=== PATIENT | male | born 1940 | race Caucasian/White ===

== ENCOUNTER 2023-09-04 14:58 | Outpatient (CLI) | payer MEDICARE, SELFPAY ==
[2023-09-04 15:01] VITALS: BMI 25.0
--- NOTE | 2023-09-04 15:05 | PC.NURSE ---
1505-collected labs via venipuncture stick in left ac with butterfly needle;pt d/c home
[2023-09-04 15:15] LABS: Basophils % 0.6 % (0.1-2.0); Eosinophils # 0.3 K/mm3 (0.0-0.4); Eosinophils % 4.8 % (0.1-12.0); Hematocrit 37.4 % (42.0-52.0); Hemoglobin 12.1 g/dL (14.1-18.0); Lymphocytes # 0.8 K/mm3 (0.7-4.5); Lymphocytes % 11.6 % (10-50); Mean Corpuscular HGB Conc 32.5 g/dL (31.8-35.4); Mean Corpuscular Hemoglobin 30.9 pg (27.0-31.2); Mean Corpuscular Volume 95.1 fl (80-94); Mean Platelet Volume 8.5 fl (7.4-10.4); Monocytes # 0.3 K/mm3 (0.1-1.0); Monocytes % 4.5 % (1.7-9.3); Neutrophils # 5.1 K/mm3 (1.8-7.8); Neutrophils % 78.6 % (37.0-80.0); Platelet Count 161 K/mm3 (142-424); Red Blood Count 3.93 M/mm3 (4.60-6.20); Red Cell Distribution Width 15.2 % (11.5-17.5); White Blood Count 6.5 K/mm3 (4.8-10.8)
[2023-09-04 15:20] LABS: Chloride 103 mmol/L (98-107); Potassium 3.9 mmoL/L (3.5-5.1); Sodium 135 mmol/L (136-145)
[2023-09-04 15:23] LABS: Alanine Aminotransferase 36 U/L (12-78); Albumin Level 3.4 g/dl (3.5-5.0); Albumin/Globulin Ratio 1.5 (1.1-1.8); Alkaline Phosphatase 43 U/L (38-126); Anion Gap 5.9 mEq/L (5-15); Aspartate Amino Transferase 35 U/L (17-59); Bilirubin,Total 0.4 mg/dl (0.2-1.3); Blood Urea Nitrogen 26 mg/dl (9-20); Carbon Dioxide 30 mmol/L (22.0-30.0); Creatinine Clearance Estimated 67 mL/min (50-200); Estimated Glomerular Filt Rate 107 ml/min (>60); GFR (African American) 130 ML/MIN (>60); Globulin 2.3 g/dL (1.3-3.2); Total Protein,Serum 5.7 g/dl (6.3-8.2)
[2023-09-04 15:24] LABS: Glucose 87 mg/dl (74-100)
== END 2023-09-04 15:10 | disposition home or self-care (01) ==
LOC: INF 15:01
PROVIDERS: PCP Family Medicine; Visit Provider Internal Medicine Medical Oncology
DX: C67.9 Malignant neoplasm of bladder, unspecified (principal)
CPT/HCPCS: 36415; 80053; 85025

== ENCOUNTER 2023-09-19 10:43 | Outpatient (CLI) | payer MEDICARE, SELFPAY ==
--- NOTE | 2023-09-19 10:53 | CT_ITS ---
FINAL REPORT TECHNIQUE: Axial CT images were performed from the lung apices through the upper abdomen. Coronal and sagittal reformats were submitted. This study was performed with techniques to keep radiation doses as low as reasonably achievable (ALARA). Individualized dose reduction techniques using automated exposure control or adjustment of mA and/or kV according to the patient's size were employed. CLINICAL HISTORY: BLADDER CANCER MAR 2023 COMPARISON: None FINDINGS: Severe coronary artery calcifications are identified. Cardiomegaly is present. There are several thyroid nodules identified, nonspecific. Mild scarring is present. There is no axillary adenopathy. There is no hilar or mediastinal mass or adenopathy. There is no pericardial or pleural effusion. Limited images of the upper abdomen are unremarkable. No suspicious infiltrate or nodule is identified on lung window images. There is a severe T12 compression fracture as well as a moderate T2 compression fracture of uncertain chronicity. There is also a chronic fracture of the manubrium of the sternum. IMPRESSION: Severe coronary artery calcifications and cardiomegaly are present. Several thyroid nodules are present, nonspecific, would consider dedicated thyroid ultrasound for further evaluation as indicated. Severe T12 and moderate T2 compression fractures as well as a chronic manubrial fracture. Reviewed, Interpreted and Dictated by Eliel Reddy III, MD Transcribed by Katelyn Stephens Authenticated and [facility]
--- NOTE | 2023-09-19 10:53 | CT_ITS ---
FINAL REPORT CLINICAL HISTORY: BLADDER CANCER MAR 2023 COMPARISON: None FINDINGS: Axial CT images of the abdomen and pelvis were obtained without intravenous contrast. Coronal and sagittal reformatted images were also obtained.This study was performed with techniques to keep radiation doses as low as reasonably achievable (ALARA). Individualized dose reduction techniques using automated exposure control or adjustment of mA and/or kV according to the patient's size were employed. Abdomen: There is no evidence of renal stone or hydronephrosis. There are several low-attenuation hepatic masses present, measuring up to 2.3 mm in size, nonspecific but favor hepatic cysts. The gallbladder has been surgically resected. The spleen and pancreas have an unremarkable, unenhanced appearance. No mass or adenopathy is seen. No inflammatory process is identified. 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 There is a low-attenuation left adrenal nodule, favor adenoma. Pelvis: Images of the pelvis reveal no evidence of ureteral dilation or ureteral stone.No mass or abnormal fluid collection is identified. There is diffuse bladder wall thickening, nonspecific. A small left inguinal hernia containing fat is present as well. IMPRESSION: Diffuse bladder wall thickening, nonspecific. Several low-attenuation hepatic masses, nonspecific but favor cysts. Diffuse vascular calcifications with chronic focus of dissection in the abdominal aorta. Low-attenuation adrenal nodule, favor adenoma. Reviewed, Interpreted and Dictated by Eliel Reddy III, MD Transcribed by Katelyn Stephens Authenticated and [facility]
== END 2023-09-19 23:59 | disposition home or self-care (01) ==
LOC: RAD 10:45
PROVIDERS: PCP Family Medicine; Visit Provider Internal Medicine Medical Oncology
DX: C67.9 Malignant neoplasm of bladder, unspecified (principal); Z12.89 Encounter for screening for malignant neoplasm of other sites
CPT/HCPCS: 71250; 74176

== ENCOUNTER 2023-10-07 21:14 | Inpatient (IN) | payer MEDICARE, SELFPAY ==
--- NOTE | 2023-10-07 21:21 | PC.NURSE ---
pt arrived to floor via EMS stretcher @21:19
--- NOTE | 2023-10-07 22:15 | EXP.HP ---
History of Present Illness *Admission Date: 10/07/23 *Reason for visit:: dyspnea, leg swelling *History of present illness: Mr. Mckeon is an 82-year-old gentleman with history of COPD, A-fib, bladder cancer, remote history of smoking. Presented to outside hospital due to weakness and fall at home. States that he has had some increased swelling in his legs over the past 1 to 2 months. Has been having some increased dyspnea with exertion. Follows with cardiology in [place], initially was on Eliquis for A-fib which was discontinued due to blood in his stool and he was transition to 81 mg aspirin. Over the past 2 days he has been more weak and short of breath, fell at home because of his arthritis today and his was unable to get him off the floor. EMS came and helped him up and took him to the ER for evaluation. At [facility] he was found to have significant lower extremity edema. Mild elevation of his troponins and concern for volume overload on chest imaging. Kidney function and electrolytes normal. Reported labs include the following: White cell count of 6.6, hemoglobin 12, platelets 104. Kidney function with BUN 29 creatinine 0.9. Initial high-sensitivity troponin of 105, second of 215, third of 335. Chest x-ray was negative for focal consolidation but had pulmonary vascular congestion. Remote history of heart cath 8 to 10 years ago with no intervention at that time. Given his weakness, edema, and elevated troponin, concern for NSTEMI. [facility] salted for transfer and cardiology evaluation. On arrival, patient stable on room air. Able to lay flat in bed. Denies any chest pain. Shortness of breath at baseline for his COPD. No oxygen requirement. History of bladder cancer over the past few years. Recently transitioned care to Dr. Mcelroy and oncology at [facility]. See his note from 09/04/2023 with complete history of bladder cancer, resection, radiation and chemo. Patient appears to be without significant bladder lesions at this time and is not undergoing any further treatment. Just in surveillance at this time. Initially had hematuria with his bladder cancer but has not had hematuria since treatment. Patient received 40 mg IV Lasix at [facility]. EKG obtained on arrival showing atrial fibrillation, rate controlled. Noted to have mild elevation in troponin and BNP greater than thousand. [facility] Disclaimer: The information contained in this section may have been updated after the patient was seen, as this information can be updated by other users. Medical History RLS (restless legs syndrome) Allergies High blood pressure Asthma Bladder cancer COPD (chronic obstructive pulmonary disease) Afib Surgical History History of transurethral resection of bladder tumor (TURBT) History of cystoscopy History of cholecystectomy Family History Father Heart attack Social History Smoking Status: Former smoker how long ago did patient quit smoking: pt states, years ago quit status: quit date established second hand exposure: No alcohol intake: current alcohol intake frequency: 0-2 drinks per day substance use type: denies use current occupational status: retired Travel in the last 8 weeks: None adopted: No caregiver/support person: No foster care: No Review of Systems Review of Systems Review of systems (narrative): 14 point review of systems performed, pertinent positives and negatives as per HPI Meds Home Medications and Allergies Home Medications Medication Instructions Recorded Confirmed Type cholecalciferol (vitamin D3) 25 25 mcg PO DAILY 09/04/23 10/07/23 History mcg (1,000 unit) capsule fluticasone fur. 200 mcg-umeclid 1 inh inhalation DAILY 09/04/23 10/07/23 History 62.5 mcg-vilant 25 mcg inhalat.powder (Trelegy Ellipta) glucosamine-chondroitin 1,500 mg 30 ml PO DAILY 09/04/23 10/07/23 History -1,200 mg/30 mL oral liquid metoprolol succinate 25 mg 25 mg PO DAILY 09/04/23 10/07/23 History tablet,extended release 24 hr montelukast 10 mg tablet 10 mg PO DAILY 09/04/23 10/07/23 History (Singulair) recpfcuszxvu-arnvxuey-sndewq tablet 1 tab PO DAILY 09/04/23 10/07/23 History tamsulosin 0.4 mg capsule 0.4 mg PO DAILY 09/04/23 10/07/23 History aspirin 81 mg chewable tablet 81 mg PO DAILY 10/07/23 10/07/23 History pramipexole 1.5 mg tablet,extended 1.5 mg PO DAILY 10/07/23 10/07/23 History release 24 hr New Prescriptions to Start Prescriptions: Allergies Allergy/AdvReac Type Severity Reaction Status Date / Time prochlorperazine AdvReac Verified 10/07/23 22:47 [From Compazine] Exam Constitutional Constitutional: no acute distress, average body habitus and chronically ill appearing *Routine HEENT Exam Head: Present normocephalic Eye: Present EOMI and PERRL ENT: Present mucous membranes moist *Routine Neck Exam Neck: Present supple; Absent lymphadenopathy *Routine Respiratory Exam Respiratory: Present crackles (In bases) and normal respiratory effort; Absent rhonchi or wheezes *Routine Cardiovascular Exam Cardiovascular: Present irregularly irregular *Routine Abdominal Exam Abdominal: Present soft and normoactive bowel sounds; Absent tenderness *Routine Rectal Exam Rectal:: deferred *Routine Genitalia Exam Genitalia:: deferred *Routine Extremities Exam Extremities: Present edema (3+ edema to his thighs); Absent cyanosis or clubbing *Routine Skin Exam Skin: Present intact and warm; Absent rash *Routine Neurological Exam Neurological: Present alert, oriented X3, CN II-XII intact and moving all extremities; Absent altered mental status Assessment and Plan *Assessment and plan (1) CHF exacerbation: Status: Acute Qualifiers: Heart failure type: unspecified Qualified Code(s): I50.9 - Heart failure, unspecified Category: Medical Code(s): I50.9 - Heart failure, unspecified (2) NSTEMI (non-ST elevated myocardial infarction): Status: Acute Category: Medical Code(s): I21.4 - Non-ST elevation (NSTEMI) myocardial infarction (3) COPD (chronic obstructive pulmonary disease): Status: Chronic Qualifiers: COPD type: unspecified COPD Qualified Code(s): J44.9 - Chronic obstructive pulmonary disease, unspecified Category: Medical Code(s): J44.9 - Chronic obstructive pulmonary disease, unspecified (4) Afib: Status: Acute Qualifiers: Atrial fibrillation type: paroxysmal Qualified Code(s): I48.0 - Paroxysmal atrial fibrillation Category: Medical Code(s): I48.91 - Unspecified atrial fibrillation (5) Bladder cancer: Status: Chronic Qualifiers: Bladder location: unspecified site Qualified Code(s): C67.9 - Malignant neoplasm of bladder, unspecified Category: Medical Code(s): C67.9 - Malignant neoplasm of bladder, unspecified Plan 82-year-old male with history of A-fib, bladder cancer, COPD, pancytopenia who follows with oncology at [facility]. Presented to outside hospital because of weakness and leg swelling. Concern for NSTEMI and CHF exacerbation. Discussed case with ER physician at [facility], request transfer to higher level of care for cardiology consult. Medicine agreed to admit for further management. Received 1 dose of diuretic prior to transfer. Will resume patient's aspirin, initiate Plavix. Caution with anticoagulation and antiplatelet therapy in the setting of recent GI blood loss and history of hematuria with his bladder cancer. Cardiology consult placed. Will evaluate patient in the morning. Monitor on telemetry overnight. Problems addressed as follows: CHF exacerbation, undetermined NSTEMI CAD - Reviewed CAT scan from earlier this month showing coronary calcifications -Echocardiogram pending -Repeat troponin in the morning. Initial troponin 0.4. Patient chest pain-free. -EKG obtained showing A-fib, no ST changes or overt ischemic changes -Initiate Plavix 75 mg daily. -Continue metoprolol 25 mg daily -Consider ACEi/ARB/ARNI pending echo findings COPD: Stable on room air at this time. Goal sats greater 90%. Continue Trelegy 200 inhaler. No wheeze on exam. Will consider DuoNebs if develops respiratory symptoms -Continue Singulair 10 mg daily History of bladder cancer: Follows with Dr. Mcelroy at [facility]. No active treatment at this time, undergoing surveillance. -Imaging shows bladder wall thickening but no lesions in bladder. -Continue tamsulosin 0.4 mg daily Full code Cardiac diet, n.p.o. at midnight Aspirin and Plavix as above, holding anticoagulation in the setting of reported GI blood loss while on Eliquis. PPI
[2023-10-07 23:03] LABS: NT Pro Brain Natriuretic Pep. 1310 pg/mL (0-450)
[2023-10-07 23:09] LABS: Troponin I 0.47 ng/ml (0.00-0.034)
--- NOTE | 2023-10-07 23:43 | ECG_ITS ---
APPROVED REPORT Exam: Resting ECG HR:79 bpm ECG Measurements Heart Rate 79 AXES QRSd 122 QRS -66 QT 407 T 38 QTc 441 Conclusion ATRIAL FIBRILLATION WITH ABERRANT CONDUCTION OR VENTRICULAR PREMATURE COMPLEXES RIGHT BUNDLE BRANCH BLOCK [120+ ms QRS DURATION, UPRIGHT V1, 40+ ms S IN I/aVL/V4/V5/V6] LEFT ANTERIOR FASCICULAR BLOCK [QRS AXIS <= -45, QR IN I, RS IN II] ABNORMAL ECG UNCONFIRMED REPORT Electronically signed by : YESI HERNANDEZ, 10/08/2023 02:52:19
[2023-10-08] VITALS (9 sets, daily range): BP systolic 102–153; BP diastolic 48–93; PULSE 40–96; RESP 16–18; TEMP 36.5–37.2; O2SAT 93–97; BMI 26.0
--- NOTE | 2023-10-08 05:40 | PC.NURSE ---
pt admitted for chf ex, voiding well, trop 0.47, dr andrews made aware. pt has also had pauses noted on ekg with hr dipping into the 30's. provider made aware, no new orders received. pt asymptomatic. pt npo after mn, awaiting cards consult in am
[2023-10-08 06:33] LABS: Basophils # 0.1 K/mm3 (0-0.2); Basophils % 0.8 % (0.1-2.0); Eosinophils # 0.3 K/mm3 (0.0-0.4); Eosinophils % 4.2 % (0.1-12.0); Hematocrit 41.1 % (42.0-52.0); Hemoglobin 13.7 g/dL (14.1-18.0); Lymphocytes # 0.9 K/mm3 (0.7-4.5); Lymphocytes % 13.7 % (10-50); Mean Corpuscular HGB Conc 33.4 g/dL (31.8-35.4); Mean Corpuscular Hemoglobin 31.3 pg (27.0-31.2); Mean Corpuscular Volume 93.7 fl (80-94); Mean Platelet Volume 8.5 fl (7.4-10.4); Monocytes # 0.5 K/mm3 (0.1-1.0); Monocytes % 6.8 % (1.7-9.3); Neutrophils % 74.5 % (37.0-80.0); Platelet Count 122 K/mm3 (142-424); Red Blood Count 4.39 M/mm3 (4.60-6.20); Red Cell Distribution Width 15.7 % (11.5-17.5); White Blood Count 6.7 K/mm3 (4.8-10.8)
[2023-10-08 06:38] LABS: Alanine Aminotransferase 27 U/L (12-78); Albumin Level 3.6 g/dl (3.5-5.0); Albumin/Globulin Ratio 1.6 (1.1-1.8); Alkaline Phosphatase 39 U/L (38-126); Anion Gap 7.2 mEq/L (5-15); Aspartate Amino Transferase 40 U/L (17-59); Bilirubin,Total 0.5 mg/dl (0.2-1.3); Blood Urea Nitrogen 21 mg/dl (9-20); Calcium 8.9 mg/dl (8.4-10.2); Carbon Dioxide 32 mmol/L (22.0-30.0); Chloride 101 mmol/L (98-107); Creatinine Clearance Estimated 65 mL/min (50-200); Estimated Glomerular Filt Rate 128 ml/min (>60); GFR (African American) 155 ML/MIN (>60); Globulin 2.3 g/dL (1.3-3.2); Glucose 102 mg/dl (74-100); Magnesium 1.5 mg/dl (1.6-2.3); Potassium 3.2 mmoL/L (3.5-5.1); Sodium 137 mmol/L (136-145); Total Protein,Serum 5.9 g/dl (6.3-8.2)
[2023-10-08 06:57] LABS: Cholesterol 187 mg/dl (140-200); Triglycerides 53 mg/dl (30-150); VLDL Cholesterol 11 mg/dL (0-40)
[2023-10-08 07:08] LABS: Direct LDL Cholesterol 82.02 mg/dL (100-129)
[2023-10-08 07:13] LABS: Troponin I 0.42 ng/ml (0.00-0.034)
[2023-10-08] MEDS: FLUTICASONE/UMECLIDIN/VILANTER 200/62.5/25MCG INHALER 1 PUFF IH (08:19)
[2023-10-08] MEDS: BUMETANIDE 1MG/4ML VIAL 1 MG IV (08:38)
[2023-10-08] MEDS: MAGNESIUM SULFATE IN WATER 2 GM/50 ML PIGGYBACK IV (08:38)
[2023-10-08] MEDS: ASPIRIN 81MG CHEWABLE TABLET 81 MG PO (08:38)
[2023-10-08] MEDS: CLOPIDOGREL 75MG TAB 75 MG PO (08:38)
[2023-10-08] MEDS: METOPROLOL SUCCINATE XL 25MG TABLET 25 MG PO (08:38)
[2023-10-08 08:39] LABS: HDL Cholesterol 100 mg/dl (40-60)
[2023-10-08 08:40] LABS: Chol/HDL Ratio 1.9 (1-3.5)
--- NOTE | 2023-10-08 11:57 | CT_ITS ---
FINAL REPORT TECHNIQUE: The patient was injected with IV contrast. Axial images were obtained through the chest in a PE protocol. 3-D reconstruction images were also performed. Individualized dose reduction techniques using automated exposure control or adjustment of the MA and/or KV according to patient's size were employed. CLINICAL HISTORY: aaa disection COMPARISON: CT of the chest 09/19/2023 FINDINGS: Mediastinal vasculature is adequately opacified. No pulmonary artery filling defects are identified to suggest PE. There is no aortic dissection. There is no axillary adenopathy. There is no hilar or mediastinal adenopathy. The heart size is normal. Dense coronary artery calcifications are once again noted. Scar versus atelectasis is present in the lung bases. There is no pericardial or pleural effusion. Limited images of the upper abdomen are remarkable for a low-attenuation focus in the left lobe of the liver measuring 2.5 cm in diameter, unchanged since the prior exam of September 18, likely a hepatic cyst.. No suspicious infiltrate or nodule is identified. IMPRESSION: No pulmonary embolus or dissection. Reviewed, Interpreted and Dictated by Jareth Gallo MD Transcribed by Katelyn Stephens Authenticated and [facility]
[2023-10-08] MEDS: IOPAMIDOL-370 (76%);100ML BOTTLE 100 ML IV (12:26)
[2023-10-08] MEDS: 0.9 % SODIUM CHLORIDE 50 ML VIAL IV (12:26)
--- NOTE | 2023-10-08 14:35 | EXP.CARD.CON ---
History of Present Illness History of Present Illness Consult date: 10/08/23 Requesting physician: Nahid Jones Chief complaint: Weakness History of present illness: Mr. Mckeon is an 82-year-old white gentleman who presented to the emergency department with complaints of shortness of breath and lower extremity edema. He has a past medical history of COPD, A-fib, bladder cancer in remission. The patient states that he had sudden onset of weakness yesterday. He reports that he has had issues with balance since he started his treatment for bladder cancer in 2021. He states since that time he has had to use a walker but yesterday he was so weak that he was unable to ambulate. He had to lower himself to the ground and his had to call EMS to help get him up. He states that he then tried to go sit in his chair but was unable to move again and had to call EMS the second time. He decided to come to the emergency department due to his significant weakness. His reports that he has had lower extremity edema for approximately a year. She states that he was given Lasix overnight and his edema has improved significantly. He does report also having shortness of breath with exertion. This has been going on for the last several weeks as well. He states that this is not constant but occurs intermittently. He denies any chest pain or pressure. He denies any fever, chills, nausea, vomiting, diarrhea, PND or orthopnea. [facility] Disclaimer: The information contained in this section may have been updated after the patient was seen, as this information can be updated by other users. Medical History (Updated 10/08/23 @ 14:52 by Kathie David APRN) (HFpEF) heart failure with preserved ejection fraction Aortic dissection, abdominal Multifocal atrial tachycardia Hyperlipidemia Coronary artery calcification Atypical angina RLS (restless legs syndrome) Allergies High blood pressure Asthma Bladder cancer COPD (chronic obstructive pulmonary disease) Afib Surgical History History of transurethral resection of bladder tumor (TURBT) History of cystoscopy History of cholecystectomy Family History Father Heart attack Social History Smoking Status: Former smoker how long ago did patient quit smoking: pt states, years ago quit status: quit date established second hand exposure: No alcohol intake: current alcohol intake frequency: 0-2 drinks per day substance use type: denies use current occupational status: retired Travel in the last 8 weeks: None adopted: No caregiver/support person: No foster care: No Review of Systems Review of Systems Review of systems:: pertinent systems reviewed and negative unless documented below Constitutional Constitutional: Reports system reviewed and no additional complaints, except as documented, Reports lethargy and Reports weakness Eyes Eyes: Reports system reviewed and no additional complaints, except as documented ENT Ears, Nose, Mouth, and Throat: Reports system reviewed and no additional complaints, except as documented *Cardiovascular Cardiovascular: Reports system reviewed and no additional complaints, except as documented, Denies chest pain, Reports dyspnea on exertion, Reports leg edema and Reports pedal edema *Respiratory Respiratory: Reports system reviewed and no additional complaints, except as documented and Reports dyspnea on exertion *Gastrointestinal Gastrointestinal: Reports system reviewed and no additional complaints, except as documented *Genitourinary Genitourinary: Reports system reviewed and no additional complaints, except as documented *Musculoskeletal Musculoskeletal: Reports system reviewed and no additional complaints, except as documented Integumentary/Breasts Skin/Breast: Reports system reviewed and no additional complaints, except as documented *Neurologic Neurologic: Reports system reviewed and no additional complaints, except as documented and Reports weakness Psychiatric Psychiatric: Reports system reviewed and no additional complaints, except as documented Endocrine Endocrine: Reports system reviewed and no additional complaints, except as documented Hematologic/Lymphatic Hematologic/Lymphatic: Reports system reviewed and no additional complaints, except as documented Allergic/Immunologic Allergic/Immunologic: Reports system reviewed and no additional complaints, except as documented Exam Data for Last 24 hours Vital signs and Labs for Last 24 Hours: Temp Pulse Resp BP Pulse Ox O2 Del Method 97.9 F 96 H 16 148/66 H 93 L Room Air 10/08/23 12:00 10/08/23 12:00 10/08/23 12:00 10/08/23 12:00 10/08/23 12:00 10/08/23 12:45 Laboratory Results - last 24 hr 10/07/23 22:18: Troponin I 0.47 H, NT-Pro-B Natriuret Pep 1310 H 10/08/23 05:30: WBC 6.7, RBC 4.39 L, Hgb 13.7 L, Hct 41.1 L, MCV 93.7, MCH 31.3 H, MCHC 33.4, RDW 15.7, Plt Count 122 L, MPV 8.5, Neut % (Auto) 74.5, Lymph % (Auto) 13.7, Dundy % (Auto) 6.8, Eos % (Auto) 4.2, Baso % (Auto) 0.8, Neut # (Auto) 5.0, Lymph # (Auto) 0.9, Dundy # (Auto) 0.5, Eos # (Auto) 0.3, Baso # (Auto) 0.1, Sodium 137, Potassium 3.2 L, Chloride 101, Carbon Dioxide 32 H, Anion Gap 7.2, BUN 21 H, Creatinine 0.60 L, Estimated Creat Clear 65, Estimated GFR 128, Est GFR ( Amer) 155, Glucose 102 H, Calcium 8.9, Magnesium 1.5 L, Total Bilirubin 0.5, AST 40, ALT 27, Alkaline Phosphatase 39, Troponin I 0.42 H, Total Protein 5.9 L, Albumin 3.6, Globulin 2.3, Albumin/Globulin Ratio 1.6, Triglycerides 53, Cholesterol 187, LDL Cholesterol Direct 82.02 L, VLDL Cholesterol 11, HDL Cholesterol 100 H, Cholesterol/HDL Ratio 1.9 I & O for Last 24 hours: Intake & Output 10/05/23 10/06/23 10/07/23 10/08/23 23:59 23:59 23:59 23:59 Output Total 700 / 700 2150 / 2150 Balance -700 / -700 -2150 / -2150 Weight 185 lb 8 oz Narrative: EKG appears to be multifocal atrial tachycardia. Constitutional Constitutional: no acute distress and average body habitus *Routine HEENT Exam Head: Present normocephalic and atraumatic ENT: Present mucous membranes moist *Routine Neck Exam Neck: Present supple, full ROM and normal carotid upstroke; Absent JVD, carotid bruit or lymphadenopathy *Routine Respiratory Exam Respiratory: Present CTA bilaterally, normal respiratory effort, able to speak in complete sentences and symmetric chest movement *Routine Cardiovascular Exam Cardiovascular: Present RRR, Normal S1 and Normal S2; Absent murmur or gallop *Routine Abdominal Exam Abdominal: Present soft and normoactive bowel sounds; Absent tenderness, distended or organomegaly *Routine Extremities Exam Extremities: Present edema (1-2+ bilateral lower extremity edema), full ROM, pulses intact and normal capillary refill; Absent cyanosis or clubbing *Routine Skin Exam Skin: Present intact and warm; Absent erythema *Routine Neurological Exam Neurological: Present alert, oriented X3 and CN II-XII intact; Absent sensory deficit or motor deficit Routine Psychiatric Exam Psychiatric: Present normal affect Meds Home Medications and Allergies Home Medications Medication Instructions Recorded Confirmed Type cholecalciferol (vitamin D3) 25 25 mcg PO DAILY 09/04/23 10/07/23 History mcg (1,000 unit) capsule fluticasone fur. 200 mcg-umeclid 1 inh inhalation DAILY 09/04/23 10/07/23 History 62.5 mcg-vilant 25 mcg inhalat.powder (Trelegy Ellipta) glucosamine-chondroitin 1,500 mg 30 ml PO DAILY 09/04/23 10/07/23 History -1,200 mg/30 mL oral liquid metoprolol succinate 25 mg 25 mg PO DAILY 09/04/23 10/07/23 History tablet,extended release 24 hr montelukast 10 mg tablet 10 mg PO HS 09/04/23 10/08/23 History (Singulair) waupdlmwfxpe-gjhkefes-isbich tablet 1 tab PO DAILY 09/04/23 10/07/23 History tamsulosin 0.4 mg capsule 0.4 mg PO HS 09/04/23 10/08/23 History aspirin 81 mg chewable tablet 81 mg PO DAILY 10/07/23 10/07/23 History pramipexole 1.5 mg tablet,extended 1.5 mg PO DAILY Restless Leg(S) 10/07/23 10/08/23 History release 24 hr furosemide 20 mg tablet 20 mg PO DAILY 10/08/23 10/08/23 History New Prescriptions to Start Prescriptions: Allergies Allergy/AdvReac Type Severity Reaction Status Date / Time prochlorperazine AdvReac Verified 10/07/23 22:47 [From Compazine] Assessment and Plan *Assessment and plan (1) NSTEMI (non-ST elevated myocardial infarction): Status: Acute Category: Medical Code(s): I21.4 - Non-ST elevation (NSTEMI) myocardial infarction (2) Atypical angina: Status: Acute Category: Medical Code(s): I20.89 - Other forms of angina pectoris (3) Coronary artery calcification: Status: Acute Category: Medical Code(s): I25.10 - Atherosclerotic heart disease of [place] coronary artery without angina pectoris; I25.84 - Coronary atherosclerosis due to calcified coronary lesion (4) Afib: Status: Acute Qualifiers: Atrial fibrillation type: paroxysmal Qualified Code(s): I48.0 - Paroxysmal atrial fibrillation Category: Medical Code(s): I48.91 - Unspecified atrial fibrillation (5) COPD (chronic obstructive pulmonary disease): Status: Chronic Qualifiers: COPD type: unspecified COPD Qualified Code(s): J44.9 - Chronic obstructive pulmonary disease, unspecified Category: Medical Code(s): J44.9 - Chronic obstructive pulmonary disease, unspecified (6) Bladder cancer: Status: Chronic Qualifiers: Bladder location: unspecified site Qualified Code(s): C67.9 - Malignant neoplasm of bladder, unspecified Category: Medical Code(s): C67.9 - Malignant neoplasm of bladder, unspecified (7) High blood pressure: Status: Acute Qualifiers: Hypertension type: primary hypertension Qualified Code(s): I10 - Essential (primary) hypertension Category: Medical Code(s): I10 - Essential (primary) hypertension (8) Hyperlipidemia: Status: Acute Qualifiers: Hyperlipidemia type: mixed hyperlipidemia Qualified Code(s): E78.2 - Mixed hyperlipidemia Category: Medical Code(s): E78.5 - Hyperlipidemia, unspecified (9) Multifocal atrial tachycardia: Status: Acute Category: Medical Code(s): I47.19 - Other supraventricular tachycardia (10) Aortic dissection, abdominal: Status: Acute Category: Medical Code(s): I71.02 - Dissection of abdominal aorta (11) (HFpEF) heart failure with preserved ejection fraction: Status: Acute Qualifiers: Heart failure chronicity: acute Qualified Code(s): I50.31 - Acute diastolic (congestive) heart failure Category: Medical Code(s): I50.30 - Unspecified diastolic (congestive) heart failure Plan Plan: 1. The patient was admitted to the hospital from [facility] due to an elevated high-sensitivity troponin. Here the patient's troponin also elevated at 0.47 and 0.42 consistent with a non-STEMI. The patient had a previous CT chest which showed severe coronary calcification. The patient will need to undergo a left cardiac catheterization to evaluate his coronary arteries due to his atypical angina and non-STEMI. 2. The patient has been educated the risk and benefits of proceeding with left cardiac catheterization. The patient verbalized understanding and is agreeable in proceeding with the procedures. 3. However, prior to proceeding with the left cardiac catheterization we will do a CTA of the chest. CT of his abdomen showed vascular calcifications with chronic dissection of the abdominal aorta and his echocardiogram showed a dilated aortic root. We do want to be sure that his thoracic aorta is not dissected as well before proceeding with left heart cath and having to give the patient blood thinners. 4. His left heart cath will likely have to be postponed until tomorrow since we are proceeding with the CTA of the chest today. 5. The patient will be n.p.o. after midnight for left cardiac catheterization tomorrow. 6. His blood pressure is acceptable. Continue metoprolol. 7. His LDL goal is less than 55. Will get a lipid panel in the morning. Will start him on Lipitor 40 mg p.o. nightly for his coronary artery calcifications and non-STEMI. 8. Continue Plavix and aspirin. 9. Echocardiogram shows a normal ejection fraction with mild MR, mild to moderate AI and dilated aortic root. 10. Continue with IV diuretics for his HFpEF. 11. Consider starting Jardiance once he is euvolemic for HFpEF. 12. The patient does have what appears to be multifocal atrial tachycardia. He has been started on metoprolol. 13. Further recommendations were made pending the patient's response to treatment and the results of his left cardiac catheterization tomorrow. Thank you for the opportunity to participate in the care of this patient. All recommendations and orders are per Dr. King.
[2023-10-08] MEDS: PRAMIPEXOLE 1MG TAB 1.5 MG PO ×2 (14:52→21:10)
--- OUTSIDE RECORDS SUMMARY | 2023-10-08 15:21 | XMS_ITS ---
Author Name Unknown Address [address] [address] Phone Organization [facility] Address [address] [address] Phone Care Team Providers Care Cushion Assembler Name Role Phone HOLDEN JORGE MD Unavailable [phone] Eliel Campos MD Unavailable [phone] Problems Includes: Active, inactive, and resolved Problems All Visits Onset Date Resolved Date Provider Condition S tatus Joint Pain in the Right Knee 08/22/2023 Eliel Campos MD Active Last Documented On 4 10:46AM ; [facility] Joint Pain in Both Knees 09/28/2022 Eliel shah MD Inactive Last Documented On 4 11:03AM ; [facility] Joint Pain, Localized in the Hip 01/12/2014 Jennifer Campos MD Inactive Last Documented On 4 11:03AM ; [facility] Plan of Treatment Future Appointments Date Time Location Provi daniella INJECTION 11/07/2023 1:00PM [facility] Eliel Campos MD Last Documented On 4 12:00PM ; [facility] Instructions to patient Lose weight Last Documented On 4 10:47AM ; [facility] Lose weight Last Documented On 4 10:48AM ; [facility] Lose weight Last Documented On 3 9:53AM ; [facility] Lose weight Last Documented On 3 12:47PM ; [facility] Lose weight Last Documented On 3 12:57PM ; [facility] Lose weight Last Documented On 3 9:44AM ; [facility] Assessments Includes: Assessments for all patient encounters Findings Encounter Date Overweight Follow Up with Eliel Campos MD 10/03/2023 Last Documented On 4 12:57PM ; [facility] Overweight Follow Up with Eliel Campos MD 08/22/2023 Last Documented On 4 11:07AM ; [facility] Overweight [place] Injection with Eliel Campos MD 03/07/2023 Last Documented On 3 10:10AM ; [facility] Overweight Follow Up with Eliel Campos MD 02/28/2023 Last Documented On 3 2:01PM ; [facility] Overweight Follow Up with Eliel Campos MD 12/27/2022 Last Documented On 3 1:43PM ; [facility] Overweight Physician Specified with John Mccullough MD 12/26/2022 Last Documented On 3 1:22PM ; [facility] Instructions Includes: Instructions for all patient encounters Instructions to patient Lose weight Last Documented On 4 10:47AM ; [facility] Lose weight Last Documented On 4 10:48AM ; [facility] Lose weight Last Documented On 3 9:53AM ; [facility] Lose weight Last Documented On 3 12:47PM ; [facility] Lose weight Last Documented On 3 12:57PM ; [facility] Lose weight Last Documented On 3 9:44AM ; [facility] Medical Equipment - Implanted Devices Includes: Current and historical Devices No Medical Equipment Recorded Medications Includes: Current and historical Medications Current Medications (continue as prescribed) Trelegy Ellipta 200-62.5-25 MCG/ACT Inhalation Aerosol Powder Breath Activated 07/23/2023 Provider: Diagnosis: Last Documented On 4 10:47AM By Aixa Raya ; [facility] Metoprolol Succinate ER 25 M G Oral Tablet Extended Release 24 Hour 06/05/2023 Provider: HOLDEN MENON MD Diagnosis: Last Documented On 4 10:47AM By Aixagenesis Montoya ; [facility] Eliquis 2.5 MG Oral Tablet 05/31/2023 Provider: Moreno JORGE MD Diagnosis: Last Documented On 4 10:47AM By Aixagenesis Montoya ; [facility] Montelukast Sodium 10 MG Oral Tablet 05/31/2023 Prov ider: HOLDEN JORGE MD Diagnosis: Last Documented On 4 10:47AM By Aixa Raya ; [facility] Tamsulosin HCl 0.4 MG Oral Capsule 05/31/2023 Provid er: HOLDEN JORGE MD Diagnosis: Last Documented On 4 10:47AM By Aixa Raya ; [facility] Past Medications on file Amoxicillin-Pot Clavulanate 875-125 MG Oral Tablet 08/06/2023 - 08/22/2023 Provider: Diagnosis: Last Documented On 4 10:47AM By Aixa Raya ; [facility] Sodium Fluoride 5000 Sensitive 1.1-5% Dental Gel 05/14/2023 - 08/22/2023 Provider: Diagnosis: Last Documented On 4 10:47AM By Aixagenesis Raya ; [facility] Naproxen 500 MG Oral Tablet 09/28/2022 - 01/26/2023 Pr ovider: Eliel Campos MD Diagnosis: Take one tab PO BID PRN Last Documented On 3 9:37AM By Taylor Sultana ; [facility] Metoprolol Succinate ER 25 M G Oral Tablet Extended Release 24 Hour 09/22/2022 - 08/22/2023 Provider: HOLDEN Pineda MD Diagnosis: Last Documented On 4 10:47AM By Aixa Raya ; [facility] Albuterol Sulfate HFA 108 (9 0 Base) MCG/ACT Inhalation Aerosol Solution 09/08/2022 - 08/22/2023 Provider: HOLDEN Pineda MD Diagnosis: Last Documented On 4 10:47AM By Aixa Raya ; [facility] methylPREDNISolone 4 MG Oral Tablet Therapy Pack 09/07/2022 - 08/22/2023 Provider: HOLDEN Pnieda MD Diagnosis: Last Documented On 4 10:47AM By Aixa Raya ; [facility] Trelegy Ellipta 200-62.5-25 MCG/ACT Inhalation Aerosol Powder Breath Activated 09/06/2022 - 08/22/2023 Provider: Diagnosis: Last Documented On 4 10:47AM By Aixa Raya ; [facility] Tamsulosin HCl 0.4 MG Oral Capsule 08/28/2022 - 08/22/2023 Provider: HOLDEN Pineda MD Diagnosis: Last Documented On 4 10:47AM By Aixa Raya ; [facility] Montelukast Sodium 10 MG Ora l Tablet 08/28/2022 - 08/22/2023 Provider: HOLDEN Pineda MD Diagnosis: Last Documented On 4 10:47AM By Aixa Raya ; [facility] Eliquis 2.5 MG Oral Tablet 08/19/2022 - 08/22/2023 Pro vider: MILLICENT DOWNIGN MD Diagnosis: Last Documented On 4 10:47AM By Aixa Raya ; [facility] Prevacid 15 MG OR CPDR 01/12/2014 - 09/28/2022 Provide r: Diagnosis: Last Documented On 3 9:07AM By Favio Sin ; [facility] Glucosamine 1500 MG OR TABS 01/12/2014 - 3 Provider: Diagnosis: Last Documented On 3 9:06AM By Favio Sin ; [facility] Mucinex D 60-600 MG OR TB12 01/12/2014 - 09/28/2022 Pr ovider: Diagnosis: Last Documented On 3 9:07AM By Favio Sin ; [facility] Claritin 10 MG OR TABS 01/12/2014 - 09/28/2022 Provide r: Diagnosis: Last Documented On 3 9:06AM By Favio Sin ; [facility] Aspirin 81 MG OR TABS 01/12/2014 - 09/28/2022 Provider : Diagnosis: Last Documented On 3 9:06AM By Favio Sin ; [facility] Vitamin D 1000 UNIT OR CAPS 01/12/2014 - 09/28/2022 Pr ovider: Diagnosis: Last Documented On 3 9:07AM By Favio Sin ; [facility] Simvastatin 40 MG OR TABS 01/12/2014 - 09/28/2022 Prov ider: Diagnosis: Last Documented On 3 9:07AM By Favio Sin ; [facility] Multivitamins OR CAPS 01/12/2014 - 09/28/2022 Provider : Diagnosis: Last Documented On 3 9:07AM By Favio Sin ; [facility] Triamterene-HCTZ 37.5-25 MG OR CAPS 01/12/2014 - 09/28 Provider: Diagnosis: Last Documented On 3 9:07AM By Favio Sin ; [facility] Metoprolol Tartrate 25 MG OR TABS 01/12/2014 - 023 Provider: Diagnosis: Last Documented On 3 9:06AM By Favio Sin ; [facility] Medications Administered Includes: Administered Medications in patient's chart No Administered Medications Recorded Vital Signs Includes: Vital Signs from 10/07/2022 through 10/08/2023 Vital Name 12/27/2022 01:05P 12/26/2022 09: 49A Height (in) 69 69 Weight (lb) 185 185 Body Mass Index 27.3 27.3 Body Surface Area 2 2 Note: bb Last Documented: On 12/27/2022 1:05PM ; [facility] On 12/26/2022 9:50AM ; [facility] Results Includes: Results from 10/07/2022 through 10/08/2023 No Results Recorded For Specified Dates History of Present Illness History of Present Illness not supported for this document type No History of Present Illness Recorded Social History Description Last Updated Tobacco non-user 09/28/2022 Last Documented On 3 12:42PM ; [facility] No caffeine use 09/28/2022 Last Documented On 3 12:42PM ; [facility] No recent change in diet 09/28/2022 Last Documented On 3 12:42PM ; [facility] Not a current smoker. 09/28/2022 Last Documented On 3 12:42PM ; [facility] Not exercising regularly 09/28/2022 Last Documented On 3 12:42PM ; [facility] Not using alcohol 09/28/2022 Last Documented On 3 12:42PM ; [facility] Not using drugs 09/28/2022 Last Documented On 3 12:42PM ; [facility] No tobacco use 01/12/2014 Last Documented On 4 10:09AM ; [facility] Smoking status : Never smoker 01/12/2014 Last Documented On 4 10:09AM ; [facility], [facility] Procedures and Surgical History Includes: Procedures from 10/07/2022 through 10/08/2023 Procedures Code Diagnosis Performing Provider Service Location Service Date X-RAY EXAM OF KNEE 3 VIEWS (RIGHT) 11296 Bilateral primary osteoarthritis of knee Eliel Campos MD [facility] 10/03/2023 Last Documented On 4 12:59PM ; [facility], [facility] Inj, Methylprednisolone acetate, 1 mg J1010 Bilateral primary osteoarthritis of knee Eliel Campos MD [facility] 08/22/2023 Last Documented On 4 12:25PM ; [facility], [facility] DRAIN/INJECT, JOINT/BURSA (RIGHT) 86370 Bilateral primary osteoarthritis of knee Eliel Felipeuse [facility] 08/22/2023 Last Documented On 4 12:25PM ; [facility], [facility] Monovisc (RIGHT) J7327 Bilateral primary osteoarthritis of knee Eliel Campos MD [facility] 03/07/2023 Last Documented On 3 1:43PM ; [facility] DRAIN/INJECT, JOINT/BURSA (RIGHT) 24326 Bilateral primary osteoarthritis of knee Eliel Campos MD [facility] 03/07/2023 Last Documented On 3 1:43PM ; [facility] Depomedrol 80 mg [id number] Unilateral prim shun osteoarthritis, right knee Eliel Campos MD [facility] 12/27/2022 Last Documented On 3 6:59PM ; [facility] DRAIN/INJECT, JOINT/BURSA (RIGHT) Unilateral primary osteoarthritis, right knee Eliel Campos MD [facility] 12/27/2022 Last Documented On 3 6:59PM ; [facility] X-RAY EXAM OF FINGER(S) 2-3 VIEWS (RIGHT) [id number] Unil primary osteoarth of first carpometacarp joint, r hand John Mccullough MD [facility] 12/26/2022 Last Documented On 3 3:03PM ; [facility] Medical History Includes: Medical History in patient's chart No Medical History Recorded Family History Includes: Family History in patient's chart Description Last Updated Family history of heart disease 12/28/19 23 Last Documented On 3 1:43PM ; [facility] Stroke / Seizures 12/27/2022 Last Documented On 3 1:43PM ; [facility] Maternal grandfather's history of Stroke / Seizures 12/27/2022 Last Documented On 3 1:43PM ; [facility] Maternal history of Stroke / Seizures Last Documented On 3 1:43PM ; [facility] Paternal history of family history of he art disease 12/27/2022 Last Documented On 3 1:43PM ; [facility] No significant family history 12/26/2022 Last Documented On 3 1:22PM ; [facility] Review of Systems Review of Systems not supported for this document type No Review of Systems Recorded Mental Status Description No anxiety Functional Status No Functional Status Recorded Physical Exam Physical Exam not supported for this document type No Physical Exam Recorded Allergies Includes: Active, inactive, and resolved Allergies No Known Allergies Encounters Includes: Encounters from 10/07/2022 through 10/08/2023 Encounter Provider Location Date Check-In Time Check-Out Time Diagnosis Follow Up Eliel Campos MD [facility] 10/03/19 24 10:43AM 11:57AM Overweight Follow Up Eliel Campos MD [facility] 08/22/19 24 10:43AM 11:23AM Overweight [place] Injection Eliel Campos MD [facility] 03/07/20 9:48AM 10:12AM Overweight Follow Up Eliel Campos MD [facility] 02/29/20 12:36PM 1:23PM Overweight Follow Up Eliel Campos MD [facility] 12/28/19 12:48PM 1:40PM Overweight Physician Specified John Mccullough MD [facility] 12/27/19 9:40AM 11:12AM Overweight Insurance Includes: Active Insurance Policies Plan Name Member ID Group # Subscriber Relationship Effect sofia Dates 1 - Medicare Part B [facility] [id number] Wolf Mckeon Self 05/13/2022 - Unknown 2 - [facility] [employer] [id number] Wolf Mckeon Self 11/11/2003 - Unknown Clinical Notes Includes: Signed Clinical Notes starting from 04/26/2022 * Progress note Date Encounter Last Documented by 10/03/2023 Follow Up Last documented on 10/03/2023; 12:57 PM, Eliel Campos MD; [facility] Active Problems & Conditions - Joint Pain in the Right Knee Chief Complaint The Chief Complaint is: Right knee pain. Referred Here Referred by. History of Present Illness Wolf Mckeon is an 82 year old male. - Symptoms aleve makes the pain better, steps makes the pain worse. - Allergy list reviewed - Problem list reviewed - Medication list reviewed - Previous history of chronic pain - Gradual onset - Pain is constant (100% of the time) grinding and popping - Patient pain level from 1-10: 1 - Yes, previous treatment. - History of Injections Medications used for this condition: Current Medication - Eliquis 2.5 MG Oral Tablet 90 days, 0 refills - Metoprolol Succinate ER 25 MG Oral Tablet Extended Release 24 Hour 90 days, 0 refills - Montelukast Sodium 10 MG Oral Tablet 90 days, 0 refills - Tamsulosin HCl 0.4 MG Oral Capsule 90 days, 0 refills - Trelegy Ellipta 200-62.5-25 MCG/ACT Inhalation Aerosol Powder Breath Activated 90 days, 0 refills Social History Not a current smoker. Current diet: No recent change in diet. Caffeine use: No caffeine use. Tobacco use: No tobacco use. Tobacco non-user. Smoking status: Never smoker. Alcohol: Not using alcohol. Drug Use: Not using drugs. Habits: Not exercising regularly. Allergies - No Known Allergies Family History Heart disease No significant family history Stroke / Seizures Paternal: Heart disease Maternal: Stroke / Seizures Maternal grandfather's: Stroke / Seizures Review Of Systems Systemic: Not feeling tired, no recent weight loss, and no recent weight gain. Head: No headache and no sinus pain. Eyes: No vision problems. Cataracts and Glasses/Contacts. No Glaucoma. Otolaryngeal: Hearing loss. No tinnitus. Cardiovascular: No chest pain or discomfort, no palpitations, no Hypertension, and no High Cholesterol. Pulmonary: Daytime asthma symptoms. No chronic cough. Wheezing. Gastrointestinal: No heartburn and no abdominal pain. No Indigestion, no Peptic Ulcer, no GI Stomach Bleed, no Ulcers, and no Acid Reflux. Endocrine: No hot flashes, no muscle weakness, no Diabetes, no Hypothyroid, and no Hyperthyroid. Hematologic: No easy bleeding. A tendency for easy bruising. No Anemia. Musculoskeletal: Arthritis. No lower back pain. No soft tissue swelling and no localized joint pain. Neurological: No dizziness, no convulsions, and no numbness. Psychological: No anxiety, no emotional lability, no depression, and no insomnia. Not crying for no reason. Skin: No dry skin. No Ulcers, no Scars, and no rash. Allergic and Immunologic: No complaint of seasonal allergic reaction. Previous Tests Imaging: Intravascular Ultrasound (Coronary Vessel/Graft): An X-ray was performed. Counseling/Education - Lose weight Assessment - Overweight Plan Fall Risk Assessment: This patient has been identified as a fall risk. Balance/gait along with postural blood pressure, vision and home fall hazards have been assessed. Medications have been reviewed, and recommendations made with regard to contributing factors for future falls. Plan of care: Consideration of vitamin D supplementation along with balance and strength training with consideration for formal physical therapy has been discussed with the patient. Notes This dictation was done with voice recognition software and may contain errors and omissions. 82-year-old male seen for bilateral knee pain Patient has a history of bilateral knee pain for several years duration. His right worse hurts worse than his left. He has significant swelling is in his entire right lower extremity. He wears a sleeve on the right and uses Voltaren gel And takes Tylenol arthritis twice daily which seems to help ease his symptoms slightly. Patient received a Depo 80 depo injection on 08/22/2023 which provided a couple weeks of relief. He also received Monovisc right knee injection in February which provided moderate improvement. His right knee pain has returned. Patient's pain is worse with weightbearing and activity, including walking and stairs and improves slightly with rest. Swelling is worse at the end of the day. Physical examination of bilateral lower extremities shows bilateral diffuse dependent edema in both legs, right worse than left. There are small blisters on the right clement but no obvious concern for infection today.. He has crepitus on range of motion of both knees. Range of motion is 5-1 20 bilaterally and extension strength is 5 out of 5 bilaterally. No gross malalignment or instabilities of the knees are noted. Effusion is noted about the right knee. X-rays on 09/07/2022 at outside facility show severe medial compartment arthritis of both knees, left greater than right with patellofemoral involvement right greater than left and mild lateral involvement bilaterally. Assessment/plan: Bilateral knee severe DJD, chronic, exacerbated/worsening- physical exam findings and radiographic findings were discussed with the patient along with treatment options and patient will continue Voltaren gel. Recommendation was made today for vascular workup of his diffuse right lower extremity swelling Practice Management Use of tobacco assessment performed and patient screened for future fall risk documentation of any fall with injury in past year Review of medications documented. Care Team - HOLDEN JORGE MD - Cash Application Clerk * Progress note Date Encounter Last Documented by 08/22/2023 Follow Up Last documented on 08/22/2023; 11:07 AM, Eliel Campos MD; [facility] Active Problems & Conditions - Joint Pain in the Right Knee Chief Complaint The Chief Complaint is: Right knee pain. Referred Here Referred by. History of Present Illness Wolf Mckeon is an 82 year old male. - Symptoms aleve makes the pain better, steps makes the pain worse. - Allergy list reviewed - Problem list reviewed - Medication list reviewed - Previous history of chronic pain - Gradual onset - Pain is constant (100% of the time) grinding and popping - Patient pain level from 1-10: 1 - Yes, previous treatment. - History of Injections Medications used for this condition: Current Medication - Eliquis 2.5 MG Oral Tablet 90 days, 0 refills - Metoprolol Succinate ER 25 MG Oral Tablet Extended Release 24 Hour 90 days, 0 refills - Montelukast Sodium 10 MG Oral Tablet 90 days, 0 refills - Tamsulosin HCl 0.4 MG Oral Capsule 90 days, 0 refills - Trelegy Ellipta 200-62.5-25 MCG/ACT Inhalation Aerosol Powder Breath Activated 90 days, 0 refills Social History Not a current smoker. Current diet: No recent change in diet. Caffeine use: No caffeine use. Tobacco use: No tobacco use. Tobacco non-user. Smoking status: Never smoker. Alcohol: Not using alcohol. Drug Use: Not using drugs. Habits: Not exercising regularly. Allergies - No Known Allergies Family History Heart disease No significant family history Stroke / Seizures Paternal: Heart disease Maternal: Stroke / Seizures Maternal grandfather's: Stroke / Seizures Review Of Systems Systemic: Not feeling tired, no recent weight loss, and no recent weight gain. Head: No headache and no sinus pain. Eyes: No vision problems. Cataracts and Glasses/Contacts. No Glaucoma. Otolaryngeal: Hearing loss. No tinnitus. Cardiovascular: No chest pain or discomfort, no palpitations, no Hypertension, and no High Cholesterol. Pulmonary: Daytime asthma symptoms. No chronic cough. Wheezing. Gastrointestinal: No heartburn and no abdominal pain. No Indigestion, no Acid Reflux, no Peptic Ulcer, no GI Stomach Bleed, and no Ulcers. Endocrine: No hot flashes, no muscle weakness, no Diabetes, no Hypothyroid, and no Hyperthyroid. Hematologic: No easy bleeding. A tendency for easy bruising. No Anemia. Musculoskeletal: Arthritis. No lower back pain. No soft tissue swelling and no localized joint pain. Neurological: No dizziness, no convulsions, and no numbness. Psychological: No anxiety, no emotional lability, no depression, and no insomnia. Not crying for no reason. Skin: No dry skin. No Ulcers, no Scars, and no rash. Allergic and Immunologic: No complaint of seasonal allergic reaction. Reviewed on 08-22-2023 Previous Tests Imaging: X-Ray: An X-ray was performed. Counseling/Education - Lose weight Assessment - Overweight Plan Fall Risk Assessment: This patient has been identified as a fall risk. Balance/gait along with postural blood pressure, vision and home fall hazards have been assessed. Medications have been reviewed, and recommendations made with regard to contributing factors for future falls. Plan of care: Consideration of vitamin D supplementation along with balance and strength training with consideration for formal physical therapy has been discussed with the patient. Notes This dictation was done with voice recognition software and may contain errors and omissions. 82-year-old male seen for bilateral knee pain Patient has a history of bilateral knee pain for several years duration. His right worse hurts worse than his left. He wears a sleeve on the right and uses Voltaren gel And takes Tylenol arthritis twice daily which seems to help ease his symptoms slightly. Patient received a Depo 80 depo injection on 12/27 which provided a few weeks of relief. He also received Monovisc right knee injection in February which provided moderate improvement. His right knee pain has since returned. Patient's pain is worse with weightbearing and activity Including walking and stairs and improves slightly with rest. Physical examination of bilateral lower extremities shows bilateral diffuse dependent edema in both legs, right worse than left. There are small blisters on the right clement but no obvious concern for infection today.. He has crepitus on range of motion of both knees. Range of motion is 5-1 20 bilaterally and extension strength is 5 out of 5 bilaterally. No gross malalignment or instabilities of the knees are noted. Small effusion is noted about the right knee X-rays on 09/07/2022 at outside facility show severe medial compartment arthritis of both knees with patellofemoral involvement right greater than left and mild lateral involvement bilaterally. Assessment/plan: Bilateral knee severe DJD, chronic, exacerbated/worsening- physical exam findings and radiographic findings were discussed with the patient along with treatment options and patient would like right knee Depo 80 injection today Procedure: Right knee Depo 80 The risks of the procedure (pain, infection, swelling, chondral damage, elevated blood glucose, steroid reaction) were explained and verbally knowledge by the patient. Verbal consent and injection site confirmation was obtained. The bony landmarks of the knee were palpated and the central point of the anterolteral soft space was marked with the cap of the needle. The knee was prepped with alcohol and ethyl chloride spray was used as topical anesthesic at the site of injection. the needle was gently introduced toward the intercondylar notch. Upon entering into the synovial cavity, the contents of the syringe (80 mg of Depo-Medrol and 3 cc of 0.5% lidocaine) were injected. The needle was carefully withdrawn and a Band-Aid was applied. The patient tolerated the procedure well Practice Management Use of tobacco assessment performed and patient screened for future fall risk documentation of any fall with injury in past year Review of medications documented. Care Team - HOLDEN JORGE MD - Cash Application Clerk * Progress note Date Encounter Last Documented by 03/07/2023 [place] Injection Last documented on 03/07/2023; 10:10 AM, Eliel Campos MD; [facility], [facility] Active Problems & Conditions - Joint Pain in Both Knees - Joint Pain, Localized in the Hip Chief Complaint The Chief Complaint is: Jose knee pain. Referred Here Referred by. History of Present Illness Wolf Mckeon is an 82 year old male. - Symptoms aleve makes the pain better, steps makes the pain worse. - Allergy list reviewed - Problem list reviewed - Medication list reviewed - Previous history of chronic pain - Gradual onset - Pain is constant (100% of the time) grinding and popping - Patient pain level from 1-10: 1 - Yes, previous treatment. - History of Injections Medications used for this condition: Current Medication - Albuterol Sulfate HFA 108 (90 Base) MCG/ACT Inhalation Aerosol Solution 50 days, 0 refills - Eliquis 2.5 MG Oral Tablet 30 days, 0 refills - methylPREDNISolone 4 MG Oral Tablet Therapy Pack 6 days, 0 refills - Metoprolol Succinate ER 25 MG Oral Tablet Extended Release 24 Hour 90 days, 0 refills - Montelukast Sodium 10 MG Oral Tablet 90 days, 0 refills - Tamsulosin HCl 0.4 MG Oral Capsule 90 days, 0 refills - Trelegy Ellipta 200-62.5-25 MCG/ACT Inhalation Aerosol Powder Breath Activated 90 days, 0 refills Social History Not a current smoker. Current diet: No recent change in diet. Caffeine use: No caffeine use. Tobacco use: No tobacco use. Tobacco non-user. Smoking status: Never smoker. Alcohol: Not using alcohol. Drug Use: Not using drugs. Habits: Not exercising regularly. Allergies - No Known Allergies Family History Heart disease No significant family history Stroke / Seizures Paternal: Heart disease Maternal: Stroke / Seizures Maternal grandfather's: Stroke / Seizures Review Of Systems Systemic: Not feeling tired, no recent weight loss, and no recent weight gain. Head: No headache and no sinus pain. Eyes: No vision problems. Cataracts and Glasses/Contacts. No Glaucoma. Otolaryngeal: Hearing loss. No tinnitus. Cardiovascular: No chest pain or discomfort, no palpitations, no Hypertension, and no High Cholesterol. Pulmonary: Daytime asthma symptoms. No chronic cough. Wheezing. Gastrointestinal: No heartburn and no abdominal pain. No Indigestion, no Acid Reflux, no Peptic Ulcer, no GI Stomach Bleed, and no Ulcers. Endocrine: No hot flashes, no muscle weakness, no Diabetes, no Hypothyroid, and no Hyperthyroid. Hematologic: No easy bleeding. A tendency for easy bruising. No Anemia. Musculoskeletal: Arthritis. No lower back pain. No soft tissue swelling and no localized joint pain. Neurological: No dizziness, no convulsions, and no numbness. Psychological: No anxiety, no emotional lability, no depression, and no insomnia. Not crying for no reason. Skin: No dry skin. No Ulcers, no Scars, and no rash. Allergic and Immunologic: No complaint of seasonal allergic reaction. Reviewed on 03-07-2023 Previous Tests Imaging: X-Ray: An X-ray was performed. Counseling/Education - Lose weight Assessment - Overweight Plan Fall Risk Assessment: This patient has been identified as a fall risk. Balance/gait along with postural blood pressure, vision and home fall hazards have been assessed. Medications have been reviewed, and recommendations made with regard to contributing factors for future falls. Plan of care: Consideration of vitamin D supplementation along with balance and strength training with consideration for formal physical therapy has been discussed with the patient. User Defined 1 Right knee Monovisc injection today: The risks, benefits and alternatives of intra-articular viscosupplementation were discussed with the patient. Risks include but are not limited to infection, bleeding, pain, swelling, chondral damage, allergic reaction. Patient understands that responses can vary and multiple procedures may be necessary. The patient was identified and timeout confirmed the correct site for the procedure. The patient was positioned appropriately. The bony landmarks of the anterolateral knee were palpated and the soft spot in the middle of the triangle between the lateral femoral condyle, the edge of the patellar tendon, and the proximal lateral tibia was marked with the cap of the needle. The overlying skin was prepped with alcohol and ethyl chloride was then applied for topical anesthesia. One vial of hyaluronic acid supplementation was injected intrarticularly into the knee joint. The patient tolerated the procedure well without complications. Band-Aid was placed at the site of injection. Notes This dictation was done with voice recognition software and may contain errors and omissions. Practice Management Use of tobacco assessment performed and patient screened for future fall risk documentation of any fall with injury in past year Review of medications documented. Care Team - HOLDEN JORGE MD - Cash Application Clerk * Progress note Date Encounter Last Documented by 02/28/2023 Follow Up Last documented on 02/28/2023; 2:01 PM, Eliel Campos MD; [facility] Active Problems & Conditions - Joint Pain in Both Knees - Joint Pain, Localized in the Hip Chief Complaint The Chief Complaint is: Jose knee pain. Referred Here Referred by. History of Present Illness Wolf Mckeon is an 82 year old male. - Symptoms aleve makes the pain better, steps makes the pain worse. - Allergy list reviewed - Problem list reviewed - Medication list reviewed - Previous history of chronic pain - Gradual onset - Pain is constant (100% of the time) grinding and popping - Patient pain level from 1-10: 1 - Yes, previous treatment. - History of Injections Medications used for this condition: Current Medication - Albuterol Sulfate HFA 108 (90 Base) MCG/ACT Inhalation Aerosol Solution 50 days, 0 refills - Eliquis 2.5 MG Oral Tablet 30 days, 0 refills - methylPREDNISolone 4 MG Oral Tablet Therapy Pack 6 days, 0 refills - Metoprolol Succinate ER 25 MG Oral Tablet Extended Release 24 Hour 90 days, 0 refills - Montelukast Sodium 10 MG Oral Tablet 90 days, 0 refills - Tamsulosin HCl 0.4 MG Oral Capsule 90 days, 0 refills - Trelegy Ellipta 200-62.5-25 MCG/ACT Inhalation Aerosol Powder Breath Activated 90 days, 0 refills Social History Not a current smoker. Current diet: No recent change in diet. Caffeine use: No caffeine use. Tobacco use: No tobacco use. Tobacco non-user. Smoking status: Never smoker. Alcohol: Not using alcohol. Drug Use: Not using drugs. Habits: Not exercising regularly. Allergies - No Known Allergies Family History Heart disease No significant family history Stroke / Seizures Paternal: Heart disease Maternal: Stroke / Seizures Maternal grandfather's: Stroke / Seizures Review Of Systems Systemic: Not feeling tired, no recent weight loss, and no recent weight gain. Head: No headache and no sinus pain. Eyes: No vision problems. Cataracts and Glasses/Contacts. No Glaucoma. Otolaryngeal: Hearing loss. No tinnitus. Cardiovascular: No chest pain or discomfort, no palpitations, no Hypertension, and no High Cholesterol. Pulmonary: Daytime asthma symptoms. No chronic cough. Wheezing. Gastrointestinal: No heartburn and no abdominal pain. No Indigestion, no Acid Reflux, no Peptic Ulcer, no GI Stomach Bleed, and no Ulcers. Endocrine: No hot flashes, no muscle weakness, no Diabetes, no Hypothyroid, and no Hyperthyroid. Hematologic: No easy bleeding. A tendency for easy bruising. No Anemia. Musculoskeletal: Arthritis. No lower back pain. No soft tissue swelling and no localized joint pain. Neurological: No dizziness, no convulsions, and no numbness. Psychological: No anxiety, no emotional lability, no depression, and no insomnia. Not crying for no reason. Skin: No dry skin. No Ulcers, no Scars, and no rash. Allergic and Immunologic: No complaint of seasonal allergic reaction. Reviewed on 02-28-2023 Previous Tests Imaging: X-Ray: An X-ray was performed. Counseling/Education - Lose weight Assessment - Overweight Plan Fall Risk Assessment: This patient has been identified as a fall risk. Balance/gait along with postural blood pressure, vision and home fall hazards have been assessed. Medications have been reviewed, and recommendations made with regard to contributing factors for future falls. Plan of care: Consideration of vitamin D supplementation along with balance and strength training with consideration for formal physical therapy has been discussed with the patient. Notes This dictation was done with voice recognition software and may contain errors and omissions. 81-year-old male seen for bilateral knee pain Patient has a history of bilateral knee pain for several years duration. His right worse hurts worse than his left. He wears a sleeve on the right and uses Voltaren gel And takes Tylenol arthritis twice daily which seems to help ease his symptoms slightly. Patient received a Depo 40 injection on September 28 which provided approximately 5 weeks of relief and then received another 80 depo injection on 12/27. this second injection only provided a few weeks of relief. His right knee pain has returned. Patient's pain is worse with weightbearing and activity Including walking and stairs and improves slightly with rest. Physical examination of bilateral lower extremities shows no skin lesions or abrasions. He has crepitus on range of motion of both knees. Range of motion is 5-1 20 bilaterally and extension strength is 5 out of 5 bilaterally. No gross malalignment or instabilities of the knees are noted. Small effusion is noted about the right knee X-rays previously taken show severe medial compartment arthritis of both knees with patellofemoral involvement right greater than left and mild lateral involvement bilaterally. Assessment/plan: Bilateral knee severe DJD, chronic, exacerbated/worsening-right knee gel injection order/approval Practice Management Use of tobacco assessment performed and patient screened for future fall risk documentation of any fall with injury in past year Review of medications documented. Care Team - HOLDEN JORGE MD - Cash Application Clerk * Progress note Date Encounter Last Documented by 12/27/2022 Follow Up Last documented on 12/27/2022; 1:43 PM, Eliel Campos MD; [facility] Active Problems & Conditions - Joint Pain in Both Knees - Joint Pain, Localized in the Hip Chief Complaint The Chief Complaint is: Right thumb pain. Referred Here Referred by. History of Present Illness Wolf Mckeon is an 82 year old male. - Symptoms aleve makes the pain better, steps makes the pain worse. - Allergy list reviewed - Problem list reviewed - Medication list reviewed - Previous history of chronic pain - Gradual onset - Pain is constant (100% of the time) grinding and popping - Patient pain level from 1-10: 1 - Yes, previous treatment. - History of Injections Medications used for this condition: Current Medication - Albuterol Sulfate HFA 108 (90 Base) MCG/ACT Inhalation Aerosol Solution Aerosol, solution 50 days, 0 refills - Eliquis 2.5 MG Oral Tablet 30 days, 0 refills - methylPREDNISolone 4 MG Oral Tablet Therapy Pack 6 days, 0 refills - Metoprolol Succinate ER 25 MG Oral Tablet Extended Release 24 Hour Tablet, extended-release 24 hour 90 days, 0 refills - Montelukast Sodium 10 MG Oral Tablet 90 days, 0 refills - Naproxen 500 MG Oral Tablet Take one tab PO BID PRN, 30 days, 3 refills - Tamsulosin HCl 0.4 MG Oral Capsule Capsule, conventional 90 days, 0 refills - Trelegy Ellipta 200-62.5-25 MCG/ACT Inhalation Aerosol Powder Breath Activated 90 days, 0 refills Social History Not a current smoker. Current diet: No recent change in diet. Caffeine use: No caffeine use. Tobacco use: No tobacco use. Tobacco non-user. Smoking status: Never smoker. Alcohol: Not using alcohol. Drug Use: Not using drugs. Habits: Not exercising regularly. Allergies - No Known Allergies Family History Heart disease Stroke / Seizures Paternal: Heart disease Maternal: Stroke / Seizures Maternal grandfather's: Stroke / Seizures Review Of Systems Systemic: Not feeling tired, no recent weight loss, and no recent weight gain. Head: No headache and no sinus pain. Eyes: No vision problems. Cataracts and Glasses/Contacts. No Glaucoma. Otolaryngeal: Hearing loss. No tinnitus. Cardiovascular: No chest pain or discomfort, no palpitations, no Hypertension, and no High Cholesterol. Pulmonary: Daytime asthma symptoms. No chronic cough. Wheezing. Gastrointestinal: No heartburn and no abdominal pain. No Indigestion, no Acid Reflux, no Peptic Ulcer, no GI Stomach Bleed, and no Ulcers. Endocrine: No hot flashes, no muscle weakness, no Diabetes, no Hypothyroid, and no Hyperthyroid. Hematologic: No easy bleeding. A tendency for easy bruising. No Anemia. Musculoskeletal: Arthritis. No lower back pain. No soft tissue swelling and no localized joint pain. Neurological: No dizziness, no convulsions, and no numbness. Psychological: No anxiety, no emotional lability, no depression, and no insomnia. Not crying for no reason. Skin: No dry skin. No Ulcers, no Scars, and no rash. Allergic and Immunologic: No complaint of seasonal allergic reaction. Reviewed on 12-27-2022 Physical Findings - Vitals taken 12/27/2022 01:05 pm Height 69 in Weight 185 lbs Body Mass Index 27.3 kg/m2 Body Surface Area 2 m2 Previous Tests Imaging: X-Ray: An X-ray was performed. Counseling/Education - Lose weight Assessment - Overweight Plan Fall Risk Assessment: This patient has been identified as a fall risk. Balance/gait along with postural blood pressure, vision and home fall hazards have been assessed. Medications have been reviewed, and recommendations made with regard to contributing factors for future falls. Plan of care: Consideration of vitamin D supplementation along with balance and strength training with consideration for formal physical therapy has been discussed with the patient. Notes This dictation was done with voice recognition software and may contain errors and omissions. Fall Risk Assessment: This patient has been identified as a fall risk. Balance/gait along with postural blood pressure, vision and home fall hazards have been assessed. Medications have been reviewed, and recommendations made with regard to contributing factors for future falls. Plan of care: Consideration of vitamin D supplementation along with balance and strength training with consideration for formal physical therapy has been discussed with the patient. 81-year-old male seen for bilateral knee pain Patient has a history of bilateral knee pain for several years duration. His right worse hurts worse than his left. He wears a sleeve on the right and uses Voltaren gel which seems to help ease his symptoms slightly. Patient received a Depo 40 injection at his last visit in September which provided approximately 5 weeks of relief and his pain has since returned and is nearing the pain level prior to his injection. Patient complains of right-sided leg and ankle swelling but this is related to radiation treatments he had several years ago. Patient also takes Aleve [id number] which does provide some improvement. Patient's pain is worse with weightbearing and activity and improves slightly with rest. Physical examination of bilateral lower extremities shows no skin lesions or abrasions. He has crepitus on range of motion of both knees. Range of motion is 5-1 20 bilaterally and extension strength is 5 out of 5 bilaterally. No gross malalignment or instabilities of the knees are noted. X-rays previously taken are directly reviewed and show severe medial compartment arthritis of both knees with patellofemoral involvement right greater than left and mild lateral involvement bilaterally. Assessment/plan: Bilateral knee severe DJD, chronic, exacerbated/worsening-right knee 80 injection Procedure: Right knee 80 injection the risks of the procedure (pain, infection, swelling, chondral damage, elevated blood glucose, steroid reaction) were explained and verbally knowledge by the patient. Verbal consent and injection site confirmation was obtained. The bony landmarks of the knee were palpated and the central point of the anterolteral soft space was marked with the cap of the needle. The knee was prepped with alcohol and ethyl chloride spray was used as topical anesthesic at the site of injection. the needle was gently introduced toward the intercondylar notch. Upon entering into the synovial cavity, the contents of the syringe (80 mg of Depo-Medrol and 3 cc of 0.5% lidocaine) were injected. The needle was carefully withdrawn and a Band-Aid was applied. The patient tolerated the procedure well Practice Management Use of tobacco assessment performed and patient screened for future fall risk documentation of any fall with injury in past year Review of medications documented. Care Team - HOLDEN JORGE MD - Cash Application Clerk * Progress note Date Encounter Last Documented by 12/26/2022 Physician Specified Last documen ruben on 01/14/2023; 1:22 PM, John Mccullough MD; [facility], [facility] Active Problems & Conditions - Joint Pain in Both Knees - Joint Pain, Localized in the Hip Chief Complaint The Chief Complaint is: Right thumb pain. Referred Here Referred by. History of Present Illness Wolf Mckeon is an 82 year old male. - Allergy list reviewed - Problem list reviewed - Medication list reviewed - Previous history of new onset pain Injury is not work related or an automotive accident - Patient pain level from 1-10: 3 - No previous treatment. 82-year-old male with complaints of right basilar thumb pain. Current Medication - Albuterol Sulfate HFA 108 (90 Base) MCG/ACT Inhalation Aerosol Solution 50 days, 0 refills - Eliquis 2.5 MG Oral Tablet 30 days, 0 refills - methylPREDNISolone 4 MG Oral Tablet Therapy Pack 6 days, 0 refills - Metoprolol Succinate ER 25 MG Oral Tablet Extended Release 24 Hour 90 days, 0 refills - Montelukast Sodium 10 MG Oral Tablet 90 days, 0 refills - Naproxen 500 MG Oral Tablet Take one tab PO BID PRN, 30 days, 3 refills - Tamsulosin HCl 0.4 MG Oral Capsule 90 days, 0 refills - Trelegy Ellipta 200-62.5-25 MCG/ACT Inhalation Aerosol Powder Breath Activated 90 days, 0 refills Social History Not a current smoker. Current diet: No recent change in diet. Caffeine use: No caffeine use. Tobacco use: No tobacco use. Tobacco non-user. Smoking status: Never smoker. Alcohol: Not using alcohol. Drug Use: Not using drugs. Habits: Not exercising regularly. Allergies - No Known Allergies Family History No significant family history Review Of Systems Systemic: Not feeling tired, no recent weight loss, and no recent weight gain. Head: No headache and no sinus pain. Eyes: No vision problems, no Cataracts, no Glasses/Contacts, and no Glaucoma. Otolaryngeal: No hearing loss and no tinnitus. Cardiovascular: No chest pain or discomfort, no palpitations, no Hypertension, and no High Cholesterol. Pulmonary: No daytime asthma symptoms and no chronic cough. No wheezing. Gastrointestinal: No heartburn and no abdominal pain. No Indigestion, no Acid Reflux, no Peptic Ulcer, no GI Stomach Bleed, and no Ulcers. Endocrine: No hot flashes, no muscle weakness, no Diabetes, no Hypothyroid, and no Hyperthyroid. Hematologic: No easy bleeding, no tendency for easy bruising, and no Anemia. Musculoskeletal: No Arthritis and no lower back pain. No soft tissue swelling and no localized joint pain. Neurological: No dizziness, no convulsions, and no numbness. Psychological: No anxiety, no emotional lability, no depression, and no insomnia. Not crying for no reason. Skin: No dry skin. No Ulcers, no Scars, and no rash. Allergic and Immunologic: No complaint of seasonal allergic reaction. Reviewed on 12-26-2022 Physical Findings - Vitals taken 12/26/2022 09:49 am bb Height 69 in Weight 185 lbs Body Mass Index 27.3 kg/m2 Body Surface Area 2 m2 PHYSICAL EXAM: CONSTITUTIONAL: Well developed, well groomed, well nourished patient in no acute distress who appears stated age, height and weight. PSYCHIATRIC: The patient is alert and oriented to person, place, date and situation. Mood and affect are normal for current situation. NEUROLOGICAL: Sensation normal bilateral upper and lower extremities. LYMPHATIC: No pitting edema noted in the lower extremities. SKIN: No lesions noted on upper or lower extremities. Skin is dry, warm and with normal turgor. VASCULAR: No swelling in upper or lower extremities other than described below in extremity exam. Pulses normal in both upper (radial) extremities. GAIT AND STATION: Normal gait without assistive devices. Station normal. Right WRIST/HAND: Able to make a full composite fist Able to fully flex and extend all fingers Hand is warm and well perfused Sensation intact to light touch distally in all nerve distributions CMC is tender to palpation. CMC grind is positive. Tests Three-view x-rays of the patient's hand demonstrate severe CMC arthrosis with CMC subluxation Assessment - Overweight Previous Tests Imaging: X-Ray: An X-ray was performed. Counseling/Education - Lose weight Plan Fall Risk Assessment: This patient has been identified as a fall risk. Balance/gait along with postural blood pressure, vision and home fall hazards have been assessed. Medications have been reviewed, and recommendations made with regard to contributing factors for future falls. Plan of care: Consideration of vitamin D supplementation along with balance and strength training with consideration for formal physical therapy has been discussed with the patient. I long talk with the patient about the nature of his thumb complaints. 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 The patient has some discomfort associated with this. I talked about operative versus nonoperative management to include bracing, activity modification, injections and surgery. The patient elected to continue to observe his thumb. I explained that he can follow-up on an as-needed basis. Notes This dictation was done with voice recognition software and may contain errors and omissions. Practice Management Use of tobacco assessment performed and patient screened for future fall risk documentation of any fall with injury in past year Review of medications documented. Care Team - HOLDEN JORGE MD - Cash Application Clerk
--- OUTSIDE RECORDS SUMMARY | 2023-10-08 15:21 | XMS_ITS | Clinical Summary ---
Author Name Unknown Address [address] [place] [address] Phone Organization [facility] Address [address] [place] [address] Phone Care Team Providers Care Taper Printed Circuit Layout Name Role Phone HOLDEN JORGE MD Unavailable [phone] Eliel Campos MD Unavailable [phone] Reason for Visit and Chief Complaint The Chief Complaint is: right knee pain Problems Includes: Problems addressed during this encounter and other active Problems All Visits Onset Date Resolved Date Provider Condition S tatus Joint Pain in the Right Knee 08/22/2023 Eliel Campos MD Active Last Documented On 4 10:46AM ; [facility], [facility] Plan of Treatment Fall Risk Assessment: This patient has been [...] therapy has been discussed with the patient. - Last Documented On 10/03/2023 12:57PM ; [facility], [facility] Future Appointments Date Time Location Provi daniella INJECTION 11/07[facility]2023 1:[facility]PM [facility] [place] Eliel Campos MD Last Documented On 12:00PM ; [facility] Instructions to patient Lose weight Last Documented On 4 10:47AM ; [facility] Assessments Includes: Assessments from this encounter Findings - Overweight - Last Documented On 10/03/2023 12:57PM ; [facility] Instructions Includes: Instructions from this encounter Instructions to patient Lose weight Last Documented On 4 10:47AM ; [facility] Medical Equipment - Implanted Devices Includes: Current Devices No Medical Equipment Recorded Medications Includes: Medications discussed during this encounter and other current Medications Current Medications (continue as prescribed) Jaslemary Ellipta 200-62.5-25 MCG/ACT Inhalation Aerosol Powder Breath Activated 07/23/2023 Provider: Diagnosis: Last Documented On 4 10:47AM By Aixa Raya ; [facility] Metoprolol Succinate ER 25 M G Oral Tablet Extended Release 24 Hour 06/05/2023 Provider: HOLDEN MENON MD Diagnosis: Last Documented On 4 10:47AM By Aixa Montoya ; [facility] Eliquis 2.5 MG Oral Tablet 05/31/2023 Provider: Moreno JORGE MD Diagnosis: Last Documented On 4 10:47AM By Aixa Ryaa ; [facility] Montelukast Sodium 10 MG Oral Tablet 05/31/2023 Prov ider: HOLDEN JORGE MD Diagnosis: Last Documented On 4 10:47AM By Aixagenesis Raya ; [facility] Tamsulosin HCl 0.4 MG Oral Capsule 05/31/2023 Provid er: HOLDEN JORGE MD Diagnosis: Last Documented On 4 10:47AM By Aixagenesis Raya ; [facility] Past Medications on file Naproxen 500 MG Oral Tablet 09/28/2022 - 01/26/2023 Pr ovider: Eliel Campos MD Diagnosis: Take one tab PO BID PRN Last Documented On 3 9:37AM By Taylor Sultana ; [facility] Medications Administered Includes: Administered Medications from this encounter No Administered Medications Recorded Results Includes: Results discussed during this encounter No Results Recorded For Specified Dates History of Present Illness Includes: History of Present Illness from this encounter FEMI Mckeon is an 82 year old male. [...] of Injections Medications used for this condition: Social History Description Last Updated Tobacco non-user 09/28/2022 Last Documented On 4 10:47AM ; [facility] No caffeine use 09/28/2022 Last Documented On 4 10:47AM ; [facility] No recent change in diet 09/28/2022 Last Documented On 4 10:47AM ; [facility] Not a current smoker. 09/28/2022 Last Documented On 4 10:47AM ; [facility] Not exercising regularly 09/28/2022 Last Documented On 4 10:47AM ; [facility] Not using alcohol 09/28/2022 Last Documented On 4 10:47AM ; [facility] Not using drugs 09/28/2022 Last Documented On 4 10:47AM ; [facility] No tobacco use 01/12/2014 Last Documented On 4 10:47AM ; [facility] Smoking status : Never smoker 01/12/2014 Last Documented On 4 10:47AM ; [facility] Procedures and Surgical History Includes: Procedures from this encounter Procedures Code Diagnosis Performing Provider Service Location Service Date X-RAY EXAM OF KNEE 3 VIEWS (RIGHT) 36753 Bilateral primary osteoarthritis of knee Eliel Campos MD [facility] 10/03/2023 Last Documented On 4 12:59PM ; [facility] use of tobacco assessment performed 1000F Last Documented On 4 10:47AM ; [facility] patient screened for future fall risk: documentation of any fall with injury in past year 1100F Last Documented On 4 10:47AM ; [facility] review of medications documented 1160F Last Documented On 4 10:47AM ; [facility] an X-ray was performed [id number] Last Documented On 4 10:47AM ; [facility] Medical History Includes: Medical History addressed during this encounter No Medical History Recorded Family History Includes: Family History addressed during this encounter Description Last Updated Family history of heart disease 12/28/19 Last Documented On 4 10:47AM ; [facility] Stroke / Seizures 12/27/2022 Last Documented On 4 10:47AM ; [facility] Maternal grandfather's history of Stroke / Seizures 12/27/2022 Last Documented On 4 10:47AM ; [facility] Maternal history of Stroke / Seizures Last Documented On 4 10:47AM ; [facility] Paternal history of family history of he art disease 12/27/2022 Last Documented On 4 10:47AM ; [facility] No significant family history 12/26/2022 Last Documented On 4 10:47AM ; [facility] Review of Systems Includes: Review of Systems from this encounter Systemic: Not feeling tired, no recent weight [...] Immunologic: No complaint of seasonal allergic reaction. Mental Status Includes: Mental Status from this encounter Description No anxiety Functional Status Includes: Functional Status from this encounter No Functional Status Recorded Physical Exam Includes: Physical Exam from this encounter No Physical Exam Recorded Allergies Includes: Active Allergies No Known Allergies Encounters Encounter Provider Location Date Check-In Time Check-Out Time Diagnosis Follow Up Eliel Campos MD [facility] 4 10:43AM 11:57AM Overweight Insurance Includes: Active Insurance Policies Plan Name Member ID Group # Subscriber Relationship Effect sofia Dates 1 - Medicare Part B [facility] [id number] Wolf Mckeon Self 05/13/2022 - Unknown 2 - [facility] [employer] [id number] Wolf Mckeon Self 11/11/2003 - Unknown Clinical Notes Includes: Clinical Notes from this encounter * Progress note Date Encounter Last Documented by 10/03/2023 Follow Up Last documented on 10/03/2023; 12:57 PM, Eliel Campos MD; [facility], [facility] Active Problems & Conditions - Joint Pain [...] Care Team - HOLDEN JORGE MD - Candy Feeder
--- OUTSIDE RECORDS SUMMARY | 2023-10-08 15:21 | XMS_ITS ---
Care Plan - [facility], [facility] Created on: October 08, 2023 Wolf Mckeon : 1940 Sex: Male Author Name Unknown Address [address] [place] [address] [place] [address] Phone Organization [facility] Address [address] [place] [address] [place] [address] Phone Care Team Providers Care Complaint Adjuster Name Role Phone ANIA SALDANA, HOLDEN Stroud Unavailable [phone] Beth SALDANA, Eliel Unavailable [phone]
--- OUTSIDE RECORDS SUMMARY | 2023-10-08 15:22 | XMS_ITS | Clinical Summary ---
Author Name Unknown Address [address] [place] [address] Phone Organization [facility] Address [address] [place] [address] Phone Care Team Providers Care Enamel Buffer Name Role Phone HOLDEN JORGE MD Unavailable [phone] Eliel Campos MD Unavailable [phone] Reason for Visit and Chief Complaint The Chief Complaint is: walter knee pain Problems Includes: Problems addressed during this encounter and other active Problems All Visits Onset Date Resolved Date Provider Condition S tatus Joint Pain in the Right Knee 08/22/2023 Eliel Campos MD Active Last Documented On 4 10:46AM ; [facility] Plan of Treatment Fall Risk Assessment: This [...] with the patient. - Last Documented On 02/28/2023 2:01PM ; [facility] Future Appointments Date Time Location Provi daniella INJECTION 11/07[facility]2023 1:00PM [facility] [place] Eliel Campos MD Last Documented On 4 12:00PM ; [facility] Instructions to patient Lose weight Last Documented On 3 12:47PM ; [facility] Assessments Includes: Assessments from this encounter Findings - Overweight - Last Documented On 02/28/2023 2:01PM ; [facility] Instructions Includes: Instructions from this encounter Instructions to patient Lose weight Last Documented On 3 12:47PM ; [facility] Medical Equipment - Implanted Devices Includes: Current Devices No Medical Equipment Recorded Medications Includes: Medications discussed during this encounter and other current Medications Current Medications (continue as prescribed) Gerry Ellipta 200-62.5-25 MCG/ACT Inhalation Aerosol Powder Breath Activated 07/23/2023 Provider: Diagnosis: Last Documented On 4 10:47AM By Aixa Raya ; [facility] Metoprolol Succinate ER 25 M G Oral Tablet Extended Release 24 Hour 06/05/2023 Provider: HOLDEN MENON MD Diagnosis: Last Documented On 4 10:47AM By Aixa Montoya ; [facility] Eliquis 2.5 MG Oral Tablet 05/31/2023 Provider: Moreno JORGE MD Diagnosis: Last Documented On 4 10:47AM By Aixa Raya ; [facility] Montelukast Sodium 10 MG Oral Tablet 05/31/2023 Prov ider: HOLDEN JORGE MD Diagnosis: Last Documented On 4 10:47AM By Aixa Raya ; [facility] Tamsulosin HCl 0.4 MG Oral Capsule 05/31/2023 Provid er: HOLDEN JORGE MD Diagnosis: Last Documented On 4 10:47AM By Aixa Raya ; [facility] Past Medications on file Naproxen 500 MG Oral Tablet 09/28/2022 - 01/26/2023 Pr ovider: Eliel Campos MD Diagnosis: Take one tab PO BID PRN Last Documented On 3 9:37AM By Taylor Sultana ; [facility] Medications Administered Includes: Administered Medications from this [...] Tobacco non-user 09/28/2022 Last Documented On 3 12:47PM ; [facility] No caffeine use 09/28/2022 Last Documented On 3 12:47PM ; [facility] No recent change in diet 09/28/2022 Last Documented On 3 12:47PM ; [facility] Not a current smoker. 09/28/2022 Last Documented On 3 12:47PM ; [facility] Not exercising regularly 09/28/2022 Last Documented On 3 12:47PM ; [facility] Not using alcohol 09/28/2022 Last Documented On 3 12:47PM ; [facility] Not using drugs 09/28/2022 Last Documented On 3 12:47PM ; [facility] No tobacco use 01/12/2014 Last Documented On 3 12:47PM ; [facility] Smoking status : Never smoker 01/12/2014 Last Documented On 3 12:47PM ; [facility] Procedures and Surgical History Includes: Procedures from this encounter Procedures Code Diagnosis Performing Provider Service L ocation Service Date use of tobacco assessment performed 1000F Last Documented On 3 12:47PM ; [facility] patient screened for future fall risk: documentation of any fall with injury in past year 1100F Last Documented On 3 12:47PM ; [facility] review of medications documented 1160F Last Documented On 3 12:47PM ; [facility] an X-ray was performed [id number] Last Documented On 3 12:47PM ; [facility] Medical History Includes: Medical History addressed during this encounter No Medical History Recorded Family History Includes: Family History addressed during this encounter Description Last Updated Family history of heart disease 12/28/19 Last Documented On 3 12:47PM ; [facility] Stroke / Seizures 12/27/2022 Last Documented On 3 12:47PM ; [facility] Maternal grandfather's history of Stroke / Seizures 12/27/2022 Last Documented On 3 12:47PM ; [facility] Maternal history of Stroke / Seizures Last Documented On 3 12:47PM ; [facility] Paternal history of family history of he art disease 12/27/2022 Last Documented On 3 12:47PM ; [facility] No significant family history 12/26/2022 Last Documented On 3 12:47PM ; [facility] Review of Systems Includes: Review of Systems [...] of seasonal allergic reaction. Reviewed on 02-28-2023 Mental Status Includes: Mental Status from this encounter Description No anxiety Functional Status Includes: Functional Status from this encounter No Functional Status Recorded Physical Exam Includes: Physical Exam from this encounter No Physical Exam Recorded Allergies Includes: Active Allergies No Known Allergies Encounters Encounter Provider Location Date Check-In Time Check-Out Time Diagnosis Follow Up Eliel Campos MD [facility] 3 12:36PM 1:23PM Overweight Insurance Includes: Active Insurance Policies Plan Name Member ID Group # Subscriber Relationship Effect sofia Dates 1 - Medicare Part B [facility] [id number] Wolf Mckeon Self 05/13/2022 - Unknown 2 - [facility] [employer] [id number] Wolf Mckeon Self 11/11/2003 - Unknown Clinical Notes Includes: Clinical Notes from this encounter * Progress note Date Encounter Last Documented by 02/28/2023 Follow Up Last documented on 02/28/2023; 2:01 PM, Eliel Campos MD; [facility] Active Problems & Conditions - Joint Pain in Both Knees - Joint Pain, Localized in the Hip Chief Complaint The Chief Complaint is: Walter knee pain. Referred Here Referred by. History [...] Care Team - HOLDEN JORGE MD - Audiovisual Aids Technician
--- OUTSIDE RECORDS SUMMARY | 2023-10-08 15:22 | XMS_ITS | Clinical Summary ---
Author Name Unknown Address [address] [place] [address] Phone Organization [facility] Address [address] [place] [address] Phone Care Team Providers Care Telemetry Monitor Name Role Phone HOLDEN JORGE MD Unavailable [phone] Eliel Campos MD Unavailable [phone] Reason for Visit and Chief Complaint The Chief Complaint is: walter knee pain Problems Includes: Problems addressed during this encounter and other active Problems All Visits Onset Date Resolved Date Provider Condition S tatus Joint Pain in the Right Knee 08/22/2023 Eliel Campos MD Active Last Documented On 4 10:46AM ; [facility] Plan of Treatment Fall Risk Assessment: [...] therapy has been discussed with the patient. Right knee Monovisc injection today: The risks, [...] was placed at the site of injection. - Last Documented On 03/07/2023 10:10AM ; [facility], [facility] Future Appointments Date Time Location Provi daniella INJECTION 11/07/2023 1:00PM [facility] JOEL Campos MD Last Documented On 4 12:00PM ; [facility], [facility] Instructions to patient Lose weight Last Documented On 3 9:53AM ; [facility] Assessments Includes: Assessments from this encounter Findings - Overweight - Last Documented On 03/07/2023 10:10AM ; [facility] Instructions Includes: Instructions from this encounter Instructions to patient Lose weight Last Documented On 3 9:53AM ; [facility] Medical Equipment - Implanted Devices Includes: Current Devices No Medical Equipment Recorded Medications Includes: Medications discussed during this encounter and other current Medications Current Medications (continue as prescribed) Trelegy Ellipta 200-62.5-25 MCG/ACT Inhalation Aerosol Powder Breath Activated 07/23/2023 Provider: Diagnosis: Last Documented On 4 10:47AM By Aixa Prescott [facility] Metoprolol Succinate ER 25 M G Oral Tablet Extended Release 24 Hour 06/05/2023 Provider: HOLDEN MENON MD Diagnosis: Last Documented On 4 10:47AM By Aixa Prescott [facility] Eliquis 2.5 MG Oral Tablet 05/31/2023 Provider: Moreno JORGE MD Diagnosis: Last Documented On 4 10:47AM By Aixa Prescott [facility] Montelukast Sodium 10 MG Oral Tablet 05/31/2023 Prov ider: HOLDEN JORGE MD Diagnosis: Last Documented On 4 10:47AM By Aixa Prescott [facility] Tamsulosin HCl 0.4 MG Oral Capsule 05/31/2023 Provid er: HOLDEN JORGE MD Diagnosis: Last Documented On 4 10:47AM By Aixa Raya ; [facility] Past Medications on file Naproxen 500 MG Oral Tablet 09/28/2022 - 01/26/2023 Pr ovider: Eliel Campos MD Diagnosis: Take one tab PO BID PRN Last Documented On 3 9:37AM By Taylor Sultana ; [facility] Medications Administered Includes: Administered Medications from this encounter No Administered Medications Recorded Results Includes: Results discussed during this encounter No Results Recorded For Specified Dates History of Present Illness Includes: History of Present Illness from this encounter HPI Wolf Mckeon is an 82 year old [...] Tobacco non-user 09/28/2022 Last Documented On 3 9:53AM ; [facility] No caffeine use 09/28/2022 Last Documented On 3 9:53AM ; [facility] No recent change in diet 09/28/2022 Last Documented On 3 9:53AM ; [facility] Not a current smoker. 09/28/2022 Last Documented On 3 9:53AM ; [facility] Not exercising regularly 09/28/2022 Last Documented On 3 9:53AM ; [facility] Not using alcohol 09/28/2022 Last Documented On 3 9:53AM ; [facility] Not using drugs 09/28/2022 Last Documented On 3 9:53AM ; [facility] No tobacco use 01/12/2014 Last Documented On 3 9:53AM ; [facility] Smoking status : Never smoker 01/12/2014 Last Documented On 3 9:53AM ; [facility] Procedures and Surgical History Includes: Procedures from this encounter Procedures Code Diagnosis Performing Provider Service Location Service Date DRAIN/INJECT, JOINT/BURSA (RIGHT) Bilateral primary osteoarthritis of knee Eliel Campos MD [facility] 03/07/2023 Last Documented On 3 1:43PM ; [facility] Monovisc (RIGHT) [id number] Bilateral primary osteoarthritis of knee Eliel Campos MD [facility] 03/07/2023 Last Documented On 3 1:43PM ; [facility] use of tobacco assessment performed 1000F Last Documented On 3 9:53AM ; [facility] patient screened for future fall risk: documentation of any fall with injury in past year 1100F Last Documented On 3 9:53AM ; [facility] review of medications documented 1160F Last Documented On 3 9:53AM ; [facility] an X-ray was performed [id number] Last Documented On 3 9:53AM ; [facility] Medical History Includes: Medical History addressed during this encounter No Medical History Recorded Family History Includes: Family History addressed during this encounter Description Last Updated Family history of heart disease 12/28/19 Last Documented On 3 9:53AM ; [facility] Stroke / Seizures 12/27/2022 Last Documented On 3 9:53AM ; [facility] Maternal grandfather's history of Stroke / Seizures 12/27/2022 Last Documented On 3 9:53AM ; [facility] Maternal history of Stroke / Seizures Last Documented On 3 9:53AM ; [facility] Paternal history of family history of he art disease 12/27/2022 Last Documented On 3 9:53AM ; [facility] No significant family history 12/26/2022 Last Documented On 3 9:53AM ; [facility] Review of Systems Includes: Review of Systems [...] of seasonal allergic reaction. Reviewed on 03-07-2023 Mental Status Includes: Mental Status from this encounter Description No anxiety Functional Status Includes: Functional Status from this encounter No Functional Status Recorded Physical Exam Includes: Physical Exam from this encounter No Physical Exam Recorded Allergies Includes: Active Allergies No Known Allergies Encounters Encounter Provider Location Date Check-In Time Check-Out Time Diagnosis [place] [facility] 9:48AM 10:12AM Overweight Insurance Includes: Active Insurance Policies Plan Name Member ID Group # Subscriber Relationship Effect sofia Dates 1 - Medicare Part B [facility] [id number] Wolf Mckeon Self 05/13/2022 - Unknown 2 - [facility] [employer] [id number] Wolf Mckeon Self 11/11/2003 - Unknown Clinical Notes Includes: Clinical Notes from this encounter * Progress note Date Encounter Last Documented by 03/07/2023 [place] Injection Last documented on 03/07/2023; 10:10 AM, Eliel Campos MD; [facility] Active Problems & Conditions - Joint [...] Care Team - HOLDEN JORGE MD - Cutting And Printing Machine Operator
--- OUTSIDE RECORDS SUMMARY | 2023-10-08 15:22 | XMS_ITS | Clinical Summary ---
Author Name Unknown Address [address] [place] [address] Phone Organization [facility] Address [address] [place] [address] Phone Care Team Providers Care Glove Finisher Name Role Phone HOLDEN JORGE MD Unavailable [phone] Eliel Campos MD Unavailable [phone] Reason for Visit and Chief Complaint The Chief Complaint is: Right thumb pain Problems Includes: Problems addressed during this encounter and other active Problems All Visits Onset Date Resolved Date Provider Condition S tatus Joint Pain in the Right Knee 08/22/2023 Eliel Campos MD Active Last Documented On 4 10:46AM ; [facility] Plan of Treatment Fall Risk Assessment: This [...] with the patient. - Last Documented On 12/27/2022 1:43PM ; [facility] Future Appointments Date Time Location Provi daniella INJECTION 11/07/2023 1:00PM [facility] Eliel Campos MD Last Documented On 4 12:00PM ; [facility] Instructions to patient Lose weight Last Documented On 3 12:57PM ; [facility] Assessments Includes: Assessments from this encounter Findings - Overweight - Last Documented On 12/27/2022 1:43PM ; [facility] Instructions Includes: Instructions from this encounter Instructions to patient Lose weight Last Documented On 3 12:57PM ; [facility] Medical Equipment - Implanted Devices Includes: Current Devices No Medical Equipment Recorded Medications Includes: Medications discussed during this encounter and other current Medications Current Medications (continue as prescribed) Jaslemary Ellipta 200-62.5-25 MCG/ACT Inhalation Aerosol Powder Breath Activated 07/23/2023 Provider: Diagnosis: Last Documented On 4 10:47AM By Aixa Raya ; [facility] Metoprolol Succinate ER 25 M G Oral Tablet Extended Release 24 Hour 06/05/2023 Provider: HOLDEN MENON MD Diagnosis: Last Documented On 4 10:47AM By Aixa Raya ; [facility] Eliquis 2.5 MG Oral Tablet 05/31/2023 Provider: Moreno JORGE MD Diagnosis: Last Documented On 4 10:47AM By Aixa Raya ; [facility] Montelukast Sodium 10 MG Oral Tablet 05/31/2023 Prov ider: HOLDEN JORGE MD Diagnosis: Last Documented On 4 10:47AM By Aixa Raya ; [facility] Tamsulosin HCl 0.4 MG Oral Capsule 05/31/2023 Provid er: HOLDEN JORGE MD Diagnosis: Last Documented On 4 10:47AM By Aixa Prescott [facility] Past Medications on file Naproxen 500 MG Oral Tablet 09/28/2022 - 01/26/2023 Pr ovider: Eliel Campos MD Diagnosis: Take one tab PO BID PRN Last Documented On 3 9:37AM By Taylor Sultana ; [facility] Medications Administered Includes: Administered Medications from this encounter No Administered Medications Recorded Vital Signs Includes: Vital Signs from this encounter Vital Name 12/27/2022 01:05P Height (in) 69 Weight (lb) 185 Body Mass Index 27.3 Body Surface Area 2 Last Documented: On 12/27/2022 1:05PM ; [facility] Results Includes: Results discussed during this encounter [...] Tobacco non-user 09/28/2022 Last Documented On 3 12:57PM ; [facility] No caffeine use 09/28/2022 Last Documented On 3 12:57PM ; [facility] No recent change in diet 09/28/2022 Last Documented On 3 12:57PM ; [facility] Not a current smoker. 09/28/2022 Last Documented On 3 12:57PM ; [facility] Not exercising regularly 09/28/2022 Last Documented On 3 12:57PM ; [facility] Not using alcohol 09/28/2022 Last Documented On 3 12:57PM ; [facility] Not using drugs 09/28/2022 Last Documented On 3 12:57PM ; [facility] No tobacco use 01/12/2014 Last Documented On 3 12:57PM ; [facility] Smoking status : Never smoker 01/12/2014 Last Documented On 3 12:57PM ; [facility] Procedures and Surgical History Includes: Procedures from this encounter Procedures Code Diagnosis Performing Provider Service Location Service Date DRAIN/INJECT, JOINT/BURSA (RIGHT) Unilateral primary osteoarthritis, right knee Eliel Campos MD [facility] 12/27/2022 Last Documented On 3 6:59PM ; [facility] Depomedrol 80 mg J1040 Unilateral prim shun osteoarthritis, right knee Eliel Campos MD [facility] 12/27/2022 Last Documented On 3 6:59PM ; [facility] use of tobacco assessment performed 1000F Last Documented On 3 12:57PM ; [facility] patient screened for future fall risk: documentation of any fall with injury in past year 1100F Last Documented On 3 12:57PM ; [facility] review of medications documented 1160F Last Documented On 3 12:57PM ; [facility] an X-ray was performed [id number] Last Documented On 3 12:57PM ; [facility] Medical History Includes: Medical History addressed during this encounter No Medical History Recorded Family History Includes: Family History addressed during this encounter Description Last Updated Family history of heart disease 12/28/19 Last Documented On 3 1:43PM ; [facility] Stroke / Seizures 12/27/2022 Last Documented On 3 1:43PM ; [facility] Maternal grandfather's history of Stroke / Seizures 12/27/2022 Last Documented On 3 1:43PM ; [facility] Maternal history of Stroke / Seizures Last Documented On 3 1:43PM ; [facility] Paternal history of family history of he art disease 12/27/2022 Last Documented On 3 1:43PM ; [facility] Review of Systems Includes: Review of [...] of seasonal allergic reaction. Reviewed on 12-27-2022 Mental Status Includes: Mental Status from this encounter Description No anxiety Functional Status Includes: Functional Status from this encounter No Functional Status Recorded Physical Exam Includes: Physical Exam from this encounter Allergies Includes: Active Allergies No Known Allergies Encounters Encounter Provider Location Date Check-In Time Check-Out Time Diagnosis Follow Up Eliel Campos MD [facility] 3 12:48PM 1:40PM Overweight Insurance Includes: Active Insurance Policies Plan Name Member ID Group # Subscriber Relationship Effect sofia Dates 1 - Medicare Part B [facility] [id number] Wolf Mckeon Self 05/13/2022 - Unknown 2 - [facility] [employer] [id number] Wolf Mckeon Self 11/11/2003 - Unknown Clinical Notes Includes: Clinical Notes from this encounter * Progress note Date Encounter Last Documented by 12/27/2022 Follow Up Last documented on 12/27/2022; 1:43 PM, Eliel Campos MD; [facility] Active Problems & Conditions - [...] several years ago. Patient also takes Aleve [id number] which does provide some improvement. Patient's pain [...] Care Team - HOLDEN JORGE MD - Hydraulic Plumber Helper
--- OUTSIDE RECORDS SUMMARY | 2023-10-08 15:22 | XMS_ITS | Clinical Summary ---
Author Name Unknown Address [address] [place] [address] [place] [address] Phone Organization [facility] Address [address] [place] [address] Phone Care Team Providers Care University President Name Role Phone HOLDEN JORGE MD Unavailable [phone] Eliel Campos MD Unavailable [phone] Reason for Visit and Chief Complaint The Chief Complaint is: right knee pain Problems Includes: Problems addressed during this encounter and other active Problems Current Visit Onset Date Resolved Date Provider Conditio n Status Joint Pain in the Right Knee 08/22/2023 Eliel Campos MD Active Last Documented On 4 10:46AM ; [facility] Past Visits Onset Date Resolved Date Provider Condition Status Joint Pain in Both Knees 09/28/2022 Eliel shah MD Inactive Last Documented On 4 11:03AM ; [facility] Joint Pain, Localized in the Hip 01/12/2014 Jennifer Campos MD Inactive Last Documented On 4 11:03AM ; [facility] Plan of Treatment Fall Risk [...] with the patient. - Last Documented On 08/22/2023 11:07AM ; [facility] Future Appointments Date Time Location Provi daniella INJECTION 11/07/2023 1:00PM [facility] JOEL Campos MD Last Documented On 4 12:00PM ; [facility] Instructions to patient Lose weight Last Documented On 4 10:48AM ; [facility] Assessments Includes: Assessments from this encounter Findings - Overweight - Last Documented On 08/22/2023 11:07AM ; [facility] Instructions Includes: Instructions from this encounter Instructions to patient Lose weight Last Documented On 4 10:48AM ; [facility] Medical Equipment - Implanted Devices Includes: Current Devices No Medical Equipment Recorded Medications Includes: Medications discussed during this encounter and other current Medications Discontinued / Stopped on this date on 08/06/2023 Amoxicillin-Pot Clavulanate 875-125 MG Oral Tablet Provider: Diagnosis: Last Documented On 4 10:47AM By Aixa Raya ; [facility] Sodium Fluoride 5000 Sensitive 1.1-5% Dental Gel Provider: Diagnosis: Last Documented On 4 10:47AM By Aixa Raya ; [facility] Metoprolol Succinate ER 25 M G Oral Tablet Extended Release 24 Hour Provider: HOLDEN MENON MD Diagnosis: Last Documented On 4 10:47AM By Aixa Raya ; [facility] Albuterol Sulfate HFA 108 (9 0 Base) MCG/ACT Inhalation Aerosol Solution Provider: HOLDEN MILAN MD Diagnosis: Last Documented On 4 10:47AM By Aixa Prescott [facility] methylPREDNISolone 4 MG Oral Tablet Therapy Pack Provider: HOLDEN JORGE MD Diagnosis: Last Documented On 4 10:47AM By Aixa Raya ; [facility] Trelegy Ellipta 200-62.5-25 MCG/ACT Inhalation Aerosol Powder Breath Activated Provider: Diagnosis: Last Documented On 4 10:47AM By Aixa Raya ; [facility] Tamsulosin HCl 0.4 MG Oral Capsule Provid er: HOLDEN JORGE MD Diagnosis: Last Documented On 4 10:47AM By Aixa Raya ; [facility] Montelukast Sodium 10 MG Oral Tablet Prov ider: HOLDEN JORGE MD Diagnosis: Last Documented On 4 10:47AM By Aixa Raya ; [facility] Eliquis 2.5 MG Oral Tablet Provider: Marii DOWNING MD Diagnosis: Last Documented On 4 10:47AM By Aixa Raya ; [facility] Current Medications (continue as prescribed) Trelegy Ellipta 200-62.5-25 MCG/ACT Inhalation Aerosol Powder Breath Activated 07/23/2023 Provider: Diagnosis: Last Documented On 4 10:47AM By Aixa Raya ; [facility] Metoprolol Succinate ER 25 M G Oral Tablet Extended Release 24 Hour 06/05/2023 Provider: HOLDEN MENON MD Diagnosis: Last Documented On 4 10:47AM By Aixa Raya ; [facility] Eliquis 2.5 MG Oral Tablet 05/31/2023 Provider: Moreno JORGE MD Diagnosis: Last Documented On 4 10:47AM By Aixa Raya ; [facility] Montelukast Sodium 10 MG Oral Tablet 05/31/2023 Prov ider: HOLDEN JORGE MD Diagnosis: Last Documented On 4 10:47AM By Aixa Raya ; [facility] Tamsulosin HCl 0.4 MG Oral Capsule 05/31/2023 Provid er: HOLDEN JORGE MD Diagnosis: Last Documented On 4 10:47AM By Aixa Raya ; [facility] Past Medications on file Naproxen 500 MG Oral Tablet 09/28/2022 - 01/26/2023 Pr ovider: Eliel Campos MD Diagnosis: Take one tab PO BID PRN Last Documented On 3 9:37AM By Taylor Sultana ; [facility] Medications Administered Includes: Administered Medications from [...] 09/28/2022 Last Documented On 4 10:47AM ; [facility] No caffeine use 09/28/2022 Last Documented On 4 10:47AM ; [facility] No recent change in diet 09/28/2022 Last Documented On 4 10:47AM ; [facility] Not a current smoker. 09/28/2022 Last Documented On 4 10:47AM ; [facility] Not exercising regularly 09/28/2022 Last Documented On 4 10:47AM ; [facility] Not using alcohol 09/28/2022 Last Documented On 4 10:47AM ; [facility] Not using drugs 09/28/2022 Last Documented On 4 10:47AM ; [facility] No tobacco use 01/12/2014 Last Documented On 4 10:47AM ; [facility] Smoking status : Never smoker 01/12/2014 Last Documented On 4 10:47AM ; [facility] Procedures and Surgical History Includes: Procedures from this encounter Procedures Code Diagnosis Performing Provider Service Location Service Date DRAIN/INJECT, JOINT/BURSA (RIGHT) Bilateral primary osteoarthritis of knee Eliel Campos MD [facility] 08/22/2023 Last Documented On 4 12:25PM ; [facility] Inj, Methylprednisolone acetate, 1 mg J1010 Bilateral primary osteoarthritis of knee Eliel Campos MD [facility] 08/22/2023 Last Documented On 4 12:25PM ; [facility] use of tobacco assessment performed 1000F Last Documented On 4 10:48AM ; [facility] patient screened for future fall risk: documentation of any fall with injury in past year 1100F Last Documented On 4 10:48AM ; [facility] review of medications documented 1160F Last Documented On 4 10:48AM ; [facility] an X-ray was performed [id number] Last Documented On 4 10:48AM ; [facility] Medical History Includes: Medical History addressed during this encounter No Medical History Recorded Family History Includes: Family History addressed during this encounter Description Last Updated Family history of heart disease 12/28/19 23 Last Documented On 4 10:47AM ; [facility] Stroke / Seizures 12/27/2022 Last Documented On 4 10:47AM ; [facility] Maternal grandfather's history of Stroke / Seizures 12/27/2022 Last Documented On 4 10:47AM ; [facility] Maternal history of Stroke / Seizures Last Documented On 4 10:47AM ; [facility] Paternal history of family history of he art disease 12/27/2022 Last Documented On 4 10:47AM ; [facility] No significant family history 12/26/2022 Last Documented On 4 10:47AM ; [facility] Review of Systems Includes: Review [...] of seasonal allergic reaction. Reviewed on 08-22-2023 Mental Status Includes: Mental Status from this encounter Description No anxiety Functional Status Includes: Functional Status from this encounter No Functional Status Recorded Physical Exam Includes: Physical Exam from this encounter No Physical Exam Recorded Allergies Includes: Active Allergies No Known Allergies Encounters Encounter Provider Location Date Check-In Time Check-Out Time Diagnosis Follow Up Eliel Campos MD [facility] 4 10:43AM 11:23AM Overweight Insurance Includes: Active Insurance Policies Plan Name Member ID Group # Subscriber Relationship Effect sofia Dates 1 - Medicare Part B [facility] [id number] Wolf Mckeon Self 05/13/2022 - Unknown 2 - [facility] [employer] [id number] Wolf Mckeon Self 11/11/2003 - Unknown Clinical Notes Includes: Clinical Notes from this encounter * Progress note Date Encounter Last Documented by 08/22/2023 Follow Up Last documented on 08/22/2023; 11:07 AM, [facility] Active Problems & Conditions - Joint Pain [...] Care Team - HOLDEN JORGE MD - Fur Tinter
--- NOTE | 2023-10-08 16:16 | P.PN_ITS ---
Subjective *Date: 10/08/23 *Time: 16:16 Interval history: patient is seen at bedside, he denied CP, SOB at rest, he denied any acute events at night Exam Data for Last 24 hours Vital signs and Labs for Last 24 Hours: Temp Pulse Resp BP Pulse Ox O2 Del Method 98.1 F 73 16 148/73 H 96 Room Air 10/08/23 15:48 10/08/23 15:48 10/08/23 15:48 10/08/23 15:48 10/08/23 15:48 10/08/23 15:48 Laboratory Results - last 24 hr 10/07/23 22:18: Troponin I 0.47 H, NT-Pro-B Natriuret Pep 1310 H 10/08/23 05:30: WBC 6.7, RBC 4.39 L, Hgb 13.7 L, Hct 41.1 L, MCV 93.7, MCH 31.3 H, MCHC 33.4, RDW 15.7, Plt Count 122 L, MPV 8.5, Neut % (Auto) 74.5, Lymph % (Auto) 13.7, Hudspeth % (Auto) 6.8, Eos % (Auto) 4.2, Baso % (Auto) 0.8, Neut # (Auto) 5.0, Lymph # (Auto) 0.9, Hudspeth # (Auto) 0.5, Eos # (Auto) 0.3, Baso # (Auto) 0.1, Sodium 137, Potassium 3.2 L, Chloride 101, Carbon Dioxide 32 H, Anion Gap 7.2, BUN 21 H, Creatinine 0.60 L, Estimated Creat Clear 65, Estimated GFR 128, Est GFR ( Amer) 155, Glucose 102 H, Calcium 8.9, Magnesium 1.5 L , Total Bilirubin 0.5, AST 40, ALT 27, Alkaline Phosphatase 39, Troponin I 0.42 H, Total Protein 5.9 L, Albumin 3.6, Globulin 2.3, Albumin/Globulin Ratio 1.6, Triglycerides 53, Cholesterol 187, LDL Cholesterol Direct 82.02 L, VLDL Cholesterol 11, HDL Cholesterol 100 H, Cholesterol/HDL Ratio 1.9 I & O for Last 24 hours: Intake & Output 10/05/23 10/06/23 10/07/23 10/08/23 23:59 23:59 23:59 23:59 Output Total 700 / 700 2150 / 2150 Balance -700 / -700 -2150 / -2150 Weight 84.141 kg Constitutional Constitutional: no acute distress *Routine HEENT Exam Head: Present normocephalic Eye: Present EOMI and PERRL ENT: Present mucous membranes moist *Routine Neck Exam Neck: Present supple; Absent lymphadenopathy *Routine Respiratory Exam Respiratory: Present CTA bilaterally *Routine Cardiovascular Exam Cardiovascular: Present RRR *Routine Abdominal Exam Abdominal: Present soft and normoactive bowel sounds; Absent tenderness *Routine Extremities Exam Extremities: Absent cyanosis, clubbing or edema *Routine Skin Exam Skin: Present warm; Absent rash *Routine Neurological Exam Neurological: Present alert and oriented X3 Assessment and Plan *Assessment and plan (1) CHF exacerbation: Status: Acute Qualifiers: Heart failure type: unspecified Qualified Code(s): I50.9 - Heart failure, unspecified Category: Medical Code(s): I50.9 - Heart failure, unspecified (2) NSTEMI (non-ST elevated myocardial infarction): Status: Acute Category: Medical Code(s): I21.4 - Non-ST elevation (NSTEMI) myocardial infarction (3) COPD (chronic obstructive pulmonary disease): Status: Chronic Qualifiers: COPD type: unspecified COPD Qualified Code(s): J44.9 - Chronic obstructive pulmonary disease, unspecified Category: Medical Code(s): J44.9 - Chronic obstructive pulmonary disease, unspecified (4) Afib: Status: Acute Qualifiers: Atrial fibrillation type: paroxysmal Qualified Code(s): I48.0 - Paroxysmal atrial fibrillation Category: Medical Code(s): I48.91 - Unspecified atrial fibrillation (5) Bladder cancer: Status: Chronic Qualifiers: Bladder location: unspecified site Qualified Code(s): C67.9 - Malignant neoplasm of bladder, unspecified Category: Medical Code(s): C67.9 - Malignant neoplasm of bladder, unspecified Plan 82-year-old male with history of A-fib, bladder cancer, COPD, pancytopenia who follows with oncology at [facility]. Presented to outside hospital because of weakness and leg swelling. Concern for NSTEMI and CHF exacerbation. Discussed case with ER physician at [facility], request transfer to higher level of care for cardiology consult. Medicine agreed to admit for further management. Received 1 dose of diuretic prior to transfer. Will resume patient's aspirin, initiate Plavix. Caution with anticoagulation and antiplatelet therapy in the setting of recent GI blood loss and history of hematuria with his bladder cancer. Cardiology consult placed. W ill evaluate patient in the morning. Monitor on telemetry overnight. Problems addressed as follows: CHF exacerbation, undetermined NSTEMI CAD - Reviewed CAT scan from earlier this month showing coronary calcifications -Echocardiogram pending -Repeat troponin in the morning. Initial troponin 0.4. Patient chest pain- free. -EKG obtained showing A-fib, no ST changes or overt ischemic changes -Initiate Plavix 75 mg daily. -Continue metoprolol 25 mg daily -Consider ACEi/ARB/ARNI pending echo findings COPD: Stable on room air at this time. Goal sats greater 90%. Continue Trelegy 200 inhaler. No wheeze on exam. Will consider DuoNebs if develops respiratory symptoms -Continue Singulair 10 mg daily History of bladder cancer: Follows with Dr. Mcelroy at [facility]. No active treatment at this time, undergoing surveillance. -Imaging shows bladder wall thickening but no lesions in bladder. -Continue tamsulosin 0.4 mg daily Full code Aspirin and Plavix as above, holding anticoagulation in the setting of reported GI blood loss while on Eliquis. PPI plan is to continue IV diuresis per cardiology, DC 1-2 days
--- NOTE | 2023-10-08 18:26 | PC.NURSE ---
Patient alert and oriented x4 this shift. Tolerating room air well. Purewick in place with adequate urine output. x2 assist to wheelchair today for scan. Has otherwise remained in bed throughout shift. No complaints of chest pain or shortness of breath through shift. Call light within reach.
[2023-10-08] MEDS: PAT OWN MED ***MONTELUKAST SODIUM 10MG 10 MG PO (21:10)
[2023-10-08] MEDS: PANTOPRAZOLE 40MG VIAL 40 MG IV (21:13)
[2023-10-08] MEDS: PAT OWN MED ***TAMSULOSIN 0.4MG 0.400000000000000022 MG PO (21:13)
--- NOTE | 2023-10-08 21:21 | CA_ITS ---
APPROVED REPORT EXAM: Comprehensive 2D, Doppler, and color-flow Echocardiogram Extraction Supervisor: Patria Carpenter CRT Ht: 5 ft 10 in Wt: 185lbs BSA: 2.02 BP: 110/70 mmHg Indications: COPD, Peripheral Edema, Hypertension/HDD, Bladder CA, HX chemo/radiation, NSTEMI HR drops into 30's with pauses 2D Dimensions LA Volume 63.20 mL LA Volume Index 31.29 mL/m2 (M/F) 16-34 M-Mode Dimensions RVDd 3.46 cm (0.9-2.6) LA Diam 3.66 cm (1.9-4.0) LVDd 5.66 cm (3.5-5.7) LVDs 3.81 cm (3.5-5.7) IVSd 1.07 cm (0.6-1.1) PWd 0.66 cm (0.6-1.1) EF (Teich) 60.40% FS 32.70% EDV (Teich) 157.50 mL TAPSE 1.79 (<1.7) ESV (Teich) 62.30 mL LV Diastology E Decel Time 160 (160-240 msec) E/A Ratio 0.82 MED A' 10.60 cm/s LAT A' 9.90 cm/s Aortic Valve MAXWELL Index 0.91 cm2/m2 AoV Peak Wily. 187.0 (50-130 cm/s) AI PHT 571.00 ms AO Peak GR. 14.00 mmHg AO Mean GR. 6.80 (<5 mmHg) AO VTI 43.8 (18-25 cm) MAXWELL (VTI) 1.88 (2.5-4.5 cm2) Mitral Valve MV A Velocity 113.0 (40-130 cm/s) E/A Ratio 0.82 Pulmonary Valve PV Peak Velocity 145.0 (50-150 cm/s) Tricuspid Valve TR P. Velocity 243.00 cm/s RAP Estimate 10.00 mmHg RVSP 33.60 mmHg Left Ventricle The left ventricle is normal size. The left ventricular systolic function is normal. The left ventricular ejection fraction is within the normal range. There is increased LV wall thickness. There is mild hypokinesis of the basal septal LV wall. Transmitral Doppler flow pattern suggests impaired LV relaxation. LVEF is 55%. Right Ventricle The right ventricle is normal size. The right ventricular systolic function is normal. Atria Left atrium is mildly dilated. The right atrium size is normal. There is no Doppler evidence of interatrial shunt. Aortic Valve The aortic valve is mildly thickened. Aortic sclerosis, but no evidence of aortic stenosis. Moderate aortic regurgitation. Mitral Valve Mild mitral annular calcification. The mitral valve is mildly thickened. No evidence of mitral valve stenosis. Mild mitral regurgitation. Tricuspid Valve The tricuspid valve leaflets are thin and pliable. Trace tricuspid regurgitation. There is insufficient TR jet to estimate RVSP. Pulmonic Valve The pulmonary valve is normal in structure. Mild pulmonic regurgitation. Great Vessels The aortic root is mildly dilated, measuring 4.6 cm in diameter. No evidence of aortic dissection flap visualized in the aortic root. The ascending aorta is mildly dilated measuring 3.9 cm in diameter. IVC is normal in size and collapses >50% with inspiration. Pericardium There is no pericardial effusion. Other Information Study Quality: Fair Conclusion Normal biventricular systolic function. Mild hypokinesis of the septal LV wall. Moderate AI. Mild MR, mild PI. Mildly dilated aortic root and ascending aorta. No evidence of aortic dissection flap visualized in the aortic root. Electronically signed by : Dilcia King MD 10/08/2023 12:40:36
[2023-10-09] VITALS (22 sets, daily range): BP systolic 98–171; BP diastolic 55–93; PULSE 56–77; RESP 16–24; TEMP 36.4–36.8; O2SAT 94–100; BMI 25.3
--- NOTE | 2023-10-09 | IR_ITS ---
APPROVED REPORT Patient Location: Inpatient Workers Compensation Claims Specialist: BELLA Cornelius RT (R) PROCEDURES Selective coronary angiogram Intravascular lithotripsy to the dominant right coronary artery Drug-eluting stent deployment to the proximal mid and distal dominant right coronary artery in a contiguous manner INDICATION Acute non-ST elevation myocardial infarction, Coronary artery disease, Extensive proximal mid and distal calcification Informed consent was obtained prior to the procedure. COMPLICATIONS None Estimated Blood Loss: Less than 10 mls TECHNIQUE One percent lidocaine used to anesthetize the right anterior aspect of the wrist. The right radial artery was accessed via the Seldinger technique. A 6 Yoruba sheath was placed in the right radial artery. 2.5 mg of Verapamil, 800 mcg of nitroglycerin, 1mg Lidocaine and 5000 U Heparin were given through the arterial sheath. The papa catheter was also used to perform left heart catheterization, left ventriculogram and selective coronary angiogram. At the end of the diagnostic angiogram therapeutic heparin was administered giving a therapeutic ACT and a guide catheter was placed in the right coronary followed by Choice PT extra-support wire placed distally. The guide liner was advanced and a 3.5 x 12 mm shockwave intravascular lithotripsy balloon was deployed at 4 sandra and 60 pulsations were given throughout the proximal and mid right coronary artery. A 3.5 mm balloon was also used to predilate the calcified midportion prior to the advancement of the shockwave balloon. Following this a 3.5 x 38 mm Abdulkadir frontier stent was deployed at 14 sandra reducing the critical stenosis. An additional 3 mm x 38 mm Amite frontier stent was placed distally and deployed at 20 sandra. An additional 3.5 x 22 mm Abdulkadir frontier stent was placed between these 2 stents overlapping each stent and deployed at 20 sandra. A 2.75 x 12 mm Abdulkadir frontier stent was placed distal to the 3 mm x 38 mm distal stent yet still overlapping the stent and then deployed at 16 sandra. The balloon was brought back and deployed at 20 sandra to mesh the 2 stents. A 3.5 x 12 mm noncompliant balloon was then deployed at 24 sandra in the proximal mid and distal portion of the right coronary artery to further post dilate. An additional 3 mm x 27 mm noncompliant balloon was used to dilate the distal right coronary artery prior to the deployment of the 3 mm x 38 mm stent. At the end of procedure the apparatus was removed the sheath was removed and hemostasis was achieved using TR banding patient was transferred to the postop putting in stable condition ANGIOGRAPHIC RESULTS The left main artery Normal The left anterior descending artery Has proximal 20% stenosis mid vessel 30 to 40% calcified stenosis but is otherwise widely patent The circumflex artery Is nondominant and has mid vessel 50% stenosis with distal eccentric calcified 50 to 60% stenoses The right coronary artery Large and dominant and critically calcified in the proximal and mid segment greater than 90% with additional mid vessel calcified 80% and distal 70% stenoses The AUGUST ventriculogram reveals Not performed The left ventricular end-diastolic pressure Not measured IMPRESSION Critical disease in a massively large dominant right coronary Successful intravascular lithotripsy of the proximal and mid right coronary critical disease reduced to 0% with 4 contiguous drug-eluting stents Moderate disease in a widely patent LAD Moderate disease in a nondominant circumflex artery PLAN 1. Plavix 75 mg daily plus aspirin 81 mg daily 2. Avoidance of tobacco products 3. Risk factor modification 4. Cardiac rehabilitation 5. LDL less than 55 to be achieved with high intensity statin Electronically signed by : Ambrocio Treviño MD 10/09/2023 15:20:23
--- NOTE | 2023-10-09 04:25 | PC.NURSE ---
pt denies, soa, cp. pt ambulated to bathroom and brushed teeth with assist x2 of staff. pt reports he feels more strength in his legs. pt has been npo after mn for heart cath
[2023-10-09] MEDS: FLUTICASONE/UMECLIDIN/VILANTER 200/62.5/25MCG INHALER 1 PUFF IH (06:10)
[2023-10-09 06:36] LABS: Basophils # 0.1 K/mm3 (0-0.2); Basophils % 0.7 % (0.1-2.0); Eosinophils # 0.3 K/mm3 (0.0-0.4); Eosinophils % 3.8 % (0.1-12.0); Hematocrit 41.2 % (42.0-52.0); Hemoglobin 13.3 g/dL (14.1-18.0); Lymphocytes % 14.2 % (10-50); Mean Corpuscular HGB Conc 32.2 g/dL (31.8-35.4); Mean Corpuscular Hemoglobin 30.5 pg (27.0-31.2); Mean Corpuscular Volume 94.6 fl (80-94); Mean Platelet Volume 8.1 fl (7.4-10.4); Monocytes # 0.4 K/mm3 (0.1-1.0); Neutrophils # 5.4 K/mm3 (1.8-7.8); Neutrophils % 75.4 % (37.0-80.0); Platelet Count 115 K/mm3 (142-424); Red Blood Count 4.36 M/mm3 (4.60-6.20); Red Cell Distribution Width 15.8 % (11.5-17.5); White Blood Count 7.2 K/mm3 (4.8-10.8)
[2023-10-09 06:43] LABS: Alanine Aminotransferase 26 U/L (12-78); Albumin Level 3.4 g/dl (3.5-5.0); Alkaline Phosphatase 44 U/L (38-126); Anion Gap 12.1 mEq/L (5-15); Aspartate Amino Transferase 54 U/L (17-59); Bilirubin,Direct 0.1 mg/dl (0.0-0.4); Bilirubin,Indirect 0.6 mg/dL (0.0-0.9); Bilirubin,Total 0.7 mg/dl (0.2-1.3); Bilirubin,Unconjugated 0.5 mg/dL (0.0-1.1); Blood Urea Nitrogen 18 mg/dl (9-20); Calcium 8.5 mg/dl (8.4-10.2); Carbon Dioxide 25 mmol/L (22.0-30.0); Chloride 102 mmol/L (98-107); Cholesterol 158 mg/dl (140-200); Creatinine Clearance Estimated 64 mL/min (50-200); Estimated Glomerular Filt Rate 158 ml/min (>60); GFR (African American) 192 ML/MIN (>60); Glucose 91 mg/dl (74-100); HDL Cholesterol 81 mg/dl (40-60); Potassium 3.1 mmoL/L (3.5-5.1); Sodium 136 mmol/L (136-145); Total Protein,Serum 5.6 g/dl (6.3-8.2); Triglycerides 60 mg/dl (30-150); VLDL Cholesterol 12 mg/dL (0-40)
[2023-10-09 08:05] LABS: Direct LDL Cholesterol 74.97 mg/dL (100-129)
[2023-10-09] MEDS: CLOPIDOGREL 75MG TAB 75 MG PO (08:57)
[2023-10-09] MEDS: METOPROLOL SUCCINATE XL 25MG TABLET 25 MG PO (08:57)
[2023-10-09] MEDS: ASPIRIN 81MG CHEWABLE TABLET 81 MG PO (08:57)
[2023-10-09] MEDS: SPIRONOLACTONE 25MG TABLET 50 MG PO (09:49)
[2023-10-09] MEDS: POTASSIUM CHLORIDE 20MEQ TAB 40 MEQ PO (10:52)
--- NOTE | 2023-10-09 11:08 | HMH.OTEV ---
OT Inpatient Evaluation Rehab OT IP Evaluation Start: 10/09/23 10:10 Freq: ONCE Status: Active Protocol: Document 10/09/23 10:56 NONI (Rec: 10/09/23 11:04 NONI [id number]) Rehab OT IP Assessment Subjective History Mr. Mckeon is an 82-year-old gentleman with history of COPD , A-fib, bladder cancer, remote history of smoking. Presented to outside hospital due to weakness and fall at home. States that he has had some increased swelling in his legs over the past 1 to 2 months. Has been having some increased dyspnea with exertion. Follows with cardiology in [place], initially was on Eliquis for A-fib which was discontinued due to blood in his stool and he was transition to 81 mg aspirin. Over the past 2 days he has been more weak and short of breath, fell at home because of his arthritis today and his was unable to get him off the floor. EMS came and helped him up and took him to the ER for evaluation. At [facility] he was found to have significant lower extremity edema. Mild elevation of his troponins and concern for volume overload on chest imaging. Kidney function and electrolytes normal. Reported labs include the following: White cell count of 6.6, hemoglobin 12, platelets 104. Kidney function with BUN 29 creatinine 0.9. Initial high- sensitivity troponin of 105, second of 215, third of 335. Chest x-ray was negative for focal consolidation but had pulmonary vascular congestion. Remote history of heart cath 8 to 10 years ago with no intervention at that time. Given his weakness, edema, and elevated troponin, concern for NSTEMI. [facility] salted for transfer and cardiology evaluation. On arrival, patient stable on room air. Able to lay flat in bed. Denies any chest pain. Shortness of breath at baseline for his COPD. No oxygen requirement. History of bladder cancer over the past few years. Recently transitioned care to Dr. Mcelroy and oncology at [facility]. See his note from 09/04/2023 with complete history of bladder cancer, resection, radiation and chemo. Patient appears to be without significant bladder lesions at this time and is not undergoing any further treatment. Just in surveillance at this time. Initially had hematuria with his bladder cancer but has not had hematuria since treatment . Patient received 40 mg IV Lasix at [facility]. EKG obtained on arrival showing atrial fibrillation, rate controlled. Noted to have mild elevation in troponin and BNP greater than thousand. Patient lives in 1 story home with 6-8 steps to enter with railings. Independent with ADLs except for bathing. assist with bathing as needed. AE: rollator, shower chair and grab bars in restrooms. Subjective I can get up. Instructed Patient on proper hand and foot placement to complete safety awareness from bed mobility of supine to sit @ EOB requiring Min A. Patient demonstrated good dynamic sitting balance at EOB . Instructed Patient on safety awareness to complete sit-> stand transfer->fx'l mobility ~25ft within environment with usage of RW. No LOB noted. Patient completed tasks with CGA. Assisted patient back to bed from EOB->supine with CGA. Objective Patient Orientation Person,Name,Age,Birthday,Year Right Upper Extremity Gross ROM WFL Left Upper Extremity Gross ROM WFL Bed Mobility bed mobility - supine/sit Assist Level Minimal x 1 (25% assist) Transfer Training Sit/Stand/Pivot Transfer Assist Level Minimal x 1 (25% assist) Chair Transfer Ability Minimal x 1 (25% assist) Chair Transfer Technique Sit to/from Ambulatory Chair Transfer Assistive Devices Rolling Walker Rehab OT IP prob,goals,plan Problems Date of Evaluation: 10/09/23 OT IP Problems Bed Mobility,Transfers,Balance ,Self care,Safety Rehab Potential Rehab Potential Good Equipment Needs Assistive Devices Rolling / Wheeled Walker Discharge Goals Bed Mobility Ability Standby Assistance Sit to Stand Chair Transfer Ability Supervision/Stand by Chair Transfer Ability Supervision/Stand by Chair Transfer Technique Sit to/from Ambulatory Chair Transfer Assistive Devices Rolling Walker Discharge Plan OT Discharge Plan After medical conditions, Recommend patient to return home with services. Patient will continue to be seen here at [facility] for IP OT Services in order to improve independence with ADLs and fx'l mobility tasks. Eval Complexity Eval Charge Codes 96946 - Low Complexity PHYSICIAN CERTIFICATION: I certify the specified therapy services for Wolf Mckeon are required, authorized, and reviewed every 30 days.
[2023-10-09] MEDS: VERAPAMIL 2.5MG/ML 2ML VIAL 2.5 MG IV (13:03)
[2023-10-09] MEDS: HEPARIN 1,000 UNITS/500ML NS (CATH LAB) 3000 UNIT IV (13:03)
[2023-10-09] MEDS: NITROGLYCERIN 800MCG/8ML SYR (CATH LAB) 800 MCG IA (13:03)
[2023-10-09] MEDS: HEPARIN 1,000 UNITS/ML 10ML VIAL (CATH LAB) 10000 UNIT IV ×2 (13:03→13:29)
[2023-10-09] MEDS: 0.9 % SODIUM CHLORIDE 500 ML 25 ML IV (13:03)
[2023-10-09] MEDS: diphenhydrAMINE 50MG/ML VIAL 50 MG IV (13:04)
[2023-10-09] MEDS: LIDOCAINE 1% 10ML MDV 20 ML IJ (13:04)
--- NOTE | 2023-10-09 13:17 | EXP.CARD.PN ---
Subjective Subjective Date: 10/09/23 Time: 09:00 Principal diagnosis: nonstemi Interval history: This is an 82-year-old white gentleman who presented to the emergency department with complaints of weakness, shortness of breath and lower extremity edema. The patient was found to have an acute exacerbation of HFpEF and an elevated troponin consistent with a non-STEMI. He is being diuresed with IV diuretics and states that he has had significant improvement in his lower extremity edema. He states he is still having shortness of breath with exertion but this is better. He denies any chest pain or pressure. He denies any fever, chills, nausea, vomiting, diarrhea, PND orthopnea. Exam Data for Last 24 hours Vital signs and Labs for Last 24 Hours: Temp Pulse Resp BP Pulse Ox O2 Del Method 97.9 F 70 18 126/73 97 Room Air 10/09/23 11:58 10/09/23 12:00 10/09/23 11:58 10/09/23 11:58 10/09/23 11:58 10/09/23 11:58 Laboratory Results - last 24 hr 10/09/23 05:27: WBC 7.2, RBC 4.36 L, Hgb 13.3 L, Hct 41.2 L, MCV 94.6 H, MCH 30.5, MCHC 32.2, RDW 15.8, Plt Count 115 L, MPV 8.1, Neut % (Auto) 75.4, Lymph % (Auto) 14.2, [place] % (Auto) 6.0, Eos % (Auto) 3.8, Baso % (Auto) 0.7, Neut # (Auto) 5.4, Lymph # (Auto) 1.0, [place] # (Auto) 0.4, Eos # (Auto) 0.3, Baso # (Auto) 0.1, Sodium 136, Potassium 3.1 L, Chloride 102, Carbon Dioxide 25, Anion Gap 12.1, BUN 18, Creatinine 0.50 L, Estimated Creat Clear 64, Estimated GFR 158, Est GFR ( Amer) 192 D, Glucose 91, Calcium 8.5, Total Bilirubin 0.7, Direct Bilirubin 0.1, Conjugated Bilirubin 0.0, Indirect Bilirubin 0.6, Unconjugated Bilirubin 0.5, AST 54 D, ALT 26, Alkaline Phosphatase 44, Total Protein 5.6 L, Albumin 3.4 L, Triglycerides 60, Cholesterol 158, LDL Cholesterol Direct 74.97 L, VLDL Cholesterol 12, HDL Cholesterol 81 H, Cholesterol/HDL Ratio 2.0 Temp Pulse Resp BP Pulse Ox O2 Del Method 97.9 F 96 H 16 148/66 H 93 L Room Air 10/08/23 12:00 10/08/23 12:00 10/08/23 12:00 10/08/23 12:00 10/08/23 12:00 10/08/23 12:45 Laboratory Results - last 24 hr 10/07/23 22:18: Troponin I 0.47 H, NT-Pro-B Natriuret Pep 1310 H 10/08/23 05:30: WBC 6.7, RBC 4.39 L, Hgb 13.7 L, Hct 41.1 L, MCV 93.7, MCH 31.3 H, MCHC 33.4, RDW 15.7, Plt Count 122 L, MPV 8.5, Neut % (Auto) 74.5, Lymph % (Auto) 13.7, [place] % (Auto) 6.8, Eos % (Auto) 4.2, Baso % (Auto) 0.8, Neut # (Auto) 5.0, Lymph # (Auto) 0.9, [place] # (Auto) 0.5, Eos # (Auto) 0.3, Baso # (Auto) 0.1, Sodium 137, Potassium 3.2 L, Chloride 101, Carbon Dioxide 32 H, Anion Gap 7.2, BUN 21 H, Creatinine 0.60 L, Estimated Creat Clear 65, Estimated GFR 128, Est GFR ( Amer) 155, Glucose 102 H, Calcium 8.9, Magnesium 1.5 L, Total Bilirubin 0.5, AST 40, ALT 27, Alkaline Phosphatase 39, Troponin I 0.42 H, Total Protein 5.9 L, Albumin 3.6, Globulin 2.3, Albumin/Globulin Ratio 1.6, Triglycerides 53, Cholesterol 187, LDL Cholesterol Direct 82.02 L, VLDL Cholesterol 11, HDL Cholesterol 100 H, Cholesterol/HDL Ratio 1.9 I & O for Last 24 hours: Intake & Output 10/06/23 10/07/23 10/08/23 10/09/23 23:59 23:59 23:59 23:59 Intake Total 240 / 240 Output Total 700 / 700 2850 / 2850 300 / 300 Balance -700 / -700 -2610 / -2610 -300 / -300 Weight 185 lb 8 oz 181 lb 1.6 oz Intake & Output 10/05/23 10/06/23 10/07/23 10/08/23 23:59 23:59 23:59 23:59 Output Total 700 / 700 2150 / 2150 Balance -700 / -700 -2150 / -2150 Weight 185 lb 8 oz Narrative: EKG appears to be multifocal atrial tachycardia. Constitutional Constitutional: no acute distress and average body habitus *Routine HEENT Exam Head: Present normocephalic and atraumatic ENT: Present mucous membranes moist *Routine Neck Exam Neck: Present supple, full ROM and normal carotid upstroke; Absent JVD, carotid bruit or lymphadenopathy *Routine Respiratory Exam Respiratory: Present CTA bilaterally, normal respiratory effort, able to speak in complete sentences and symmetric chest movement *Routine Cardiovascular Exam Cardiovascular: Present RRR, Normal S1 and Normal S2; Absent murmur or gallop *Routine Abdominal Exam Abdominal: Present soft and normoactive bowel sounds; Absent tenderness, distended or organomegaly *Routine Extremities Exam Extremities: Present edema (1+ bilateral lower extremity edema), full ROM, pulses intact and normal capillary refill; Absent cyanosis or clubbing *Routine Skin Exam Skin: Present intact and warm; Absent erythema *Routine Neurological Exam Neurological: Present alert, oriented X3 and CN II-XII intact; Absent sensory deficit or motor deficit Routine Psychiatric Exam Psychiatric: Present normal affect Progress Note: A&P Assessment and plan (1) NSTEMI (non-ST elevated myocardial infarction): Status: Acute (2) (HFpEF) heart failure with preserved ejection fraction: Status: Acute (3) Atypical angina: Status: Acute (4) Coronary artery calcification: Status: Acute (5) COPD (chronic obstructive pulmonary disease): Status: Chronic (6) Afib: Status: Acute (7) Bladder cancer: Status: Chronic (8) Aortic dissection, abdominal: Status: Acute (9) Multifocal atrial tachycardia: Status: Acute (10) Hyperlipidemia: Status: Acute (11) High blood pressure: Status: Acute (12) Hypokalemia: Status: Acute Assessment and Plan Assessment and Plan for All Diagnoses:: Plan: 1. The patient was admitted to the hospital due to an elevated troponin consistent with a non-STEMI. The patient did have a previous CT chest which showed severe coronary artery calcifications. He is also having atypical angina. Will plan to proceed with left cardiac catheterization to evaluate for coronary artery disease due to his atypical angina and non-STEMI. 2. The patient has been educated risk and benefits of proceeding with left cardiac catheterization. The patient verbalized understanding and is agreeable in proceeding with the procedure. 3. The patient will be n.p.o. after breakfast this morning in preparation for left cardiac catheterization. 4. The patient does have a chronic abdominal aortic dissection. There was no evidence of a thoracic aneurysm or dissection. 5. His echocardiogram does show a normal ejection fraction. He did have some wall motion abnormalities noted. 6. The patient is also having acute exacerbation of HFpEF. He is being diuresed with IV Bumex. Will continue IV Bumex at this time. 7. Continue metoprolol. 8. Consider Jardiance once he is euvolemic for HFpEF. 9. The patient did have multifocal atrial tachycardia and is on metoprolol. 10. The patient is hypokalemic today. Will start spironolactone 50 mg p.o. daily to help with his potassium as well as continued diuresis. 11. His blood pressure is acceptable. 12. His LDL goal is less than 55. His LDL is 74. Will start him on Lipitor 40 mg p.o. nightly. 13. Further recommendations will be made pending the patient's response to treatment and the results of his left cardiac catheterization today. Thank you for the opportunity to help participate in the care of this patient. All recommendations and orders are per Dr. King.
[2023-10-09] MEDS: FENTANYL 100MCG/2ML VIAL 50 MCG IV (13:32)
[2023-10-09] MEDS: MIDAZOLAM HCL 1MG/1ML 5ML VIAL 1 MG IV (13:32)
--- NOTE | 2023-10-09 13:56 | HMH.PTEV ---
Physical Therapy Evaluation Rehab PT IP Evaluation Start: 10/09/23 10:10 Freq: ONCE Status: Active Protocol: Document 10/09/23 11:24 NIRAJMARLIN (Rec: 10/09/23 11:43 TATO [id number]) Subjective/History History History Mr. Mckeon is an 82-year-old gentleman with history of COPD , A-fib, bladder cancer, remote history of smoking. Presented to outside hospital due to weakness and fall at home. States that he has had some increased swelling in his legs over the past 1 to 2 months. Has been having some increased dyspnea with exertion. Follows with cardiology in [place], initially was on Eliquis for A-fib which was discontinued due to blood in his stool and he was transition to 81 mg aspirin. Over the past 2 days he has been more weak and short of breath, fell at home because of his arthritis today and his was unable to get him off the floor. EMS came and helped him up and took him to the ER for evaluation. At [facility] he was found to have significant lower extremity edema. Mild elevation of his troponins and concern for volume overload on chest imaging. Kidney function and electrolytes normal. Reported labs include the following: White cell count of 6.6, hemoglobin 12, platelets 104. Kidney function with BUN 29 creatinine 0.9. Initial high- sensitivity troponin of 105, second of 215, third of 335. Chest x-ray was negative for focal consolidation but had pulmonary vascular congestion. Remote history of heart cath 8 to 10 years ago with no intervention at that time. Given his weakness, edema, and elevated troponin, concern for NSTEMI. [facility] salted for transfer and cardiology evaluation. On arrival, patient stable on room air. Able to lay flat in bed. Denies any chest pain. Shortness of breath at baseline for his COPD. No oxygen requirement. History of bladder cancer over the past few years. Recently transitioned care to Dr. Mcelroy and oncology at [facility]. See his note from 09/04/2023 with complete history of bladder cancer, resection, radiation and chemo. Patient appears to be without significant bladder lesions at this time and is not undergoing any further treatment. Just in surveillance at this time. Initially had hematuria with his bladder cancer but has not had hematuria since treatment . Patient received 40 mg IV Lasix at [facility]. EKG obtained on arrival showing atrial fibrillation, rate controlled. Noted to have mild elevation in troponin and BNP greater than thousand. Patient lives in 1 story home with 6-8 steps to enter with railings. Independent with ADLs except for bathing. assist with bathing as needed. AD: rollator, shower chair and grab bars in restrooms. Patient to be seen for cardiac cath today. [ End ] Subjective Subjective I feel a lot better since I'm gotten some fluid off f y legs. New diagnosis of cancer in past 12 No months? Rehab PT IP Eval Objective Appearance Patient Behavior Appropriate,Cooperative Patient Orientation Person,Place,Birthday Difficulty following instructions none Speech Pattern Clear Ambulation Patient Able to Ambulate Yes Balance Ability to Arise Able, uses arms to help Sitting Balance Steady, safe Standing Balance Narrow stance w/o support Dynamic Sitting Balance Ability Good Dynamic Standing Balance Ability Good Transfers Bed Transfer Ability Contact Guard/Hand Hold Sit to Stand Bed Transfer Ability Minimal x 2 (25% assist) ROM All Extremities PT ROM Status WFL MMT LLE PT MMT WFL Rehab PT IP prob,goals,plan Problems Date of Evaluation: 10/09/23 PT IP Problems Bed Mobility,Transfers,Gait, Balance,Self care,Safety Rehab Potential Rehab Potential Good Equipment Needs Assistive Devices None / NA Plan PT Intervention Plan Bed Mobility,Transfers,Balance ,Self care,Safety,Therapeutic Exercise PT Plan Frequency Daily Duration LOS Discharge Goals Bed Transfer Ability Supervision/Stand by Sit to Stand Chair Transfer Ability Supervision/Stand by Ambulation Assistive Device Rolling Walker Ambulation Distance (feet) 50 Discharge Plan PT Discharge Plan PT suggests DC to home with home heallt for further rehab Kinjal howard medically stable PHYSICIAN CERTIFICATION: I certify the specified therapy services for Wolf Mckeon are required, authorized, and reviewed every 30 days.
[2023-10-09] MEDS: CLOPIDOGREL 300MG TABLET 600 MG PO (14:09)
[2023-10-09] MEDS: PROPOFOL 10MG/ML 20ML VIAL 400 MG IV (14:11)
--- NOTE | 2023-10-09 14:26 | SUR.PHASEII ---
Pt got a skin tear to the right elbow during the procedure. Pts elbow was wrapped with gauze.
[2023-10-09] MEDS: IOPAMIDOL-370 (76%);100ML BOTTLE 110 ML IV (14:52)
[2023-10-09 15:00] LABS: CATHL Activated Clotting Time > 400 SEC (74-125)
--- NOTE | 2023-10-09 16:20 | P.PN_ITS ---
Subjective *Date: 10/09/23 *Time: 16:20 Interval history: patient is seen at bedside, he denied CP, SOB at rest, he denied any acute events at night, he is planned to have cardiac cath today Exam Data for Last 24 hours Vital signs and Labs for Last 24 Hours: Temp Pulse Resp BP Pulse Ox O2 Del Method 97.9 F 77 18 121/63 99 Room Air 10/09/23 11:58 10/09/23 14:45 10/09/23 14:45 10/09/23 14:45 10/09/23 14:45 10/09/23 15:14 Laboratory Results - last 24 hr 10/09/23 05:27: WBC 7.2, RBC 4.36 L, Hgb 13.3 L, Hct 41.2 L, MCV 94.6 H, MCH 30.5, MCHC 32.2, RDW 15.8, Plt Count 115 L, MPV 8.1, Neut % (Auto) 75.4, Lymph % (Auto) 14.2, [place] % (Auto) 6.0, Eos % (Auto) 3.8, Baso % (Auto) 0.7, Neut # (Auto) 5.4, Lymph # (Auto) 1.0, [place] # (Auto) 0.4, Eos # (Auto) 0.3, Baso # (Auto) 0.1, Sodium 136, Potassium 3.1 L, Chloride 102, Carbon Dioxide 25, Anion Gap 12.1, BUN 18, Creatinine 0.50 L, Estimated Creat Clear 64, Estimated GFR 158, Est GFR ( Amer) 192 D, Glucose 91, Calcium 8.5, Total Bilirubin 0.7, Direct Bilirubin 0.1, Conjugated Bilirubin 0.0, Indirect Bilirubin 0.6, Unconjugated Bilirubin 0.5, AST 54 D, ALT 26, Alkaline Phosphatase 44, Total Protein 5.6 L, Albumin 3.4 L, Triglycerides 60, Cholesterol 158, LDL Cholesterol Direct 74.97 L, VLDL Cholesterol 12, HDL Cholesterol 81 H, Cholesterol/HDL Ratio 2.0 10/09/23 13:45: Activated Clotting Time > 400 H* I & O for Last 24 hours: Intake & Output 10/06/23 10/07/23 10/08/23 10/09/23 23:59 23:59 23:59 23:59 Intake Total 240 / 240 Output Total 700 / 700 2850 / 2850 300 / 300 Balance -700 / -700 -2610 / -2610 -300 / -300 Weight 84.141 kg 82.146 kg Constitutional Constitutional: no acute distress *Routine HEENT Exam Head: Present normocephalic Eye: Present EOMI and PERRL ENT: Present mucous membranes moist *Routine Neck Exam Neck: Present supple; Absent lymphadenopathy *Routine Respiratory Exam Respiratory: Present CTA bilaterally *Routine Cardiovascular Exam Cardiovascular: Present RRR *Routine Abdominal Exam Abdominal: Present soft and normoactive bowel sounds; Absent tenderness *Routine Extremities Exam Extremities: Absent cyanosis, clubbing or edema *Routine Skin Exam Skin: Present warm; Absent rash *Routine Neurological Exam Neurological: Present alert and oriented X3 Assessment and Plan *Assessment and plan (1) CHF exacerbation: Status: Acute Qualifiers: Heart failure type: unspecified Qualified Code(s): I50.9 - Heart failure, unspecified Category: Medical Code(s): I50.9 - Heart failure, unspecified (2) NSTEMI (non-ST elevated myocardial infarction): Status: Acute Category: Medical Code(s): I21.4 - Non-ST elevation (NSTEMI) myocardial infarction (3) COPD (chronic obstructive pulmonary disease): Status: Chronic Qualifiers: COPD type: unspecified COPD Qualified Code(s): J44.9 - Chronic obstructive pulmonary disease, unspecified Category: Medical Code(s): J44.9 - Chronic obstructive pulmonary disease, unspecified (4) Afib: Status: Acute Qualifiers: Atrial fibrillation type: paroxysmal Qualified Code(s): I48.0 - Paroxysmal atrial fibrillation Category: Medical Code(s): I48.91 - Unspecified atrial fibrillation (5) Bladder cancer: Status: Chronic Qualifiers: Bladder location: unspecified site Qualified Code(s): C67.9 - Malignant neoplasm of bladder, unspecified Category: Medical Code(s): C67.9 - Malignant neoplasm of bladder, unspecified Plan 82-year-old male with history of A-fib, bladder cancer, COPD, pancytopenia who follows with oncology at [facility]. Presented to outside hospital because of weakness and leg swelling. Concern for NSTEMI and CHF exacerbation. Discussed case with ER physician at [facility], request transfer to higher level of care for cardiology consult. Medicine agreed to admit for further management. Received 1 dose of diuretic prior to transfer. Will resume patient's aspirin, initiate Plavix. Caution with anticoagulation and antiplatelet therapy in the setting of recent GI blood loss and history of hematuria with his bladder cancer. Cardiology consult placed. Will evaluate patient in the morning. Monitor on telemetry overnight. Problems addressed as follows: CHF exacerbation, undetermined NSTEMI CAD - Reviewed CAT scan from earlier this month showing coronary calcifications -Echocardiogram pending -Repeat troponin in the morning. Patient chest pain-free. -EKG obtained showing A-fib, no ST changes or overt ischemic changes -Initiate Plavix 75 mg daily. -Continue metoprolol 25 mg daily -Consider ACEi/ARB/ARNI pending echo findings COPD: Stable on room air at this time. Goal sats greater 90%. Continue Trelegy 200 inhaler. No wheeze on exam. Will consider DuoNebs if develops respiratory symptoms -Continue Singulair 10 mg daily History of bladder cancer: Follows with Dr. Mcelroy at [facility]. No active treatment at this time, undergoing surveillance. -Imaging shows bladder wall thickening but no lesions in bladder. -Continue tamsulosin 0.4 mg daily Full code Aspirin and Plavix as above, holding anticoagulation in the setting of reported GI blood loss while on Eliquis. PPI plan is to continue IV diuresis per cardiology, DC 1-2 days, s/p cardiac cath today, continue IV diuresis
[2023-10-09] MEDS: BUMETANIDE 1MG/4ML VIAL 1 MG IV (16:46)
--- NOTE | 2023-10-09 18:37 | PC.WOUNDNOTE ---
SKIN TEARS PRESENT TO TOP AND BOTTOM OF RIGHT ELBOW SKIN TEARS PRESENT TO TOP OF RIGHT HAND.
--- NOTE | 2023-10-09 18:39 | PC.NURSE ---
Patient alert and oriented throughout shift. Tolerating room air well. Patient had 4 stents placed during heart cath today. When arriving back to floor patient had skin tears on his right hand and right elbow with a large amount of blood draining from right elbow. Redressed both sites with non-stick adhesive pads and kerlex. Dressings C/D/I at this time. Right radial cath site has pressure dressing in place and is C/D/I at this time. Patient has had no complaints of chest pain or shortness of breath during this shift. Patient diuresing well with adequate urine output. Patient has been up to chair for dinner with x2 assist and was still significantly weak. Call light left within reach of patient
[2023-10-09] MEDS: PANTOPRAZOLE 40MG VIAL 40 MG IV (20:41)
[2023-10-09] MEDS: ATORVASTATIN 40MG TABLET 40 MG PO (20:41)
[2023-10-09] MEDS: PAT OWN MED ***TAMSULOSIN 0.4MG 0.400000000000000022 MG PO (20:42)
[2023-10-09] MEDS: PAT OWN MED ***MONTELUKAST SODIUM 10MG 10 MG PO (20:42)
[2023-10-09] MEDS: PRAMIPEXOLE 1MG TAB 1.5 MG PO (20:45)
[2023-10-10] VITALS: PULSE 71
--- NOTE | 2023-10-10 01:27 | ECG_ITS ---
APPROVED REPORT Exam: Resting ECG HR:71 bpm ECG Measurements Heart Rate 71 AXES CA 231 P -14 QRSd 119 QRS -72 QT 443 T -48 QTc 465 Conclusion SINUS RHYTHM WITH FIRST DEGREE AV BLOCK WITH OCCASIONAL SUPRAVENTRICULAR PREMATURE COMPLEXES LEFT ANTERIOR FASCICULAR BLOCK [QRS AXIS <= -45, QR IN I, RS IN II] Anteroseptal changes are nonspecific and have seen previously UNCONFIRMED REPORT Electronically signed by : Monster Steve MD 10/12/2023 08:37:06
--- NOTE | 2023-10-10 01:28 | PC.NURSE ---
Patient's heart rate dropped down to 28, went into check on patient, he stated no chest pain or sob. sent picture of strip to jorge, stated ok, no worries. sent picture of 12 lead that was ordered by Blas as well.
[2023-10-10 03:56] VITALS: BP 151/80; PULSE 68; RESP 16; TEMP 36.6; O2SAT 98; BMI 24.7
[2023-10-10 04:00] VITALS: PULSE 71
[2023-10-10 06:12] LABS: Basophils # 0.1 K/mm3 (0-0.2); Basophils % 0.6 % (0.1-2.0); Eosinophils # 0.3 K/mm3 (0.0-0.4); Hematocrit 40.8 % (42.0-52.0); Lymphocytes # 0.8 K/mm3 (0.7-4.5); Lymphocytes % 10.6 % (10-50); Mean Corpuscular HGB Conc 31.8 g/dL (31.8-35.4); Mean Corpuscular Hemoglobin 30.1 pg (27.0-31.2); Mean Corpuscular Volume 94.7 fl (80-94); Mean Platelet Volume 8.2 fl (7.4-10.4); Monocytes # 0.6 K/mm3 (0.1-1.0); Monocytes % 7.1 % (1.7-9.3); Neutrophils % 77.7 % (37.0-80.0); Platelet Count 123 K/mm3 (142-424); Red Blood Count 4.31 M/mm3 (4.60-6.20); Red Cell Distribution Width 15.5 % (11.5-17.5); White Blood Count 7.7 K/mm3 (4.8-10.8)
[2023-10-10 06:20] LABS: Anion Gap 9.7 mEq/L (5-15); Blood Urea Nitrogen 16 mg/dl (9-20); Calcium 8.4 mg/dl (8.4-10.2); Carbon Dioxide 25 mmol/L (22.0-30.0); Chloride 103 mmol/L (98-107); Creatinine Clearance Estimated 62 mL/min (50-200); Estimated Glomerular Filt Rate 158 ml/min (>60); GFR (African American) 192 ML/MIN (>60); Glucose 99 mg/dl (74-100); Potassium 3.7 mmoL/L (3.5-5.1); Sodium 134 mmol/L (136-145)
[2023-10-10] MEDS: FLUTICASONE/UMECLIDIN/VILANTER 200/62.5/25MCG INHALER 1 PUFF IH (06:36)
[2023-10-10 07:30] VITALS: BP 90/44; PULSE 66; RESP 19; TEMP 36.5; O2SAT 96
[2023-10-10 08:00] VITALS: PULSE 60
[2023-10-10] MEDS: SPIRONOLACTONE 25MG TABLET 50 MG PO (08:09)
[2023-10-10] MEDS: CLOPIDOGREL 75MG TAB 75 MG PO (08:09)
[2023-10-10] MEDS: ASPIRIN EC 81MG TABLET 81 MG PO (08:09)
--- NOTE | 2023-10-10 08:52 | SW/DCPLANNER ---
Addendum entered by Dolores Polk RN 10/10/23 12:15: [facility] has accepted patient. Addendum entered by Deisy Singleton 10/10/23 11:29: Patient information/order has been faxed to Tatyana zuluaga/ [facility]. Original Note: I spoke w/ this patient and his regarding plans once medically stable for discharge. PT/OT evaluated patient and recommended home w/ home health services. Patient and his are agreeable to home health services and prefer to use [facility]. Patient information/order will be faxed to [facility] within [facility] at time of discharge. Discharge date is unknown at this time.
--- NOTE | 2023-10-10 09:59 | EXP.CARD.PN ---
Subjective Subjective Date: 10/10/23 Time: 09:30 Principal diagnosis: nonstemi Interval history: This is an 82-year-old white gentleman who presented to the emergency department complaints of weakness, lower extremity edema and shortness of breath. He was found to have an acute exacerbation of HFpEF and an elevated troponin consistent with a non-STEMI. The patient was diuresed with IV Bumex and had a -2 L fluid balance overnight. He states that his edema has significantly improved and he feels better than he has in the last year. He also underwent left cardiac catheterization yesterday and had critical proximal and severe mid RCA disease. He had lithotripsy and 4 stents placed to his right coronary artery. He tolerated the procedure well. This morning he denies any chest pain or pressure. He states his shortness of breath has resolved. He denies any fever, chills, nausea, vomiting, diarrhea, PND orthopnea. Of note, the patient did go into 2-1 AV block last night while he was asleep. The patient was woke up and asymptomatic during these episodes of AV block. This morning he remains asymptomatic. Exam Data for Last 24 hours Vital signs and Labs for Last 24 Hours: Temp Pulse Resp BP Pulse Ox O2 Del Method 97.7 F 66 19 90/44 L 96 Room Air 10/10/23 07:30 10/10/23 07:30 10/10/23 07:30 10/10/23 07:30 10/10/23 07:30 10/10/23 08:00 Laboratory Results - last 24 hr 10/09/23 13:45: Activated Clotting Time > 400 H* 10/10/23 05:23: WBC 7.7, RBC 4.31 L, Hgb 13.0 L, Hct 40.8 L, MCV 94.7 H, MCH 30.1, MCHC 31.8, RDW 15.5, Plt Count 123 L, MPV 8.2, Neut % (Auto) 77.7, Lymph % (Auto) 10.6, [place] % (Auto) 7.1, Eos % (Auto) 4.0, Baso % (Auto) 0.6, Neut # (Auto) 6.0, Lymph # (Auto) 0.8, [place] # (Auto) 0.6, Eos # (Auto) 0.3, Baso # (Auto) 0.1, Sodium 134 L, Potassium 3.7, Chloride 103, Carbon Dioxide 25, Anion Gap 9.7, BUN 16, Creatinine 0.50 L, Estimated Creat Clear 62, Estimated GFR 158, Est GFR ( Amer) 192, Glucose 99, Calcium 8.4 I & O for Last 24 hours: Intake & Output 10/07/23 10/08/23 10/09/23 10/10/23 23:59 23:59 23:59 23:59 Intake Total 240 / 240 360 / 410 410 / 410 Output Total 700 / 700 2850 / 2850 2650 / 2650 400 / 400 Balance -700 / -700 -2610 / -2610 -2290 / -2240 Weight 185 lb 8 oz 181 lb 1.6 oz 176 lb 9.6 oz Constitutional Constitutional: no acute distress and average body habitus *Routine HEENT Exam Head: Present normocephalic and atraumatic ENT: Present mucous membranes moist *Routine Neck Exam Neck: Present supple, full ROM and normal carotid upstroke; Absent JVD, carotid bruit or lymphadenopathy *Routine Respiratory Exam Respiratory: Present CTA bilaterally, normal respiratory effort, able to speak in complete sentences and symmetric chest movement *Routine Cardiovascular Exam Cardiovascular: Present RRR, Normal S1 and Normal S2; Absent murmur or gallop *Routine Abdominal Exam Abdominal: Present soft and normoactive bowel sounds; Absent tenderness, distended or organomegaly *Routine Extremities Exam Extremities: Present edema (Trace lower extremity edema), full ROM, pulses intact and normal capillary refill; Absent cyanosis or clubbing *Routine Skin Exam Skin: Present intact and warm; Absent erythema *Routine Neurological Exam Neurological: Present alert, oriented X3 and CN II-XII intact; Absent sensory deficit or motor deficit Routine Psychiatric Exam Psychiatric: Present normal affect Progress Note: A&P Assessment and plan (1) NSTEMI (non-ST elevated myocardial infarction): Status: Acute (2) (HFpEF) heart failure with preserved ejection fraction: Status: Acute (3) CAD in [place] artery: Status: Acute (4) AV block: Status: Acute (5) Multifocal atrial tachycardia: Status: Acute (6) COPD (chronic obstructive pulmonary disease): Status: Chronic (7) Afib: Status: Acute (8) Bladder cancer: Status: Chronic (9) Aortic dissection, abdominal: Status: Acute (10) Hyperlipidemia: Status: Acute (11) High blood pressure: Status: Acute Assessment and Plan Assessment and Plan for All Diagnoses:: Plan: 1. The patient was admitted to the hospital due to an elevated troponin consistent with a non-STEMI. The patient did have a previous CT chest which showed severe coronary artery calcifications. He is also having atypical angina. The patient underwent left cardiac catheterization yesterday and was found to have critical disease in the massively large dominant right coronary artery. He underwent successful intravascular lithotripsy of the proximal and mid right coronary artery with 4 drug-eluting stents placed. He had persistent moderate disease to the LAD and circumflex arteries which were patent. 2. He will be on Plavix and aspirin for dual antiplatelet therapy. No issues with bleeding this morning. 3. The patient was also admitted with acute HFpEF. He has been diuresed with IV Bumex. He is a -2 L fluid balance overnight. Will stop IV Bumex and start Bumex 0.5 mg p.o. daily. 4. Continue spironolactone. 5. Start Jardiance 10 mg p.o. daily for HFpEF. 6. Continue metoprolol for HFpEF and multifocal atrial tachycardia. 7. No MARILIA or ARB at this time as his blood pressure was on the lower side this morning at 90/44. Recheck of his blood pressure during my examination his blood pressure was 125/66 and stable. 8. His LDL goal is less than 55. His LDL is 74. He is on a statin. 9. The patient does have a chronic abdominal aortic dissection. There was no evidence of a thoracic aneurysm or dissection. 10. The patient had 2-1 AV block during the night. He was asymptomatic with this. He remains asymptomatic this morning. We do recommend a 30-day event monitor at discharge. 11. No further recommendations at this time from a cardiac standpoint. The patient can be discharged later today after 1 PM with the following cardiac medications: Aspirin 81 mg daily, Protonix 40 mg daily, Lipitor 40 mg nightly, Bumex 0.5 mg p.o. daily, Plavix 75 mg daily, Toprol 25 mg daily, Aldactone 50 mg daily, Jardiance 10 mg daily. 12. The patient will need to follow-up in cardiology clinic with Dr. Ha next week. Thank you for the opportunity to help participate in the care of this patient. All recommendations and orders are per Dr. King.
[2023-10-10] MEDS: EMPAGLIFLOZIN 10MG TABLET 10 MG PO (10:10)
[2023-10-10] MEDS: BUMETANIDE 1 MG TABLET 0.5 MG PO (10:10)
--- NOTE | 2023-10-10 11:06 | EXP.DC.SUM ---
General Admission date:: 10/07/23 Discharge date: 10/10/23 HPI HPI HPI: Mr. Mckeon is an 82-year-old gentleman with history of COPD, A-fib, bladder cancer, remote history of smoking. Presented to outside hospital due to weakness and fall at home. States that he has had some increased swelling in his legs over the past 1 to 2 months. Has been having some increased dyspnea with exertion. Follows with cardiology in [place], initially was on Eliquis for A-fib which was discontinued due to blood in his stool and he was transition to 81 mg aspirin. Over the past 2 days he has been more weak and short of breath, fell at home because of his arthritis today and his was unable to get him off the floor. EMS came and helped him up and took him to the ER for evaluation. At [facility] he was found to have significant lower extremity edema. Mild elevation of his troponins and concern for volume overload on chest imaging. Kidney function and electrolytes normal. Reported labs include the following: White cell count of 6.6, hemoglobin 12, platelets 104. Kidney function with BUN 29 creatinine 0.9. Initial high-sensitivity troponin of 105, second of 215, third of 335. Chest x-ray was negative for focal consolidation but had pulmonary vascular congestion. Remote history of heart cath 8 to 10 years ago with no intervention at that time. Given his weakness, edema, and elevated troponin, concern for NSTEMI. [facility] salted for transfer and cardiology evaluation. On arrival, patient stable on room air. Able to lay flat in bed. Denies any chest pain. Shortness of breath at baseline for his COPD. No oxygen requirement. History of bladder cancer over the past few years. Recently transitioned care to Dr. Mcelroy and oncology at [facility]. See his note from 09/04/2023 with complete history of bladder cancer, resection, radiation and chemo. Patient appears to be without significant bladder lesions at this time and is not undergoing any further treatment. Just in surveillance at this time. Initially had hematuria with his bladder cancer but has not had hematuria since treatment. Patient received 40 mg IV Lasix at [facility]. EKG obtained on arrival showing atrial fibrillation, rate controlled. Noted to have mild elevation in troponin and BNP greater than thousand. Hospital Course Hospital Course Hospital Course: 82-year-old male with history of A-fib, bladder cancer, COPD, pancytopenia who follows with oncology at [facility]. Presented to outside hospital because of weakness and leg swelling. Concern for NSTEMI and CHF exacerbation. Discussed case with ER physician at [facility], request transfer to higher level of care for cardiology consult. Medicine agreed to admit for further management. Received 1 dose of diuretic prior to transfer. Will resume patient's aspirin, initiate Plavix. Caution with anticoagulation and antiplatelet therapy in the setting of recent GI blood loss and history of hematuria with his bladder cancer. Cardiology consult placed. Will evaluate patient in the morning. Monitor on telemetry overnight. Problems addressed as follows: Patient was treated for CHF and also had cardiac cath by cardiology, patient did recieve 2 stents and was started on DAPT with ASA and plavix, patient was cleared for discharge per cardiology on the following meds Aspirin 81 mg daily, Protonix 40 mg daily, Lipitor 40 mg nightly, Bumex 0.5 mg p.o. daily, Plavix 75 mg daily, Toprol 25 mg daily, Aldactone 50 mg daily, Jardiance 10 mg daily. follow up with cardiology in 1 week Exam Data for Last 24 hours Vital signs and Labs for Last 24 Hours: Temp Pulse Resp BP Pulse Ox O2 Del Method 97.7 F 66 19 90/44 L 96 Room Air 10/10/23 07:30 10/10/23 07:30 10/10/23 07:30 10/10/23 07:30 10/10/23 07:30 10/10/23 09:00 Laboratory Results - last 24 hr 10/09/23 13:45: Activated Clotting Time > 400 H* 10/10/23 05:23: WBC 7.7, RBC 4.31 L, Hgb 13.0 L, Hct 40.8 L, MCV 94.7 H, MCH 30.1, MCHC 31.8, RDW 15.5, Plt Count 123 L, MPV 8.2, Neut % (Auto) 77.7, Lymph % (Auto) 10.6, Levy % (Auto) 7.1, Eos % (Auto) 4.0, Baso % (Auto) 0.6, Neut # (Auto) 6.0, Lymph # (Auto) 0.8, Levy # (Auto) 0.6, Eos # (Auto) 0.3, Baso # (Auto) 0.1, Sodium 134 L, Potassium 3.7, Chloride 103, Carbon Dioxide 25, Anion Gap 9.7, BUN 16, Creatinine 0.50 L, Estimated Creat Clear 62, Estimated GFR 158, Est GFR ( Amer) 192, Glucose 99, Calcium 8.4 I & O for Last 24 hours: Intake & Output 10/07/23 10/08/23 10/09/23 10/10/23 23:59 23:59 23:59 23:59 Intake Total 240 / 240 360 / 410 410 / 410 Output Total 700 / 700 2850 / 2850 2650 / 2650 400 / 400 Balance -700 / -700 -2610 / -2610 -2290 / -2240 Weight 84.141 kg 82.146 kg 80.104 kg Constitutional Constitutional: no acute distress *Routine HEENT Exam Head: Present normocephalic Eye: Present EOMI and PERRL ENT: Present mucous membranes moist *Routine Neck Exam Neck: Present supple; Absent lymphadenopathy *Routine Respiratory Exam Respiratory: Present CTA bilaterally *Routine Cardiovascular Exam Cardiovascular: Present RRR *Routine Abdominal Exam Abdominal: Present soft and normoactive bowel sounds; Absent tenderness *Routine Extremities Exam Extremities: Absent cyanosis, clubbing or edema *Routine Skin Exam Skin: Present warm; Absent rash *Routine Neurological Exam Neurological: Present alert and oriented X3 Results Data Completed and Pending Labs on day of discharge: Labs from last 24 hours 10/10/23 10/09/23 05:23 13:45 WBC 7.7 RBC 4.31 L Hgb 13.0 L Hct 40.8 L MCV 94.7 H MCH 30.1 MCHC 31.8 RDW 15.5 Plt Count 123 L MPV 8.2 Neut % (Auto) 77.7 Lymph % (Auto) 10.6 Levy % (Auto) 7.1 Eos % (Auto) 4.0 Baso % (Auto) 0.6 Neut # (Auto) 6.0 Lymph # (Auto) 0.8 Levy # (Auto) 0.6 Eos # (Auto) 0.3 Baso # (Auto) 0.1 Activated Clotting Time > 400 H* Sodium 134 L Potassium 3.7 Chloride 103 Carbon Dioxide 25 Anion Gap 9.7 BUN 16 Creatinine 0.50 L Estimated Creat Clear 62 Estimated GFR 158 Est GFR ( Amer) 192 Glucose 99 Calcium 8.4 DS: Diagnosis Discharge Diagnosis (1) NSTEMI (non-ST elevated myocardial infarction): Status: Acute Code(s): I21.4 - Non-ST elevation (NSTEMI) myocardial infarction (2) (HFpEF) heart failure with preserved ejection fraction: Status: Acute Code(s): I50.30 - Unspecified diastolic (congestive) heart failure Qualifiers: Heart failure chronicity: acute Qualified Code(s): I50.31 - Acute diastolic (congestive) heart failure (3) CAD in [place] artery: Status: Acute Code(s): I25.10 - Atherosclerotic heart disease of [place] coronary artery without angina pectoris (4) AV block: Status: Acute Code(s): I44.30 - Unspecified atrioventricular block (5) Multifocal atrial tachycardia: Status: Acute Code(s): I47.19 - Other supraventricular tachycardia (6) COPD (chronic obstructive pulmonary disease): Status: Chronic Code(s): J44.9 - Chronic obstructive pulmonary disease, unspecified Qualifiers: COPD type: unspecified COPD Qualified Code(s): J44.9 - Chronic obstructive pulmonary disease, unspecified (7) Afib: Status: Acute Code(s): I48.91 - Unspecified atrial fibrillation Qualifiers: Atrial fibrillation type: paroxysmal Qualified Code(s): I48.0 - Paroxysmal atrial fibrillation (8) Bladder cancer: Status: Chronic Code(s): C67.9 - Malignant neoplasm of bladder, unspecified Qualifiers: Bladder location: unspecified site Qualified Code(s): C67.9 - Malignant neoplasm of bladder, unspecified (9) Aortic dissection, abdominal: Status: Acute Code(s): I71.02 - Dissection of abdominal aorta (10) Hyperlipidemia: Status: Acute Code(s): E78.5 - Hyperlipidemia, unspecified Qualifiers: Hyperlipidemia type: mixed hyperlipidemia Qualified Code(s): E78.2 - Mixed hyperlipidemia (11) High blood pressure: Status: Acute Code(s): I10 - Essential (primary) hypertension Qualifiers: Hypertension type: primary hypertension Qualified Code(s): I10 - Essential (primary) hypertension Meds Home Medications and Allergies Home Medications Medication Instructions Recorded Confirmed Type cholecalciferol (vitamin D3) 25 25 mcg PO DAILY 09/04/23 10/07/23 History mcg (1,000 unit) capsule fluticasone fur. 200 mcg-umeclid 1 inh inhalation DAILY 09/04/23 10/07/23 History 62.5 mcg-vilant 25 mcg inhalat.powder (Trelegy Ellipta) glucosamine-chondroitin 1,500 mg 30 ml PO DAILY 09/04/23 10/07/23 History -1,200 mg/30 mL oral liquid metoprolol succinate 25 mg 25 mg PO DAILY 09/04/23 10/07/23 History tablet,extended release 24 hr montelukast 10 mg tablet 10 mg PO HS 09/04/23 10/08/23 History (Singulair) vnmwxbswmzxy-ksavjfal-jjkyrp tablet 1 tab PO DAILY 09/04/23 10/07/23 History tamsulosin 0.4 mg capsule 0.4 mg PO HS 09/04/23 10/08/23 History pramipexole 1.5 mg tablet,extended 1.5 mg PO DAILY Restless Leg(S) 10/07/23 10/08/23 History release 24 hr aspirin 81 mg tablet,delayed 81 mg PO DAILY 30 days #30 tabs 10/10/23 Rx release atorvastatin 40 mg tablet 40 mg PO HS 30 days #30 tabs 10/10/23 Rx bumetanide 1 mg tablet 0.5 mg (1/2 x 1 mg) PO DAILY 30 10/10/23 Rx days #15 tabs clopidogrel 75 mg tablet 75 mg PO DAILY 30 days #30 tabs 10/10/23 Rx empagliflozin 10 mg tablet 10 mg PO DAILY 30 days #30 tabs 10/10/23 Rx (Jardiance) pantoprazole 40 mg tablet,delayed 40 mg PO HS 30 days #30 tabs 10/10/23 Rx release spironolactone 25 mg tablet 50 mg (2 x 25 mg) PO DAILY 30 days 10/10/23 Rx #60 tabs New Prescriptions to Start Prescriptions: aspirin Robert,Nahid atorvastatin Robert,Nahid bumetanide Robert,Nahid clopidogrel Robert,Nahid empagliflozin [Jardiance] Robert,Nahid pantoprazole Robert,Nahid spironolactone Robert,Irfraina Allergies Allergy/AdvReac Type Severity Reaction Status Date / Time prochlorperazine AdvReac Verified 10/07/23 22:47 [From Compazine] Discharge Plan Disposition Patient Disposition: Home, Self-Care Condition: Good Discharge Order Discharge Orders: Discharge Order (Routine); Ordered 10/10/23 Ordered By: Nahid Jones Follow up Plan Follow up with: Ambrocio Treviño MD [Staff Physician] - 10/16/23 1:15 pm Krystle Hall [Primary Care Provider] - Enter time for follow up () Prescriptions/Medication Reconciliation: New aspirin 81 mg Tablet,Delayed Release (Dr/Ec) 81 mg PO DAILY 30 Days Qty: 30 0RF atorvastatin 40 mg Tablet 40 mg PO HS 30 Days Qty: 30 0RF clopidogrel 75 mg Tablet 75 mg PO DAILY 30 Days Qty: 30 0RF bumetanide 1 mg Tablet 0.5 mg PO DAILY 30 Days Qty: 15 0RF Jardiance 10 mg Tablet 10 mg PO DAILY 30 Days Qty: 30 0RF spironolactone 25 mg Tablet 50 mg PO DAILY 30 Days Qty: 60 0RF pantoprazole 40 mg Tablet,Delayed Release (Dr/Ec) 40 mg PO HS 30 Days Qty: 30 0RF Continued Trelegy Ellipta 200-62.5-25 mcg blister with device 1 inh inhalation DAILY metoprolol succinate 25 mg tablet extended release 24 hr 25 mg PO DAILY Patient Comments: TAKE 1 TABLET BY MOUTH ONCE DAILY tamsulosin 0.4 mg capsule 0.4 mg PO HS montelukast [Singulair] 10 mg tablet 10 mg PO HS glucosamine-chondroitin 1,500-1,200 mg/30 mL liquid 30 ml PO DAILY [id number]-psbgwp Tablet 1 tab PO DAILY cholecalciferol (vitamin D3) 25 mcg (1,000 unit) capsule 25 mcg PO DAILY pramipexole 1.5 mg Tablet Extended Release 24 Hr 1.5 mg PO DAILY Discontinued aspirin 81 mg Tablet,Chewable 81 mg PO DAILY furosemide 20 mg tablet 20 mg PO DAILY Problem Reconciliation Problems Reviewed?: Yes Patient Discharge Instructions ACTIVITY: Ambulate as tolerated DIET: continue same diet Patient Instructions: DI for Heart Failure, DI for Cardiac Catheterization, DI for Surgical Site Infection Providers Primary Care Provider: Krystle Hall Admit Provider: David Roe Attending Provider: David Roe
--- NOTE | 2023-10-10 15:18 | PC.NURSE ---
Called patient to notify home meds were left, voicemail left.
--- NOTE | 2023-10-11 11:01 | SW/DCPLANNER ---
Follow up phone call w/ this patient. Patient stated that he is doing well at home and does not currently have any needs. I did update patient that [facility] has accepted patient for services and will be contacting him soon to start. Patient did not have any further needs/questions at this time.
== END 2023-10-10 13:39 | disposition home health service (06) | DRG 323 ==
PROVIDERS: Internal Medicine; Nurse Practitioner Family; Admitting Provider Internal Medicine Adolescent Medicine; PCP Family Medicine; Visit Provider Internal Medicine Adolescent Medicine
DX: I21.4 Non-ST elevation (NSTEMI) myocardial infarction (principal); I50.33 Acute on chronic diastolic (congestive) heart failure; I71.02 Dissection of abdominal aorta; I47.19 Other supraventricular tachycardia; J44.9 Chronic obstructive pulmonary disease, unspecified; I48.0 Paroxysmal atrial fibrillation; C67.9 Malignant neoplasm of bladder, unspecified; G25.81 Restless legs syndrome; Z85.51 Personal history of malignant neoplasm of bladder; Z87.891 Personal history of nicotine dependence; I25.10 Atherosclerotic heart disease of native coronary artery without angina pectoris; E87.6 Hypokalemia; E78.2 Mixed hyperlipidemia
CPT/HCPCS: 36415; 71275; 80048; 80053; 80061; 80076; 83735; 83880; 84484; 85025; 85347; 92928; 92972; 93005; 93270; 93272; 93306; 93458; 94640; 97110; 97165; 99152; 99153; C1725; C1761; C1769; C1874; C9600; J1644; J3475; Q9967

== ENCOUNTER 2023-10-16 14:19 | Outpatient (CLI) | payer MEDICARE, SELFPAY ==
[2023-10-16 15:48] LABS: Chloride 99 mmol/L (98-107); Potassium 3.9 mmoL/L (3.5-5.1); Sodium 133 mmol/L (136-145)
[2023-10-16 15:51] LABS: Blood Urea Nitrogen 30 mg/dl (9-20); Estimated Glomerular Filt Rate 92 ml/min (>60); GFR (African American) 111 ML/MIN (>60)
[2023-10-16 15:52] LABS: Anion Gap 8.9 mEq/L (5-15); Carbon Dioxide 29 mmol/L (22.0-30.0); Glucose 93 mg/dl (74-100)
== END 2023-10-16 23:59 | disposition home or self-care (01) ==
LOC: LAB 14:21
PROVIDERS: PCP Family Medicine; Visit Provider Internal Medicine
DX: I25.10 Atherosclerotic heart disease of native coronary artery without angina pectoris (principal); I50.31 Acute diastolic (congestive) heart failure; I71.02 Dissection of abdominal aorta; I47.19 Other supraventricular tachycardia; E78.2 Mixed hyperlipidemia; I48.0 Paroxysmal atrial fibrillation; Z87.891 Personal history of nicotine dependence
CPT/HCPCS: 36415; 80048

== ENCOUNTER 2023-11-21 14:20 | Outpatient (CLI) | payer MEDICARE, SELFPAY ==
[2023-11-21 14:44] LABS: Basophils % 0.4 % (0.1-2.0); Eosinophils # 0.2 K/mm3 (0.0-0.4); Eosinophils % 2.2 % (0.1-12.0); Hematocrit 35.1 % (42.0-52.0); Hemoglobin 11.4 g/dL (14.1-18.0); Lymphocytes # 0.8 K/mm3 (0.7-4.5); Lymphocytes % 10.7 % (10-50); Mean Corpuscular HGB Conc 32.6 g/dL (31.8-35.4); Mean Corpuscular Volume 94.8 fl (80-94); Monocytes # 0.4 K/mm3 (0.1-1.0); Monocytes % 4.9 % (1.7-9.3); Neutrophils # 6.2 K/mm3 (1.8-7.8); Neutrophils % 81.9 % (37.0-80.0); Platelet Count 136 K/mm3 (142-424); Red Cell Distribution Width 15.2 % (11.5-17.5); White Blood Count 7.6 K/mm3 (4.8-10.8)
[2023-11-21 15:35] LABS: Anion Gap 7.3 mEq/L (5-15); Blood Urea Nitrogen 20 mg/dl (9-20); Calcium 9.1 mg/dl (8.4-10.2); Carbon Dioxide 30 mmol/L (22.0-30.0); Chloride 100 mmol/L (98-107); Estimated Glomerular Filt Rate 128 ml/min (>60); GFR (African American) 155 ML/MIN (>60); Glucose 102 mg/dl (74-100); Potassium 4.3 mmoL/L (3.5-5.1); Sodium 133 mmol/L (136-145)
== END 2023-11-21 23:59 | disposition home or self-care (01) ==
LOC: LAB 14:22
PROVIDERS: PCP Family Medicine; Visit Provider Internal Medicine
DX: I25.10 Atherosclerotic heart disease of native coronary artery without angina pectoris (principal); I50.31 Acute diastolic (congestive) heart failure; I71.02 Dissection of abdominal aorta; I47.19 Other supraventricular tachycardia; E78.2 Mixed hyperlipidemia; I50.9 Heart failure, unspecified; I48.0 Paroxysmal atrial fibrillation; I25.84 Coronary atherosclerosis due to calcified coronary lesion; I50.84 End stage heart failure
CPT/HCPCS: 36415; 80048; 85025

== ENCOUNTER 2023-11-28 14:18 | Outpatient (CLI) | payer MEDICARE, SELFPAY ==
--- NOTE | 2023-11-28 14:18 | CA_ITS ---
APPROVED REPORT EXAM: Comprehensive 2D, Doppler, and color-flow Echocardiogram [employer] Operator: Estrellita Vogel RT(R) Ht: 6 ft 2 in Wt: 160lbs BSA: 1.98 BP: 112/50 mmHg Indications: Tachycardia, COPD, edema, HTN, hyperlipidemia, AFIB, CAD, CHF, HFpEF, hx aortic dissection 2D Dimensions Left Atrium 4.00 cm M: 3.0 - 4.0 LVEF (Jeronimo's) 63.10 % M: 52 - 72 LVOT 2.01 cm (M/F) 1.5-2.5 LV Volume 100.90 mL M: 62 - 150 LV Volume Index 51.0 mL/m2 M: 34 - 74 LA Volume 60.10 mL LA Volume Index 30.35 mL/m2 (M/F) 16-34 EF AP4 64.60 % EF AP2 58.8 % EF BP 63.1 % GL Strain -24.2 % M-Mode Dimensions RVDd 2.57 cm (0.9-2.6) LVDd 5.14 cm (3.5-5.7) Ao Diam 3.28 cm (2.0-3.7) LVDs 3.61 cm (3.5-5.7) IVSd 1.04 cm (0.6-1.1) PWd 1.00 cm (0.6-1.1) EF (Teich) 56.50% FS 29.80% EDV (Teich) 126.10 mL ESV (Teich) 54.80 mL LV Diastology E Decel Time 197 (160-240 msec) E/A Ratio 1.2 MED E' 7.2 (>= 7 cm/sec) E'/MED E' Ratio 13.13 (<= 14) LAT E' 9.7 (>= 10 cm/sec) E/LAT E' Ratio 9.74 (<= 14) Aortic Valve LVOT Max 103.0 (70-110 cm/s) MAXWELL Index 0.90 cm2/m2 LVOT VTI 28.74 cm AoV Peak Wily. 223.0 (50-130 cm/s) AO Mean GR. 10.00 (<5 mmHg) AO VTI 51.2 (18-25 cm) MAXWELL (VTI) 1.78 (2.5-4.5 cm2) Mitral Valve MV E Max Wily. 95.0 (40-130 cm/s) MV A Velocity 77.0 (40-130 cm/s) E/A Ratio 1.22 MV Decel. Time 197 (160-240 ms) Tricuspid Valve TR P. Velocity 262.00 cm/s RAP Estimate 10.00 mmHg RVSP 37.60 mmHg Left Ventricle The left ventricle is normal size. The left ventricular systolic function is normal. The left ventricular ejection fraction is within the normal range. There is increased LV wall thickness. There is normal LV segmental wall motion. Diastolic function is indeterminate. LVEF is 55%. Right Ventricle The right ventricle is normal size. The right ventricular systolic function is normal. Atria Left atrium is mildly dilated. The right atrium size is normal. Aortic Valve The aortic valve is mildly thickened. Mild aortic stenosis. Peak velocity 2.4 m/s. Mean AV gradient 11 mmHg. Max AV gradient 20 mmHg. MAXWELL by continuity equation is 1.7 cm2. Mild aortic regurgitation. Mitral Valve The mitral valve is normal in structure. No evidence of mitral valve stenosis. Mild mitral regurgitation. Tricuspid Valve The tricuspid valve leaflets are thin and pliable. Mild tricuspid regurgitation. RVSP is 25-30 mmHg. Pulmonic Valve The pulmonary valve is normal in structure. Mild pulmonic regurgitation. Great Vessels The aortic root is mildly dilated, measuring 4.3 cm in diameter. No evidence of dissection flap in the aortic root. IVC is normal in size and collapses >50% with inspiration. Pericardium There is no pericardial effusion. Other Information Study Quality: Fair Conclusion Normal biventricular systolic function. Mild LA dilation. Mild AI, mild MR, mild TR, mild PI. Mild (peak velocity 2.4 m/s. Mean AV gradient 11 mmHg. Max AV gradient 20 mmHg. MAXWELL by continuity equation is 1.7 cm2). Aortic root is mildly dilated, measuring 4.3 cm in diameter. No evidence of dissection flap in the aortic root. Electronically signed by : Dilcia King MD 12/02/2023 00:37:21
== END 2023-11-28 23:59 | disposition home or self-care (01) ==
LOC: RT 14:18
PROVIDERS: PCP Family Medicine; Visit Provider Internal Medicine
DX: I48.0 Paroxysmal atrial fibrillation (principal); I25.10 Atherosclerotic heart disease of native coronary artery without angina pectoris; I50.33 Acute on chronic diastolic (congestive) heart failure; I71.02 Dissection of abdominal aorta; I47.19 Other supraventricular tachycardia; I45.5 Other specified heart block; Z87.891 Personal history of nicotine dependence
CPT/HCPCS: 93270; 93306

== ENCOUNTER 2024-02-10 10:15 | Emergency (ER) | payer MEDICARE, SELFPAY ==
[2024-02-10] VITALS (8 sets, daily range): BP systolic 130–158; BP diastolic 57–109; PULSE 54–72; RESP 16–18; TEMP 36.6; O2SAT 96–100; BMI 21.7
--- NOTE | 2024-02-10 10:26 | HMH.EDGENADL ---
Discharge Plan Disposition Patient Disposition: Home, Self-Care Condition: Good Prescriptions Prescriptions: New potassium chloride 10 mEq capsule, extended release 10 meq PO DAILY Qty: 14 0RF bacitracin 500 unit/gram ointment 1 applic topical DAILY Qty: 28 0RF No Action Trelegy Ellipta 200-62.5-25 mcg blister with device 1 inh inhalation DAILY tamsulosin 0.4 mg capsule 0.4 mg PO HS montelukast [Singulair] 10 mg tablet 10 mg PO HS glucosamine-chondroitin 1,500-1,200 mg/30 mL liquid 30 ml PO DAILY greoajnahyjf-lilougkh-qqdaip Tablet 1 tab PO DAILY cholecalciferol (vitamin D3) 25 mcg (1,000 unit) capsule 25 mcg PO DAILY pantoprazole 40 mg tablet,delayed release (DR/EC) 40 mg PO HS 30 Days Qty: 30 0RF aspirin 81 mg tablet,delayed release (DR/EC) 81 mg PO DAILY Qty: 90 3RF atorvastatin 40 mg tablet 40 mg PO HS Qty: 90 3RF bumetanide 1 mg tablet 0.5 mg PO DAILY Qty: 15 5RF clopidogrel 75 mg tablet 75 mg PO DAILY Qty: 90 3RF Jardiance 10 mg tablet 10 mg PO DAILY Qty: 90 3RF spironolactone 25 mg tablet 25 mg PO DAILY Qty: 90 3RF pramipexole 1.5 mg Tablet Extended Release 24 Hr 1.5 mg PO DAILY Referrals Follow up/Referrals: Krystle Hall [Primary Care Provider] - See instructions Lisa Romero DPM [Staff Physician] - 02/18/24 1:15 pm Activity Restrictions/Add. Instructions Additional Instructions/Restrictions: Keep area of skin tear clean and dry. If bleeding again, apply direct pressure for at least 15 minutes. Return if unable to stop bleeding. Begin taking daily potassium until you follow up on . Begin taking Bumex 1mg twice daily until cardiology follow up. Stop taking if feeling lightheaded or low blood pressure. Follow up with cardiology and podiatry. Please follow up with your primary care provider in 2-3 days. Please return to ED if your symptoms worsen, change in location, change in severity, new symptoms develop or if you become concerned for your health. Clinical Impressions Clinical Impression: Skin tear, Bilateral edema of lower extremity Other Amb Orders Other Ambulatory Orders: Basic Metabolic Panel (Routine) Timeframe: 2 Days Facility: [facility] - Location: Laboratory Ordered By: David Roe Instructions Patient Instructions: DI for Skin Abscess Print Language Print Language: Kyrgyz Discharge ED Provider: Milo Barreto General Adult HPI General Chief complaint: Skin/Abscess/Foreign Body Stated complaint: Skin tears in L foot and R arm Time Seen by Provider: 02/10/24 10:20 History of Present Illness HPI narrative: Patient is an 83-year-old male with history of CAD s/p PCI currently on aspirin and Plavix, hypertension, hyperlipidemia, COPD, CHF currently on Bumex. Patient resents today with concern for bleeding. He reports that he gently scratched his arm against the bedside table on his right forearm on Saturday, and has had bleeding from the site since then. They have attempted bandages, with minimal success. He has stopped taking his baby aspirin daily due to the bleeding. He denies any pain, numbness, weakness distal to that site. He is also concerned about his left lower extremity being swollen and having some scant bleeding from that site as well as redness, and warmth extending up the mid foreleg. He has been seen twice in the last week and a half both at his PCP at an outside ED for concern for cellulitis. He was initially prescribed Keflex, presented to [facility] ED over the weekend and was given 1 dose of Rocephin and switched to Augmentin. He has been taking these antibiotics with minimal relief. He reports that the redness is not getting worse, it is just not getting any better. Of note, my independent review of the chart, patient had his Bumex cut in half by his windows systems architect last month. He is due to follow-up with his windows systems architect on . Denies any fevers, chest pain, shortness of breath, numbness, weakness, tingling. Related Data Home Medications ?Medication ?Instructions ?Recorded ?Confirmed cholecalciferol (vitamin D3) 25 25 mcg PO DAILY 09/04/23 12/12/23 mcg (1,000 unit) capsule fluticasone fur. 200 mcg-umeclid 1 inh inhalation DAILY 09/04/23 12/12/23 62.5 mcg-vilant 25 mcg inhalat.powder (Trelegy Ellipta) glucosamine-chondroitin 1,500 mg 30 ml PO DAILY 09/04/23 12/12/23 -1,200 mg/30 mL oral liquid montelukast 10 mg tablet 10 mg PO HS 09/04/23 12/12/23 (Singulair) jviisodcesep-qswoqiqv-epbwwu tablet 1 tab PO DAILY 09/04/23 12/12/23 tamsulosin 0.4 mg capsule 0.4 mg PO HS 09/04/23 12/12/23 pramipexole 1.5 mg tablet,extended 1.5 mg PO DAILY Restless Leg(S) 10/07/23 12/12/23 release 24 hr Previous Rx's ?Medication ?Instructions ?Recorded pantoprazole 40 mg tablet,delayed 40 mg PO HS 30 days #30 tabs 10/16/23 release aspirin 81 mg tablet,delayed 81 mg PO DAILY #90 tabs 11/21/23 release atorvastatin 40 mg tablet 40 mg PO HS #90 tabs 11/21/23 bumetanide 1 mg tablet 0.5 mg (1/2 x 1 mg) PO DAILY #15 11/21/23 tabs clopidogrel 75 mg tablet 75 mg PO DAILY #90 tabs 11/21/23 empagliflozin 10 mg tablet 10 mg PO DAILY #90 tabs 11/21/23 (Jardiance) spironolactone 25 mg tablet 25 mg PO DAILY #90 tabs 11/21/23 bacitracin 500 unit/gram topical 1 applic topical DAILY #28 grams 02/10/24 ointment potassium chloride 10 mEq 10 meq PO DAILY #14 caps 02/10/24 capsule,extended release Allergies Allergy/AdvReac Type Severity Reaction Status Date / Time prochlorperazine AdvReac Verified 12/12/23 13:46 [From Compazine] [facility] Disclaimer: The information contained in this section may have been updated after the patient was seen, as this information can be updated by other users. Medical History Sinus pause AV block CAD in [place] artery Hypokalemia (HFpEF) heart failure with preserved ejection fraction Aortic dissection, abdominal Multifocal atrial tachycardia Hyperlipidemia Coronary artery calcification Atypical angina RLS (restless legs syndrome) Allergies High blood pressure Asthma Bladder cancer COPD (chronic obstructive pulmonary disease) Afib Surgical History History of transurethral resection of bladder tumor (TURBT) History of cystoscopy History of cholecystectomy Family History Father Heart attack Social History Smoking Status: Never smoker how long ago did patient quit smoking: pt states, years ago quit status: quit date established second hand exposure: No alcohol intake: current alcohol intake frequency: 0-2 drinks per day substance use type: denies use current occupational status: retired Travel in the last 8 weeks: None adopted: No caregiver/support person: No foster care: No ROS Obtained: Yes All systems reviewed & no additional complaints except as documented Physical Exam General General appearance: alert and in no apparent distress Head Head exam: atraumatic and normocephalic Eye Eye exam: Present PERRL and EOMI ENT ENT exam: Present normal oropharynx Neck Neck exam: Present full ROM and trachea midline Chest Chest inspection: Present symmetric chest wall rise Respiratory Respiratory exam: Present normal lung sounds bilaterally; Absent stridor Cardiovascular Cardiovascular exam: Present regular rate, normal rhythm and normal heart sounds Abdominal Exam Abdominal exam: Present soft; Absent distention or tenderness Extremities Exam Extremities exam: Present full ROM and tenderness (There is a 2 cm skin tear over the proximal dorsal forearm. There is venous oozing of blood. It is just a skin tear and there is no evidence of foreign body noted. Pressure dressing applied) Expanded Lower Extremity Exam Left: Leg image: 1. Scant bleeding from the plantar aspect near the intertriginous areas of the fourth and fifth toes. Hemostatic on my evaluation. There is some dried blood there. There is erythema extending from the dorsum of the foot up to the distal foreleg. It is warm, not indurated, blanchable there is also edema, 2+ on the left, 1+ on the right Neurological Exam Neurological exam: Present alert, oriented X3 and CN II-XII intact; Absent motor sensory deficit Psychiatric Psychiatric exam: Present normal mood Skin Skin exam: Present warm and dry Medical Decision Making Medical Records Screening: Per USPSTF and CDC recommendations, given the prevalence of disease in our region, it is our hospital?s policy to screen for HIV and viral Hepatitis for all patients aged 18 and over and those with ongoing risk factors. Scotty Inquiry Pt receiving controlled substance: No Vital Signs: 02/10/24 10:16 02/10/24 11:00 02/10/24 11:30 Temperature 97.9 F Temperature Source Oral Pulse Rate 54 L 72 Pulse Rate [Radial] 66 Respiratory Rate 16 Blood Pressure 131/63 130/63 Blood Pressure [Right Arm] 134/57 L Blood Pressure Mean Blood Pressure Mean [Right Arm] 82 Blood Pressure Source Blood Pressure Source [Right Arm] Automatic Cuff Blood Pressure Position Blood Pressure Position [Right Arm] Sitting 02 Sat by Pulse Oximetry 96 98 99 Oxygen Delivery Method Room Air Room Air Room Air 02/10/24 12:00 02/10/24 12:30 02/10/24 13:00 Temperature Temperature Source Pulse Rate 60 70 62 Pulse Rate [Radial] Respiratory Rate Blood Pressure 140/61 154/109 H 158/70 H Blood Pressure [Right Arm] Blood Pressure Mean Blood Pressure Mean [Right Arm] Blood Pressure Source Blood Pressure Source [Right Arm] Blood Pressure Position Blood Pressure Position [Right Arm] 02 Sat by Pulse Oximetry 100 100 98 Oxygen Delivery Method Room Air Room Air Room Air 02/10/24 13:30 02/10/24 13:45 Temperature 97.9 F Temperature Source Oral Pulse Rate 72 Pulse Rate [Radial] Respiratory Rate 18 Blood Pressure 133/71 133/71 Blood Pressure [Right Arm] Blood Pressure Mean 97 Blood Pressure Mean [Right Arm] Blood Pressure Source Automatic Cuff Blood Pressure Source [Right Arm] Blood Pressure Position Sitting Blood Pressure Position [Right Arm] 02 Sat by Pulse Oximetry Oxygen Delivery Method Room Air Lab Data Lab results reviewed: Yes I reviewed the patient's lab results. Lab Results 02/10/24 10:56: WBC 6.6, RBC 3.81 L, Hgb 12.1 L, Hct 37.0 L, MCV 97.3 H, MCH 31.7 H, MCHC 32.6, RDW 16.7, Plt Count 161, MPV 6.9 L, Neut % (Auto) 77.2, Lymph % (Auto) 13.8, Grayson % (Auto) 6.4, Eos % (Auto) 1.9, Baso % (Auto) 0.6, Neut # (Auto) 5.1, Lymph # (Auto) 0.9, Grayson # (Auto) 0.4, Eos # (Auto) 0.1, Baso # (Auto) 0.0, ESR 17, Sodium 137, Potassium 3.3 L, Chloride 98, Carbon Dioxide 33 H, Anion Gap 9.3, BUN 30 H, Creatinine 0.70, Estimated Creat Clear 57, Estimated GFR 107, Est GFR ( Amer) 130, Glucose 108 H, Calcium 9.2, Total Bilirubin 0.4, AST 34, ALT 34, Alkaline Phosphatase 35 L, C-Reactive Protein 4.4 H, NT-Pro-B Natriuret Pep 233, Total Protein 5.7 L, Albumin 3.6, Globulin 2.1, Albumin/Globulin Ratio 1.7 02/10/24 10:56 02/10/24 10:56 Orders (Tests/Meds): ED MEDICATIONS Discontinued Medications Generic Name Dose Route Start Last Admin Trade Name Freq PRN Reason Stop Dose Admin Vancomycin/PEG/NADA/Lysine/Water 1.25 gm in 250 mls @ 125 mls/hr 02/10/24 10:45 02/10/24 11:07 Vancomycin 1.25gm/250ml (Peg) Premix IV 02/10/24 12:44 125 mls/hr ONCE ONE Administration Miscellaneous 1 each 02/10/24 10:45 02/10/24 11:06 Vancomycin Consult Request NOTAPPLIC 03/11/24 10:44 1 each CONSULT PHARMACY [facility] Administration Potassium Chloride 40 meq 02/10/24 13:09 02/10/24 13:30 Potassium Chloride 20meq Tab PO 02/10/24 13:10 40 meq ONCE ONE Administration ORDERS Category Date Time Status XR foot LT 2V Stat Exams 02/10/24 10:35 Completed XR forearm RT 2V Stat Exams 02/10/24 10:35 Completed BNP [NT Pro Brain Natriuretic Pep.] Stat Lab 02/10/24 10:56 Completed C-Reactive Protein Stat Lab 02/10/24 10:56 Completed Complete Blood Count Auto Diff Stat Lab 02/10/24 10:56 Completed Comprehensive Metabolic Panel Stat Lab 02/10/24 10:56 Completed Erythrocyte Sedimentation Rate Stat Lab 02/10/24 10:56 Completed Blood Culture Stat Micro 02/10/24 11:04 Received Medical Decision Narrative: In summary, this 83-year-old male presents to the emergency department today with swelling, bleeding. On initial evaluation patient is afebrile, hemodynamically stable and in no acute distress. On exam, patient has some dried blood on the left foot, no active bleeding noted. There is erythema and warmth extending up to the distal foreleg on the dorsal aspect. Not particularly painful. 2+ edema, patient reports is chronic.. Differential diagnosis includes but is not limited to cellulitis, venous stasis, bleeding disorder, foreign body, fracture, dislocation, neurovascular compromise. Based on these concerns, I ordered plain film of left foot, right forearm. CBC, CMP, ESR, CRP. Given patient had already failed to oral antibiotics outpatient, I was concerned for failure of oral antibiotics and progression of cellulitis of the left lower extremity. I reviewed prior records including discharge after high heart failure exacerbation at the beginning of October. Patient received vancomycin for treatment. Labs personally reviewed demonstrate no significant leukocytosis, no elevation in inflammatory markers significantly. No evidence of anemia. XR personally interpreted demonstrates no fracture dislocation and this is confirmed by the radiologist final read. I had an interactive discussion with hospitalist on-call who evaluated the patient for admission for IV antibiotics. After discussion with the hospitalist in the setting of negative hematologic labs and patient afebrile and otherwise well-appearing, less suspicious for cellulitis and more suspicious for venous stasis. Patient will double up Bumex dose. Instructed to take increased amount of potassium and will send home with potassium, but creatinine within normal limits. Will return for repeat BMP in 2 days. Has good follow-up with windows systems architect on . After shared decision making with hospitalist as well as patient and spouse at bedside, favored to discharge home with strict precautions.. On reassessment, after observation in the emergency department, patient has had no further bleeding through pressure dressing on the right. Family is instructed to take that down when he arrives home and if rebleeding occurs to apply direct pressure for 15 minutes. Keep covered with bacitracin keep area clean and dry. At this time it was felt that the patient was safe to be discharged home. The patient was in agreement with this plan. The patient was given strict return precautions prior to being discharged from the emergency department. Critical Care Critical Care Time Critical Care Time: No
--- NOTE | 2024-02-10 10:35 | XR_ITS ---
FINAL REPORT CLINICAL HISTORY: swelling, c/f infection COMPARISON: None FINDINGS: LEFT FOOT 2 views of the left foot were obtained. There is no acute fracture or dislocation. The joint spaces are intact. There is soft tissue edema overlying the dorsum of the foot. There is a deformity of the fifth metatarsal, which is probably related to an old healing fracture deformity. Hammertoe deformities are noted of the 2nd through 5th digits. There is no evidence of bony erosion. IMPRESSION: Soft tissue swelling over the dorsum of the foot without acute bony abnormality. Reviewed, Interpreted and Dictated by Jareth Gallo MD Transcribed by Nusrat Cristina Authenticated and [facility]
--- NOTE | 2024-02-10 10:35 | XR_ITS ---
FINAL REPORT CLINICAL HISTORY: trauma COMPARISON: None FINDINGS: RIGHT FOREARM 2 views of the right forearm were obtained. A skin dressing is noted overlying the lateral aspect of the proximal right forearm. There is no underlying fracture or foreign body. The joints are intact. There are no soft tissue abnormalities. IMPRESSION: No acute fracture or foreign body. Reviewed, Interpreted and Dictated by Jareth Gallo MD Transcribed by Nusrat Cristina Authenticated and [facility]
[2024-02-10] MEDS: VANCOMYCIN CONSULT REQUEST 1 EACH NOTAPPLIC (11:06)
[2024-02-10] MEDS: VANCOMYCIN/WATER FOR INJ (PEG) 1.25 GM/250 ML PIGGYBACK IV (11:07)
--- NOTE | 2024-02-10 11:23 | PC.NURSE ---
ATTEMPTED TO REACH DR IVORY FOR ADMISSION, WILL HAVE TO CALL BACK TO SPEAK WITH ED
[2024-02-10 11:35] LABS: Basophils % 0.6 % (0.1-2.0); Eosinophils # 0.1 K/mm3 (0.0-0.4); Eosinophils % 1.9 % (0.1-12.0); Hemoglobin 12.1 g/dL (14.1-18.0); Lymphocytes # 0.9 K/mm3 (0.7-4.5); Lymphocytes % 13.8 % (10-50); Mean Corpuscular HGB Conc 32.6 g/dL (31.8-35.4); Mean Corpuscular Hemoglobin 31.7 pg (27.0-31.2); Mean Corpuscular Volume 97.3 fl (80-94); Mean Platelet Volume 6.9 fl (7.4-10.4); Monocytes # 0.4 K/mm3 (0.1-1.0); Monocytes % 6.4 % (1.7-9.3); Neutrophils # 5.1 K/mm3 (1.8-7.8); Neutrophils % 77.2 % (37.0-80.0); Platelet Count 161 K/mm3 (142-424); Red Blood Count 3.81 M/mm3 (4.60-6.20); Red Cell Distribution Width 16.7 % (11.5-17.5); White Blood Count 6.6 K/mm3 (4.8-10.8)
--- NOTE | 2024-02-10 12:24 | PC.NURSE ---
DR JURADO AT BEDSIDE
[2024-02-10 12:25] LABS: Erythrocyte Sedimentation Rate 17 mm/hr (0-20)
--- NOTE | 2024-02-10 12:46 | EXP.MED.CON ---
History of Present Illness *Admission Date: 02/10/24 *Reason for visit:: leg swelling, redness in left leg *History of present illness: Mr. Mckeon is an 83-year-old male with significant history of CAD status PCI, hypertension, hyperlipidemia, HFpEF, COPD, history of bladder cancer. Presented to the ER with concern for bleeding. Bleeding from both his arm and his left foot. Reportedly scratched his arm against the bedside table on Saturday and has had some intermittent bleeding at that site since. Arm was bandaged. He denies any pain, numbness, weakness. Also however has had some increased swelling in his left leg and concern for cellulitis. On his third round of antibiotics in the past month and a half. Initially prescribed Keflex and is currently completing that course. No significant improvement. Left foot a little bit more swollen than right and more red. Denies any fever or chills however. No significant shortness of breath. Medicine consulted for evaluation. On assessment, has pitting edema bilaterally in his feet. Left foot not tender. Appears at baseline level of function. [facility] Disclaimer: The information contained in this section may have been updated after the patient was seen, as this information can be updated by other users. Medical History Sinus pause AV block CAD in [place] artery Hypokalemia (HFpEF) heart failure with preserved ejection fraction Aortic dissection, abdominal Multifocal atrial tachycardia Hyperlipidemia Coronary artery calcification Atypical angina RLS (restless legs syndrome) Allergies High blood pressure Asthma Bladder cancer COPD (chronic obstructive pulmonary disease) Afib Surgical History History of transurethral resection of bladder tumor (TURBT) History of cystoscopy History of cholecystectomy Family History Father Heart attack Social History Smoking Status: Never smoker how long ago did patient quit smoking: pt states, years ago quit status: quit date established second hand exposure: No alcohol intake: current alcohol intake frequency: 0-2 drinks per day substance use type: denies use current occupational status: retired Travel in the last 8 weeks: None adopted: No caregiver/support person: No foster care: No Review of Systems Review of Systems Review of systems (narrative): 14 point review of systems performed, pertinent positives and negatives as per HPI Exam Data for Last 24 hours Vital signs and Labs for Last 24 Hours: Temp Pulse Resp BP Pulse Ox O2 Del Method 97.9 F 66 16 134/57 L 96 Room Air 02/10/24 10:16 02/10/24 10:16 02/10/24 10:16 02/10/24 10:16 02/10/24 10:16 02/10/24 10:16 Laboratory Results - last 24 hr 02/10/24 10:56: WBC 6.6, RBC 3.81 L, Hgb 12.1 L, Hct 37.0 L, MCV 97.3 H, MCH 31.7 H, MCHC 32.6, RDW 16.7, Plt Count 161, MPV 6.9 L, Neut % (Auto) 77.2, Lymph % (Auto) 13.8, [place] % (Auto) 6.4, Eos % (Auto) 1.9, Baso % (Auto) 0.6, Neut # (Auto) 5.1, Lymph # (Auto) 0.9, [place] # (Auto) 0.4, Eos # (Auto) 0.1, Baso # (Auto) 0.0, ESR 17 I & O for Last 24 hours: Intake & Output 02/07/24 02/08/24 02/09/24 02/10/24 23:59 23:59 23:59 23:59 Weight 74.843 kg Constitutional Constitutional: no acute distress, average body habitus, chronically ill appearing and cooperative *Routine HEENT Exam Head: Present normocephalic Eye: Present EOMI and PERRL ENT: Present mucous membranes moist Comments: Prominent vascular ectasia on cheek *Routine Neck Exam Neck: Present supple; Absent lymphadenopathy *Routine Respiratory Exam Respiratory: Present wheezes (Faint end expiratory); Absent respiratory distress, rhonchi or crackles *Routine Cardiovascular Exam Cardiovascular: Present RRR *Routine Abdominal Exam Abdominal: Present soft and normoactive bowel sounds; Absent tenderness *Routine Rectal Exam Patient deferred: visual exam *Routine Exam Patient deferred: penile exam *Routine Extremities Exam Extremities: Present edema (3+ to knees bilaterally, left slightly worse than right); Absent cyanosis or clubbing *Routine Skin Exam Skin: Present intact, erythema (Slight erythema of left foot, warmth equal to right foot. Nontender.) and warm; Absent rash *Routine Neurological Exam Neurological: Present alert, oriented X3 and moving all extremities; Absent altered mental status Meds Home Medications and Allergies Home Medications ?Medication ?Instructions ?Recorded ?Confirmed ?Type cholecalciferol (vitamin D3) 25 25 mcg PO DAILY 09/04/23 12/12/23 History mcg (1,000 unit) capsule fluticasone fur. 200 mcg-umeclid 1 inh inhalation DAILY 09/04/23 12/12/23 History 62.5 mcg-vilant 25 mcg inhalat.powder (Trelegy Ellipta) glucosamine-chondroitin 1,500 mg 30 ml PO DAILY 09/04/23 12/12/23 History -1,200 mg/30 mL oral liquid montelukast 10 mg tablet 10 mg PO HS 09/04/23 12/12/23 History (Singulair) ppgrgmhvibsa-ympgefbw-toxmyp tablet 1 tab PO DAILY 09/04/23 12/12/23 History tamsulosin 0.4 mg capsule 0.4 mg PO HS 09/04/23 12/12/23 History pramipexole 1.5 mg tablet,extended 1.5 mg PO DAILY Restless Leg(S) 10/07/23 12/12/23 History release 24 hr pantoprazole 40 mg tablet,delayed 40 mg PO HS 30 days #30 tabs 10/16/23 12/12/23 Rx release aspirin 81 mg tablet,delayed 81 mg PO DAILY #90 tabs 11/21/23 12/12/23 Rx release atorvastatin 40 mg tablet 40 mg PO HS #90 tabs 11/21/23 12/12/23 Rx bumetanide 1 mg tablet 0.5 mg (1/2 x 1 mg) PO DAILY #15 11/21/23 12/12/23 Rx tabs clopidogrel 75 mg tablet 75 mg PO DAILY #90 tabs 11/21/23 12/12/23 Rx empagliflozin 10 mg tablet 10 mg PO DAILY #90 tabs 11/21/23 12/12/23 Rx (Jardiance) spironolactone 25 mg tablet 25 mg PO DAILY #90 tabs 11/21/23 12/12/23 Rx bacitracin 500 unit/gram topical 1 applic topical DAILY #28 grams 02/10/24 Rx ointment potassium chloride 10 mEq 10 meq PO DAILY #14 caps 02/10/24 Rx capsule,extended release New Prescriptions to Start Prescriptions: bacitracin Milo Barreto potassium chloride Milo Barreto Allergies Allergy/AdvReac Type Severity Reaction Status Date / Time prochlorperazine AdvReac Verified 12/12/23 13:46 [From Compazine] Results Labs 02/10/24 10:56 02/10/24 10:56 Labs: Abnormal lab results 02/10/24 Range/Units 10:56 RBC 3.81 L (4.60-6.20) M/mm3 Hgb 12.1 L (14.1-18.0) g/dL Hct 37.0 L (42.0-52.0) % MCV 97.3 H (80-94) fl MCH 31.7 H (27.0-31.2) pg MPV 6.9 L (7.4-10.4) fl H & H 02/10/24 Range/Units 10:56 Hgb 12.1 L (14.1-18.0) g/dL Hct 37.0 L (42.0-52.0) % All other labs normal. Assessment and Plan *Assessment and plan (1) (HFpEF) heart failure with preserved ejection fraction: Status: Acute Qualifiers: Heart failure chronicity: acute Qualified Code(s): I50.31 - Acute diastolic (congestive) heart failure Category: Medical Code(s): I50.30 - Unspecified diastolic (congestive) heart failure (2) Hyperlipidemia: Status: Acute Qualifiers: Hyperlipidemia type: mixed hyperlipidemia Qualified Code(s): E78.2 - Mixed hyperlipidemia Category: Medical Code(s): E78.5 - Hyperlipidemia, unspecified (3) COPD (chronic obstructive pulmonary disease): Status: Chronic Qualifiers: COPD type: unspecified COPD Qualified Code(s): J44.9 - Chronic obstructive pulmonary disease, unspecified Category: Medical Code(s): J44.9 - Chronic obstructive pulmonary disease, unspecified (4) Afib: Status: Acute Qualifiers: Atrial fibrillation type: paroxysmal Qualified Code(s): I48.0 - Paroxysmal atrial fibrillation Category: Medical Code(s): I48.91 - Unspecified atrial fibrillation (5) Bladder cancer: Status: Chronic Qualifiers: Bladder location: unspecified site Qualified Code(s): C67.9 - Malignant neoplasm of bladder, unspecified Category: Medical Code(s): C67.9 - Malignant neoplasm of bladder, unspecified (6) Edema: Status: Acute Category: Medical Code(s): R60.9 - Edema, unspecified (7) Bilateral edema of lower extremity: Status: Acute Category: Medical Code(s): R60.0 - Localized edema Plan Mr. Mckeon is an 83-year-old male with his of CHF, bladder cancer, RLS, high blood pressure, COPD. He presented to the ER with continued redness and swelling in his legs, left foot worse than right. On evaluation, initial concern for cellulitis. Discussed case with ER physician, request consult for possible admission. On evaluation, patient is laying comfortably supine on stretcher in ER room. On room air. Afebrile. Initial workup with labs showed normal white count At 6.6. Hemoglobin 12. No neutrophil predominance. Kidney function and electrolytes at baseline for patient with sodium 137, potassium 3.3, BUN 30, creatinine 0.7. ESR normal at 17. CRP marginally elevated at 4.4. -Initiated on Keflex by his PCP within the past week. -Findings most consistent with peripheral edema/lymphedema or volume overload from CHF. Low concern for cellulitis and worsening infection. Recommend increasing patient's Bumex 1 mg to twice daily for the next 3 days. 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 Also recommend repeat BMP on Saturday to monitor kidney function electrolytes prior to visit with cardiology. Complete antibiotics (Keflex) as previously ordered. -Patient also noted to have abrasion on the bottom of left foot with prior removal of plantar wart. Will refer to podiatry for further evaluation and management at patient request. Given his clinical stability, recommend discharge home with close outpatient follow-up and adjustment to heart failure medications. No indication for admission at this time. Discussed case with ER physician, in agreement with plan. Thank you for the opportunity to consult on this patient.
[2024-02-10 12:53] LABS: Albumin Level 3.6 g/dl (3.5-5.0); Chloride 98 mmol/L (98-107); Potassium 3.3 mmoL/L (3.5-5.1); Sodium 137 mmol/L (136-145)
[2024-02-10 12:56] LABS: Alanine Aminotransferase 34 U/L (12-78); Albumin/Globulin Ratio 1.7 (1.1-1.8); Alkaline Phosphatase 35 U/L (38-126); Anion Gap 9.3 mEq/L (5-15); Aspartate Amino Transferase 34 U/L (17-59); Bilirubin,Total 0.4 mg/dl (0.2-1.3); Blood Urea Nitrogen 30 mg/dl (9-20); Calcium 9.2 mg/dl (8.4-10.2); Carbon Dioxide 33 mmol/L (22.0-30.0); Creatinine Clearance Estimated 57 mL/min (50-200); Estimated Glomerular Filt Rate 107 ml/min (>60); GFR (African American) 130 ML/MIN (>60); Globulin 2.1 g/dL (1.3-3.2); Glucose 108 mg/dl (74-100); Total Protein,Serum 5.7 g/dl (6.3-8.2)
[2024-02-10 13:02] LABS: C-Reactive Protein 4.4 mg/L (0-4)
[2024-02-10 13:14] LABS: NT Pro Brain Natriuretic Pep. 233 pg/mL (0-450)
[2024-02-10] MEDS: POTASSIUM CHLORIDE 20MEQ TAB 40 MEQ PO (13:30)
== END 2024-02-10 13:45 | disposition home or self-care (01) ==
PROVIDERS: Internal Medicine Adolescent Medicine; Emergency Provider Emergency Medicine; PCP Family Medicine
DX: E87.6 Hypokalemia (principal); S51.801A Unspecified open wound of right forearm, initial encounter; R60.0 Localized edema; W22.8XXA Striking against or struck by other objects, initial encounter
CPT/HCPCS: 73090; 73620; 80053; 83880; 85025; 85651; 86140; 87040; 96365; 96366; 99284

== ENCOUNTER 2024-02-13 14:54 | Outpatient (CLI) | payer MEDICARE, SELFPAY ==
[2024-02-13 16:21] LABS: Free T4 (Free Thyroxine) 1.02 ng/dl (0.78-2.19)
[2024-02-13 16:34] LABS: Thyroid Stimulating Hormone 2.73 uIU/mL (0.465-4.68)
== END 2024-02-13 23:59 | disposition home or self-care (01) ==
LOC: LAB 14:56
PROVIDERS: PCP Family Medicine; Visit Provider Internal Medicine
DX: I50.30 Unspecified diastolic (congestive) heart failure (principal); I25.10 Atherosclerotic heart disease of native coronary artery without angina pectoris; I25.84 Coronary atherosclerosis due to calcified coronary lesion; E78.2 Mixed hyperlipidemia; I10 Essential (primary) hypertension
CPT/HCPCS: 36415; 84439; 84443

== ENCOUNTER 2024-03-12 14:00 | Outpatient (RCR) | payer MEDICARE, SELFPAY | END 2024-03-12 23:59 | disposition home or self-care (01) | LOC: PT 14:00 | PROVIDERS: Visit Provider Family Medicine | DX: I89.0 Lymphedema, not elsewhere classified (principal) | CPT/HCPCS: 97140; 97163; 97760 ==

== ENCOUNTER 2024-03-16 14:53 | Outpatient (CLI) | payer MEDICARE, SELFPAY ==
--- NOTE | 2024-03-16 14:57 | XR_ITS ---
PROCEDURE INFORMATION: Exam: XR Left Wrist Exam date and time: 03/16/2024 3:11 PM Age: 83 years old Clinical indication: Pain; Wrist; Left; Additional info: Left wrist edema TECHNIQUE: Imaging protocol: Radiologic exam of the left wrist. Views: 1 or 2 views. COMPARISON: No relevant prior studies available. FINDINGS: Bones/joints: Chondrocalcinosis. Advanced osteoarthritis 1st carpometacarpal articulation. Limited degenerative change elsewhere. Calcifications adjacent to proximal head 1st metacarpal may be proliferative new bone related to the degenerative change, as well as some adjacent soft tissue calcifications. Soft tissues: Small 3 mm apparent foreign body soft tissues volar aspect of the hand level of the bases of the metacarpals. IMPRESSION: 1. Advanced osteoarthritis 1st carpometacarpal articulation. Limited degenerative change elsewhere. 2. Small 3 mm apparent foreign body soft tissues volar aspect of the hand level of the bases of the metacarpals.
== END 2024-03-16 23:59 | disposition home or self-care (01) ==
LOC: RAD 14:55
PROVIDERS: PCP Family Medicine; Visit Provider Internal Medicine
DX: R60.9 Edema, unspecified (principal)
CPT/HCPCS: 73100

== ENCOUNTER 2024-09-28 12:29 | Outpatient (CLI) | payer MEDICARE, SELFPAY ==
--- NOTE | 2024-09-28 12:31 | CA_ITS ---
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: Patria Carpenter CRT Ht: 6 ft 1 in Wt: 176lbs BSA: 2.04 BP: 170/81 mmHg Indications: Aortic Valve Disease, Congestive Heart Failure, COPD, Atrial Fibrillation, Peripheral Edema, Hyperlipidemia, hx AAA dissection, CAD 2D Dimensions Left Atrium 3.87 cm M: 3.0 - 4.0 LVEF (Jeronimo's) 54.30 % M: 52 - 72 LV Volume 112.30 mL M: 62 - 150 LV Volume Index 55.0 mL/m2 M: 34 - 74 LA Volume 54.10 mL LA Volume Index 26.52 mL/m2 (M/F) 16-34 EF AP4 55.30 % EF AP2 52.4 % EF BP 54.3 % GL Strain -21.5 % M-Mode Dimensions RVDd 2.40 cm (0.9-2.6) LVDd 5.16 cm (3.5-5.7) Ao Diam 4.73 cm (2.0-3.7) LVDs 3.14 cm (3.5-5.7) IVSd 1.03 cm (0.6-1.1) PWd 0.93 cm (0.6-1.1) EF (Teich) 69.30% FS 39.10% EDV (Teich) 127.20 mL TAPSE 2.25 (<1.7) ESV (Teich) 39.10 mL LV Diastology E Decel Time 250 (160-240 msec) E/A Ratio 0.7 MED E' 5.4 (>= 7 cm/sec) MED A' 8.70 cm/s E'/MED E' Ratio 10.87 (<= 14) LAT E' 7.5 (>= 10 cm/sec) LAT A' 12.90 cm/s E/LAT E' Ratio 7.83 (<= 14) Aortic Valve LVOT Max 133.0 (70-110 cm/s) MAXWELL Index 0.63 cm2/m2 LVOT VTI 31.99 cm AoV Peak Wily. 204.0 (50-130 cm/s) AI PHT 650.00 ms AO Peak GR. 13.10 mmHg AO Mean GR. 9.20 (<5 mmHg) AO VTI 48.1 (18-25 cm) MAXWELL (VTI) 1.29 (2.5-4.5 cm2) Mitral Valve MV E Max Wily. 59.0 (40-130 cm/s) MV A Velocity 89.0 (40-130 cm/s) E/A Ratio 0.66 MV Decel. Time 250 (160-240 ms) Tricuspid Valve TR P. Velocity 222.00 cm/s RAP Estimate 10.00 mmHg RVSP 29.70 mmHg Left Ventricle The left ventricle is normal size. The left ventricular systolic function is normal. The left ventricular ejection fraction is within the normal range. There is increased overall thickness. There is normal LV segmental wall motion. Diastolic function is indeterminate. LVEF is 60%. Right Ventricle Right ventricle is mildly dilated. The right ventricular systolic function is normal. Atria Left atrium is mildly dilated. Right atrium is mildly dilated. There is no Doppler evidence of interatrial shunt. Aortic Valve Aortic valve is mildly thickened. Aortic valve appears either anatomically or functionally bicuspid. Mild aortic stenosis is present. MAXWELL by continuity equation is 1.8 cm???. Peak velocity is 2.1 m/s. Mean AV gradient is 11 mmHg. Max gradient is 18 mmHg. Mild aortic regurgitation. Mitral Valve The mitral valve is normal in structure. No evidence of mitral valve stenosis. Mild mitral regurgitation. Tricuspid Valve Tricuspid valve is grossly normal in structure and function. Mild tricuspid regurgitation. RVSP 20-25 mmHg. Pulmonic Valve The pulmonary valve is normal in structure. Great Vessels Mild dilation of the aortic root. Aortic root diameter measures 4.5 cm. No evidence of aortic dissection flap in the aortic root. The ascending aorta is mildly dilated, measuring 4.1 cm in diameter. IVC is normal in size and collapses >50% with inspiration. Pericardium There is no pericardial effusion. Other Information Study Quality: Fair Conclusion Normal biventricular systolic function. Mild RV dilation. Mild biatrial dilation. Mild (MAXWELL by continuity equation is 1.8 cm???. Peak velocity is 2.1 m/s. Mean AV gradient is 11 mmHg. Max gradient is 18 mmHg). Mild AI, mild MR, mild [place]. Dilated aortic root (4.5 cm) and ascending aorta (4.1 cm). Prior to prior study from 11/28/2023, there are no significant changes to the biventricular systolic function, severity of , or the dimensions of the aortic root/ascending aorta. Electronically signed by : Dilcia King MD 10/05/2024 00:01:29
--- OUTSIDE RECORDS SUMMARY | 2024-09-28 12:32 | XMS_ITS | Data Portability ---
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 Rodriguez continue s to have skin breakdown on the left foot. A previous culture did not grow any pathogens. Over the past 2 weeks he has gained 14 pounds. His legs are quite edematous. He is taking up to 1 mg bumex daily as well as spironolactone. We advised that he could double the bumex to a total of 2 mg daily if needed temporarily but he really needs to follow up with cardiology for this as well. The ongoing left foot blisters and ulcers are concerning. He is barefoot in a slip on type of shoe and we advised him he should at least be wearing a white sock daily. He cannot get his socks on due to the edema at present. We are concerned about an early cellulitis recurring on the foot so will refill the keflex. We ecourage him to elevate the foot throughout the day f he sits down. He is triying to walk some but has become more frail with a risk of falling so caution is advised. sarina Not available 02/05/2024 22:43:31 02/14/2024 02/14/2024 Mr. Rodriguez follows up on the cellulitis and severe swelling he experienced with the left foot. He has improved significantly and the open ulceration has closed and nearly resolved. At his last visit he had gained 14 pounds quickly and that excess weight has now normalized. A previous culture did not grow any pathogens. His legs are no longer so edematous. He was taking up to 1 mg bumex daily as well as spironolactone. We advised that he could double the bumex to a total of 2 mg daily if needed temporarily and he is now down to the 1 mg dose. He went to [facility] on 02/07 and really had no treatment but was worsening the following day with excessive bleeding of the skin tears on the arms and on the feet. He then went to [facility] where they assessed him further and but he really needs to follow up with cardiology for this as well. He has been keeping the affected foot covered with a clean white sock and we encourage him to elevate the feet throughout the day if he sits down. He is trying to walk some but has become more frail with a risk of falling so caution is advised. As far as the cellulitis it is improving significantly and he is completing the Keflex. sarina Not available 02/16/2024 22:09:31 02/20/2024 02/20/2024 Mr. Rodriguez follows up on his cellulitis that has basically resolved and also upon the blood pressure and edema and both are better. He feels better as well. He will have labs and a wellness visit next week. sarina Not available 02/20/2024 20:32:04 02/25/2024 02/25/2024 Mr Rodriguez presents for his annual wellness review. He has had an eventful past several years with the diagnosis and subsequent treatment for bladder cancer. While in [place] he was advised it was so severe that his only option was to remove the bladder. He declined and has completed treatment in [place] with radiation and chemo and is in remission. He has lost weight and strength the past 2-3 years. He is continuing to try to exercise at then physical therapy center and likes their new recumbent cycling machine that also exercises the arms. He has had a number of falls so now is using a tripod type of rolling walker. He does have a very significant peripheral neuropathy and has carried the diagnosis or restless leg syndrome for some sher. He has seen neurology for this and the consensus is that his peripheral neuropathy is multifactoral from the chemotherapy (cisplatin), age, prediabetes. Over the years we have gradually decreased his dose of generic Mirapex and we discussed the need to wean it further, especially with the history today that he has apparently been sleep walking and sleep eating per his . He only woke up last night in the bathroom when he fell backwards. They called EMS who helped him but he did not need to go to ER. He suffered skin tears especially on the left forearm. Previously we had to lower the pramipexole dose as he was dosing while driving and was more sedated all the time. His states he is now falling asleep eating and with today's information of his getting up at night without awareness, we will cut the dose in half to 0.75 mg daily. This past September he suffered a non STEMI and was managed at [facility] and required 3 stents to the RCA. He has been participating in cardiac rehab for this as well. However he has had marked fluctuations in his weight with edema and was diagnosed with CHF, but recent Echocardiogram shows normal right and left ventricle ejection fractions. He does have some valvular heart disease with mild aortic stenosis and regurgitation and mild mitral and tricuspid valve regurgitation and mild left atrial dilation. He has had some brief paroxysmal atrial fibrillation and the specialist discontinued the eliquis he was taking since 2021. He is now only on plavix. Dr. Padilla has diagnosed him with heart failure with a preserved ejection fraction. He also has mild carotid artery disease. Blood pressure is typically controlled but he has been increasing the bumex to 1 mg every other day and the blood pressure is low today despite worsening edema. He has a cardiology follow up in the near future and we have printed off his weight and BP fluctuations for him to take to distiller. We are also concerned that some of this edema is lymphedema and he would likely benefit from further evaluation for this. He does sit most of the time now and tries to elevate the legs. We also discussed with he and his that he would benefit from an electric hospital bed to assist getting in and out of bed more safely as well as adjusting the bed for his medical problems. In the meantime we have also suggested a bed safety alarm as he is apparently getting up and sleep walking. We also suggest a urinal by the bed to avoid unnecessary bathroom trips at night. Most of his falls have occurred around 3 am. Labs revealed only borderline glucose of 103 and the A1C was normal a year ago. He is mildly anemic and a few months ago we determined that his ferritin, B12 and folate levels are normal so this is most consistent with chronic disease. He has a great appetite and eats regular meals. 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 He is also being followed by pulmonology and has been diagnosed with COPD. He is compliant with the Trelegy inhaler and it seems to help for daily activities. The restless leg syndrome has been annoying but seems to be better and again we are advising that his dose be weaned down as the side effects are concerning for him. He has annual eye exams and has done well since the cataract surgery, only using reading glasses. Depression screen is negative. Fall risk is present and her remains very cautious. He is able to care for himself with regard to ADLs, but his is helping him more lately. Medications are reconciled and diagnoses reviewed. Vaccines are reviewed and updated with the newest covid booster today. He will follow up as needed and at least in six months when they return from [place]. We continue to encourage his healthy lifestyle and caution against falls. sarina Not available 02/26/2024 21:17:29 08/27/2024 08/27/2024 Mr. Rodriguez follows up on his multiple medical issues that are reviewed. He has recently returned from wintering in [place] and stayed very well there after an initial bout of pneumonia requiring hospitalization last fall. His medications seem to be keeping the edema under control and the Trelegy is helping his COPD as he does not need the rescue inhaler very often. He uses his smartwatch and phone to monitor his heart and for the majority of the time he is staying in a sinus rhythm but still has intermittent atrial fibrillation. He had a cystoscopy yesterday to follow up on the bladder cancer and had a clean scope however he has had more bleeding after the procedure than previously. He did stay on the aspirin and eliquis for the procedure so that is the likely etiology. He advises that the hematuria is clearing up today. He will see his distiller in [place] in the near future and also plans to see a new trimming caser in [place] as well. They would like to avoid going to [place] if possible. We do recommend labs as he is taking powerful diuretics. With the history of anemia he is no longer taking iron so a follow up blood count is needed also. Medications are reconciled. He is stable on the lower dose of Mirapex at night for the restless legs as the higher doses were overly sedating. We continue to encourage his regular exercise as tolerated. Overall he has improved from last year. Not available 08/28/2024 09:06:33 Plan of Treatment Reminders Order Date Submit Date Provider Last Modified By Organization Details Last Modified Time Details Appointments None recorded. Lab lipid panel, serum 2024 025 [employer] [facility], [address], [place], [address], 5 12:15:04 CMP, serum or plasma 2024 025 [employer] n[employer] [facility], [address], [place], [address], 5 12:15:04 CBC w/ auto diff 2024 025 [employer] [facility], [address], [place], [address], 5 07:58:35 BMP, serum or plasma 2023 024 [employer] [facility], [address], [place], [address], 4 10:01:28 BMP, serum or plasma 2023 024 [employer] [facility], [address], [place], [address], 4 22:54:44 Referral lymphedema consult 2023 [email or web address] n5 [facility], [address], [place], [address], 08:41:15 Procedures None recorded. Surgeries None recorded. Imaging None recorded. Medication Orders pramipexole ER 0.75 mg tablet,exte nded release 24 hr 2023 [facility] [id number], [address] [facility], [address], [address], 14:04:47 bumetanide 0.5 mg tablet [email or web address] [place] [address] Pharmacy [address], [facility] [place], [address], 4 15:32:29 cephalexin 500 mg capsule 2023 [facility], [facility] [place], [address], 4 12:05:15 Patient TargetsNo targets recorded. Patient Instructions Encounter Date Encounter Id Patient Instructions Last Modified By Organization Details Last Modified Time 02/25/2024 [id number] taking aspirin a nd other antiplatelets safely: care instructions Not available 02/26/2024 21:18:29 Reason for Referral Lymphedema Consult for Lymph edema of bilateral lower limbs Referring Physician: Krystle Hall, Family Medicine, Encounter Date: 02/25/2024 Results Created Date Observation Date Name Description Value Unit Range Abnormal Flag Note LastModifiedBy Organization Detail LastModifiedTime 01/20/20 24 01/26/2024 CULTU RE, AEROB IC AND ANAER OBIC W/GRA M STAIN culture, anaerobic bacteria w/gram stain CULTU RE, ANAER OBIC BACTE PILO W/GRA M STAIN Micro Numbe r: [id number] Test Statu s: Final Speci men Sourc e: Wound (site not speci fied) Speci men Quali ty: Adequ ate Gram Stain : No white blood cells seen Few Gram posit bony cocci Resul t: No anaer obes isola ruben. Not Available [facility] [address] [place], [address], 01/26/2024 14:46:42 01/20/20 24 01/26/2024 CULTU RE, AEROB IC AND ANAER OBIC W/GRA M STAIN culture, aerobic bacteria CULTU RE, AEROB IC BACTE PILO Micro Numbe r: [id number] Test Statu s: Final Speci men Sourc e: Foot Speci men Quali ty: Adequ ate Resul t: A mix of organ isms of quest ionab le signi fican ce was recov ered on cultu re and not furth er ident ified . (Note : Growt h did not detec t the prese nce of S.aur eus, beta- hemol ytic Strep tococ ci or P.aer ugino sa). Not Available [facility] [address] [place], [address], 01/26/2024 14:46:42 02/08/20 24 02/08/2024 CBC AUTO W DIFF WBC 8.8 10 4.5-11 .5 Not Available [facility] (Lab Registration) [address] [place], [address], 02/08/2024 22:48:33 02/08/20 24 02/08/2024 CBC AUTO W DIFF RBC 3.79 10 4.25-5 .57 low Not Available [facility] (Lab Registration) [address] [place], [address], 02/08/2024 22:48:33 02/08/20 24 02/08/2024 CBC AUTO W DIFF HGB 11.5 g/dL 13.5-1 7.2 low Not Available [facility] (Lab Registration) [address] [place], [address], 02/08/2024 22:48:33 02/08/20 24 02/08/2024 CBC AUTO W DIFF HCT 35.1 % 42.0-5 2.0 low Not Available [facility] (Lab Registration) [address] [place], [address], 02/08/2024 22:48:33 02/08/20 24 02/08/2024 CBC AUTO W DIFF MCV 92.6 fL 80-95 Not Available [facility] (Lab Registration) [address] [place], [address], 02/08/2024 22:48:33 02/08/20 24 02/08/2024 CBC AUTO W DIFF MCH 30.3 pg 27.0-3 4.0 Not Available [facility] (Lab Registration) [address] [place], [address], 02/08/2024 22:48:33 02/08/20 24 02/08/2024 CBC AUTO W DIFF MCHC 32.8 g/dL 32.0-3 6.0 Not Available [facility] (Lab Registration) [address] [place], [address], 02/08/2024 22:48:33 02/08/20 24 02/08/2024 CBC AUTO W DIFF platelet count 111 10 150-45 0 low Not Available [facility] (Lab Registration) [address] [place], [address], 02/08/2024 22:48:33 02/08/20 24 02/08/2024 CBC AUTO W DIFF RDW 16.0 % 12.3-1 5.1 high Not Available [facility] (Lab Registration) [address] [place], [address], 02/08/2024 22:48:33 02/08/20 24 02/08/2024 CBC AUTO W DIFF MPV 8.0 fL 7.4-10 .4 Not Available [facility] (Lab Registration) [address] [place], [address], 02/08/2024 22:48:33 02/08/20 24 02/08/2024 CBC AUTO W DIFF granulocyte% 76.4 % 40-75 high Not Available [facility] (Lab Registration) [address] [place], [address], 02/08/2024 22:48:33 02/08/20 24 02/08/2024 CBC AUTO W DIFF lymphocyte% 12.2 % 15-57 low Not Available [facility] (Lab Registration) [address] [place], [address], 02/08/2024 22:48:33 02/08/20 24 02/08/2024 CBC AUTO W DIFF monocyte% 9.0 % 4.0-12 .0 Not Available [facility] (Lab Registration) [address] [place], [address], 02/08/2024 22:48:33 02/08/20 24 02/08/2024 CBC AUTO W DIFF eosinophil% 1.6 % 0.0-4. 0 Not Available [facility] (Lab Registration) [address] [place], [address], 02/08/2024 22:48:33 02/08/20 24 02/08/2024 CBC AUTO W DIFF basophil% 0.5 % 0.0-1. 0 Not Available [facility] (Lab Registration) [address] [place], [address], 02/08/2024 22:48:33 02/08/20 24 02/08/2024 CBC AUTO W DIFF immature granulocytes % 0.3 % 0.0-0. 8 Not Available [facility] (Lab Registration) [address] [place], [address], 02/08/2024 22:48:33 02/08/20 24 02/08/2024 CBC AUTO W DIFF granulocyte# 6.72 10 Not Available [facility] (Lab Registration) [address] [place], [address], 02/08/2024 22:48:33 02/08/20 24 02/08/2024 CBC AUTO W DIFF lymphocyte# 1.07 10 Not Available [facility] (Lab Registration) [address] [place], [address], 02/08/2024 22:48:33 02/08/20 24 02/08/2024 CBC AUTO W DIFF monocyte# 0.79 10 Not Available [facility] (Lab Registration) [address] [place], [address], 02/08/2024 22:48:33 02/08/20 24 02/08/2024 CBC AUTO W DIFF eosinophil# 0.14 10 Not Available [facility] (Lab Registration) [address] [place], [address], 02/08/2024 22:48:33 02/08/20 24 02/08/2024 CBC AUTO W DIFF basophil# 0.04 10 Not Available [facility] (Lab Registration) [address] [place], [address], 02/08/2024 22:48:33 02/08/20 24 02/08/2024 CBC AUTO W DIFF immature granulocytes # 0.03 10 Not Available [facility] (Lab Registration) [address] [place], [address], 02/08/2024 22:48:33 02/08/20 24 02/08/2024 CBC AUTO W DIFF manual differential NO Not Available [facility] (Lab Registration) [address] [place], [address], 02/08/2024 22:48:33 02/08/20 24 02/08/2024 CBC AUTO W DIFF note Unles s other feliz noted testi ng perfo rmed at: [facility] [address] [place] [address] [phone] Jorje herbert MD CLIA: [id number] Not Available [facility] (Lab Registration) [address] [place], [address], 02/08/2024 22:48:33 02/08/20 24 02/08/2024 BASIC METAB OLIC PANEL sodium 140 mmol/ L 136-14 5 Not Available [facility] (Lab Registration) [address] [place], [address], 02/08/2024 22:54:43 02/08/20 24 02/08/2024 BASIC METAB OLIC PANEL potassium 3.7 mmol/ L 3.5-5. 1 Not Available [facility] (Lab Registration) [address] [place], [address], 02/08/2024 22:54:43 02/08/20 24 02/08/2024 BASIC METAB OLIC PANEL chloride 101 mmol/ L 98-107 Not Available [facility] (Lab Registration) [address] [place], [address], 02/08/2024 22:54:43 02/08/20 24 02/08/2024 BASIC METAB OLIC PANEL carbon dioxide 31 mmol/ L 21-32 Not Available [facility] (Lab Registration) [address] [place], [address], 02/08/2024 22:54:43 02/08/20 24 02/08/2024 BASIC METAB OLIC PANEL anion gap 8.0 Not Available [facility] (Lab Registration) [address] [place], [address], 02/08/2024 22:54:43 02/08/20 24 02/08/2024 BASIC METAB OLIC PANEL glucose 101 mg/dL 70-110 Not Available [facility] (Lab Registration) [address] [place], [address], 02/08/2024 22:54:43 02/08/20 24 02/08/2024 BASIC METAB OLIC PANEL blood urea nitrogen 31 mg/dL 7-18 high Not Available [facility] (Lab Registration) [address] [place], [address], 02/08/2024 22:54:43 02/08/20 24 02/08/2024 BASIC METAB OLIC PANEL creatinine 0.8 mg/dL 0.8-1. 3 Not Available [facility] (Lab Registration) [address], [place], [address], 02/08/2024 22:54:43 02/08/20 24 02/08/2024 BASIC METAB OLIC PANEL BUN/creatini ne ratio 38.8 ratio 9-21 high Not Available [facility] (Lab Registration) [address], [place], [address], 02/08/2024 22:54:43 02/08/20 24 02/08/2024 BASIC METAB OLIC PANEL estimated glom filtration rate 87 mL/mi n >60- GFR LIMIT ATION : The eGFR equat ion CKD-E PI 2020 is not appli cable for pedia tric patie nts or great er than 90 years of age. The follo wing condi tions may alter the GFR resul t: extre mes in body size, malnu triti on or obesi ty, skele lakesha muscl e disea se, parap legia or quadr ipleg ia, veget lizzie diet or rapid ly morris ing kiney funct ion. Not Available [facility] (Lab Registration) [address], [place], [address], 02/08/2024 22:54:43 02/08/20 24 02/08/2024 BASIC METAB OLIC PANEL calcium 9.3 mg/dL 8.5-10 .1 Not Available [facility] (Lab Registration) [address], [place], [address], 02/08/2024 22:54:43 02/08/20 24 02/08/2024 BASIC METAB OLIC PANEL note Unles s other feliz noted testi ng perfo rmed at: [facility] [address] [place] [address] [phone] Jorje herbert MD CLIA: [id number] Not Available [facility] (Lab Registration) [address], [place], [address], 02/08/2024 22:54:43 02/08/20 24 02/08/2024 PT (PROT HROMB IN TIME) W INR PT (prothrombin time) 10.9 secon ds 9.1-12 .0 Not Available [facility] (Lab Registration) [address], [place], [address], 02/08/2024 22:58:50 02/08/20 24 02/08/2024 PT (PROT HROMB IN TIME) W INR INR 1.00 0.9-1. 1 INR is inten ded to be used only for patie nts on stabl e oral anti- coagu lant thera py. *Ther apeut ic Range s 2.0 - 3.0 Usual Thera peuti c Range 2.5 - 3.5 For patie nts with a histo ry of multi ple deep vein throm bus or mecha nical heart valve s. Not Available [facility] (Lab Registration) [address], [place], [address], 02/08/2024 22:58:50 02/08/20 24 02/08/2024 PT (PROT HROMB IN TIME) W INR note Unles s other feliz noted testi ng perfo rmed at: [facility] [address] [place] [address] [phone] Jorje herbert MD CLIA: [id number] Not Available [facility] (Lab Registration) [address] [place], [address], 02/08/2024 22:58:50 02/08/20 24 02/08/2024 PTT (PART IAL THROM B TIME) PTT (partial thromb time) 24.8 secon ds 24.5-3 2.8 Not Available [facility] (Lab Registration) [address] [place], [address], 02/08/2024 22:58:51 02/08/20 24 02/08/2024 PTT (PART IAL THROM B TIME) note Jasper herbert other feliz noted testi ng perfo rmed at: [facility] [address] [place] [phone] Jorje herbert MD CLIA: [id number] Not Available [facility] (Lab Registration) [address] [place], [address], 02/08/2024 22:58:51 02/08/20 24 02/08/2024 LACTI C ACID lactic acid 0.9 mmole /L 0.4-2. 0 Not Available [facility] (Lab Registration) [address] [place], [address], 02/08/2024 23:03:58 02/08/20 24 02/08/2024 LACTI C ACID note Jasper yee feliz noted testi ng perfo rmed at: [facility] [address] [place] [address] [phone] Jorje herbert MD CLIA: [id number] Not Available [facility] (Lab Registration) [address], [place], [address], 02/08/2024 23:03:58 02/08/20 24 02/08/2024 BLOOD CULTU RE results [facility] 02-09 638 No Growt h at Day 1 LT 02-11 825 No Growt h at Day 2 LT 02-13 843 No Growt h at Day 5 Not Available [facility] (Lab Registration) [address] [place], [address], 02/14/2024 08:44:41 02/08/20 24 02/08/2024 BLOOD CULTU RE note Jasper herbert other feliz noted testi ng perfo rmed at: [facility] [address] [place] [address] [phone] Jorje herbert MD CLIA: [id number] Not Available [facility] (Lab Registration) [address] [place], [address], 02/14/2024 08:44:41 02/24/2002/25/2024 LIPID PANEL , STAND JOSHUA cholesterol, total 137 mg/dL <200 normal Not Available [facility] [address], [place], [address], 02/25/2024 10:07:27 02/24/2002/25/2024 LIPID PANEL , STAND JOSHUA HDL cholesterol 77 mg/dL > or = 40 normal Not Available [facility] [address] [facility], [place], [address], 02/25/2024 10:07:27 02/24/2002/25/2024 LIPID PANEL , STAND JOSHUA triglyceride s 47 mg/dL <150 normal Not Available [facility] [address], [place], [address], 02/25/2024 10:07:27 02/24/2002/25/2024 LIPID PANEL , STAND JOSHUA LDL-choleste rol 47 mg/dL _(thuan c) normal Refer ence range : <100 Gaurav able range <100 mg/dL for prima ry preve ntion ; <70 mg/dL for patie nts with CHD or diabe tic patie nts with > or = 2 CHD risk facto rs. LDL-C is now calcu lated using the Salud n-Hop kins calcu latmeghana n, which is a valid ated novel bree martinez acy than the Fried giovani equat ion in the estim ation of LDL-C . Salud yancey SS et al. DIANE. 2013; 310(1 9): 2061- 2068 (http ://ed ucati on.Qu estDi agnos tics. com/f aq/FA Q164) Not Available [facility] [address] [facility], [place], [address], 02/25/2024 10:07:27 02/24/20 24 02/25/2024 LIPID PANEL , STAND JOSHUA chol/HDLC ratio 1.8 (calc ) <5.0 normal Not Available [facility] [address] [facility] [place], [address], 02/25/2024 10:07:27 02/24/20 24 02/25/2024 LIPID PANEL , STAND JOSHUA non HDL cholesterol 60 mg/dL _(thuan c) <130 normal For patie nts with diabe lashell plus 1 major ASCVD risk facto r, treat ing to a non-H DL-C goal of <100 mg/dL (LDL- C of <70 mg/dL ) is consi dered a thera peuti c optio n. Not Available [employer] [facility] [address] [place], [address], 02/25/2024 10:07:27 02/24/20 24 02/25/2024 COMPR EHENS BONY METAB OLIC PANEL glucose 102 mg/dL 65-99 high Fasti ng refer ence inter billie For someo ne witho ut known diabe lashell, a gluco se value betwe en 100 and 125 mg/dL is consi stent with predi abete s and shoul d be confi rmed with a follo w-up test. Not Available [employer] [facility] [address] [facility], [place], [address], 02/25/2024 10:07:28 02/24/20 24 02/25/2024 COMPR EHENS BONY METAB OLIC PANEL urea nitrogen (BUN) 29 mg/dL 7-25 high Not Available [facility] [address] [facility], [address], 02/25/2024 10:07:28 02/24/20 24 02/25/2024 COMPR EHENS BONY METAB OLIC PANEL creatinine 0.83 mg/dL 0.70-1 .22 normal Not Available [facility] [address] [place], [address], 02/25/2024 10:07:28 02/24/2002/25/2024 COMPR EHENS BONY METAB OLIC PANEL eGFR 86 mL/mi n/1.7 3m2 > or = 60 normal Not Available [facility] [address] [place], [address], 02/25/2024 10:07:28 02/24/2002/25/2024 COMPR EHENS BONY METAB OLIC PANEL BUN/creatini ne ratio 35 (calc ) 6-22 high Not Available [facility] [address] [place], [address], 02/25/2024 10:07:28 02/24/2002/25/2024 COMPR EHENS BONY METAB OLIC PANEL sodium 139 mmol/ L 135-14 6 normal Not Available [facility] [address] [place], [address], 02/25/2024 10:07:28 02/24/2002/25/2024 COMPR EHENS BONY METAB OLIC PANEL potassium 4.1 mmol/ L 3.5-5. 3 normal Not Available [facility] [address] [place], [address], 02/25/2024 10:07:28 02/24/2002/25/2024 COMPR EHENS BONY METAB OLIC PANEL chloride 104 mmol/ L 98-110 normal Not Available [facility] [address] [place], [address], 02/25/2024 10:07:28 02/24/2002/25/2024 COMPR EHENS BONY METAB OLIC PANEL carbon dioxide 27 mmol/ L 20-32 normal Not Available [facility] [address] [place], [address], 02/25/2024 10:07:28 02/24/2002/25/2024 COMPR EHENS BONY METAB OLIC PANEL calcium 9.1 mg/dL 8.6-10 .3 normal Not Available [facility] [address] [facility] [place], [address], 02/25/2024 10:07:28 02/24/2002/25/2024 COMPR EHENS BONY METAB OLIC PANEL protein, total 5.7 g/dL 6.1-8. 1 low Not Available [facility] [address] [facility] [place], [address], 02/25/2024 10:07:28 02/24/2002/25/2024 COMPR EHENS BONY METAB OLIC PANEL albumin 3.9 g/dL 3.6-5. 1 normal Not Available [facility] [address] [place], [address], 02/25/2024 10:07:28 02/24/2002/25/2024 COMPR EHENS BONY METAB OLIC PANEL globulin 1.8 g/dL_ (calc ) 1.9-3. 7 low Not Available [facility] [address] [place], [address], 02/25/2024 10:07:28 02/24/2002/25/2024 COMPR EHENS BONY METAB OLIC PANEL albumin/glob ulin ratio 2.2 (calc ) 1.0-2. 5 normal Not Available [facility] [address] [place], [address], 02/25/2024 10:07:28 02/24/2002/25/2024 COMPR EHENS BONY METAB OLIC PANEL bilirubin, total 0.5 mg/dL 0.2-1. 2 normal Not Available [facility] [address] [place], [address], 02/25/2024 10:07:28 02/24/2002/25/2024 COMPR EHENS BONY METAB OLIC PANEL alkaline phosphatase 29 U/L 35-144 low Not Available [facility] [place] [facility] [address] [place], [address], 02/25/2024 10:07:28 02/24/2002/25/2024 COMPR EHENS BONY METAB OLIC PANEL AST 37 U/L 10-35 high Not Available [facility] [place] [facility] [address], [place], [address], 02/25/2024 10:07:28 02/24/2002/25/2024 COMPR EHENS BONY METAB OLIC PANEL ALT 44 U/L 9-46 normal Not Available [facility] [place] [facility] [address], [place], [address], 02/25/2024 10:07:28 02/24/2002/25/2024 TSH TSH 3.41 mIU/L 0.40-4 .50 normal Not Available [facility] [place] [facility] [address], [place], [address], 02/25/2024 10:07:28 02/24/2002/25/2024 CBC (INCL UDES DIFF/ PLT) white blood cell count 6.0 thous and/u L 3.8-10 .8 normal Not Available [facility] [place] [facility] [address], [place], [address], 02/25/2024 10:07:29 02/24/2002/25/2024 CBC (INCL UDES DIFF/ PLT) red blood cell count 3.75 radha on/uL 4.20-5 .80 low Not Available [facility] [place] [facility] [address], [place], [address], 02/25/2024 10:07:29 02/24/2002/25/2024 CBC (INCL UDES DIFF/ PLT) hemoglobin 11.2 g/dL 13.2-1 7.1 low Not Available [facility] [place] [facility] [address] [facility], [place], [address], 02/25/2024 10:07:29 02/24/2002/25/2024 CBC (INCL UDES DIFF/ PLT) hematocrit 35.7 % 38.5-5 0.0 low Not Available [facility] [place] [facility] [address] [facility], [place], [address], 02/25/2024 10:07:29 02/24/2002/25/2024 CBC (INCL UDES DIFF/ PLT) MCV 95.2 fL 80.0-1 00.0 normal Not Available [facility] [place] [facility] [address] [facility], [place], [address], 02/25/2024 10:07:29 02/24/2002/25/2024 CBC (INCL UDES DIFF/ PLT) MCH 29.9 pg 27.0-3 3.0 normal Not Available [facility] [place] [facility] [address] [facility], [place], [address], 02/25/2024 10:07:29 02/24/2002/25/2024 CBC (INCL UDES DIFF/ PLT) MCHC 31.4 g/dL 32.0-3 6.0 low For adult s, a sligh t decre ase in the calcu lated MCHC value (in the range of 30 to 32 g/dL) is most likel y not clini rommel signi ac t; wm er, it shoul d be inter prete d with cauti on in corre latio n with other red cell jose eters and the patie nt's clini thuan condi tion. Not Available [facility] [place] [facility] [address] [facility], [place], [address], 02/25/2024 10:07:29 02/24/2002/25/2024 CBC (INCL UDES DIFF/ PLT) RDW 15.2 % 11.0-1 5.0 high Not Available [facility] [place] [facility] [address], [place], [address], 02/25/2024 10:07:29 02/24/2002/25/2024 CBC (INCL UDES DIFF/ PLT) platelet count 103 thous and/u L 140-40 0 low Not Available [facility] [place] [facility] [address], [place], [address], 02/25/2024 10:07:29 02/24/2002/25/2024 CBC (INCL UDES DIFF/ PLT) MPV 9.3 fL 7.5-12 .5 normal Not Available [facility] [place] [facility] [address], [place], [address], 02/25/2024 10:07:29 02/24/2002/25/2024 CBC (INCL UDES DIFF/ PLT) absolute neutrophils 4512 cells /uL 1500-7 800 normal Not Available [facility] [place] [facility] [address], [place], [address], 02/25/2024 10:07:29 02/24/2002/25/2024 CBC (INCL UDES DIFF/ PLT) absolute lymphocytes 882 cells /uL 850-39 00 normal Not Available [facility] [place] [facility] [address], [place], [address], 02/25/2024 10:07:29 02/24/2002/25/2024 CBC (INCL UDES DIFF/ PLT) absolute monocytes 414 cells /uL 200-95 0 normal Not Available [facility] [place] [facility] [address], [place], [address], 02/25/2024 10:07:29 02/24/2002/25/2024 CBC (INCL UDES DIFF/ PLT) absolute eosinophils 150 cells /uL 15-500 normal Not Available [facility] [place] [facility] [address], [place], [address], 02/25/2024 10:07:29 02/24/2002/25/2024 CBC (INCL UDES DIFF/ PLT) absolute basophils 42 cells /uL 0-200 normal Not Available [facility] [place] [facility] [address], [place], [address], 02/25/2024 10:07:29 02/24/2002/25/2024 CBC (INCL UDES DIFF/ PLT) neutrophils 75.2 % normal Not Available [facility] [place] [facility] [address], [place], [address], 02/25/2024 10:07:29 02/24/2002/25/2024 CBC (INCL UDES DIFF/ PLT) lymphocytes 14.7 % normal Not Available [facility] [place] [facility] [address], [place], [address], 02/25/2024 10:07:29 02/24/2002/25/2024 CBC (INCL UDES DIFF/ PLT) monocytes 6.9 % normal Not Available [facility] [place] [facility] [address], [place], [address], 02/25/2024 10:07:29 02/24/2002/25/2024 CBC (INCL UDES DIFF/ PLT) eosinophils 2.5 % normal Not Available [facility] [place] [facility] [address], [place], [address], 02/25/2024 10:07:29 02/24/2002/25/2024 CBC (INCL UDES DIFF/ PLT) basophils 0.7 % normal Not Available [facility] [place] [facility] [address], [place], [address], 02/25/2024 10:07:29 05/01/20 25 09/11/2024 LIPID PANEL , STAND JOSHUA cholesterol, total 163 mg/dL <200 normal Not Available [facility] [place] [facility] [address] [facility], [place], [address], 09/11/2024 07:58:33 09/11/19 25 09/11/2024 LIPID PANEL , STAND JOSHUA HDL cholesterol 71 mg/dL > or = 40 normal Not Available [facility] [place] [facility] [address] [facility], [place], [address], 09/11/2024 07:58:33 09/11/1909/11/2024 LIPID PANEL , STAND JOSHUA triglyceride s 72 mg/dL <150 normal Not Available [facility] [place] [facility] [address] [facility], [place], [address], 09/11/2024 07:58:33 09/11/1909/11/2024 LIPID PANEL , STAND JOSHUA LDL-choleste rol 77 mg/dL _(thuan c) normal Refer ence range : <100 Gaurav able range <100 mg/dL for prima ry preve ntion ; <70 mg/dL for patie nts with CHD or diabe tic patie nts with > or = 2 CHD risk facto rs. LDL-C is now calcu lated using the Salud n-Hop kins calcu jackson n, which is a valid ated novel alexsandero mick scott r accur acy than the Fried giovani equat ion in the estim ation of LDL-C . Salud yancey SS et al. DIANE. 2013; 310(1 9): 2061- 2068 (http ://ed ucati on.Qu epiDi blankaIdeagens. com/f aq/FA Q164) Not Available [facility] [place] [facility] [address] [facility], [place], [address], 09/11/2024 07:58:33 09/11/1909/11/2024 LIPID PANEL , STAND JOSHUA chol/HDLC ratio 2.3 (calc ) <5.0 normal Not Available [facility] [place] [facility] [address] [place], [address], 09/11/2024 07:58:33 09/11/19 25 09/11/2024 LIPID PANEL , STAND OJSHUA non HDL cholesterol 92 mg/dL _(thuan c) <130 normal For patie nts with diabe lashell plus 1 major ASCVD risk facto r, treat ing to a non-H DL-C goal of <100 mg/dL (LDL- C of <70 mg/dL ) is consi dered a thera peuti c optio n. Not Available [facility] [place] [facility] [address] [place], [address], 09/11/2024 07:58:33 09/11/19 25 09/11/2024 COMPR EHENS BONY METAB OLIC PANEL glucose 94 mg/dL 65-99 normal Fasti ng refer ence inter billie Not Available [facility] [address] [place], [address], 09/11/2024 07:58:34 09/11/19 25 09/11/2024 COMPR EHENS BONY METAB OLIC PANEL urea nitrogen (BUN) 24 mg/dL 7-25 normal Not Available [facility] [address] [place], [address], 09/11/2024 07:58:34 09/11/19 25 09/11/2024 COMPR EHENS BONY METAB OLIC PANEL creatinine 0.76 mg/dL 0.70-1 .22 normal Not Available [facility] [place] [facility] [address] [place], [address], 09/11/2024 07:58:34 09/11/19 25 09/11/2024 COMPR EHENS BONY METAB OLIC PANEL eGFR 88 mL/mi n/1.7 3m2 > or = 60 normal Not Available [facility] [place] [facility] [address] [place], [address], 09/11/2024 07:58:34 09/11/19 25 09/11/2024 COMPR EHENS BONY METAB OLIC PANEL BUN/creatini ne ratio SEE NOTE: (calc ) 6-22 Not Repor ruben: BUN and Creat inine are withi n refer ence range . Not Available [facility] [address] [place], [address], 09/11/2024 07:58:34 09/11/19 25 09/11/2024 COMPR EHENS BONY METAB OLIC PANEL sodium 142 mmol/ L 135-14 6 normal Not Available [facility] [address] [place], [address], 09/11/2024 07:58:34 09/11/19 25 09/11/2024 COMPR EHENS BONY METAB OLIC PANEL potassium 3.6 mmol/ L 3.5-5. 3 normal Not Available [facility] [place] [facility] [address] [place], [address], 09/11/2024 07:58:34 09/11/19 25 09/11/2024 COMPR EHENS BONY METAB OLIC PANEL chloride 104 mmol/ L 98-110 normal Not Available [facility] [address] [place], [address], 09/11/2024 07:58:34 09/11/19 25 09/11/2024 COMPR EHENS BONY METAB OLIC PANEL carbon dioxide 29 mmol/ L 20-32 normal Not Available [facility] [address] [place], [address], 09/11/2024 07:58:34 09/11/19 25 09/11/2024 COMPR EHENS BONY METAB OLIC PANEL calcium 9.1 mg/dL 8.6-10 .3 normal Not Available [facility] [address] [place], [address], 09/11/2024 07:58:34 09/11/19 25 09/11/2024 COMPR EHENS BONY METAB OLIC PANEL protein, total 6.3 g/dL 6.1-8. 1 normal Not Available [facility] [address] [facility] [place], [address], 09/11/2024 07:58:34 09/11/19 25 09/11/2024 COMPR EHENS BONY METAB OLIC PANEL albumin 4.1 g/dL 3.6-5. 1 normal Not Available [facility] [address] [place], [address], 09/11/2024 07:58:34 09/11/19 25 09/11/2024 COMPR EHENS BONY METAB OLIC PANEL globulin 2.2 g/dL_ (calc ) 1.9-3. 7 normal Not Available [facility] [address] [facility] [place], [address], 09/11/2024 07:58:34 09/11/19 25 09/11/2024 COMPR EHENS BONY METAB OLIC PANEL albumin/glob ulin ratio 1.9 (calc ) 1.0-2. 5 normal Not Available [facility] [address] [place], [address], 09/11/2024 07:58:34 09/11/19 25 09/11/2024 COMPR EHENS BONY METAB OLIC PANEL bilirubin, total 0.4 mg/dL 0.2-1. 2 normal Not Available [facility] [address] [place], [address], 09/11/2024 07:58:34 09/11/19 25 09/11/2024 COMPR EHENS BONY METAB OLIC PANEL alkaline phosphatase 35 U/L 35-144 normal Not Available [facility] [facility] [address] [place], [address], 09/11/2024 07:58:34 09/11/19 25 09/11/2024 COMPR EHENS BONY METAB OLIC PANEL AST 24 U/L 10-35 normal Not Available [facility] [place] [facility] [address] [place], [address], 09/11/2024 07:58:34 09/11/19 25 09/11/2024 COMPR EHENS BONY METAB OLIC PANEL ALT 28 U/L 9-46 normal Not Available [facility] [place] [facility] [address], [place], [address], 09/11/2024 07:58:34 09/11/19 25 09/11/2024 CBC (INCL UDES DIFF/ PLT) white blood cell count 8.5 thous and/u L 3.8-10 .8 normal Not Available [facility] [place] [facility] [address], [place], [address], 09/11/2024 07:58:34 09/11/19 25 09/11/2024 CBC (INCL UDES DIFF/ PLT) red blood cell count 3.94 radha on/uL 4.20-5 .80 low Not Available [facility] [place] [facility] [address], [place], [address], 09/11/2024 07:58:34 09/11/19 25 09/11/2024 CBC (INCL UDES DIFF/ PLT) hemoglobin 12.3 g/dL 13.2-1 7.1 low Not Available [facility] [place] [facility] [address], [place], [address], 09/11/2024 07:58:34 09/11/19 25 09/11/2024 CBC (INCL UDES DIFF/ PLT) hematocrit 37.9 % 38.5-5 0.0 low Not Available [facility] [place] [facility] [address], [place], [address], 09/11/2024 07:58:34 09/11/19 25 09/11/2024 CBC (INCL UDES DIFF/ PLT) MCV 96.2 fL 80.0-1 00.0 normal Not Available [facility] [place] [facility] [address], [place], [address], 09/11/2024 07:58:34 09/11/1909/11/2024 CBC (INCL UDES DIFF/ PLT) MCH 31.2 pg 27.0-3 3.0 normal Not Available [facility] [place] [facility] [address], [place], [address], 09/11/2024 07:58:34 09/11/1909/11/2024 CBC (INCL UDES DIFF/ PLT) MCHC 32.5 g/dL 32.0-3 6.0 normal For adult s, a sligh t decre ase in the calcu lated MCHC value (in the range of 30 to 32 g/dL) is most likel y not clini rommel signi ac t; wm er, it shoul d be inter prete d with cauti on in [facility] n with other red cell jose eters and the patie nt's clini thuan condi tion. Not Available [facility] [place] [facility] [address], [place], [address], 09/11/2024 07:58:34 09/11/1909/11/2024 CBC (INCL UDES DIFF/ PLT) RDW 14.2 % 11.0-1 5.0 normal Not Available [facility] [place] [facility] [address], [place], [address], 09/11/2024 07:58:34 09/11/1909/11/2024 CBC (INCL UDES DIFF/ PLT) platelet count 133 thous and/u L 140-40 0 low Not Available [facility] [place] [facility] [address], [place], [address], 09/11/2024 07:58:34 09/11/19 25 09/11/2024 CBC (INCL UDES DIFF/ PLT) MPV 8.7 fL 7.5-12 .5 normal Not Available [facility] [place] [facility] [address] [place], [address], 09/11/2024 07:58:34 09/11/19 25 09/11/2024 CBC (INCL UDES DIFF/ PLT) absolute neutrophils 6248 cells /uL 1500-7 800 normal Not Available [facility] [place] [facility] [address] [facility], [place], [address], 09/11/2024 07:58:34 09/11/19 25 09/11/2024 CBC (INCL UDES DIFF/ PLT) absolute lymphocytes 1156 cells /uL 850-39 00 normal Not Available [facility] [place] [facility] [address] [facility], [place], [address], 09/11/2024 07:58:34 09/11/19 25 09/11/2024 CBC (INCL UDES DIFF/ PLT) absolute monocytes 570 cells /uL 200-95 0 normal Not Available [facility] [place] [facility] [address] [facility], [place], [address], 09/11/2024 07:58:34 09/11/19 25 09/11/2024 CBC (INCL UDES DIFF/ PLT) absolute eosinophils 468 cells /uL 15-500 normal Not Available [facility] [place] [facility] [address] [facility], [place], [address], 09/11/2024 07:58:34 09/11/19 25 09/11/2024 CBC (INCL UDES DIFF/ PLT) absolute basophils 60 cells /uL 0-200 normal Not Available [facility] [place] [facility] [address] [facility], [place], [address], 09/11/2024 07:58:34 09/11/19 25 09/11/2024 CBC (INCL UDES DIFF/ PLT) neutrophils 73.5 % normal Not Available [facility] [place] [facility] [address] [place], [address], 09/11/2024 07:58:34 09/11/19 25 09/11/2024 CBC (INCL UDES DIFF/ PLT) lymphocytes 13.6 % normal Not Available [facility] [place] [facility] [address] [place], [address], 09/11/2024 07:58:34 09/11/19 25 09/11/2024 CBC (INCL UDES DIFF/ PLT) monocytes 6.7 % normal Not Available [facility] [place] [facility] [address] [place], [address], 09/11/2024 07:58:34 09/11/19 25 09/11/2024 CBC (INCL UDES DIFF/ PLT) eosinophils 5.5 % normal Not Available [facility] [place] [facility] [address] [place], [address], 09/11/2024 07:58:34 09/11/19 25 09/11/2024 CBC (INCL UDES DIFF/ PLT) basophils 0.7 % normal Not Available [facility] [place] [facility] [address] [place], [address], 09/11/2024 07:58:34 02/09/20 24 02/08/2024 CT extre m [facility] [address] [place] [address] Phone: Fax: Name: PRIYA RODRIUGEZ ON Exam Date: 024 : [birth year] Age 83 years Gender : M Access ion: [id number] Physic kirstie: NWAUCH E, UGWUAL A Facili ty: [facility] Facili ty HSV: Outpat ient Exam: CT EXTREM LWR LT W FINAL REPORT TECHNI QUE: null CLINIC AL HISTOR Y: PAIN W/O TRAUMA / LEFT PLANTA R FOOT WART REMOVE D X3 MONTHS AGO STILL HASNT HEALED / THREE LEFT TOES BLEEDI NG FROM THE SWELLI NG OF LEFT FOOT X1 DAY COMPAR TL: null FINDIN GS: EXAM: CT Left Lower Extrem ity With Intrav enous Contra st, Foot COMPAR TL: No releva nt prior studie s availa ble. FINDIN GS: BONES/ JOINTS : Degene rative change s throug hout the intert arsal and tarsom etatar qing joints . Osteop enia. No acute fractu re. No disloc ation. SOFT TISSUE S: [employer] olater al focal soft tissue defect of the calcan eal region , questi on site of prior interv ention , should be correl ated clinic ally. No soft tissue gas. There is diffus e subcut aneous edema with diffus e fluid reticu lation tracki ng more along the dorsal aspect of the foot. No discre te collec tions. IMPRES SOILA: IMPRES SOILA: Diffus e cellul itis more so along the dorsum of the foot, withou t discre te absces s. Additi onal findin gs as descri bed. Bennie barton and Electr onical ly Signed by Theron Faye on 2023 12:52: 06 AMEAST KAYCEE Dictat ed By: Theron Faye Transc ribed By: Transc ribed On: 12:52 AM Electr onical ly signed by: Theron Faye Thank you for referr PRIYA Hou ON to [facility]. Legall y authen ticate d by JEROME MADERA MD 02-08 00:52: 06 CC'ed Logic: Orderi ng Provid er: SHEA TOBINWGIULIANA A CC Provid er: KELSEA Friedman Attend ing Provid er: NWAUCH E UGWUAL A Referr ing Provid er: NWAUCH E UGWUAL A Admitt ing Provid er: NWAUCH E UGWUAL A [email or web address] [facility] (Radiology) [address] , [place], [address], 02/10/2024 09:09:38 03/16/20 24 03/16/2024 XR, wrist No observ ation record ed. [email or web address] [facility] [address], [place], [address], 03/22/2024 11:14:11 Result Notes None recorded. Problems Name Problem SNOMED Code Status Onset Date Resolution Date Notes Provider Name and Address Organization Details Recorded Time Blood glucose outside reference range 806434964 Active Krystle Hall MD [address] [address], [place] - [facility] 6 16:37:18 Acute sinusitis 68135118 Active Krystle Hall MD [address] [address], [place] - [facility] 6 16:37:18 Acute bronchitis 26300365 Active Krystle Hall MD [address] [address], [place] - [facility] 6 16:37:18 Wheezing [id number] Bridgett Hall MD [address] [address], [place] - [facility] 6 16:54:16 Disorder of urinary tract 71894734 Bridgett Hall MD [address] [address], [place] - [facility] 6 16:37:18 Vitamin D deficiency 32523517 Bridgett Hall MD [address] [address], [place] - [facility] 6 16:37:18 Benign essential hypertension 0719420 Bridgett Hall MD [address] [address], [place] [facility] 6 16:37:18 Hyperlipidemia 23010550 Bridgett Hall MD [address] [address], [place] - [facility] 6 16:37:18 Disorder of prostate 60315978 Bridgett Hall MD [address] [address], [place] [facility] 6 16:37:18 Malaise and fatigue 101420021 Bridgett Hall MD [address] [address], [place] [facility] 6 16:37:18 Chest pain 54537622 Bridgett Hall MD [address] [address], [place] [facility] 6 16:37:18 Pain of hip region [id number] Bridgett Hall MD [address] [place] [address], [facility] 6 16:37:18 Chronic obstructive pulmonary disease [id number] Bridgett Hall MD [address] [place] [address], [facility] 6 16:37:18 Restless legs [id number] Bridgett Hall MD [address] [place] [address], [facility] 6 16:37:18 Hearing loss [id number] Bridgett Hall MD [address] [place] [address], [facility] 6 16:37:18 Lower respiratory tract infection [id number] Bridgett Hall MD 2016 [facility], [place], [address], [facility] 16:54:16 Problem Notes None recorded. Procedures Surgical History Date Name Laterality Status Provider Name and Address Organization Details Recorded Time 10/09/19 24 cardiac catheterization completed Krystle Hall MD [address], [address], [facility] 10/28/2023 21:02:28 08/01/19 22 cystoscopy completed Krystle Hall MD [address], [address], [facility] 08/22/2022 00:38:30 06/13/19 22 cystoscopy completed Krystle Hall MD [address], [id number] [place] [address] [facility] 08/22/2022 00:38:12 09/06/19 10 Colonoscopy completed Krystle Hall MD [address] [address], [place], [address], [facility] 01/25/2015 10:41:11 05/13/19 09 Cataract Surgery completed Krystle Hall MD [address] [address], [id number] [place] [address] [facility] 12/18/2013 09:07:20 05/13/19 00 Other completed Krystle Hall MD [address], [id number], [facility] 12/18/2013 09:16:44 Cholecystectomy completed Not Available [facility] 03/27/2011 04:58:32 Hernia Repair completed Not Available [facility] 03/27/2011 04:58:32 Cancer Surgery completed Not Available [facility] 03/27/2011 04:58:32 Appendectomy completed Not Available [facility] 03/27/2011 04:58:32 Imaging Results Imaging Date Name Status LastModified by Organiz ation Details LastModified Time 02/08/2024 CT extrem lwr lt W completed [id number] [facility] (Radiology) [address], [place], [address], 02/10/2024 09:09:38 03/16/2024 XR, wrist completed [facility] [address], JAYME Panchal, [address], 03/22/2024 11:14:11 Procedure Notes None recorded. Medical Equipment None Reported. Allergies No known drug allergies Medications Name Sig Start Date Stop Date Status Note LastModified by Organization Details LastModified Time triamt/hc tz tab 37.5-25 02/11 completed Not Available Not Available Not Available monteluka st sodium 10 mg tabs 02/11 completed Not Available Not Available Not Available amox/k clav tab 875-125 02/11 completed Not Available Not Available Not Available simvastat in 20 mg tabs 02/11 completed Not Available Not Available Not Available ropinirol e hcl 1 mg tabs 02/11 completed Not Available Not Available Not Available proair hfa 108 mcg/act aers 02/11 completed Not Available Not Available Not Available metoprolo l tartrate 25 mg tabs 02/11 completed Not Available Not Available Not Available breo ellipta inh 100-25 02/11 completed Not Available Not Available Not Available amoxicill in 500 mg capsule TAKE 1 CAPSULE BY MOUTH THREE TIMES DAILY UNTIL GONE 02/03 completed Not Available Not Available Not Available atorvasta tin 40 mg tablet TAKE 1 TABLET BY MOUTH AT BEDTIME NIGHTLY active Not Available Not Available No t Available potassium chloride ER 10 mEq capsule,e xtended release 1 po daily 03/19 completed Not Available Not Available Not Available prednison e 10 mg tablet Take 1 tablet every day by oral route for 3 days. 02/19 completed Not Available Not Available Not Available doxycycli ne hyclate 100 mg capsule TAKE 1 CAPSULE BY MOUTH TWICE DAILY WITH MEALS 08/27 completed Not Available Not Available Not Available atorvasta tin 20 mg tablet 02/19 completed Not Available Not Available Not Available ropinirol e 1 mg tablet TAKE 1 TABLET BY MOUTH 4 TIMES DAILY NEEDED 02/16 completed Not Available Not Available Not Available albuterol sulfate 2.5 mg/3 mL (0.083 %) solution for nebulizat ion USE 3ML VIA NEBULIZE R EVERY 4 HOURS NEEDED FOR WHEEZING /SHORTNE SS OF BREATH active Not Available Not Available No t Available azithromy charlene 250 mg tablet TAKE 2 TABLETS (500 MG) BY ORAL ROUTE ONCE DAILY FOR 1 DAY THEN 1 TABLET (250 MG) BY ORAL ROUTE ONCE DAILY FOR 4 DAYS 09/28 completed Not Available Not Available Not Available pravastat in 40 mg tablet Take 1 tablet every day by oral route in the evening for 30 days. active Not Available Not Available No t Available cephalexi n 250 mg capsule TAKE 1 CAPSULE BY MOUTH THREE TIMES DAILY FOR 7 DAYS 09/12 completed Not Available Not Available Not Available hydrocodo ne 5 mg-acetam inophen 325 mg tablet TAKE 1 TABLET BY MOUTH EVERY 6 HOURS NEEDED FOR PAIN 02/19 completed Not Available Not Available Not Available Claritin 10 mg tablet Take 1 tablet every day by oral route as needed. 07/21 completed Not Available Not Available Not Available ondansetr on HCl 8 mg tablet TAKE 1 TABLET BY MOUTH EVERY 8 HOURS NEEDED FOR NAUSEA 02/19 completed Not Available Not Available Not Available isosorbid e mononitra te ER 30 mg tablet,ex tended release 24 hr Take 1 tablet every day by oral route for 30 days. active Not Available Not Available No t Available Tylenol Arthritis Pain 650 mg tablet,ex tended release Take 1 tablet twice a day by oral route. active Not Available Not Available No t Available penicilli n V potassium 500 mg tablet 06/26 completed Not Available Not Available Not Available acetamino phen 300 mg-codein e 30 mg tablet 06/26 completed Not Available Not Available Not Available clopidogr el 75 mg tablet TAKE 1 TABLET BY MOUTH ONCE DAILY 08/27 completed Not Available Not Available Not Available ciproflox acin 250 mg tablet Take 1 tablet twice a day by oral route. 07/21 completed Not Available Not Available Not Available sulfameth oxazole 800 mg-trimet hoprim 160 mg tablet TAKE 1 TABLET BY MOUTH TWICE DAILY 10/23 completed Not Available Not Available Not Available aspirin 81 mg tablet,de layed release Take 1 tablet every day by oral route. 10/23 completed Not Available Not Available Not Available triamtere ne 37.5 mg-hydroc hlorothia zide 25 mg capsule 1 po daily 02/19 completed Not Available Not Available Not Available triamcino lone acetonide 0.1 % topical cream as needed 10/23 completed Not Available Not Available Not Available spironola ctone 25 mg tablet Take 1 tablet every day by oral route. active Not Available Not Available No t Available amoxicill in 500 mg tablet TAKE 1 TABLET BY MOUTH THREE TIMES DAILY UNTIL GONE 02/03 completed Not Available Not Available Not Available simvastat in 40 mg tablet TAKE ONE TABLET BY MOUTH ONCE DAILY 03/12 completed Not Available Not Available Not Available lidocaine -prilocai ne 2.5 %-2.5 % topical cream APPLY 1/2 INCH OF CREAM TOPICALL Y TO AFFECTED AREA ONCE A DAY NEEDED (30 MINUTES PRIOR TO CHEMOTHE RAPY OR PORT ACCESS AND COVER WITH ADHESIVE DRESSING ) 02/19 completed Not Available Not Available Not Available Nexium 20 mg capsule,d elayed release Take 1 capsule every other day by oral route as needed. 02/11 completed Not Available Not Available Not Available Dulcolax (bisacody l) 10 mg rectal supposito ry Insert 1 supposit ory every day by rectal route as needed for 8 days. 02/21 completed Not Available Not Available Not Available ceftriaxo ne 1 gram solution for injection Take 0.5 g by injectio n route. 02/03 completed Not Available Not Available Not Available Nitrostat 0.4 mg sublingua l tablet Place 1 tablet as needed by sublingu al route as directed . active Not Available Not Available No t Available tamsulosi n 0.4 mg capsule TAKE 1 CAPSULE BY MOUTH DAILY IN THE EVENING 08/27 completed Not Available Not Available Not Available AndroGel 1 % (50 mg/5 gram) transderm al gel packet APPLY ONE PACKAGE TO CLEAN, DRY SKIN ONCE DAILY active stop for now Not Available Not Available Not Available doxycycli ne monohydra te 100 mg capsule Take 1 capsule twice a day by oral route with meals. 02/11 completed Not Available Not Available Not Available cephalexi n 500 mg capsule TAKE 2 CAPSULES BY MOUTH EVERY 12 HOURS FOR 10 DAYS 02/19 completed Not Available Not Available Not Available pantopraz ole 40 mg tablet,de layed release Take 1 tablet every day by oral route at bedtime. 12/01 completed Not Available Not Available Not Available simvastat in 20 mg tablet TAKE 1 TABLET BY MOUTH IN THE EVENING 02/19 completed Not Available Not Available Not Available cyanocoba kannan (vit B-12) 1,000 mcg/mL injection solution Inject 1 mL by subcutan eous route. 02/21 completed Not Available Not Available Not Available ferrous sulfate 325 mg (65 mg iron) tablet Take 1 tablet every day by oral route for 90 days. 08/27 completed Not Available Not Available Not Available bumetanid e 0.5 mg tablet TAKE 1 TABLET BY MOUTH TWICE DAILY active Not Available Not Available No t Available dexametha sone 4 mg tablet TAKE 2 TABLETS (8 MG) BY MOUTH IN THE MORNING 3 DAYS STARTING THE DAY AFTER CHEMO. 02/19 completed Not Available Not Available Not Available promethaz ine 25 mg tablet 02/19 completed Not Available Not Available Not Available triamtere ne 37.5 mg-hydroc hlorothia zide 25 mg tablet Take 0.5 tablets every day by oral route as needed. 08/20 completed Not Available Not Available Not Available bumetanid e 1 mg tablet TAKE 1 TABLET BY MOUTH TWICE DAILY 08/27 completed Not Available Not Available Not Available monteluka st 10 mg tablet TAKE 1 TABLET BY MOUTH ONCE DAILY active Not Available Not Available No t Available mupirocin 2 % topical ointment APPLY A SMALL AMOUNT TO AFFECTED AREA 2-3 TIMES A DAY active Not Available Not Available No t Available furosemid e 20 mg tablet 10/23 completed Not Available Not Available Not Available gabapenti n 100 mg capsule TAKE 1 CAPSULE BY MOUTH 4 TIMES DAILY 02/16 completed Not Available Not Available Not Available metoprolo l succinate ER 25 mg tablet,ex tended release 24 hr TAKE 0.5 TABLET BY MOUTH ONCE DAILY active Not Available Not Available No t Available dexametha sone sodium phosphate 4 mg/mL injection solution Inject 1 mL by intramus cular route. 02/21 completed Not Available Not Available Not Available Cheratuss in AC 10 mg-100 mg/5 mL oral liquid TAKE 1 TEASPOON FUL EVERY 4 HOURS NEEDED FOR COUGH active Not Available Not Available No t Available levofloxa charlene 500 mg tablet 06/12 completed Not Available Not Available Not Available levofloxa charlene 750 mg tablet Take 1 tablet every day by oral route for 5 days. 12/06 completed Not Available Not Available Not Available methylpre dnisolone 4 mg tablets in a dose pack TAKE BY MOUTH DIRECTED ON INSIDE OF PACKAGE 09/28 completed Not Available Not Available Not Available Vitamin C 250 mg tablet Take 1 tablet every day by oral route for 90 days. 2023 active Not Available Not Available Not Avai lable albuterol sulfate HFA 90 mcg/actua tion aerosol inhaler USE 2 INHALATI ONS BY MOUTH EVERY 4 HOURS NEEDED active Not Available Not Available No t Available cefdinir 300 mg capsule 07/28 completed Not Available Not Available Not Available lisinopri l 2.5 mg tablet TAKE 1 TABLET BY MOUTH ONCE DAILY 12/30 completed Not Available Not Available Not Available doxycycli ne hyclate 100 mg tablet active Not Available Not Available Not Available pramipexo le 1.5 mg tablet Take 1 tablet twice a day by oral route as needed. 02/24 completed Not Available Not Available Not Available naproxen 500 mg tablet 02/21 completed Not Available Not Available Not Available spironola ctone 50 mg tablet TAKE 1 TABLET BY MOUTH ONCE DAILY 02/16 completed Not Available Not Available Not Available Microlet Lancet USE DIRECTED ONCE DAILY 08/21 completed pt stopped Not Available Not Available Not Available amoxicill in 875 mg-potass ium clavulana te 125 mg tablet TAKE 1 TABLET BY MOUTH EVERY 12 HOURS FOR 7 DAYS 08/27 completed Not Available Not Available Not Available magnesium 250 mg (as magnesium oxide) tablet Take 1 tablet every day by oral route. 10/23 completed Not Available Not Available Not Available Vitamin D3 25 mcg (1,000 unit) capsule Take 1 capsule every day by oral route. active Not Available Not Available No t Available Florastor 250 mg capsule Take 1 capsule twice a day by oral route. 03/03 completed a probioti c OTC Not Available Not Available Not Available metoprolo l tartrate 25 mg tablet 0.5 tablet po daily 03/19 completed Not Available Not Available Not Available nitrofura ntoin monohydra te/macroc rystals 100 mg capsule TAKE 1 CAPSULE BY MOUTH EVERY 12 HOURS FOR 10 DAYS 02/09 completed Not Available Not Available Not Available Adacel (Tdap Adolesn/A dult)(PF) 2Lf-(2.5- 5-3-5mcg) -5 Lf/0.5 mL IM susp 05/11 completed Not Available Not Available Not Available chlorhexi dine gluconate 0.12 % mouthwash SWISH 15 ML OF SOLUTION IN MOUTH GENTLY FOR 30 SECONDS AND SPIT OUT TWICE DAILY active Not Available Not Available No t Available Aleve 1-2 daily if needed. 02/21 completed Not Available Not Available Not Available calcium 1 bq am 1 q pm active stop for now Not Available Not Available Not Available Dulcolax (bisacody l) 1 as needed orally active Not Available Not Available No t Available Aspir-81 1 PO MWF 07/21 completed Not Available Not Available Not Available fiber 2 q am active Not Available Not Availa ble Not Available Centrum Silver 1 PO daily active Not Available Not Available No t Available Prevacid 1 PO q day 10/21 completed Not Available Not Available Not Available Metamucil active Not Available Not Yen ilable Not Available FiberCon 2 po bid active Not Available Not Av ailable Not Available Mucinex 03/12 completed Not Available Not Available Not Available sodium chloride 1,000 mg soluble tablet TAKE 1 TABLET BY MOUTH ONCE DAILY 02/19 completed Not Available Not Available Not Available sodium fluoride 1.1 %-potassi um nitrate 5 % dental paste BRUSH EACH EVENING BEFORE BEDTIME NO DRINKING OR EATING AFTERWAR D DIRECTED . 10/23 completed Not Available Not Available Not Available Symbicort 160 mcg-4.5 mcg/actua tion HFA aerosol inhaler Inhale 2 puffs twice a day by inhalati on route. 03/03 completed Not Available Not Available Not Available Symbicort 80 mcg-4.5 mcg/actua tion HFA aerosol inhaler Inhale 2 puffs twice a day by inhalati on route. 2014 active Not Available Not Available Not Avai lable Neupro 2 mg/24 hour transderm al 24 hour patch APPLY 1 PATCH TOPICALL Y ONCE DAILY 02/16 completed Not Available Not Available Not Available Vaqta (PF) 50 unit/mL intramusc ular syringe 10/22 completed Not Available Not Available Not Available Mucinex 1,200 mg tablet, extended release Take 1 tablet twice a day by oral route. 08/20 completed Not Available Not Available Not Available melatonin 5 mg tablet Take 1 tablet every day by oral route at bedtime. 02/16 completed Not Available Not Available Not Available ropinirol e ER 2 mg tablet,ex tended release 24 hr Take 2 tablets every day by oral route in the evening for 90 days. 02/16 completed Not Available Not Available Not Available pramipexo le ER 1.5 mg tablet,ex tended release 24 hr Take 1 tablet twice a day by oral route as needed. 02/24 completed Not Available Not Available Not Available pramipexo le ER 3 mg tablet,ex tended release 24 hr Take 1 tablet every day by oral route for 30 days. 02/16 completed Not Available Not Available Not Available pramipexo le ER 0.75 mg tablet,ex tended release 24 hr TAKE 0.5 TABLET ONCE A DAY BY ORAL ROUTE Q HS. active Not Available Not Available No t Available glucosami ne 500 mg-chondr oit 400 mg-vit C 16 mg-alexia brandie 3 mg capsule 1 po bid active Not Available Not Available Not Available Horizant ER 600 mg tablet,ex tended release 02/16 completed Not Available Not Available Not Available Contour Next Test Strips TEST DIRECTED ONCE DAILY 08/21 completed pt stopped Not Available Not Available Not Available Contour Next EZ Meter use as directed 08/21 completed Not Available Not Available Not Available One-A-Day Trubiotic s 1 po daily 07/21 completed Not Available Not Available Not Available Eliquis 2.5 mg tablet TAKE 1 TABLET BY MOUTH TWICE A DAY active Not Available Not Available No t Available Breo Ellipta 100 mcg-25 mcg/dose powder for inhalatio n INHALE 1 PUFF BY MOUTH ONCE DAILY FOR 30 DAYS 02/11 completed Not Available Not Available Not Available Fluzone (PF) 45 mcg (15 mcg x 3)/0.5 mL intramusc ular syringe inject 0.5 millilit er intramus cularly active Not Available Not Available No t Available Jardiance 10 mg tablet Take 1 tablet every day by oral route. 12/01 completed Not Available Not Available Not Available Breo Ellipta 200 mcg-25 mcg/dose powder for inhalatio n 1 inhale daily 07/21 completed Not Available Not Available Not Available Allergy Relief (fluticas one) 50 mcg/actua tion nasal spray,[facility] [place] 1 spray every day by intranas al route as needed. 07/21 completed Not Available Not Available Not Available Trelegy Ellipta 100 mcg-62.5 mcg-25 mcg powder for inhalatio n INHALE 1 PUFF BY MOUTH ONCE DAILY 07/21 completed Not Available Not Available Not Available Shingrix (PF) 50 mcg/0.5 mL intramusc ular suspensio n, kit 02/11 completed Not Available Not Available Not Available cannabidi ol 100 mg/mL oral solution takes a dose twice in pm 02/24 completed Not Available Not Available Not Available Voltaren Arthritis Pain 1 % topical gel APPLY 2 GRAMS TO THE AFFECTED AREA(S) BY TOPICAL ROUTE 4 TIMES PER DAY active Not Available Not Available No t Available Trelegy Ellipta 200 mcg-62.5 mcg-25 mcg powder for inhalatio n inhale 1 puff once daily active Not Available Not Available No t Available Vitals Date Recorded Body height Body mass index (BMI) Body weight Heart rate Oxygen saturation Oxygen saturation in Arterial blood by Pulse oximetry Body temperature Systolic blood pressure Diastolic blood pressure Provider Name and Address Organization Details Last Updated DateTime 4 187.96 cm 23 kg/m2 45704.8 3 g 62 /min 97 % 97 % 97.2 [degF] 129 mm[Hg] 71 mm[Hg] [facility] 4 15:54:01 Date Recorded Body height Body weight Heart rate Oxygen saturation Oxygen saturation in Arterial blood by Pulse oximetry Body temperature Systolic blood pressure Diastolic blood pressure Provider Name and Address Organization Details Last Updated DateTime 4 187.96 cm 39763.7 4 g 78 /min 96 % 96 % 97 [degF] 160 mm[Hg] 81 mm[Hg] [facility] 4 11:36:58 Date Recorded Body height Body mass index (BMI) Body weight Heart rate Oxygen saturation Oxygen saturation in Arterial blood by Pulse oximetry Body temperature Systolic blood pressure Diastolic blood pressure Provider Name and Address Organization Details Last Updated DateTime 4 187.96 cm 21.3 kg/m2 15996.3 3 g 60 /min 99 % 99 % 97 [degF] 130 mm[Hg] 87 mm[Hg] [facility] 4 11:20:07 Date Recorded Body height Body mass index (BMI) Body weight Heart rate Oxygen saturation Oxygen saturation in Arterial blood by Pulse oximetry Body temperature Systolic blood pressure Diastolic blood pressure Systolic blood pressure Diastolic blood pressure Provider Name and Address Organization Details Last Updated DateTime 4 187.96 cm 23.1 kg/m2 52652.0 3 g 64 /min 96 % 96 % 97.3 [degF] 88 mm[Hg] 63 mm[Hg] 92 mm[Hg] 65 mm[Hg] [facility] 4 13:55:24 Date Recorded Body height Body mass index (BMI) Body weight Heart rate Oxygen saturation Oxygen saturation in Arterial blood by Pulse oximetry Body temperature Systolic blood pressure Diastolic blood pressure Provider Name and Address Organization Details Last Updated DateTime 5 187.96 cm 22.3 kg/m2 61656.0 7 g 60 /min 94 % 94 % 97.6 [degF] 134 mm[Hg] 70 mm[Hg] [facility] 5 15:46:41 Social History Question Answer Notes LastModified by Organizat ion Details LastModified Time Tobacco Smoking Status Former Smoker Not Available [facility] 03/08/2020 03:11:16 Auto Related Injury? No 15 Information not available 03/27/2011 Is Blood Transfusion Acceptable In An Emergency? Yes [id number] Information not available 03/08/2020 What Is Your Level Of Caffeine Consumption? None [id number] Information not available 03/08/2020 How Much Tobacco Do You Chew? None [id number] Information not available 03/08/2020 Diabetes No 15 Information not available 03/27/2011 What Type Of Diet Are You Following? REGULAR [id number] Information not available 03/08/2020 Which Illicit Or Recreational Drugs Have You Used? None [id number] Information not available 03/08/2020 Education 2 Year College 15 Information not available 03/27/2011 What Is The Highest Grade Or Level Of School You Have Completed Or The Highest Degree You Have Received? [id number] Information not available 02/19/2022 Family History Of Heart Disease? Yes 15 Information not available 03/27/2011 Which Of Your Hands Is Dominant? Right [id number] Information not available 03/08/2020 High Blood Pressure Yes 15 Information not available 03/27/2011 High Cholesterol Yes [id number] Information not available 03/27/2011 Live Alone Or With Others? With Others 15 Information not available 03/27/2011 Marital Status Information not available 03/27/2011 What Was The Date Of Your Most Recent Tobacco Screening? 02/25/2024 Information not available 02/26/2024 How Many Children Do You Have? 1 [id number] Information not available 03/08/2020 Obese No [email or web address] [id number] Information not available 03/27/2011 What Is Your Relationship Status? Information not available 02/19/2022 Seat Belts Used Routinely Yes 15 Information not available 03/27/2011 Smoke Alarm In Home Yes Information not available 03/27/2011 Are You Passively Exposed To Smoke? No Information not available 03/27/2011 How Much Tobacco Do You Smoke? No [id number] Information not available 03/08/2020 General Stress Level Low Information not available 03/27/2011 Do You Use Sunscreen Routinely? Yes [id number] Information not available 03/08/2020 How Many Years Have You Smoked Tobacco? 20 Quit At Age 33 [id number] Information not available 03/08/2020 Sex: Male Functional Status Question Answer Note LastModified by Organizat ion Details LastModified Time What is your level of alcohol consumption? Occasional Information not available 02/26/2024 Do you or have you ever used smokeless tobacco? Never used smokeless tobacco [id number] Information not available 03/08/2020 Are you currently employed? No [id number] Information not available 03/08/2020 What is your occupation? retired [id number] Information not available 03/08/2020 Do you or have you ever used e-cigarettes or vape? Never used electronic cigarettes [id number] Information not available 03/08/2020 What is your exercise level? Moderate [id number] Information not available 03/08/2020 Mental Status None recorded. Family History Relationship Description Onset Age of this Age Resolved Age Notes LastModified by Organization Details LastModified Time Mother Cerebrovascu lar accident 75 previo usly record ed as Stroke Not available 01/25/2015 10:11:45 Father Myocardial infarction 70 previo usly record ed as Heart Attack (SD) Not available 01/25/2015 10:11:45 Medical History Condition Response Coronary Artery Disease N Gout N Blood Diseases N Kidney Stones N Hyperthyroidism N Hypothyroidism N Depression N COPD N Developmental or Behavioral Disorders N Eczema, Hives or other skin conditions N Anxiety Disorder N Muscle, Joint, or Bone Problems N Vision or Eye Problems N Arthritis N Serious Illness or Injuries N Congenital Anomalies N Cancer N Stroke N Bladder or Kidney Problems N Hospital Admission other than N High Cholesterol Y Liver Disease N Fibromyalgia N Kidney Disease N Heart Problems N Ear or Hearing Problems N ADD or ADHD N Thyroid Problems N Skin Problems N Anemia N Constipation N Diabetes N Bedwetting N Seizures/Epilepsy N Tuberculosis N Diverticulitis N Asthma N Allergies N GERD/Reflux N Heart Disease N Pulmonary Embolism N Hypertension Y Osteoporosis N Chicken Pox N Immunizations Vaccine Type Date Status Note Provider Nam e and Address Organization Details Recorded Time pneumococcal polysaccharide PPV23 7 completed Not Available [facility] 05/30/2019 02:12:07 Influenza, high-dose, trivalent, PF 7 completed Not Available [facility] 05/30/2019 02:12:13 Influenza, high-dose, trivalent, PF 8 completed Not Available [facility] 05/30/2019 02:12:13 Influenza, high-dose, trivalent, PF 9 completed Not Available [facility] 05/30/2019 02:12:11 Influenza, high-dose, quadrivalent, PF 0 completed Not Available [facility] 01/22/2020 13:43:53 Influenza, high-dose, trivalent, PF 4 completed [facility] 04/20/2014 16:54:07 Influenza, high-dose, quadrivalent, PF 1 completed Not Available [facility] 01/17/2021 16:12:48 Influenza, high-dose, quadrivalent, PF 3 completed [facility] 09/28/2022 14:34:29 Pneumococcal conjugate PCV 13 5 completed Not Available [facility] 06/13/2019 02:12:32 Influenza, high-dose, quadrivalent, PF 3 completed Not Available [facility] 01/29/2023 16:10:22 Influenza, high-dose, trivalent, PF 5 completed Not Available [facility] 06/13/2019 02:12:32 Pneumococcal conjugate PCV20, polysaccharide [id number] conjugate, adjuvant, PF 4 completed Krystle Hall MD [address] [facility], [address], [place], [address], [facility] 08/25/2023 20:52:02 Influenza, high-dose, trivalent, PF 4 completed Krystle Hall MD [address] [address], [place], [place], [address] [place] [address], [place] [facility] 02/05/2024 22:02:08 Influenza, high-dose, trivalent, PF 6 completed Not Available [facility] 06/13/2019 02:12:33 COVID-19, mRNA, LNP-S, PF, calos-sucrose, 30 mcg/0.3 mL 4 completed Krystle Hall MD [address], [address] [place] [address], [place] [facility] 02/26/2024 21:05:59 Tdap 6 completed Not Available [facility] 06/13/2019 02:12:33 Hep A, adult 9 completed Krystle Hall MD [address] [address], [place], [address] [place] [address], [facility] 11/30/2018 16:01:58 zoster recombinant 0 completed Krystle Hall MD [address] [address], [place], [address] [place] [address], [facility] 02/12/2020 10:01:47 zoster recombinant 0 completed Krystle Hall MD [address] [address], [place], [address] [place] [address], [facility] 02/12/2020 10:02:30 Tdap 1 completed Krystle Hall MD [address] [address], [place], [address] [place] [address], [place] [facility] 09/20/2020 12:21:04 COVID-19, mRNA, LNP-S, PF, 100 mcg/0.5mL dose or 50 mcg/0.25mL dose 1 completed Krystle Hall MD 2016 [facility], [place], [address], [place] [facility] 09/20/2020 12:28:45 COVID-19, mRNA, LNP-S, PF, 100 mcg/0.5mL dose or 50 mcg/0.25mL dose 1 completed [facility] 01/13/2021 09:51:03 COVID-19, mRNA, LNP-S, PF, 100 mcg/0.5mL dose or 50 mcg/0.25mL dose 1 completed [facility] 02/13/2021 15:16:19 COVID-19, mRNA, LNP-S, bivalent, PF, 50 mcg/0.5 mL or 25mcg/0.25 mL dose 3 completed Krystle Hall MD [address] [address], [place], [address], [facility] 02/21/2023 13:58:01 Respiratory syncytial virus (RSV) MAB, unspecified 3 completed Krystle Hall MD [address] [address], [place], [address] [place] [address], [place] [facility] 02/21/2023 13:58:22 Influenza, MDCK, trivalent, PF 3 completed Krystle Hall MD [address] [address], [place], [address], [place] [facility] 03/02/2013 15:45:39 zoster live 8 completed Krystle Hall MD [address] [address], [place], [address], [place] [facility] 03/02/2013 15:52:48 pneumococcal, unspecified formulation 9 completed Krystle Hall MD [address] [address], [place], [address], [facility] 03/02/2013 15:52:48 pneumococcal, unspecified formulation 3 completed Krystle Hall MD [address] [address], [place], [address], [facility] 03/02/2013 15:52:48 Influenza, split virus, trivalent, preservative 2 completed Not Available [facility] 05/30/2019 02:12:11 Past Encounters Encounter ID Performer Location Encounter Start Date Encounter Closed Date Diagnosis/Indication Diagnosis SNOMED-CT Code Diagnosis ICD10 Code Diagnosis Note [id number] David Rosales MD [facility] [address] [address] 03/02/2011 08:47:19 03/02/2011 17:17:17 [id number] David Rosales MD [facility] [address] [address] 01/17/2012 10:12:12 01/17/2012 17:48:15 [id number] Krystle Hall MD [address] [address] 01/15/2013 11:58:29 01/15/2013 14:33:17 [id number] Krystle Hall MD [address] [address] 03/02/2013 14:21:25 03/02/2013 16:18:56 Benign essential hypertension 2244234 Blood gluc ose outside reference range 777551328 Hyperlipidemia 80081215 [id number] Krystle Hall MD [address] [address] 10/13/2013 16:23:04 10/14/2013 09:15:07 Acute sinusitis 93076367 Acute bronchitis 10705425 Wheezing 89367420 [id number] Krystle Hall MD [address] [address] 7 12/18/2013 08:25:25 12/18/2013 13:23:59 Adult health examination 431655912 [id number] Krystle Hall MD [address] [address] 7 08/09/2014 14:15:54 08/18/2014 09:34:52 Wheezing 66351563 Chronic ob structive pulmonary disease 07499272 Benign ess ential hypertension 2680488 [id number] Krystle Hall MD [address] [address] 7 08/23/2014 09:13:00 08/23/2014 16:16:24 Chronic obstructive pulmonary disease 08518016 Benign ess ential hypertension 2110092 [id number] Krystle Hall MD [place] [address] 7 01/25/2015 09:19:15 01/27/2015 09:33:11 Adult health examination 594412156 [id number] Krystle Hall MD [place] [address] 7 11/28/2015 15:34:59 11/28/2015 17:09:52 Lower respiratory tract infection 09955321 J22 Wheezing 62315144 R06.2 [id number] Krystle Hall MD [place] [address] 7 03/12/2016 15:49:55 03/12/2016 17:01:29 Adult health examination 064353599 Z00.01 Essential hypertension 59521609 I10 Blood gluc ose outside reference range 929306927 R73.09 Hyperlipidemia 47407438 E78.5 Body mass index 25-29 - overweight 170391998 Z68.29 [id number] Krystle Hall MD [address] [address] 08/21/2016 11:12:29 08/21/2016 16:36:37 Intermittent palpitations 307235758 R00.2 Bradycardia 59275127 R00 .1 Essential hypertension 64665458 I10 Hyperlipidemia 72776005 E78.5 Glucose le hellen outside reference range 412001585 R73.09 [id number] Krystle Hall MD [address] [address] 09/13/2016 14:18:37 09/13/2016 16:11:37 Restless legs 13121639 G25.81 Essential hypertension 38382130 I10 [id number] Krystle Hall MD [address] [address] 10/29/2016 14:41:54 10/30/2016 11:12:49 Toenail thickened 765314506 R23.8 Bunion 976498398 M20.12 [id number] Krystle Hall MD [facility] [address] [address] 02/28/2017 15:21:18 03/01/2017 10:25:21 Adult health examination 224551212 Z00.01 Active or passive immunization 193190382 Z23 Hyperlipidemia 29200069 E78.5 Essential hypertension 46729946 I10 Blood gluc ose outside reference range 107420163 R73.09 Body mass index 25-29 - overweight 506300798 Z68.29 Gastroesop hageal reflux disease 764544499 K21.9 Restless legs 15558789 G 25.81 Bunion 109322739 M20.12 Prediabetes 370957775 R7 3.03 [id number] Krystle Hall MD [place] [address] 7 08/20/2017 10:17:34 08/22/2017 08:28:32 Chronic asthmatic bronchitis 227201378 J44.9 Chronic cough 59007372 R 05 Persistent productive cough with wheezing for 3 months with negative plain film. PAst history of smoking many years ago. [id number] Krystle Hall MD [facility] [address] [address] 03/03/2018 09:24:35 03/04/2018 08:25:16 Adult health examination 690407193 Z00.01 Osteoarthr itis of knee 194186176 M17.0 Hyperlipidemia 02358239 E78.5 Essential hypertension 23915609 I10 Blood gluc ose outside reference range 762339558 R73.09 Body mass index 25-29 - overweight 196055832 Z68.27 Gastroesop hageal reflux disease 779821894 K21.9 Restless legs 96034184 G 25.81 Bunion 876876374 M20.12 Prediabetes 924716213 R7 3.03 [id number] Krystle Hall MD [facility] [address] [place] [id number] 03/05/2019 09:17:12 03/08/2019 20:07:22 Adult health examination 072806484 Z00.01 Osteoarthr itis of knee 269769316 M17.0 left is worse but he stays active Hyperlipidemia 58196453 E78.5 Essential hypertension 16995404 I10 Blood gluc ose outside reference range 937664450 R73.09 Body mass index 25-29 - overweight 744756817 Z68.27 Gastroesop hageal reflux disease 566962932 K21.9 Restless legs 38190891 G 25.81 at next refill we can increase to tid prn Bunion 417390352 M20.12 Prediabetes 655424160 R7 3.03 Seasonal allergy 4296484 04 J30.2 Screening for malignant neoplasm of colon 677411606 Z12.11 Advance di rective discussed with patient 059860824 Z71.89 he has his daughter as POA and a living will. This was discussed at last year's wellness. [id number] Krystle Hall MD [facility] [address] [place] [id number] 03/09/2019 11:10:55 03/09/2019 12:08:05 Acute exacerbation of chronic obstructive pulmonary disease 912020136 J44.1 [id number] Krystle Hall MD [facility] [address] [place] [id number] 08/17/2019 09:56:50 08/18/2019 08:33:27 Restrictive lung disease 13275360 J98.4 Chronic as thmatic bronchitis 394104482 J44.9 Acute lowe r respiratory tract infection 670257338 J22 [id number] Krystle Hall MD [facility] [address] [place] [id number] 02/12/2020 09:01:07 02/15/2020 08:37:25 Secondary restless legs syndrome 554927061 G25.81 Adult heal th examination 495078908 Z00.01 Osteoarthr itis of knee 263695125 M17.0 left is worse but he stays active Hyperlipidemia 15985671 E78.5 Essential hypertension 63729546 I10 Blood gluc ose outside reference range 657252329 R73.09 Body mass index 25-29 - overweight 133881921 Z68.27 Gastroesop hageal reflux disease 903541607 K21.9 Restless legs 64559188 G 25.81 Bunion 243090852 M20.12 Prediabetes 201876703 R7 3.03 Seasonal allergy 4929538 04 J30.2 Advance di rective discussed with patient 244449218 Z71.89 he has his daughter as POA and a living will. This was discussed at last year's wellness. Depression screening 171 042037 Z13.31 [id number] Krystle Hall MD [facility] [address] [place] [id number] 7 09/20/2020 11:14:00 09/22/2020 09:09:04 Dog bite of lower leg 445852251 S81.851D [id number] Krystle Hall MD [facility] [address] [place] [id number] 7 01/02/2021 16:24:17 01/04/2021 19:30:04 Restless legs 56520835 G25.81 [id number] Krystle Hall MD [facility] [address] [place] [id number] 7 02/16/2021 13:24:15 02/17/2021 08:32:44 Lower urinary tract symptoms due to benign prostatic hypertrophy 2569729296 9101 N40.1 Adult heal th examination 773939539 Z00.01 Secondary restless legs syndrome 538378358 G25.81 Osteoarthr itis of knee 654274918 M17.0 left is worse but he stays active Hyperlipidemia 94116929 E78.5 Essential hypertension 30569209 I10 Blood gluc ose outside reference range 433325449 R73.09 Body mass index 25-29 - overweight 062410327 Z68.27 Gastroesop hageal reflux disease 533092252 K21.9 Restless legs 14465655 G 25.81 Bunion 134086611 M20.12 Prediabetes 267886709 R7 3.03 Seasonal allergy 1607924 04 J30.2 Advance di rective discussed with patient 751992345 Z71.89 he has his daughter as POA and a living will. This was discussed at last year's wellness. Depression screening 171 207125 Z13.31 [id number] Krystle Hall MD [facility] [address] [address] 02/27/2021 10:57:33 02/28/2021 08:01:35 Blood in urine 02734013 R31.9 Lower urin shun tract symptoms due to benign prostatic hypertrophy 7745243626 9101 N40.1 [id number] Krystle Hall MD [facility] [place] [address] 07/21/2021 15:48:36 07/23/2021 18:54:08 Essential hypertension 89006749 I10 Edema of l ower extremity 646451871 R60.0 Fatigue 51186875 R53.83 [id number] Krystle Hall MD [facility] [place] [address] 7 09/12/2021 15:35:06 09/19/2021 08:28:47 Asthma 040523597 J45.909 Wheezing 12193073 R06.2 Hyponatremia 26904716 E8 7.1 Vitamin B1 2 deficiency (non anemic) 51625094 E53.8 [id number] Krystle Hall MD [facility] [address] [address] 02/09/2022 14:23:44 02/12/2022 08:43:42 Strain of muscle of right hip 2314691764 2352984 S76.011A [id number] Krystle Hall MD [facility] [address] [address] 02/19/2022 13:31:35 02/20/2022 08:01:42 Adult health examination 018352601 Z00.01 Chronic constipation 236 161353 K59.09 Irregular heart beat 361 099503 R00.8 this is new and his sodium is significan tly low. He has only been taking 1/2 dyazide but we will have him stop it. He is keeping some edema and seems more short of breath today. He sees Dr. Archibald and should go there today. Concern is for developmen t of atrial fibrillati on. We called their office and they will see him now. History of malignant neoplasm of bladder 418344872 Z85.51 Chronic ob structive pulmonary disease 11539091 J44.9 Hyponatremia 48222401 E8 7.1 Lower urin shun tract symptoms due to benign prostatic hypertrophy 7374924775 9101 N40.1 Secondary restless legs syndrome 766607174 G25.81 Osteoarthr itis of knee 599776702 M17.0 left is worse but he stays active Hyperlipidemia 39232687 E78.5 Essential hypertension 61094503 I10 Blood gluc ose outside reference range 441299035 R73.09 Body mass index 25-29 - overweight 400642586 Z68.27 Gastroesop hageal reflux disease 628110484 K21.9 Restless legs 00120614 G 25.81 Bunion 917717067 M20.12 Prediabetes 652142016 R7 3.03 Seasonal allergy 0479093 04 J30.2 Advance di rective discussed with patient 928570391 Z71.89 he has his daughter as POA and a living will. This was discussed at last year's wellness. Depression screening 171 837996 Z13.31 [id number] Krystle Hall MD [facility] [address] [place] [address] 7 02/27/2022 15:52:47 03/01/2022 08:47:24 Hyponatremia 81263755 E87.1 Abnormal g ait due to impairment of balance 255261531 R26.89 Irregular heart beat 361 892531 R00.8 [id number] Krystle Hall MD [facility] [address] [place] [id number] 7 08/20/2022 10:55:28 08/23/2022 08:15:21 Abnormal gait due to impairment of balance 134938837 R26.89 Essential hypertension 59974176 I10 Paroxysmal atrial fibrillation 410978455 I48.0 Mild persi stent asthma 395590426 J45.30 History of malignant neoplasm of bladder 397528853 Z85.51 [id number] Krystle Hall MD [facility] [address] [place] [address] 7 09/07/2022 11:12:02 09/10/2022 08:34:32 Acute lower respiratory tract infection 366352267 J22 Acute exac erbation of chronic obstructive pulmonary disease 314714218 J44.1 Pain of bi lateral knee regions 2817454046 83375 M25.561 M25.562 Bilateral arthritis of knees 6532745056 528391 M13.861 M13.862 [id number] Krystle Hall MD [facility] [address] [place] [id number] 7 09/10/2022 13:34:32 09/11/2022 08:27:17 Community acquired pneumonia 084594843 J18.9 [id number] Krystle Hall MD [facility] [address] [place] [address] 7 09/28/2022 14:18:44 09/28/2022 16:00:40 Community acquired pneumonia 492209561 J18.9 Acute exac erbation of chronic obstructive pulmonary disease 814046402 J44.1 using Trelegy 200 and albuterol and singulair and mucinex [id number] Krystle Hall MD [facility] [address] [address] 02/21/2023 13:27:25 02/25/2023 09:11:01 Adult health examination 850950515 Z00.01 Chronic constipation 236 721884 K59.09 History of malignant neoplasm of bladder 438684872 Z85.51 Lower urin shun tract symptoms due to benign prostatic hypertrophy 3272789021 9101 N40.1 Secondary restless legs syndrome 828565598 G25.81 Osteoarthr itis of knee 998779641 M17.0 left is worse but he stays active Hyperlipidemia 71963378 E78.5 Essential hypertension 63375361 I10 Gastroesop hageal reflux disease 855510004 K21.9 Restless legs 71213168 G 25.81 Bunion 398146484 M20.12 Seasonal allergy 8592231 04 J30.2 Advance di rective discussed with patient 310554199 Z71.89 he has his daughter as POA and a living will. This was discussed at last year's wellness. Depression screening 171 331724 Z13.31 Paroxysmal atrial fibrillation 172928681 I48.0 Body mass index 20-24 - normal 135615509 Z68.24 Lung funct ion restrictive 220764757 R94.2 he will continue the daily inhaler and does require daily rescue inhalers about twice but not at night-time Moderate p ersistent asthma 329723817 J45.40 Long-term current use of anticoagulant 175395015 Z79.01 [id number] Krystle Hall MD [facility] [address] [address] 08/23/2023 13:55:23 08/26/2023 08:16:26 Abnormal gait due to impairment of balance 946623211 R26.89 Hospital i npatient stay within past 30 days 5482954459 106 Z76.89 History of pneumonia 161 466489 Z87.01 Active or passive immunization 032976231 Z23 Stasis daniella matitis of lower limb due to chronic peripheral venous hypertension 123339775 I87.399 Chronic ob structive pulmonary disease 12628804 J44.9 Kyphosis d eformity of spine 353413878 M40.209 [id number] Krystle Hall MD [facility] [address] [address] 08/29/2023 13:25:44 08/30/2023 08:57:38 Cellulitis of right lower limb 2805503547 4604816 L03.115 Abnormal g ait due to impairment of balance 768075801 R26.89 [id number] Krystle Hall MD [facility] [address] [address] 10/28/2023 11:28:38 10/29/2023 08:54:44 Post-discharge follow-up 488356739 Z09 Stented co ronary artery 465264987 Z95.5 Essential hypertension 18414395 I10 History of non-ST segment elevation myocardial infarction 140470220 I25.2 Body mass index 20-24 - normal 867535399 Z68.22 [id number] Krystle Hall MD [facility] [address] [address] 12/02/2023 10:56:51 12/03/2023 08:03:13 Lightheadedness 919376945 R42 History of placement of stent for coronary artery disease 969590655 Z95.5 Recurrent falls 50391627 2 R29.6 Restrictiv e lung disease 80256277 J98.4 Body mass index 20-24 - normal 041471770 Z68.21 [id number] Krystle Hall MD [facility] [address] [address] 12/31/2023 10:01:21 01/02/2024 16:27:44 Unintentional weight loss 466325381 R63.4 History of placement of stent for coronary artery disease 053386680 Z95.5 Paroxysmal atrial fibrillation 905068212 I48.0 Dissection of abdominal aorta 740060557 I71.02 Restrictiv e lung disease 50137555 J98.4 Long-term current use of anticoagulant 564601032 Z79.01 [id number] Krystle Hall MD [facility] [address] [address] 01/20/2024 14:20:54 01/21/2024 11:49:24 Wound of skin 614338695 T14.8XXA bottom of left foot Cellulitis of left foot 7096406304 0312595 L03.116 Pressure i njury of foot 4892588165 62868 L89.899 [id number] Krystle Hall MD [address] [address] 02/04/2024 15:32:15 02/10/2024 11:54:45 Cellulitis of left foot 7093653836 2729115 L03.116 Cellulitis of lower limb 957267633 L03.119 early erythema right pretibial area Edema due to fluid overload 803088838 E87.70 Administra tion of influenza vaccine 33027893 Z23 Essential hypertension 44914759 I10 [id number] Krystle Hall MD [facility] [address] [address] 02/14/2024 11:07:32 02/17/2024 10:11:34 Cellulitis of lower limb 867098117 L03.119 early erythema right pretibial area Essential hypertension 49545166 I10 [id number] Krystle Hall MD [facility] [place] [address] 7 02/20/2024 11:01:03 02/21/2024 08:26:39 Cellulitis of left foot 2979099822 9762103 L03.116 Essential hypertension 36363751 I10 [id number] Krystle Hall MD [facility] [address] [address] 02/25/2024 13:26:27 02/27/2024 11:14:21 Restless legs 68507048 G25.81 Sleep disorder 11179421 G47.9 they will consider an electric hospital bed in the Spring. Edema of l ower extremity 411953933 R60.0 Lymphedema of bilateral lower limbs 3084453930 9716482 I89.0 Active or passive immunization 449719325 Z23 Recurrent falls 66822757 2 R29.6 Tear of skin 378505365 T 14.8XXA Adult heal th examination 364081262 Z00.01 Chronic constipation 236 010908 K59.09 History of malignant neoplasm of bladder 719651615 Z85.51 Lower urin shun tract symptoms due to benign prostatic hypertrophy 5791810763 9101 N40.1 Secondary restless legs syndrome 340528897 G25.81 Osteoarthr itis of knee 324410401 M17.0 left is worse but he stays active Hyperlipidemia 93656092 E78.5 Essential hypertension 92592146 I10 Gastroesop hageal reflux disease 453793561 K21.9 Bunion 772261133 M20.12 Advance di rective discussed with patient 270516044 Z71.89 he has his daughter as POA and a living will. This was discussed at last year's wellness. Depression screening 171 801156 Z13.31 Paroxysmal atrial fibrillation 405162035 I48.0 Body mass index 20-24 - normal 061477972 Z68.23 Lung funct ion restrictive 905064337 R94.2 he will continue the daily maintenanc e inhaler and uses the rescue inhaler nearly daily Moderate p ersistent asthma 943670154 J45.40 Long-term current use of antiplatelet drug 2558478036 89174 Z79.02 [id number] Krystle Hall MD [facility] [address] [address] 08/27/2024 15:28:55 08/28/2024 17:08:33 Essential hypertension 62486918 I10 Hyperlipoproteinemia 374 4001 E78.5 History of anemia 908305 002 Z86.2 Moderate c hronic obstructive pulmonary disease 839628817 J44.9 Paroxysmal atrial fibrillation 724096811 I48.0 Long-term current use of anticoagulant 250858964 Z79.01 History of malignant neoplasm 475363509 Z85.51 Restless legs 64851902 G 25.81 Body mass index 20-24 - normal 063045614 Z68.22 Health Concerns Section Related Observation LastModified by Organization Detai ls LastModified Time None Recorded Concern Status LastModified by Organization Details LastModified Time None Recorded Advance Directives Directive None Recorded Payers Encounter Date Sequence Insurance Name Policy Number Policy Zarate Covered Member ID Zarate Member ID Guarantor Name 02/04/2024 1 MEDICARE-[employer] (MEDICARE) Wolf C Rodriguez [id number] Wolf Rodriguez 02/04/2024 2 [employer] OPTIONS (MEDICARE SUPPLEMENT) Wolf Rodriguez [id number] [place] Rodriguez 02/14/2024 1 [place] C Rodriguez [id number] [place] Rodriguez 02/14/2024 2 [employer] OPTIONS (MEDICARE SUPPLEMENT) Wolf Rodriguez [id number] Wolf Rodriguez 02/20/2024 1 [place] Wolf C Rodriguez [id number] [place] Rodriguez 02/20/2024 2 [employer] OPTIONS (MEDICARE SUPPLEMENT) [place] Rodriguez [id number] [place] Rodriguez 02/25/2024 1 [place] Wolf C Rodriguez [id number] [place] Rodriguez 02/25/2024 2 [employer] OPTIONS (MEDICARE SUPPLEMENT) Wolf Rodriguez [id number] [place] Rodriguez 08/27/2024 1 [place] C Rodriguez [id number] [place] Rodriguez 08/27/2024 2 [employer] OPTIONS (MEDICARE SUPPLEMENT) Wolf Rodriguez [id number] Wolf Rodriguez Notes Date Note Type Note Provider Name and Address Organization Details Recorded Time 02/04/2024 text/html his legs are mor e swollen and there are some blisters. His weight is up 14 pounds from earlier this month. He saw the piano case maker yesterday and his legs are not really infected but definitely edematous.. The sole of the left foot however has a superficial draining ulcer and denuded skin that apparently had been blisters. The piano case maker advised him to follow up with us.He uses a cane and has been wearing slip on shoes without socks. The swelling makes it too difficult for him to put on the support socks. His helps him quite a bit and she is going to have a robotic pelvic surgery in the near future. Krystle Hall MD [address] [address], [place], [address], [facility] 02/05/2024 22:43:39 02/14/2024 text/html he had extensive cellulitis of the rt lower leg/foot and is completing keflex and has had go to ER for that as also had uncontrolled bleeding. His symptoms have been improving. Krystle Hall MD [address] [address], [place], [address], [facility] 02/16/2024 22:11:08 02/20/2024 text/html foot is much bet ter with resolution of open sores and cellulitis on left Still keeps some edema. But feels better. Krystle Hall MD [address] [facility], [place] [address], [place], [address], [facility] 02/20/2024 20:32:21 02/25/2024 text/html he has continued to have some wandering and falls or sleep eating. All his falls have tended to be around 3 am. He has not been aware of when he gets up. He could not get to his phone so he struggled on his bottom scooting to the house phone. He was able to call his who sleeps upstairs. and they called 911 because he had some bleeding. He will see the distiller again Mar 3. Concern with the rapid fluctuations in his weight with intermittent edema Krystle Hall MD [address] [facility], [address], [place], [address], [facility] 02/26/2024 21:19:12 08/27/2024 text/html He was in the hospital in [place] in March for 5 days and that was it for medical issues since then. 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 Krystle Hall MD [address] [facility], [address], [place], [address], [facility] 08/28/2024 09:07:28
--- OUTSIDE RECORDS SUMMARY | 2024-09-28 12:33 | XMS_ITS | Continuity of Care Document ---
Author Organization [facility] Address [address] [facility], [address] [place] [address] Care Team Providers Care Land Title Examiner Name Role Phone DANYELLE GUTIERREZ Referring Provider [phone] LUIS JASON Referring Provider FADY DEL VALLE Referring Provider [phone] ELZA ALVARADO Referring Provider [phone] VAMSHI PADILLA Referring Provider ROCCO LEVIN Referring Provider [phone] Assessment Encounter Date Assessment Date Assessment LastModified by Organization Details LastModified Time 08/27/2024 08/27/2024 Mr. Mckeon follows up on his multiple medical issues that are reviewed. He has recently returned from wintering in [place] and stayed very well there after an [...] clearing up today. He will see his telegraph operator in [place] in the near future and also plans to see a new twisting machine operator in [place] as well. They would like to avoid going to [place] if possible. We do recommend labs as [...] Details Last Modified Time Details Appointments None recorded . Lab lipid panel, serum 025 08/28/19 [email or web address] [email or web address] [facility], [address], [place], [address], 5 12:15:04 CMP, serum or plasma 025 08/28/19 [email or web address] n5 [facility], [address], [place], [address], 5 12:15:04 CBC w/ auto diff 025 08/28/19 DUYEN [facility], [address], [place], [address], 07:58:35 Referral None recorded . Procedures None recorded . Surgeries None recorded . Imaging None recorded . Medication Orders None recorded . Patient TargetsNo targets recorded. Patient InstructionsNo instructions recorded. Reason for Referral None Reported. Problems Name Problem SNOMED Code Status Onset Date Resolution Date Notes Provider Name and Address Organization Details Recorded Time Blood glucose outside reference range 635001702 Active Krystle Hall MD [address], [address], [facility] 6 16:37:18 Acute sinusitis 79624438 Active Krystle Hall MD [address], [address], [facility] 6 16:37:18 Acute bronchitis 12178028 Active Krystle Hall MD [address] [address], [place] - [facility] 6 16:37:18 Wheezing 63852913 Bridgett Hall MD [address] [address], [place] - [facility] 6 16:54:16 Disorder of urinary tract 44081856 Active Krystle Hall MD [address] [address], [place] - [facility] 6 16:37:18 Vitamin D deficiency 69066638 Active Krystle Hall MD [address] [address], [place] - [facility] 6 16:37:18 Benign essential hypertension 7480449 Active Krystle Hall MD [address] [address], [place] - [facility] 6 16:37:18 Hyperlipidemia 41995241 Bridgett Hall MD [address] [address], [place] - [facility] 6 16:37:18 Disorder of prostate 78681713 Bridgett Hall MD [address] [address], [place] - [facility] 6 16:37:18 Malaise and fatigue 468931983 Bridgett Hall MD [address] [address], [place] - [facility] 6 16:37:18 Chest pain 35602801 Bridgett Hall MD [address] [address], [facility] 6 16:37:18 Pain of hip region 54073841 Active Krystle Hall MD [address] [address], [facility] 6 16:37:18 Chronic obstructive pulmonary disease 01205909 Active Krystle Hall MD [address] [address], [facility] 6 16:37:18 Restless legs 92493259 Active Krystle Hall MD [address] [address], [facility] 6 16:37:18 Hearing loss 82675372 Active Krystle Hall MD [address] [address], [facility] 6 16:37:18 Lower respiratory tract infection 08644433 Active Krystle Hall MD [address] [address], [facility] 6 16:54:16 Problem Notes None recorded. Procedures Surgical History Date Name Laterality Status Provider Name and Address Organization Details Recorded Time 10/09/19 24 cardiac catheterization completed Krystle Hall MD [address] [address], [facility] 10/28/2023 21:02:28 08/01/19 22 cystoscopy completed Krystle Hall MD [address] [address], [facility] 08/22/2022 00:38:30 06/13/19 22 cystoscopy completed Krystle Hall MD [address] [address], [facility] 08/22/2022 00:38:12 09/06/19 10 Colonoscopy completed Krystle Hall MD [address] [facility] [address], [place], [address], [facility] 01/25/2015 10:41:11 05/13/19 09 Cataract Surgery completed Krystle Hall MD [address] [address], [place], [address], [facility] 12/18/2013 09:07:20 05/13/19 00 Other completed Krystle Hall MD [address] [address], [place], [address], [facility] 12/18/2013 09:16:44 Cholecystectomy completed Not Available [facility] 03/27/2011 04:58:32 Hernia Repair completed Not Available [facility] 03/27/2011 04:58:32 Cancer Surgery completed Not Available [facility] 03/27/2011 04:58:32 Appendectomy completed Not Available [facility] 03/27/2011 04:58:32 Imaging Results None recorded. Procedure Notes None recorded. Medical Equipment None [...] Not Available Not Available Not Available Fluzone [id number] (PF) 45 mcg (15 mcg x 3)/0.5 [...] one) 50 mcg/actua tion nasal spray,[facility] [place] 1 spray every day by intranas al [...] Not Available Not Available No t Available Trelemary Ellipta 200 mcg-62.5 mcg-25 mcg powder for [...] Updated DateTime 5 187.96 cm 22.3 kg/m2 69399.0 7 g 60 /min 94 % 94 % 97.6 [degF] 134 mm[Hg] 70 mm[Hg] [facility] 5 15:46:41 Social History Question Answer Notes LastModified by Organizat ion Details LastModified Time Tobacco Smoking Status Former Smoker Not Available [facility] 03/08/2020 03:11:16 Auto Related Injury? No DBA_PATCH Information not available 03/27/2011 Is Blood Transfusion Acceptable In An Emergency? Yes [id number] Information not available 03/08/2020 What Is Your Level Of Caffeine Consumption? None [id number] Information not available 03/08/2020 How Much Tobacco Do You Chew? None [id number] Information not available 03/08/2020 Diabetes No DBA_PATCH 15 Information not available 03/27/2011 What Type Of Diet Are You Following? REGULAR [id number] Information not available 03/08/2020 Which Illicit Or Recreational Drugs Have You Used? None [id number] Information not available 03/08/2020 Education 2 Year College Information not available 03/27/2011 What Is The Highest Grade Or Level Of School You Have Completed Or The Highest Degree You Have Received? IN33362-2 Information not available 02/19/2022 Family History Of Heart Disease? Yes DBA_PATCH Information not available 03/27/2011 Which Of Your Hands Is Dominant? Right [id number] Information not available 03/08/2020 High Blood Pressure Yes Information not available 03/27/2011 High Cholesterol Yes DBA_PATCH_2 15 Information not available 03/27/2011 Live Alone Or With Others? With Others 15 Information not available 03/27/2011 Marital Status DBA_PATCH_ 111 15 Information not available 03/27/2011 What Was The Date Of Your Most Recent Tobacco Screening? 02/25/2024 Information not available 02/26/2024 How Many Children Do You Have? 1 [id number] Information not available 03/08/2020 Obese No DBA_PATCH_ 1 15 Information not available 03/27/2011 What Is Your Relationship Status? Information not available 02/19/2022 Seat Belts Used Routinely Yes 15 Information not available 03/27/2011 Smoke Alarm In Home Yes 15 Information not available 03/27/2011 Are You Passively Exposed To Smoke? No 15 Information not available 03/27/2011 How Much Tobacco Do You Smoke? No [id number] Information not available 03/08/2020 General Stress Level Low 15 Information not available 03/27/2011 Do You Use Sunscreen Routinely? Yes [id number] Information not available 03/08/2020 How Many Years Have You Smoked Tobacco? 20 Quit At Age 33 [id number] Information not available 03/08/2020 Sex: Male Functional Status Question Answer Note LastModified by Organizat ion Details LastModified Time What is your level of alcohol consumption? Occasional Information not available 02/26/2024 Do you or have you ever used smokeless tobacco? Never used smokeless tobacco [id number] Information not available 03/08/2020 Are you currently employed? No [id number] Information not available 03/08/2020 What is your occupation? retired [id number] Information not available 03/08/2020 Do you or have you ever used e-cigarettes or vape? Never used electronic cigarettes [id number] Information not available 03/08/2020 What is your exercise level? Moderate [id number] Information not available 03/08/2020 Mental Status None recorded. Family History Relationship Description Onset Age of this Age Resolved Age Notes LastModified by Organization Details LastModified Time Mother Cerebrovascu lar accident 75 previo usly record ed as Stroke Not available 01/25/2015 10:11:45 Father Myocardial infarction 70 previo usly record ed as Heart Attack ([place]) Not available 01/25/2015 10:11:45 Medical History Condition Response Coronary Artery Disease N Gout N Kidney Stones N Blood Diseases N Hyperthyroidism N Depression N COPD N Hypothyroidism N Developmental or Behavioral Disorders N Eczema, [...] Disease N Pulmonary Embolism N Hypertension Y Chicken Pox N Osteoporosis N Immunizations Vaccine Type Date Status Note Provider Nam e and Address Organization Details Recorded Time pneumococcal polysaccharide PPV23 7 completed Not Available [facility] 05/30/2019 02:12:07 Influenza, high-dose, trivalent, PF 7 completed Not Available [facility] 05/30/2019 02:12:13 Influenza, high-dose, trivalent, PF 8 completed Not Available [facility] 05/30/2019 02:12:13 Influenza, high-dose, trivalent, PF 9 completed Not Available [facility] 05/30/2019 02:12:11 Influenza, high-dose, quadrivalent, PF 0 completed Not Available [facility] 01/22/2020 13:43:53 Influenza, high-dose, trivalent, PF 4 completed [facility] 04/20/2014 16:54:07 Influenza, high-dose, quadrivalent, PF 1 completed Not Available [facility] 01/17/2021 16:12:48 Influenza, high-dose, quadrivalent, PF 3 completed [facility] 09/28/2022 14:34:29 Pneumococcal conjugate PCV 13 5 completed Not Available [facility] 06/13/2019 02:12:32 Influenza, high-dose, quadrivalent, PF 3 completed [facility] 01/29/2023 16:10:22 Influenza, high-dose, trivalent, PF 5 completed Not Available [facility] 06/13/2019 02:12:32 Pneumococcal conjugate PCV20, polysaccharide GNE711 conjugate, adjuvant, PF 4 completed Krystle Hall MD [address] [address], [place], [place], [address] [place] [address], [facility] 08/25/2023 20:52:02 Influenza, high-dose, trivalent, PF 4 completed Krystle Hall MD [address] [address], [place], [address] [place] [address], [facility] 02/05/2024 22:02:08 Influenza, high-dose, trivalent, PF 6 completed Not Available [facility] 06/13/2019 02:12:33 COVID-19, mRNA, LNP-S, PF, calos-sucrose, 30 mcg/0.3 mL 4 completed Krystle Hall MD [address] [address], [place], [address], [facility] 02/26/2024 21:05:59 Tdap 6 completed Not Available [facility] 06/13/2019 02:12:33 Hep A, adult 9 completed Krystle Hall MD [address] [address], [place], [address], [facility] 11/30/2018 16:01:58 zoster recombinant 0 completed Krystle Hall MD [address] [address], [place], [address], [facility] 02/12/2020 10:01:47 zoster recombinant 0 completed Krystle Hall MD [address] [address], [place], [address], [facility] 02/12/2020 10:02:30 Tdap 1 completed Krystle Hall MD [address] [address], [place], [address], [facility] 09/20/2020 12:21:04 COVID-19, mRNA, LNP-S, PF, 100 mcg/0.5mL dose or 50 mcg/0.25mL dose 1 completed Krystle Hall MD [address] [address], [place], [address], [facility] 09/20/2020 12:28:45 COVID-19, mRNA, LNP-S, PF, 100 mcg/0.5mL dose or 50 mcg/0.25mL dose 1 completed [facility] 01/13/2021 09:51:03 COVID-19, mRNA, LNP-S, PF, 100 mcg/0.5mL dose or 50 mcg/0.25mL dose 1 completed [facility] 02/13/2021 15:16:19 COVID-19, mRNA, LNP-S, bivalent, PF, 50 mcg/0.5 mL or 25mcg/0.25 mL dose 3 completed Krystle Hall MD [address] [address], [place], [address], [facility] 02/21/2023 13:58:01 Respiratory syncytial virus (RSV) MAB, unspecified 3 completed Krystle Hall MD [address] [address], [place], [address], [facility] 02/21/2023 13:58:22 Influenza, MDCK, trivalent, PF 3 completed Krystle Hall MD [address], [address] [place] [address], [facility] 03/02/2013 15:45:39 zoster live 8 completed Krystle Hall MD [address] [address], [facility] 03/02/2013 15:52:48 pneumococcal, unspecified formulation 9 completed Krystle Hall MD [address] [address], [facility] 03/02/2013 15:52:48 pneumococcal, unspecified formulation 3 completed Krystle Hall MD [address], [address] [place] [address], [facility] 03/02/2013 15:52:48 Influenza, split virus, trivalent, preservative 2 completed Not Available [facility] 05/30/2019 02:12:11 Past Encounters Encounter ID Performer Location Encounter Start Date Encounter Closed Date Diagnosis/Indication Diagnosis SNOMED-CT Code Diagnosis ICD10 Code Diagnosis Note [id number] Krystle Hall MD [facility] [address] [address] 08/27/2024 15:28:55 08/28/2024 17:08:33 Essential hypertension 30120616 I10 Hyperlipoproteinemia 374 4001 E78.5 History of anemia 203320 002 Z86.2 Moderate c hronic obstructive pulmonary disease 463067318 J44.9 Paroxysmal atrial fibrillation 331083753 I48.0 Long-term current use of anticoagulant 378633170 Z79.01 History of malignant neoplasm 079760878 Z85.51 Restless legs 00460510 G 25.81 Body mass index 20-24 - normal 225105050 Z68.22 Health Concerns Section Related Observation LastModified by Organization Graciela kraft LastModified Time None Recorded Concern Status LastModified by Organization Details LastModified Time None Recorded Payers Encounter Date Sequence Insurance Name Policy Number Policy Zarate Covered Member ID Zarate Member ID Guarantor Name 08/27/2024 1 [place] Wolf Mckeon [id number] Wolf Mckeon 08/27/2024 2 [employer]IONS (MEDICARE SUPPLEMENT) Wolf Mckeon [id number] Wolf Mckeon Notes Date Note Type Note Provider Name and Address Organization Details Recorded Time 08/27/2024 text/html He was in the hospital in [place] in March for 5 days and that was it for medical issues since then. He ran his own EKG and it is staying in sinus rhythm.He only occasionally needs his rescue and uses the Trelegy dailyHe had a cystoscopy yesterday that was clear!Plans to follow up with his telegraph operator in [place] in the near future.He is also going to change to a twisting machine operator at [place] too.He is trying to walk with his rolling tri-walker on a regular basis and also has some home exercises for leg strengthening and some weights for upper extremity strengthening.He monitors his heart on his watch and phone and he has some atrial fib only 50 times while he was in [place] and the rest of the time was NSR.Rarely if he has a bout of constipation and can see a little blood in stool.As long as he is taking the Bumex his swelling is controlled but he is not taking potassium as is on spironolactone so is due labs as has had none since last fall. Krystle Hall MD [address] [facility], [address], [place], [address], [facility] 08/28/2024 09:07:28
== END 2024-09-28 23:59 | disposition home or self-care (01) ==
LOC: RT 12:30
PROVIDERS: PCP Family Medicine; Visit Provider Internal Medicine
DX: I08.8 Other rheumatic multiple valve diseases (principal); I77.810 Thoracic aortic ectasia; I50.9 Heart failure, unspecified; J44.9 Chronic obstructive pulmonary disease, unspecified; I48.91 Unspecified atrial fibrillation; E78.5 Hyperlipidemia, unspecified
CPT/HCPCS: 93306

== ENCOUNTER 2024-12-25 12:25 | Outpatient (CLI) | payer MEDICARE, SELFPAY ==
--- OUTSIDE RECORDS SUMMARY | 2024-11-08 20:00 | XMS_ITS | Continuity of Care Document ---
Author Organization [facility] Address [address] [place] [address] Phone Care Team Providers Care Nut Sorter Name Role Phone Donell Machado MD Unavailable Unavailable Allergies, Adverse Reactions, Alerts Substance Reaction Status Criticality No Known Allergies Active No Inform ation Medications Medication Instructions Dosage Effective Dates (start - stop) Status Comments montelukast 10 mg tablet take 1 tablet by oral route every day in the evening 10 MG - Active Eliquis 2.5 mg tablet take 1 tablet by o ral route 2 times every day 2.5 MG - Active atorvastatin 20 mg tablet take 1 tablet by oral route every day 20 MG - Active Aldactone 25 mg tablet take 1 tablet by oral route every day 25 MG - Active Trelegy Ellipta 200 mcg-62.5 mcg-25 mcg powder for inhalation inhale 1 puff by inhalation route every day at the same time each day 1.00 puff - Active bumetanide 1 mg tablet take 1 tablet by oral route every day 1 MG - Active metoprolol succinate ER 25 mg tablet,extended release 24 hr take 1 tablet by oral route every 12 hours 25 MG - Active Procedures Procedure Date Chronic Care Mgt Svc 20 Min Office/outpatient visit, new, [facility] Advance Directives Directive Yes / No Effective Date File Name No Information Encounters Encounter Description Practice Location Reason(s) For Visit Diagnoses Date Provider Providers Copied on Encounter Chronic Care Mgt Svc 20 Min [facility], [address], [place], [place], [id number], [place] tel:[phone] Mixed hyperlipidemiaEs sential (primary) hypertensionAths cl heart disease of [place] coronary artery w/o ang pctrsUnspecified atrial fibrillation 5 Carterberna Marley. [address], [address], [place], [place], [id number] , [place]. tel:[phone] Referring Provider: Donell Bowers, [address], [place], [address] . tel:[phone] Office/outpa tient visit, [facility], [address], [place], [place], [id number], [place] tel:[phone] Atrial fibrillation (chief complaint) Arteriosclerotic coronary artery diseaseAtrial fibrillation, unspecified typeEssential (primary) hypertensionMixe d hyperlipidemia 4 Mack Blackburn. [address], [place], [place], [id number] , [place]. tel:[phone] Referring Provider: Zechariah Light, [address] [facility] [address], [place], [address]. tel:[phone] Family History Family Member Type Diagnosis Age At Onset No Information Payers Payer name Insurance type Covered libertarian ID Authoriza tion(s) Medicare Part B Primary MB [id number] [facility] SUPPLEMENT CI [id number] Social History Type Description Quantity Date Captured Comments Sex Male Smoking Status No Information Chief Complaint And Reason For Visit No Information Reason For Referral Reason For Referral No Information Plan Of Treatment Date Type Action Status Appointment Wolf Mckeon BOOKED History Of Present Illness Encounter Date Complaint History Of Prese nt Illness Atrial fibrillation Patient is a 83-year-old male who has past medical history significant for COPD, bladder cancer status post chemotherapy, essential hypertension and hyperlipidemia who recently presented to the hospital progressive weakness. Patient spends most of the year in [place]. He is followed by a heat reader. He has past medical history of coronary artery disease with PCI with previous stents. During recent hospitalization, he was treated for pneumonia. He was found to be in atrial fibrillation which was initially diagnosed this summer. At that time, he was placed on anticoagulation with Eliquis. However, he developed a massive GI bleed. He was taken off anticoagulation. During most recent hospitalization, he was placed back on Eliquis 2.5 mg twice daily, aspirin was discontinued. He was eventually discharged home. He denies chest pain, shortness of breath, palpitations or lightheadedness. He tells me his Apple watch has been reported sinus rhythm. EKG today revealed atrial fibrillation woth adequate rate control. He remains on low-dose anticoagulation. He denies bleeding issues. His rate was well controlled. We discussed Watchman implant. His goal is to returned to [place] in August to discuss with his physicians including heat reader up there, as he his feeling asymptomatic. All of his questions were answered. They are pleased.REVIEW OF SYSTEMSConstitutional: No fatigue, fever, chills, loss of appetite.Cardiovascular: No chest pain, lightheadedness, palpitations, syncope, dyspnea on exertion, lower extremity edema.Respiratory: No shortness of breath, wheezing, cough.Gastrointestinal: No nausea, vomiting, diarrhea, reflux, abdominal pain, bloody stools. Musculoskeletal: No muscular weakness, speech difficulties.Psychiatric: No anxiety, depression, difficulty sleeping.Heme-lymph: No easy bruising or bleeding.PHYSICAL EXAMAppearance: Thin, elderly, frail, alert, in no acute distress.Respiratory: Breathing unlabored,Auscultation of lungs: Normal breath sounds throughout. Heart:Auscultation of heart: Irregularly irregular no murmurs present, S1-S2.Peripheral vascular system:Carotid arteries normal pulses, no bruit present. Pedal pulses: Pulses 2+ bilaterally.Memory: Memory intact, immediate recall intact, long-term recall intact.Gait and station: Slow gait, able to stand without difficulty. Uses walker. Functional Status Date Functional Assessmen t No Information Instructions Date Instruction Additional Infor mation No Information Assessments Type Assessment Date No Information Patient Care Teams Name Effective Dates (start - stop) Status Members No Information
--- OUTSIDE RECORDS SUMMARY | 2024-12-25 12:27 | XMS_ITS | Encounter Summary ---
Author Organization [employer] ([place], [place], [place], [place]) Address [address] [place] [address] Care Team Providers Care Human Resource Management Instructor Name Role Phone Krystle Hall MD Primary Care Provider [phone] Unavailable Unavailable Usama Mcelroy MD Unavailable Siomara Pederson RN Unavailable Unavailable Lauren Douglass RN Unavailable Unavailable Anne Doran PA-C Unavailable [phone] Encounter Details Date Type Department Care Team (Late st Contact Info) Description 08/07/2021 Transcribed Document [facility] Family Medicine [address] [place] [address] ProviderBenjamin MD [address] [place] [address] Social History Tobacco Use Types Packs/Day Years Used Date Smoking Tobacco: Never Assessed Family and Community Support Answer Jaime e Recorded Help with Day to Day Activities Not on file 05/27/2023 Feeling Lonely or Isolated Not on file 05/27 Educational Attainment Answer Date Nitin rded Speak language other than Hebrew at home Not on file 05/27/2023 Want help with school or training Not on file 05/27/2023 Substance Use Answer Date Recorded Used prescription meds for non-medical reasons N ot on file 05/27/2023 Used illegal drugs past 12 months Not on file 05/27/2023 Sex and Gender Information Value Date Recorded Sex Assigned at Male 11/07/2021 7:21 PM CDT Legal Sex Male 7:21 PM CDT Gender Identity Male 11/07/2021 7:21 PM CDT Sexual Orientation Not on file COVID-19 Exposure Response Date Recorded In the last 10 days, have yo u been in contact with someone who was confirmed or suspected to have Coronavirus/COVID-19? No / Unsure 02/15/2023 11:52 AM EDT documented as of this encounter Miscellaneous Notes * [place] Conversion Note - Historical ProviderMD - 08/07/2021 2:34 PM CDT Patient Education Materials Follows: Implanted Port Home Guide An implanted port is a device that is placed under the skin. It is usually placed in the chest. The device can be used to give IV medicine, to take blood, or for dialysis. You may have an implanted port if: ??? You need IV medicine that would be irritating to the small veins in your hands or arms. ??? You need IV medicines, such as antibiotics, for a long period of time. ??? You need IV nutrition for a long period of time. ??? You need dialysis. When you have a port, your health care provider can choose to use the port instead of veins in your arms for these procedures. You may have fewer limitations when using a port than you would if you used other types of long-term IVs, and you will likely be able to return to normal activities after your incision heals. An implanted port has two main parts: ??? [place]. The reservoir is the part where a needle is inserted to give medicines or draw blood. The reservoir is round. After it is placed, it appears as a small, raised area under your skin. ??? Catheter. The catheter is a thin, flexible tube that connects the reservoir to a vein. Medicine that is inserted into the reservoir goes into the catheter and then into the vein. How is my port accessed? To access your port: ??? A numbing cream may be placed on the skin over the port site. ??? Your health care provider will put on a mask and sterile gloves. ??? The skin over your port will be cleaned carefully with a germ-killing soap and allowed to dry. ??? Your health care provider will gently pinch the port and insert a needle into it. ??? Your health care provider will check for a blood return to make sure the port is in the vein and is not clogged. ??? If your port needs to remain accessed to get medicine continuously (constant infusion), your health care provider will place a clear bandage (dressing) over the needle site. The dressing and needle will need to be changed every week, or as told by your health care provider. What is flushing? Flushing helps keep the port from getting clogged. Follow instructions from your health care provider about how and when to flush the port. Ports are usually flushed with saline solution or a medicine called heparin. The need for flushing will depend on how the port is used: ??? If the port is only used from time to time to give medicines or draw blood, the port may need to be flushed: ? Before and after medicines have been given. ? Before and after blood has been drawn. ? As part of routine maintenance. Flushing may be recommended every 4?6 weeks. ??? If a constant infusion is running, the port may not need to be flushed. ??? Throw away any syringes in a disposal container that is meant for sharp items (sharps container). You can buy a sharps container from a pharmacy, or you can make one by using an empty hard plastic bottle with a cover. How long will my port stay implanted? The port can stay in for as long as your health care provider thinks it is needed. When it is time for the port to come out, a surgery will be done to remove it. The surgery will be similar to the procedure that was done to put the port in. Follow these instructions at home: ??? Flush your port as told by your health care provider. ??? If you need an infusion over several days, follow instructions from your health care provider about how to take care of your port site. Make sure you: ? Wash your hands with soap and water before you change your dressing. If soap and water are not available, use alcohol-based hand chemist enzymes. ? Change your dressing as told by your health care provider. ? Place any used dressings or infusion bags into a plastic bag. Throw that bag in the trash. ? Keep the dressing that covers the needle clean and dry. Do not get it wet. ? Do not use scissors or sharp objects near the tube. ? Keep the tube clamped, unless it is being used. ??? Check your port site every day for signs of infection. Check for: ? Redness, swelling, or pain. ? Fluid or blood. ? Pus or a bad smell. ??? Protect the skin around the port site. ? Avoid wearing bra straps that rub or irritate the site. ? Protect the skin around your port from seat belts. Place a soft pad over your chest if needed. ??? Bathe or shower as told by your health care provider. The site may get wet as long as you are not actively receiving an infusion. ??? Return to your normal activities as told by your health care provider. Ask your health care provider what activities are safe for you. ??? Carry a medical alert card or wear a medical alert bracelet at all times. This will let health care providers know that you have an implanted port in case of an emergency. Get help right away if: ??? You have redness, swelling, or pain at the port site. ??? You have fluid or blood coming from your port site. ??? You have pus or a bad smell coming from the port site. ??? You have a fever. Summary ??? Implanted ports are usually placed in the chest for long-term IV access. ??? Follow instructions from your health care provider about flushing the port and changing bandages (dressings). ??? Take care of the area around your port by avoiding clothing that puts pressure on the area, and by watching for signs of infection. ??? Protect the skin around your port from seat belts. Place a soft pad over your chest if needed. ??? Get help right away if you have a fever or you have redness, swelling, pain, drainage, or a bad smell at the port site. This information is not intended to replace advice given to you by your health care provider. Make sure you discuss any questions you have with your health care provider. Document Revised: 09/12/2020 Document Reviewed: 09/12/2020 [employer] Patient Education ? 2020 [employer] Inc. Pharmacology Moderate Conscious Sedation, Adult, Care After This sheet gives you information about how to care for yourself after your procedure. Your health care provider may also give you more specific instructions. If you have problems or questions, contact your health care provider. What can I expect after the procedure? After the procedure, it is common to have: ??? Sleepiness for several hours. ??? Impaired judgment for several hours. ??? Difficulty with balance. ??? Vomiting if you eat too soon. Follow these instructions at home: For the time period you were told by your health care provider: ??? Rest. ??? Do not participate in activities where you could fall or become injured. ??? Do not drive or use machinery. ??? Do not drink alcohol. ??? Do not take sleeping pills or medicines that cause drowsiness. ??? Do not make important decisions or sign legal documents. ??? Do not take care of children on your own. Eating and drinking ??? Follow the diet recommended by your health care provider. ??? Drink enough fluid to keep your urine pale yellow. ??? If you vomit: ? Drink water, juice, or soup when you can drink without vomiting. ? Make sure you have little or no nausea before eating solid foods. General instructions ??? Take vgzn-[id number] and prescription medicines only as told by your health care provider. ??? Have a responsible adult stay with you for the time you are told. It is important to have someone help care for you until you are awake and alert. ??? Do not smoke. ??? Keep all follow-up visits as told by your health care provider. This is important. Contact a health care provider if: ??? You are still sleepy or having trouble with balance after 24 hours. ??? You feel light-headed. ??? You keep feeling nauseous or you keep vomiting. ??? You develop a rash. ??? You have a fever. ??? You have redness or swelling around the IV site. Get help right away if: ??? You have trouble breathing. ??? You have new-onset confusion at home. Summary ??? After the procedure, it is common to feel sleepy, have impaired judgment, or feel nauseous if you eat too soon. ??? Rest after you get home. Know the things you should not do after the procedure. ??? Follow the diet recommended by your health care provider and drink enough fluid to keep your urine pale yellow. ??? Get help right away if you have trouble breathing or new-onset confusion at home. This information is not intended to replace advice given to you by your health care provider. Make sure you discuss any questions you have with your health care provider. Document Revised: 08/26/2020 Document Reviewed: 03/24/2020 Elsevier Patient Education ? 2020 [employer] documented in this encounter Plan of Treatment Not on file documented as of this encounter Visit Diagnoses Not on filedocumented in this encounter Care Teams Human Resource Management Instructor Relationship Specialty Start Date End Date Krystle Hall MD [address] [place] [phone] PCP - General Family Medicine 03/08/[address] Dietitian Nutrition 07/11/22 02/14/23 Usama Mcelroy MD [address] [facility] [address] [place] [address] Medical Oncologist Hematology and Oncology 11/23/22 Siomara Pederson, RN Nurse Navigator Oncology 11/23/22 02/14/23 Lauren Douglass, RN Registered Nurse Oncology 11/23/22 02/14/23 Anne Doran, PA-C [address] [place] [address] Physician Solid Waste Facility Operator Oncology 11/23/22 documented as of this encounter
--- OUTSIDE RECORDS SUMMARY | 2024-12-25 12:27 | XMS_ITS | Encounter Summary ---
Author Organization [employer] ([place], [place], [place], [place]) Address [address] [place] [address] Care Team Providers Care Shield Cleaner Name Role Phone Krystle Hall MD Primary Care Provider [phone] Unavailable Unavailable Usama Mcelroy MD Unavailable Siomara Pederson RN Unavailable Unavailable Lauren Douglass RN Unavailable Unavailable Anne Doran PA-C Unavailable [phone] Encounter Details Date Type Department Care Team (Late st Contact Info) Description 08/07/2021 Transcribed Document [facility] Family Medicine [address] [place] [address] ProviderBenjamin MD [address] [place] [address] Social History Tobacco Use Types Packs/Day Years Used Date Smoking Tobacco: Never Assessed Family and Community Support Answer Jamie e Recorded Help with Day to Day Activities Not on file 05/27/2023 Feeling Lonely or Isolated Not on file 05/27 Educational Attainment Answer Date Nitin rded Speak language other than Tristanian at home Not on file 05/27/2023 Want [...] as of this encounter Miscellaneous Notes * [employer] Conversion Note - Historical Provider, - 08/07/2021 9:51 AM CDT Pre Procedure Adult Entered On: 08/07/2021 9:56 EDT Performed On: 08/07/2021 9:51 EDT by HECTOR JUAREZ RN Height and Weight, Clinical Dosing Height Source : Measured Height Entry Format : [place] Height, Feet : 6 ft(Converted to: 183 cm, 72 Inch) Height, Inches : 2 Inch(Converted to: 0 ft 2 Inch, 5.08 cm) Clinical Height : 187.96 cm Weight Source : Standing scale Weight Entry Format : [employer] Clinical Dosing Weight : 95.45 kg Weight, Pounds : 210 lb Body Surface Area (BSA) : 2.22 m2 Body Mass Index : 27 kg/m2 (HI) [place] Body Weight : 81 kg HECTOR JUAREZ RN - 08/07/2021 9:51 EDT Health Histories Smoking Status : Former smoker, quit more than 30 days ago Smokeless Tobacco Status : Never HECTOR JUAREZ RN - 08/07/2021 9:51 EDT Social History (As Of: 08/07/2021 09:56:47 EDT) Tobacco: Smoking Status Former smoker. Years of Use: 30. Packs/Tins Daily: 1. Last Used: 40 years ago. (Last Updated: 01/16/2013 10:17:34 EDT by REMY PERKINS, GLENDY) Alcohol: Use in Last 12 Months: Yes. Days/Week: 7. # Drinks/Day: 1. (Last Updated: 01/16/2013 10:17:47 EDT by REMY PERKINS, GLENDY) Substance Abuse: Drug Use Hx: No. Use in Last 12 Months: No. (Last Updated: 01/16/2013 10:17:53 EDT by REMY PERKINS, RN) Infectious Disease History Does patient have symptoms of COVID-19? : No Has the Patient Been Tested for COVID-19 in the last 14 days? : Yes, Patient stated results Negative Does the Patient state known exposure to a COVID-19 positive case in the last 14 days? : No Patient Vaccinated for COVID-19 : Fully vaccinated HECTOR JUAREZ RN - 08/07/2021 9:51 EDT Infectious Disease Risk Screening Grid Cough < 2 wks of unknown origin : NO Cough > 2 weeks : NO Blood in Sputum : NO Fever or self-reported Fever : NO Rash of unknown origin : NO Headache : NO Stiff neck : NO Night Sweats : NO Unexplained Weight Loss : NO Diarrhea (3 episode per day) : NO HECTOR JUAREZ RN - 08/07/2021 9:51 EDT Physical contact outside [place] in the last 30 days : No Hospitalized in Foreign Country : No Infectious Disease History : Mumps INF Disease TB Screening Calc : 0 INF Disease Recent Travel Calc : 0 HECTOR JUAREZ RN - 08/07/2021 9:51 EDT COVID19 PreProcedure Screening Is this an Emergent or Add on Procedure? : No Date PreProcedure COVID-19 test known? : Yes Date of PreProcedure COVID-19 : 08/03/2021 EDT Has patient been isolated since the test : Yes Exposed to COVID19 symptoms since test? : No HECTOR JUAREZ RN - 08/07/2021 9:51 EDT Anesthesia/Transfusion History Family History of Anesthesia Reaction : Prior transfusion without reaction Transfusion History : Prior anesthesia without reaction Family History of Anesthesia Reaction : None HECTOR JUAREZ RN - 08/07/2021 9:51 EDT Functional Assessment Living Situation : Home Current Home Treatments : None HECTOR JUAREZ RN - 08/07/2021 9:51 EDT [place] Suicide Severity Rating Scale (C-SSRS) CSSRS Past Month Wish to be : No CSSRS Past Month Suicidal Thoughts : No CSSRS Lifetime Suicide Behavior : No Suicide Severity Rating Score : 0 Suicide Severity Rating : No Additional Care Required at this time HECTOR JUAREZ RN - 08/07/2021 9:51 EDT Psychosocial History Currently in Unsafe Situation : No HECTOR JUAREZ RN - 08/07/2021 9:51 EDT Advance Directive Patient has Advance Directive *Q : Yes, Advance Directive not with the patient Advance Directive Type : Living will Copy Advance Directive Verified/on Chart : HECTOR Quezada RN - 08/07/2021 9:51 EDT Teaching/Learning Assessment Barriers To Learning : None evident Individuals Taught : Patient Readiness to Learn : Cooperative Readiness to Learn : Explanation Learning Style Preferences Family : Verbal explanation HECTOR JUAREZ RN - 08/07/2021 9:51 EDT Education Topics, Periop Preadmission Perioperative Education Grid Postoperative Care Preparations : Verbalizes understanding Preprocedure Preparations : Verbalizes understanding HECTOR JUAREZ RN - 08/07/2021 9:51 EDT General Info Arrived From : Home Mode of Arrival on Unit : Ambulatory Patient Arrival Date/Time : 08/07/2021 9:50 EDT Legal Guardian : Spouse Want Family/Rep/Phys Notified of Admit : No Emergency Contact #1 : Aby Emergency Contact #1 Emergency Contact #1 Relationship : spouse Emergency Contact #2 : none Emergency Contact #2 Phone Number : none Emergency Contact #2 Relationship : none Primary Language : Tristanian Communication Barrier : None Technician Terminal And Repeater Needed : HECTOR Quezada RN - 08/07/2021 9:51 EDT Vital Measurements Temperature, Fahrenheit : 96.3 Deg F (LOW) Clinical Temperature, C : 35.7 Deg C Peripheral Pulse Rate : 51 bpm (LOW) Systolic Blood Pressure : 136 mmHg Diastolic Blood Pressure : 87 mmHg Oxygen Saturation : 97 % HECTOR JUAREZ RN - 08/07/2021 9:51 EDT Sleep Apnea Risk Assmt Hx of Obstructive Sleep Apnea Diagnosis : No Snore Loudly : No Tired, Fatigued, or Sleepy During Day : No Observed Stopping Breathing During Sleep : No Have/Are Being Treated for Hypertension : Yes BMI Greater Than 35 kg/m2 : No Age over 50 Years Old : Yes Neck Circumference Greater Than 40 cm : No Gender Male : Yes STOP-BANG Sleep Apnea Risk Level Score : 3 HECTOR JUAREZ RN - 08/07/2021 9:51 EDT Michael Scale Michael Sensory Perception : No impairment Michael Moisture : Rarely moist Michael Activity : Walks frequently Michael Mobility : No limitation Michael Nutrition : Excellent Michael Friction and Shear : No apparent problem Michael Score : 23 HECTOR JUAREZ RN - 08/07/2021 9:51 EDT Pain Assessment Pain Assessment : Initial assessment Pain Scale Used : 0-10 Scale HECTOR JUAREZ RN - 08/07/2021 9:51 EDT Fall Risk Scales ABCs Fall Injury Risk Identification : None FORMAN Hx Falls Immediate/Within 3 Months : No [place] Secondary Diagnosis : Yes FORMAN Use of Ambulatory Aid : None [place] IV Therapy or IV Access : Yes [place] Gait/Transferring : Normal, bedrest, immobile [place] Mental Status : Oriented to own ability [place] Fall Risk Score : 35 [place] Fall Scale Risk Level : 25-45 Medium Risk [place] Fall Interventions : Adequate lighting, Bed in low position, Call device within reach, Non-slip footwear, Wheels locked HECTOR JUAREZ RN - 08/07/2021 9:51 EDT Valuables and Belongings Valuables and Belongings : Clothing Clothing : Common streetwear Clothing Disposition : Bedside HECTOR JUAREZ RN - 08/07/2021 9:51 EDT Pain Scale Intensity : 0 HECTOR JUAREZ RN - 08/07/2021 9:51 EDT Image 4 - Images currently included in the form version of this document have not been included in the text rendition version of the form. documented in this encounter Plan of Treatment Not on file documented as of this encounter Visit Diagnoses Not on filedocumented in this encounter Care Teams Shield Cleaner Relationship Specialty Start Date End Date Krystle Hall MD [address] [place] [phone] PCP - General Family Medicine 03/08/[address] Dietitian Nutrition 07/11/22 02/14/23 Usama Mcelroy MD [address] [facility] [address] [place] [address] Medical Oncologist Hematology and Oncology 11/23/22 Siomara Pederson, GLENDY Nurse Navigator Oncology 11/23/22 02/14/23 Lauren Douglass RN Registered Nurse Oncology 11/23/22 02/14/23 Anne Doran, BELEM [address] [place] [address] Physician Concept Artist Oncology 11/23/22 documented as of this encounter
--- OUTSIDE RECORDS SUMMARY | 2024-12-25 12:27 | XMS_ITS | Encounter Summary ---
Author Organization [employer] ([place], [place], [place], [place]) Address [address] [place] [address] Care Team Providers Care Manager Gyn Name Role Phone Krystle Hall MD Primary Care Provider [phone] Unavailable Unavailable Usama Mcelroy MD Unavailable Siomara Pederson RN Unavailable Unavailable Lauren Douglass RN Unavailable Unavailable Anne Doran PA-C Unavailable [phone] Encounter Details Date Type Department Care Team (Late st Contact Info) Description 11/07/2021 Transcribed Document [facility] [place] Family Medicine [address] [place] [address] ProviderBenjamin MD [address] [place] [address] Social History Tobacco Use Types Packs/Day Years Used Date Smoking Tobacco: Never Assessed Family and Community Support Answer Jaime e Recorded Help with Day to Day Activities Not on file 05/27/2023 Feeling Lonely or Isolated Not on file 05/27 Educational Attainment Answer Date Nitin rded Speak language other than Romansh at home Not on file 05/27/2023 Want [...] Notes * Cerner Conversion Note - Historical ProviderMD - 11/07/2021 11:39 AM CDT Patient: WOLF RODRIGUEZ Age: 80 years Sex: Male : 1940 Associated Diagnoses: None Author: ELOY TABOR MD-RAD Pre-OP/Procedure Diagnosis: R_port removal Indication: Request for catheter removal Procedure Performed: Port removal Procedural MD: _Cleo Superintendent: Sedation: None Findings: Successful removal of chest port Complications: None EBL: Minimal Specimen(s) Removed: _ None Full report to follow. Electronically signed by [facility], [facility] Conversion Air Surveillance Operator Cerner at 08/29/2022 10:39 PM CDT documented in this encounter Plan of Treatment Not on file documented as of this encounter Visit Diagnoses Not on filedocumented in this encounter Care Teams Manager Gyn Relationship Specialty Start Date End Date Krystle Hall MD [address] [place] [phone] PCP - General Family Medicine 03/08/[address] Dietitian Nutrition 07/11/22 02/14/23 Usama Mcelroy MD 1210 [facility] [address] [place] [address] Medical Oncologist Hematology and Oncology 11/23/22 Siomara Pederson, RN Nurse Navigator Oncology 11/23/22 02/14/23 Lauren Douglass, RN Registered Nurse Oncology 11/23/22 02/14/23 Anne Doran, PA-C [address] [address] Physician Superintendent Oncology 11/23/22 documented as of this encounter
--- OUTSIDE RECORDS SUMMARY | 2024-12-25 12:27 | XMS_ITS | Encounter Summary ---
Author Organization [employer] ([place], [place], [place], [place]) Address [address] [place] [address] Care Team Providers Care Legal Billing Coordinator Name Role Phone Krystle Hall MD Primary Care Provider [phone] Unavailable Unavailable Usaam Mcelroy MD Unavailable Siomara Pederson RN Unavailable Unavailable Lauren Douglass RN Unavailable Unavailable Anne Doran PA-C Unavailable [phone] Encounter Details Date Type Department Care Team (Late st Contact Info) Description 08/07/2021 Transcribed Document [facility] [place] Family Medicine [address] [place] [address] ProviderBenjamin MD [address] [place] [address] Social History Tobacco Use Types [...] Miscellaneous Notes * Cerner Conversion Note - Benjamin Bonner MD - 08/07/2021 2:37 PM CDT [facility] [place] [address] WOLF RODRIGUEZ :1940 Visit Time:08/07/2021 Your Visit Summary Your Care Team Primary Care Physician - KRYSTLE HALL MD-[facility] Your Diagnosis Malignant neoplasm of bladder, unspecified, Malignant neoplasm of bladder, unspecified These Are Your Goals No qualifying data available. Discharge Vitals Temperature 35.7 ??C Heart Rate (Monitored) 74 Blood Pressure 174/81 What to do next Instructions From Your Care Team Diet after Discharge: Resume usual diet as tolerated Activity after Discharge: Rest and relax today, No strenuous activity, _, _ Driving Restrictions: No driving for 24 hours. Showering/Bathing: Keep dry for 72 hours, _ Medications: No changes to your current home medications., _, _ Dressing Instructions: Leave your dressing in place keeping the site clean and dry. for 72 hours, _, _ Follow-Up Appointments Follow Up with USAMA MCELROY MD-ONC When Within 2 to 3 days Comments Follow-up as instructed Where: [address] [place] [id number]- Medications What How Much When Instructions Next Dose guaiFENesin (Mucinex) 600 Milligram(s) Oral Every 12 hours metoprolol (metoprolol tartrate) 12.5 Milligram(s) Oral Every Day multivitamin with minerals (Multivitamins and Minerals) 1 Tablet(s) Oral Every Day simvastatin 20 Milligram(s) Oral At Bedtime albuterol (Albuterol (Eqv-ProAir HFA) 90 mcg/ inh inhalation aerosol) 1 Puff(s) Inhalation Every 6 Hours as needed for Wheezing bifidobacterium-lactobacillus (Probiotic Formula oral capsule) 1 Capsule(s) Oral Every Day calcium-vitamin D (Calcium 600+D) 1 Tablet(s) Oral Two Times A Day cholecalciferol (Vitamin D3) 25 Microgram(s) Oral Every Day chondroitin/ glucosamine/ methylsulfonylmethane (Glucosamine Chondroitin MSM Complex) 2 Tablet(s) Oral Every Day fluticasone/ umeclidinium/ vilanterol (Trelegy Ellipta 200 mcg-62.5 mcg-25 mcg/ inh inhalation powder) 1 Puff(s) Inhalation Every Day hydrochlorothiazide-triamterene (hydrochlorothiazide-triamterene 25 mg-37.5 mg oral capsule) 1 Capsule(s) Oral Every Day montelukast 10 Milligram(s) Oral Every Day Non Formulary (Non Formulary med) Two Times A Day pramipexole 1.5 Milligram(s) Oral Every Day tamsulosin (Flomax) 0.4 Milligram(s) Oral Every Day Take your medications faithfully. Do NOT skip medication. Do NOT stop taking medications without the direction of a physician. Carry a list of your medications with you at all times, and take this medication list with you to your first follow up visit. Report any side effects. Avoid herbal remedies unless discussed with your physician. As part of your treatment plan, your physician may have prescribed a limited course of a controlled substance. This medication may be given to help people with moderate or severe pain or for other medical conditions, but there are risks involved with treatment. Common side effects may include nausea, constipation, drowsiness, sweating, itching, dry mouth, and rash. More serious side effects may include cognitive and motor impairment, like problems with thinking, concentrating, alertness, and movement (e.g. slowed reflexes), and driving and operating heavy machinery can be dangerous. It is important for you to talk to your physician if you have these side effects or questions. These controlled substances can produce physical dependence and be habit-forming if taken for an extended period of time, which means that the body has gotten used to them and may experience withdrawal symptoms if they are abruptly stopped. Withdrawal symptoms can include runny nose, sweating, goose bumps, diarrhea, abdominal cramping, rapid heartbeat, difficulty sleeping, and nervousness. Please dispose of unused and medications per your retail pharmacy guidance. Allergies prochlorperazine Immunizations This Visit No Immunizations Found Education Materials Implanted Port Home Guide An implanted port [...] implanted port has two main parts: ??? [place]. The reservoir is the part where a [...] routine maintenance. Flushing may be recommended every 4???6 weeks. ??? If a constant infusion is [...] water are not available, use alcohol-based hand plant safety leader. ? Change your dressing as told by [...] provider. Document Revised: 09/12/2020 Document Reviewed: 09/12/2020 [facility] Patient Education ?? 2020 Elsevier Inc. Moderate Conscious Sedation, Adult, Care After This [...] eating solid foods. General instructions ??? Take tmcc-zsl-vmjfgde and prescription medicines only as told by [...] 08/26/2020 Document Reviewed: 03/24/2020 Elsevier Patient Education ?? 2020 Elsevier Inc. Emergency Awareness and Preventative Care STROKE is an EMERGENCY Every Minute Counts Act FAST and Check for these signs: FACE Does the face look uneven? ARM Does one arm drift down? SPEECH Does their speech sound strange? TIME Call at any sign of stroke Stroke Risk Factors Atrial Fibrillation (irregular heartbeat) Diabetes Family history of stroke Heart Disease Heavy alcohol use High Blood Pressure High Cholesterol Physical inactivity and obesity Smoking Cigarette Smoking The facts are clear, cigarette smoking will shorten your life. Smoking can cause many illnesses along the way. As a healthcare provider, we recommend that you stop smoking. Assistance with quitting is available by contacting 9-553-LQEPNOW. This is a free resource providing counseling, support, and referral. Or you may contact your personal physician. National Suicide Prevention Lifeline: The National Suicide Prevention Lifeline is a national network of local crisis centers that provides free and confidential emotional support to people in suicidal crisis or emotional distress 24 hours a day, 7 days a week. Don't Wait! Stop a Heart Attack Before it Starts What is a heart attack? A heart attack is damage or to a part of the heart from severely decreased or lack of blood flow to the heart. Over time, arteries can become narrow from the buildup of fat and cholesterol, which is called plaque. The plaque can rupture causing a blood clot to form. When the blood clot forms, the artery can become severely narrowed or completely blocked, causing a heart attack. Heart attack is the leading cause of in the [place]. 85% of muscle damage occurs within the first 2 hours. Delay in the recognition of heart attack symptoms increases the chances of . Know the early symptoms of a heart attack: Nausea Feeling of fullness in chest Jaw Pain Pain that travels down one or both arms Fatigue/being tired Anxiety Back Pain Chest pressure, squeezing, or discomfort Shortness of breath Sweating, or a cold sweat Feeling of impending doom There are unusual signs of a heart attack, too! Women, the elderly, and diabetics may present with atypical symptoms: Fainting/dizziness Weakness Confusion Risk Factors for a Heart Attack Some heart disease risk factors, such as age and family history, cannot be changed. Others, like smoking and lack of exercise, can be changed. Smoking High Cholesterol High Blood Pressure Family History Obesity Age Gender (Males are at higher risk) Lack of Exercise Diabetes Diet Stress Excessive Alcohol Intake If you or someone you know is experiencing the signs and symptoms of a heart attack, DON???T DELAY. Call immediately and seek help. If someone collapses, perform CPR! Do not attempt to drive if you are having symptoms of heart attack. Hands-Only CPR Why Hands-Only CPR? Hands-Only CPR has been shown to be as effective as conventional CPR for cardiac arrests that occur outside of a hospital. Survival depends on immediately receiving CPR from someone nearby. How do you perform Hands-Only CPR? There are two easy steps: Call 9-1-1 if you see a teen or adult collapse Push hard and fast in the center of the chest at a beat of 100 beats per minute. Save a life! 4 WAYS TO GET AHEAD OF SEPSIS SEPSIS is a MEDICAL EMERGENCY. Time matters! Infections put you and your family at risk for a life-threatening condition called sepsis. Sepsis is the body's extreme response to an infection. It is life-threatening, and without timely treatment, sepsis can rapidly lead to tissue damage, organ failure, and . Sepsis happens when an infection you already have-in your skin, lungs, urinary tract or somewhere else-triggers a chain reaction throughout your body. 1 PREVENT INFECTIONS Take good care of chronic conditions. Talk to your doctor about getting the recommended vaccines. 2 PRACTICE GOOD HYGIENE Wash your hands frequently. Keep cuts or open sores clean and covered until they are healed. 3 KNOW THE SYMPTOMS Confusion or disorientation Shortness of breath High heart rate Fever, shivering, or feeling very cold Extreme pain or discomfort Clammy or sweaty skin 4 ACT FAST Get medical care IMMEDIATELY if you suspect sepsis or if you have an infection that is not getting better or is getting worse. To learn more about sepsis and how to prevent infections, visit www.cdc.gov/sepsis. Test Results Laboratory or Other Results This Visit (last charted value for your 08/07/2021 visit) Coagulation 08/07/2021 9:30 AM INR: 1.0 -- Normal range between ( 0.9 and 1.2 ) PT: 10.5 Second(s) -- Normal range between ( 9.2 and 12.0 ) Specials/Interventional 08/07/2021 12:33 PM XA CVC Tunneled W Port: XA CVC Tunneled W Port Patient Name:WOLF RODRIGUEZ I have received and understand this information and was given the opportunity to ask questions. Patient/Day Care Provider Name: Patient/Day Care Provider Signature: Relationship to Patient: Clinician/Hospital Day Care Provider Signature: Date: documented in this encounter Plan of Treatment Not on file documented as of this encounter Visit Diagnoses Not on filedocumented in this encounter Care Teams Legal Billing Coordinator Relationship Specialty Start Date End Date Krystle Hall MD [address] [phone] PCP - General Family Medicine 03/08/[address] Dietitian Nutrition 07/11/22 02/14/23 Usama Mcelroy MD 1210 [facility] [address] [place] [address] Medical Oncologist Hematology and Oncology 11/23/22 Siomara Pederson, RN Nurse Navigator Oncology 11/23/22 02/14/23 Lauren Douglass RN Registered Nurse Oncology 11/23/22 02/14/23 Anne Doran, PA-C [address] [address] Physician Superintendent Refuse Disposal Oncology 11/23/22 documented as of this encounter
--- OUTSIDE RECORDS SUMMARY | 2024-12-25 12:28 | XMS_ITS | Encounter Summary ---
Author Organization [employer] ([place], [place], [place], [place]) Address [address] [place] [address] Care Team Providers Care Cath Laboratory Technician Name Role Phone Krystle Hall MD Primary Care Provider [phone] Unavailable Unavailable Usama Mcelroy MD Unavailable Siomara Pederson RN Unavailable Unavailable Lauren Douglass RN Unavailable Unavailable Anne Doran PA-C Unavailable [phone] Encounter Details Date Type Department Care Team (Late st Contact Info) Description 03/06/[address] [facility] Central Scheduling [address] [place] [phone] Nathan Holden MD [address] [place] [address] Lumbar radiculopathy (Primary Dx) Social History Tobacco Use Types Packs/Day Years Used Date Smoking Tobacco: Never Assessed Sex and Gender Information Value Date Recorded Sex Assigned at Male 11/07/2021 7:21 PM CDT Legal Sex Male 7:21 PM CDT Gender Identity Male 11/07/2021 7:21 PM CDT Sexual Orientation Not on file documented as of this encounter Plan of Treatment Not on file documented as of this encounter Visit Diagnoses Diagnosis Lumbar radiculopathy- Primary Thoracic or lumbosacral neuritis or radiculitis, unspecified documented in this encounter Care Teams Cath Laboratory Technician Relationship Specialty Start Date End Date Krystle Hall MD [address] [phone] PCP - General Family Medicine 03/08/22 Leola Manuel, HAILEY Dietitian Nutrition 07/11/22 02/14/23 Usama Mcelroy MD 1210 [facility] [address] [place] [address] Medical Oncologist Hematology and Oncology 11/23/22 Siomara Pederson, RN Nurse Navigator Oncology 11/23/22 02/14/23 Lauren Douglass, RN Registered Nurse Oncology 11/23/22 02/14/23 Anne Doran, PAWilsonC [address] [address] Physician Physiological Chemist Oncology 11/23/22 documented as of this encounter
--- OUTSIDE RECORDS SUMMARY | 2024-12-25 12:28 | XMS_ITS | Encounter Summary ---
Author Organization [employer] ([place], [place], [place], [place]) Address [address] [place] [address] Care Team Providers Care Microcomputer Support Specialist Name Role Phone Krystle Hall MD Primary Care Provider [phone] Unavailable Unavailable Usama Mcelroy MD Unavailable Siomara Pederson RN Unavailable Unavailable Lauren Douglass RN Unavailable Unavailable Anne Doran PA-C Unavailable [phone] Encounter Details Date Type Department Care Team (Late st Contact Info) Description 08/07/2021 Transcribed Document [facility] [place] Family Medicine [address] [place] [address] ProviderBenjamin MD [address] [place] [address] Social History Tobacco Use Types Packs/Day Years Used Date Smoking Tobacco: Never Assessed Family and Community Support Answer Jaime e Recorded Help with Day to Day Activities Not on file 05/27/2023 Feeling Lonely or Isolated Not on file 05/27 Educational Attainment Answer Date Nitin rded Speak language other than Yi at home Not on file 05/27/2023 Want [...] Note - Benjamin Bonner MD - 08/07/2021 2:35 PM CDT Nursing Discharge Summary Entered On: 08/07/2021 14:37 EDT Performed On: 08/07/2021 14:35 EDT by KELSIE NEUMANN RN Discharge Documentation Discharge Date/Time : 08/07/2021 14:50 EDT Patient Disposition, General : Discharge Discharge To : Home with ambulatory/outpatient follow-up Mode Of Departure, General Discharge : Private vehicle, Wheelchair Accompanied By, Discharge : Spouse IV Discontinued : Yes Personal Belongings With Patient : Yes Discharge Instructions Reviewed With, Opportunity For Questions Given : Patient, Spouse Patient Education Completed : Yes Teaching Method : Demonstration, Explanation, Printed materials Teaching Evaluation : Returns demonstration, Verbalizes understanding KELSIE NEUMANN RN - 08/07/2021 14:35 EDT Electronically signed by Colleen [facility] Conversion Telecom Sales Consultant Cerner at 08/29/2022 10:47 PM CDT documented in this encounter Plan of Treatment Not on file documented as of this encounter Visit Diagnoses Not on filedocumented in this encounter Care Teams Microcomputer Support Specialist Relationship Specialty Start Date End Date Krystle Hall MD [address] [place] [phone] PCP - General Family Medicine 03/08/[address] Dietitian Nutrition 07/11/22 02/14/23 Usama Mcelroy MD 1210 [facility] [address] [place] [address] Medical Oncologist Hematology and Oncology 11/23/22 Siomara Pederson, RN Nurse Navigator Oncology 11/23/22 02/14/23 Lauren Douglass RN Registered Nurse Oncology 11/23/22 02/14/23 Anne Doran, PA-C [address] [place] [address] Physician Marsh Buggy Operator Oncology 11/23/22 documented as of this encounter
--- OUTSIDE RECORDS SUMMARY | 2024-12-25 12:28 | XMS_ITS | Referral Summary ---
Author Organization [employer] ([place], [place], [place], [place]) Address [address] [place] [address] Care Team Providers Care Court Worker Name Role Phone Krystle Hall MD Primary Care Provider Usama Mcelroy MD Unavailable Anne Doran PA-C Unavailable [phone] Allergies Active Allergy Reactions Criticality Noted Date Comments Prochlorperazine Other (See Comments) Low 2 Confusion, mental status changes Medications albuterol HFA (VENTOLIN HFA) 90 mcg/actuation inhaler albuterol sulfate HFA 90 mcg/actuation aerosol inhaler Active apixaban (ELIQUIS) 2.5 mg Tab tablet Eliquis 2.5 mg tablet TAKE 1 TABLET BY MOUTH TWICE DAILY Active polycarbophil (FIBERCON) 625 mg tablet Take 2 tablets (1,250 mg total) by mouth 2 (two) times daily. Active tamsulosin HCl (FLOMAX ORAL) 0.4 mg, Oral, Daily, 0 Refill(s) 2 Active glucosam-chondro me-Y-rznwdxfry 500-400-2-0.33 mg Cap glucosamine 500 mg-chondroit 400 mg-vit C 16 mg-manganese 3 mg capsule 2 q am Active metoprolol succinate (TOPROL-XL) 25 MG 24 hr tablet metoprolol succinate ER 25 mg tablet,extended release 24 hr TAKE 1 TABLET BY MOUTH ONCE DAILY. STOP METOPROLOL TARTRATE. Active montelukast sodium (MONTELUKAST ORAL) 10 mg, Oral, Daily, 0 Refill(s) 2 Active guaiFENesin (mucINEX) 600 mg 12 hr tablet 600 mg, Oral, Q12H, 0 Refill(s) 2 Active multivit-min/jessica basia fumarate (MULTI VITAMIN ORAL) Multi Vitamin Active pramipexole 1.5 mg Tb24 pramipexole ER 1.5 mg tablet,extended release 24 hr Take 1 tablet every day by oral route for 90 days. 1 Active Lactobacillus acidophilus (PROBIOTIC ORAL) Probiotic Act sofia fluticasone-umec lidin-vilanter (Trelegy Ellipta) 200-62.5-25 mcg DsDv Trelegy Ellipta 200 mcg-62.5 mcg-25 mcg powder for inhalation Active cholecalciferol, vitamin D3, 25 mcg (1,000 unit) capsule Vitamin D3 25 mcg (1,000 unit) capsule Take 1 capsule every day by oral route. Active fluticasone propionate (FLONASE) 50 mcg/actuation nasal spray 2 sprays by Nasal route daily as needed. Active diclofenac 1 % Gel Apply topically daily as needed. Active fluticasone furoate-vilanter oL (BREO ELLIPTA) 200-25 mcg/dose DsDv Inhale 1 Inhalation by mouth via inhaler in the morning. Active cannabidioL (EPIDIOLEX) 100 mg/mL Soln solution Take by mouth daily. 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 Quit around Alcohol Use Standard Drinks/Week Comments Yes 5 (1 standard drink = 0.6 oz pur e alcohol) Family and Community Support Answer Jaime e Recorded Help with Day to Day Activities Not on file 05/27/2023 Feeling Lonely or Isolated Not on file 05/27 Educational Attainment Answer Date Nitin rded Speak language other than Malagasy at home Not on file 05/27/2023 Want [...] PM CDT Sexual Orientation Not on file Last Filed Vital Signs Vital Sign Reading Time Taken Comments Blood Pressure 107/56 02/15/2023 1:20 PM EDT Pulse 55 02/15/2023 1:20 PM EDT Temperature 36.6 C (97.8 F) 02/15/2023 1:20 PM EDT Respiratory Rate 14 02/15/2023 1:20 PM EDT Oxygen Saturation 96% 02/15/2023 1:20 PM EDT Inhaled Oxygen Concentration - - Weight 89.2 kg (196 lb 9.6 oz) 02/15/2023 1:20 P M EDT Height 185.4 cm (6' 1 ) 02/15/2023 1:20 PM EDT Body Mass Index 25.94 02/15/2023 1:20 PM EDT Plan of Treatment Not on file Insurance MEDICARE PART A B [facility] HE[facility] CLAIMS Care Teams Court Worker Relationship Specialty Start Date End Date Krystle Hall MD [address] [place] [phone] PCP - General Family Medicine 03/08/22 Usama Mcelroy MD 1210 [facility] [address] [place] [address] Medical Oncologist Hematology and Oncology 11/23/22 Anne Doran, PA-C [address] [place] [address] [address] [place] [address] Physician Twisthand Oncology 11/23/22
--- OUTSIDE RECORDS SUMMARY | 2024-12-25 12:28 | XMS_ITS | Encounter Summary ---
Author Organization [employer] ([place], [place], [place], [place]) Address [address] [place] [address] Care Team Providers Care Brinell Tester Name Role Phone Krystle Hall MD Primary Care Provider [phone] Unavailable Unavailable Usama Mcelroy MD Unavailable Siomara Pederson RN Unavailable Unavailable Lauren Douglass RN Unavailable Unavailable Anne Doran PA-C Unavailable [phone] Encounter Details Date Type Department Care Team (Late st Contact Info) Description 08/07/[address] [facility] Family Medicine [address] [place] [address] ProviderBenjamin MD [address] [place] [address] Social History Tobacco Use Types Packs/Day Years Used Date Smoking Tobacco: Never Assessed Family and Community Support Answer Jaime e Recorded Help with Day to Day Activities Not on file 05/27/2023 Feeling Lonely or Isolated Not on file 05/27 Educational Attainment Answer Date Nitin rded Speak language other than Kazakh at home Not on file 05/27/2023 Want [...] Note - Benjamin Bonner MD - 08/07/2021 1:29 PM CDT Patient: WOLF RODRIGUEZ Age: 80 years Sex: Male : 1940 Associated Diagnoses: None Author: REGINALD ANGEL MD Pre-OP/Procedure Diagnosis: Bladder cancer, Need long-term IV access, Presented for port placement. Post-OP/Procedure Diagnosis: Same. Procedure Performed: Right IJ Port placement. Procedural MD: Reginald Angel Comic Book Designer: None Sedation: Moderate conscious sedation Findings: Patent Right IJ Complications: None EBL: < 5 ml Specimen(s) Removed: None. Impression: Successful ultrasound and fluoroscopic guided right IJ port placement, Port is ready to use. Full report to follow. Electronically signed by [facility] Conversion Assembler Wet Wash Cerner at 08/29/2022 10:42 PM CDT documented in this encounter Plan of Treatment Not on file documented as of this encounter Visit Diagnoses Not on filedocumented in this encounter Care Teams Brinell Tester Relationship Specialty Start Date End Date Krystle Hall MD [address] [phone] PCP - General Family Medicine 03/08/[address] Dietitian Nutrition 07/11/22 02/14/23 Usama Mcelroy MD [address] [facility] [address] [place] [address] Medical Oncologist Hematology and Oncology 11/23/22 Siomara Pederson, RN Nurse Navigator Oncology 11/23/22 02/14/23 Lauren Douglass RN Registered Nurse Oncology 11/23/22 02/14/23 Anne Doran, PA-C [address] [place] [address] Physician Comic Book Designer Oncology 11/23/22 documented as of this encounter
--- OUTSIDE RECORDS SUMMARY | 2024-12-25 12:28 | XMS_ITS | Encounter Summary ---
Author Organization [employer] ([place], [place], [place], [place]) Address [address] [place] [address] Care Team Providers Care Chemical Process Analyst Name Role Phone Krystle Hall MD Primary Care Provider [phone] Usama Mcelroy MD Unavailable Anne Doran PA-C Unavailable [phone] Reason for Referral * CAT Scan (Routine) - Closed Specialty Diagnoses / Procedures Referred By Contac t Referred To Contact Radiology Diagnoses Lung nodule, solitary Procedures CT chest without IV contrast Ifrah Modi MD [address] [place] [address] Phone: tel: fax: Referral ID Status Reason Start Date Expiration Date Visits Re quested Visits Authorized [id number] Closed 12/16/2023 12/15/2024 1 1 Encounter Details Date Type Department Care Team (Late st Contact Info) Description 12/16/2023 Outside Orders [facility] Central Scheduling [address] [place] [address] Ifrah Modi MD [address] [place] [address] Lung nodule, solitary (Primary Dx) Social History Tobacco Use Types Packs/Day Years Used Date Smoking Tobacco: Former Cigarettes 2 25 1 961 - 1985 Passive Smoke Exposure: Past Comments:1.5-2.0 ppd. Quit a round 1985/1986 Alcohol Use Standard Drinks/Week Comments Yes 5 (1 standard drink = 0.6 oz pur e alcohol) Family and Community Support Answer Jaime e Recorded Help with Day to Day Activities Not on file 05/27/2023 Feeling Lonely or Isolated Not on file 05/27 Educational Attainment Answer Date Nitin rded Speak language other than Maldivian at home Not on file 05/27/2023 Want [...] as of this encounter Plan of Treatment Scheduled Orders Name Type Priority Associated Diagnoses Orde r Schedule CT chest without IV contrast Imaging Routine Lung nodule, solitary Expected: 12/16/2023, Expires: 01/15/2025 documented as of this encounter Visit Diagnoses Diagnosis Lung nodule, solitary- Primary documented in this encounter Care Teams Chemical Process Analyst Relationship Specialty Start Date End Date Krystle Hall MD [address] [place] [phone] PCP - General Family Medicine 03/08/22 Usama Mcelroy MD [address] [facility] [address] [place] [address] Medical Oncologist Hematology and Oncology 11/23/22 Anne Doran, PA-C [address] [facility] [address] [place] [address] Physician Citizenship Teacher Oncology 11/23/22 documented as of this encounter
--- OUTSIDE RECORDS SUMMARY | 2024-12-25 12:28 | XMS_ITS | Clinical Summary ---
Author Organization [employer] ([place], [place], [place], [place]) Address [address] [place] [address] Care Team Providers Care Dependency Director Name Role Phone Krystle Hall MD Primary Care Provider Usama Mcelroy MD Unavailable Anne Doran PA-C Unavailable Allergies Active Allergy Reactions Criticality Noted Date [...] Oral, Daily, 0 Refill(s) 2 Active glucosam-chondro yp-T-jqlmyvers 500-400-2-0.33 mg Cap glucosamine 500 mg-chondroit 400 [...] Unsigned COPD (chronic obstructive pulmonary disease) 10/2019 Family History Medical History Relation Name Comments Heart disease Father Stroke Mother Relation Name Status Comments Father Mother Social History Tobacco Use Types Packs/Day Years [...] Date Nitin rded Speak language other than Lao at home Not on file 05/27/2023 Want [...] 02/15/2023 1:20 PM EDT Plan of Treatment Health Maintenance Due Date Last Done Comments Medicare Initial AWV G0438 Depression Screening (12+) 1952 Respiratory Syncytial Virus (RSV) Adult or (1 - 1-dose 75+ series) 2013 COVID-19 VACCINE (2023-2 5 season) 2024 02/19/2023, 02/05/2022, 10/05/2021, Additional history exists Tobacco Cessation Counseling and Screening (12+) 02/16/2024 02/15/2023 Falls Risk Screening 05/13/2024 Influenza Vaccine (#1) 2025 3, 09/28/2022, 02/05/2022, Additional history exists DTAP/TDAP/TD VACCINES (3 - T d or Tdap) 09/17/2030 09/17/2020, 03/06/2016 Shingles Vaccine (Zoster) Completed 2019, 11/27/2019, 12/22/2007 Pneumococcal 50+ years Completed 4, 02/28/2017, 01/25/2015, Additional history exists Insurance MEDICARE PART A B [facility] M[facility] SUPP [facility]LY [facility] Care Teams Dependency Director Relationship Specialty Start Date End Date Krystle Hall MD [address] [phone] PCP - General Family Medicine 03/08/22 Usama Mcelroy MD 12[address] [facility] [address] [place] [address] Medical Oncologist Hematology and Oncology 11/23/22 Anne Doran, PAParas [address] [address] Physician Front End Manager Oncology 11/23/22
--- OUTSIDE RECORDS SUMMARY | 2024-12-25 12:28 | XMS_ITS | Encounter Summary ---
Author Organization [employer] ([place], [place], [place], [place]) Address [address] [place] [address] Care Team Providers Care Plodding Operator Name Role Phone Krystle Hall MD Primary Care Provider [phone] Unavailable Unavailable Usama Mcelroy MD Unavailable Siomara Pederson RN Unavailable Unavailable Lauren Douglass RN Unavailable Unavailable Anne Doran PA-C Unavailable [phone] Encounter Details Date Type Department Care Team (Late st Contact Info) Description 11/07/2021 Transcribed Document [facility] Family Medicine [address] [place] [address] ProviderBenjamin MD [address] [place] [address] Social History Tobacco Use Types Packs/Day Years Used Date Smoking Tobacco: Never Assessed Family and Community Support Answer Jaime e Recorded Help with Day to Day Activities Not on file 05/27/2023 Feeling Lonely or Isolated Not on file 05/27 Educational Attainment Answer Date Nitin rded Speak language other than Bolivian at home Not on file 05/27/2023 Want [...] Conversion Note - Historical ProviderMD - 11/07/2021 9:33 AM CDT Pre Procedure Adult Entered On: 11/07/2021 9:40 EDT Performed On: 11/07/2021 9:33 EDT by Fab Hampton RN Height and Weight, Clinical Dosing Height Source : Stated Height Entry Format : [place] Height, Feet : 6 ft(Converted to: 183 cm, 72 Inch) Height, Inches : 2 Inch(Converted to: 0 ft 2 Inch, 5.08 cm) Clinical Height : 187.96 cm Weight Source : Standing scale Weight Entry Format : [place]asio Clinical Dosing Weight : 93.18 kg Weight, Pounds : 205 lb Body Surface Area (BSA) : 2.2 m2 Body Mass Index : 26.4 kg/m2 (HI) [place] Body Weight : 81 kg Fab Hampton RN - 11/07/2021 9:33 EDT Health Histories Smoking Status : Former smoker, quit more than 30 days ago Smokeless Tobacco Status : Never Implant/Device Type, Five Roll Refiner Batch Mixer and Model : port a cath Fab Hampton RN - 11/07/2021 9:33 EDT Social History (As Of: 11/07/2021 09:40:12 EDT) Tobacco: Smoking Status Former smoker. Years of Use: 30. Packs/Tins Daily: 1. Last Used: 40 years ago. (Last Updated: 01/16/2013 10:17:34 EDT by REMY PERKINS, RN) Alcohol: Use in Last 12 Months: Yes. Days/Week: 7. # Drinks/Day: 1. (Last Updated: 01/16/2013 10:17:47 EDT by REMY PERKINS, RN) Substance Abuse: Drug Use Hx: No. Use in Last 12 Months: No. (Last Updated: 01/16/2013 10:17:53 EDT by REMY PERKINS, RN) Infectious Disease History Does patient have symptoms of COVID-19? : No Tested for COVID19 in the past 14 days : No, Patient stated Does the Patient state known exposure to a COVID-19 positive case in the last 14 days? : No Patient Vaccinated for COVID-19 : Fully vaccinated Fab Hampton RN - 11/07/2021 9:33 EDT Infectious Disease Risk Screening Grid Cough < 2 wks of unknown origin : NO Cough > 2 weeks : NO Blood in Sputum : NO Fever or self-reported Fever : NO Rash of unknown origin : NO Headache : NO Stiff neck : NO Night Sweats : NO Unexplained Weight Loss : NO Diarrhea (3 episode per day) : NO Fab Hampton RN - 11/07/2021 9:33 EDT Physical contact outside [place] in the last 30 days : No Hospitalized in Foreign Country : No Infectious Disease History : Mumps INF Disease TB Screening Calc : 0 INF Disease Recent Travel Calc : 0 Fab Hampton RN - 11/07/2021 9:33 EDT COVID19 PreProcedure Screening Is this an Emergent or Add on Procedure? : No Date PreProcedure COVID-19 test known? : No Has patient been isolated since the test : No Exposed to COVID19 symptoms since test? : No Fab Hampton RN - 11/07/2021 9:33 EDT Anesthesia/Transfusion History Family History of Anesthesia Reaction : No prior transfusion(s) Blood Transfusion Acceptable to Patient : Yes Transfusion History : Prior anesthesia without reaction Family History of Anesthesia Reaction : None Fab Hampton RN - 11/07/2021 9:33 EDT Functional Assessment Living Situation : Home Current Home Treatments : None Fab Hampton RN - 11/07/2021 9:33 EDT [place] Suicide Severity Rating Scale (C-SSRS) CSSRS Past Month Wish to be : No CSSRS Past Month Suicidal Thoughts : No CSSRS Lifetime Suicide Behavior : No Suicide Severity Rating Score : 0 Suicide Severity Rating : No Additional Care Required at this time Thoughts of Harming/Killing Others : No Fab Hampton RN - 11/07/2021 9:33 EDT Psychosocial History Currently in Unsafe Situation : No Fab Hampton RN - 11/07/2021 9:33 EDT Advance Directive Patient has Advance Directive *Q : Yes, Advance Directive not with the patient Advance Directive Type : Living will Copy Advance Directive Verified/on Chart : No Fab Hampton RN - 11/07/2021 9:33 EDT General Info Want Family/Rep/Phys Notified of Admit : No Emergency Contact #1 : Aby Emergency Contact #1 Emergency Contact #1 Relationship : Emergency Contact #2 : Mikayla Oakley Emergency Contact #2 Emergency Contact #2 Relationship : daughter Primary Language : Bolivian Communication Barrier : None Loan Funder Needed : No Fab Hampton RN - 11/07/2021 9:33 EDT Sleep Apnea Risk Assmt Hx of Obstructive Sleep Apnea Diagnosis : No Snore Loudly : No Tired, Fatigued, or Sleepy During Day : Yes Observed Stopping Breathing During Sleep : No Have/Are Being Treated for Hypertension : Yes BMI Greater Than 35 kg/m2 : No Age over 50 Years Old : Yes Neck Circumference Greater Than 40 cm : No Gender Male : Yes STOP-BANG Sleep Apnea Risk Level Score : 4 Fab Hampton RN - 11/07/2021 9:33 EDT Michael Scale Michael Sensory Perception : Slightly limited Michael Moisture : Rarely moist Michael Activity : Walks occasionally Michael Mobility : Slightly limited Michael Nutrition : Adequate Michael Friction and Shear : No apparent problem Michael Score : 19 Fab Hampton RN - 11/07/2021 9:33 EDT Fall Risk Scales ABCs Fall Injury Risk Identification : Age, Bones ABC Fall Injury Risk : Moderate to high injury risk FORMAN Hx Falls Immediate/Within 3 Months : Yes [place] Secondary Diagnosis : Yes [place] Use of Ambulatory Aid : Bed rest/Nurse assist [place] IV Therapy or IV Access : Yes [place] Gait/Transferring : Normal, bedrest, immobile [place] Mental Status : Oriented to own ability [place] Fall Risk Score : 60 [place] Fall Scale Risk Level : 46 or > High Risk [place] Fall Interventions : Adequate lighting, Assistive devices within reach, Bed in low position, Call device within reach, Fall prevention handout/education per facility policy, Hourly comfort/safety rounds, Non-slip footwear, Personal items within reach, Reinforced to call for assistance before getting out of bed, Room free of clutter/spills, Upper side-rails up, Wheels locked, Wires/Cords secured Fab Hampton RN - 11/07/2021 9:33 EDT Valuables and Belongings Valuables and Belongings : Clothing, Jewelry, Personal devices, Personal items, Assistive devices, No comfort items, No assistive devices, No respiratory devices, No medications Clothing : Common streetwear Clothing Disposition : With family Personal Device Disposition : With patient Jewelry : Ring Jewelry Disposition : With patient Personal Devices : Glasses, Hearing aid, left, Hearing aid, right Personal Items : Wallet Personal Items Disposition : With patient, Declines to send to security/safe Assistive Devices From Home : Cane Assistive Device Disposition : With family, Declines to send to security/safe Fab Hampton RN - 11/07/2021 9:33 EDT [place] Coma Jl Best Motor Response : Obey commands Jl Best Verbal Response : Oriented Jl Eye Opening Response : Spontaneous Jl Coma Score : 15 Fab Hampton RN - 11/07/2021 9:33 EDT Electronically signed by [facility] Conversion Autographer Cerner at 08/29/2022 10:41 PM CDT documented in this encounter Plan of Treatment Not on file documented as of this encounter Visit Diagnoses Not on filedocumented in this encounter Care Teams Plodding Operator Relationship Specialty Start Date End Date Krystle Hall MD [address] [place] [phone] PCP - General Family Medicine 03/08/[address] Dietitian Nutrition 07/11/22 02/14/23 Usama Mcelroy MD [address] [facility] [address] [address] Medical Oncologist Hematology and Oncology 11/23/22 Siomara Pederson, RN Nurse Navigator Oncology 11/23/22 02/14/23 Lauren Douglass RN Registered Nurse Oncology 11/23/22 02/14/23 Anne Doran PA-C [address] [place] [address] [address] [place] [address] Physician Fisher Hoop Net Oncology 11/23/22 documented as of this encounter
--- OUTSIDE RECORDS SUMMARY | 2024-12-25 12:28 | XMS_ITS | Patient Health Record ---
Author Organization [employer] Address [address] [place] [address] Care Team Providers Care Electrical Checkout Mechanic Name Role Phone ANGEL MENDOZA Unavailable [phone] ALLERGIES Allergen (clinical drug ingredient) Drug/Non Drug Allergy documented on EMR Reaction Allergy Type Onset Date Status prochlorperazine Prochlorperazine Unknown Drug Allergy Active REASON FOR REFERRAL No Information MEDICATIONS Medication SIG (Take, Route, Frequency, Duration) Notes Start Date End Date Status Triamterene-HCTZ 37.5-25 MG 1/2 tablet O rally Once a day Active Simvastatin 20 MG 1 tablet Orally Once a day Active Breo Ellipta 100-25 MCG/INH 1 puff Inhal ation Once a day Active Aspirin 81 MG 1 tablet Orally Once a day for 30 day(s) Active Vitamins/Supplements Active Fiber Con 2 in am, 2 in pm Act sofia Dulcolax 5 MG 1 tablet Orally as needed Active Metoprolol Tartrate 25 MG 1/2 tablet Ora lly Once a day Active Mucinex 600 MG 1 tablet Orally as needed Active Montelukast Sodium 10 MG 1 tablet Orally Once a day for 30 day(s) Active rOPINIRole HCl 1 MG 2 tablets Orally at bedtime Active Probiotic 1 capsule Orally Onc e a day Active SOCIAL HISTORY Tobacco Use: Social History Observation Description Date Details (start date - stop date) Former Smoker NA - NA Sex Assigned At : Social History Observation Description Sex Assigned At Unknown Smoking Question Answer Notes Are you a: former smoker Additional Findings: Tobacco Non-User Current no n-smoker How long has it been since you last smoked? > 10 years Alcohol Screen Question Answer Notes Did you have a drink contain ing alcohol in the past year? Yes Points 3 Interpretation Negative How often did you have a dri nk containing alcohol in the past year? Two to three times per week (3 points) How many drinks did you have on a typical day when you were drinking in the past year? 1 or 2 (0 points) How often did you have six o r more drinks on one occasion in the past year? Never (0 points) PROBLEMS Problem Type ICD Code Onset Dates Problem Status W/U Status Risk SNOMED Code Notes Problem Dysphagia, unspecified (R13.10) Active confirmed Dysphagia (99811562) Problem Dyspepsia (K30) Active confirmed Dyspep donell (742513428) Problem Esophageal Reflux/GERD (K21.9) Active confirmed Problem Dietary counseling and surveillance (Z71.3) Active confirmed Dietary management surveillance (221542045) PLAN OF TREATMENT No Information Insurance Providers Payer Name Payer Address Payer Phone Subscriber Number Group Number Insured Name Patient Relationship to Insured Coverage Start Date Coverage End Date MEDICARE PART B [address] [address] [place] [address] [id number] Wolf Mckeon Self - patient is the insured [facility] [employer] [address] [place] [address] [id number] Wolf Mckeon Self - patient is the insured MEDICAL (GENERAL) HISTORY Medical History History ICD Code Asthma COPD GERD Hyperlipidemia Hypertension Insomnia Surgical History Surgery Date(Month/Year) Appendectomy Cholecystectomy Hernia repair Tonsillectomy
--- OUTSIDE RECORDS SUMMARY | 2024-12-25 12:28 | XMS_ITS | Patient Health Record ---
Author Organization Ben Friedman Address [address] [facility] [address] [place] [address] Care Team Providers Care Hide Worker Name Role Phone BEN PASCAL Unavailable [phone] Allergies No Known Allergies Results Component Value Reference Range Notes LIPID PANEL WITH RATIOS Reviewed date:04/06/2024 01:23:38 PM Interpretation:Abnormal Performing Lab:[facility], [id number], [id number] [address] DR. Jasmyn Noguera Notes/Report: FASTING: NO COLLECTION KIT GIVEN TO PATIENT. PATIENT ADVISED TO RETURN. FASTING:NO CHOLESTEROL, TOTAL 91 <200 mg/dL HDL CHOLESTEROL 31 > OR = 40 mg/dL TRIGLYCERIDES 71 <150 mg/dL LDL-CHOLESTEROL 45 Reference range: <100 Desirable range <100 mg/dL for primary prevention; <70 mg/dL for patients with CHD or diabetic patients with > or = 2 CHD risk factors. LDL-C is now calculated using the John-Marisabel calculation, which is a validated novel method providing better accuracy than the Friedewald equation in the estimation of LDL-C. John ESQUEDA et al. DIANE. 2013;310(19): 7333-0895 (http://education.[employer].Jibbigo/faq/RAX924) CHOL/HDLC RATIO 2.9 <5.0 (calc) LDL/HDL RATIO 1.5 Below Average Risk: <2.28 Average Risk: 2.29-4.90 Moderate Risk: 4.91-7.12 High Risk: >7.13 NON HDL CHOLESTEROL 60 <130 mg/dL (calc) For patients with diabetes plus 1 major ASCVD risk factor, treating to a non-HDL-C goal of <100 mg/dL (LDL-C of <70 mg/dL) is considered a therapeutic option. COMPREHENSIVE METABOLIC PANE L Reviewed date:04/06/2024 01:23:38 PM Interpretation:Abnormal Performing Lab:[facility], [id number], YpgnvlbCP[address] [address] Jasmyn Noguera Notes/Report: FASTING:NO COLLECTION KIT GIVEN TO PATIENT. PATIENT ADVISED TO RETURN. FASTING: NO GLUCOSE 122 65-139 mg/dL Non-fasting reference interval UREA NITROGEN (BUN) 30 7-25 mg/dL CREATININE 0.77 0.70-1.22 mg/dL EGFR 88 > OR = 60 mL/min/1.73m2 BUN/CREATININE RATIO 39 6-22 (calc) SODIUM 135 135-146 mmol/L POTASSIUM 3.1 3.5-5.3 mmol/L CHLORIDE 97 98-110 mmol/L CARBON DIOXIDE 28 20-32 mmol/L CALCIUM 8.6 8.6-10.3 mg/dL PROTEIN, TOTAL 5.0 6.1-8.1 g/dL ALBUMIN 3.1 3.6-5.1 g/dL GLOBULIN 1.9 1.9-3.7 g/dL (calc) ALBUMIN/GLOBULIN RATIO 1.6 1.0-2.5 (calc) BILIRUBIN, TOTAL 0.7 0.2-1.2 mg/dL ALKALINE PHOSPHATASE 37 35-144 U/L AST 16 10-35 U/L ALT 19 9-46 U/L IRON, TOTAL Reviewed date:04/06/2024 01:23:38 PM Interpretation:Abnormal Performing Lab:[id number], [id number] [address] DR[address] Jasmyn Noguera Notes/Report: FASTING:NO COLLECTION KIT GIVEN TO PATIENT. PATIENT ADVISED TO RETURN. FASTING: NO IRON, TOTAL 16 50-180 mcg/dL CBC (H/H, RBC, INDICES, WBC, PLT) Reviewed date:04/06/2024 01:23:38 PM Interpretation:Abnormal Performing Lab:[id number], [id number] [address] DR[address] Jasmyn Noguera Notes/Report: FASTING:NO COLLECTION KIT GIVEN TO PATIENT. PATIENT ADVISED TO RETURN. FASTING: NO WHITE BLOOD CELL COUNT 14.8 3.8-10.8 Thousand/ uL RED BLOOD CELL COUNT 3.58 4.20-5.80 Million/uL HEMOGLOBIN 11.3 13.2-17.1 g/dL HEMATOCRIT 33.5 38.5-50.0 % MCV 93.6 80.0-100.0 fL MCH 31.6 27.0-33.0 pg MCHC 33.7 32.0-36.0 g/dL For adults, a slight decrease in the calculated MCHC value (in the range of 30 to 32 g/dL) is most likely not clinically significant; however, it should be interpreted with caution in correlation with other red cell parameters and the patient's clinical condition. RDW 13.4 11.0-15.0 % PLATELET COUNT 219 140-400 Thousand/uL MPV 8.6 7.5-12.5 fL URINALYSIS REFLEX Reviewed date:04/06/2024 01:23:38 PM Interpretation:Abnormal Performing Lab:[facility], [id number] [address] DR[address] Jasmyn Noguera Notes/Report: FASTING: YES FASTING:YES SPLIT 04/02/2024 FROM [id number] COLOR YELLOW YELLOW APPEARANCE CLEAR CLEAR SPECIFIC GRAVITY 1.021 1.001-1.035 PH 6.0 5.0-8.0 GLUCOSE NEGATIVE NEGATIVE BILIRUBIN NEGATIVE NEGATIVE KETONES NEGATIVE NEGATIVE OCCULT BLOOD NEGATIVE NEGATIVE PROTEIN 1+ NEGATIVE NITRITE NEGATIVE NEGATIVE LEUKOCYTE ESTERASE NEGATIVE NEGATIVE WBC 0-5 < OR = 5 /HPF RBC NONE SEEN < OR = 2 /HPF SQUAMOUS EPITHELIAL CELLS 0-5 < OR = 5 /HPF BACTERIA NONE SEEN NONE SEEN /HPF HYALINE CAST NONE SEEN NONE SEEN /LPF HEMOGLOBIN A1c Reviewed date:04/06/2024 01:23:38 PM Interpretation:Abnormal Performing Lab:[id number], [id number] [address] Jasmyn Noguera Notes/Report: FASTING:NO COLLECTION KIT GIVEN TO PATIENT. PATIENT ADVISED TO RETURN. FASTING: NO HEMOGLOBIN A1c 5.9 <5.7 % of total Hgb For someone without known diabetes, a hemoglobin A1c value between 5.7% and 6.4% is consistent with prediabetes and should be confirmed with a follow-up test. For someone with known diabetes, a value <7% indicates that their diabetes is well controlled. A1c targets should be individualized based on duration of diabetes, age, comorbid conditions, and other considerations. This assay result is consistent with an increased risk of diabetes. Currently, no consensus exists regarding use of hemoglobin A1c for diagnosis of diabetes for children. NOTE Reviewed date:04/06/2024 01:23:38 PM Interpretation:Abnormal Performing Lab:[place], [id number], [id number] [address]. Jasmyn Noguera Notes/Report: SPLIT 04/02/2024 FROM [id number] FASTING:YES FASTING: YES NOTE This urine was analyzed for the presence of WBC, RBC, bacteria, casts, and other formed elements. Only those elements seen were reported. Reason For Referral Reason Dr. Pascal would l meka this patient to be seen right away Diagnosis 1 Paroxysmal atrial fi brillation (I48.0) Referral Organization [facility] Referring Provider First Name BEN Referring Provider Last Name DENAE Referring Provider Speciality [facility] ctice Referred Provider Specialty Cardiology General Notes Referral has been fa xed to [facility] with a message to schedule the patient's as soon as possible, Spencer Ruiz 04/01/2024 04:05:58 PM > Clinical Notes Spencer Ruiz 04/01 04:06:08 PM > Referral Priority Urgent Medications Medication SIG (Take, Route, Frequency, Duration) Notes Start Date End Date Status Vitamin D 25 MCG (1000 UT) 1 tablet Oral ly Once a day Active Voltaren 1 % as directed Externally Active Trelegy Ellipta 200-62.5-25 MCG/ACT 1 puff Inhalation Once a day Active Spironolactone 50 MG 1 tablet Orally Onc e a day Active Metoprolol Succinate ER 25 MG 0.5 Orally Once a day Active Ferrous Sulfate 325 (65 Fe) MG 1 tablet Orally Three times a Week Active Probiotic Not-Taking Bumetanide 1 MG 1 tablet Orally Once a day Active Multi-Vitamin Not-Ta roma Atorvastatin Calcium 40 MG 1 tablet Oral ly Once a day Active Vcruezi-Hdrpsf-Bh Chondr-MSM Not-Taking Clopidogrel Bisulfate 75 MG 1 tablet Ora lly Once a day Active Tamsulosin HCl 0.4 MG 1 capsule Orally O nce a day Active Montelukast Sodium 10 MG 1 tablet Orally Once a day Active Pramipexole Dihydrochloride ER 1.5 MG 1 tablet Orally Once a day Active Fiber 500 MG as directed Orally Active Social History Tobacco Use: Social History Observation Description Date Details (start date - stop date) Former Smoker NA - NA Tobacco Use/Smoking Question Answer Notes Are you a former smoker Alcohol Screen (Audit-C) Question Answer Notes Did you have a drink contain ing alcohol in the past year? Yes How often did you have a dri nk containing alcohol in the past year? 4 or more times a week (4 points) How many drinks did you have on a typical day when you were drinking in the past year? 1 or 2 drinks (0 point) Points 4 Interpretation Positive Problems Problem Type SNOMED Code ICD Code Onset Dates Problem Status W/U Status Risk Notes Problem Essential hypertension (89835535) Essential (primary) hypertension (I10) Active confirmed 03/27/2023:::::: ::::: BP elevated today, off Maxide 2/ to HypoNatremia, will monitor at home 04/01/24 he is on bumex and sprironolactone Problem Paroxysmal atrial fibrillation (610973284) Paroxysmal atrial fibrillation (I48.0) Active confirmed 03/27/2023:::::: ::::: In AFib today, encouraged to restart Eliquis he stopped several weeks prior and follow-up with Cardio. 04/01/24 they bring in no records other than his med and vaccine list. he should probably be on eliqus but had a history of sig bleeding he needs a local application support consultant. Problem Lower urinary tract symptoms due to benign prostatic hypertrophy (08177234268041) Benign prostatic hyperplasia with lower urinary tract symptoms (N40.1) Active confirmed this is better with tamsulosin Problem COPD - Chronic obstructive pulmonary disease (11361414) Chronic obstructive pulmonary disease, unspecified COPD type (J44.9) Active confirmed 03/27/2023:::::: ::::: Denies any new CP/SOB Problem Malignant tumor of urinary bladder (433403267) Malignant neoplasm of urinary bladder, unspecified site (C67.9) Active confirmed he is followed by urology in [place] 04/11/24 he has been having cystoscopy every 6 months with no recurrance Problem Ataxia (59663690) 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) Active confirmed he is isidoro g to therapy Problem Restless legs (83007363) RLS (restless legs syndrome) (G25.81) Active confirmed Problem Anemia (492073023) Anemia, unspecified type (D64.9) Active confirmed 03/27/2023:::::: ::::: Labs ordered 04/01/24 will get labs Problem Leukocytosis (803950103) Leukocytosis, unspecified type (D72.829) Active confirmed will recheck ?from pneumonia Problem Personal history of primary malignant neoplasm of urinary bladder (431034712) History of bladder cancer (Z85.51) Active confirmed he has an urologist in [place] Problem History of placement of stent for coronary artery disease (situation) (880548211) S/P coronary artery stent placement (Z95.5) Active confirmed summer 2023 wit h 4 stents Problem Hypercoagulable state (51015590) Secondary hypercoagulable state (D68.69) Active confirmed from atrial f ib on eliquis Problem Atherosclerotic heart disease of [place] coronary artery without angina pectoris (159564508236121 ) 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) Active confirmed Vital Signs Heart Rate 97 /min 04/01/2024 Temperature 97.2 degrees Fahrenheit 04/01/2024 Respiratory Rate 12 /min 04/01/2024 Height-cm 182.88 cm 04/01/2024 Oximetry 98 % 04/01/2024 Blood pressure diastolic 63 mm Hg 04/01/2024 Weight-kg 76.38 kg 04/01/2024 Height 72 in 04/01/2024 Blood pressure systolic 100 mm Hg 04/01/2024 Weight 168.4 lbs 04/01/2024 BMI 22.84 kg/m2 04/01/2024 Encounters Encounter Location Date Provider Diagnosis Ben GARCIA [address] [address] 04/01/2024 BEN PASCAL Paroxysmal atrial fibrillation I48.0 ; Anemia, unspecified type D64.9 ; Essential (primary) hypertension I10 ; Ataxia R27.0 ; Chronic obstructive pulmonary disease, unspecified COPD type J44.9 ; Hyponatremia E87.1 ; Compression fracture of lumbar vertebra, unspecified lumbar vertebral level, sequela S32.000S ; Hyperglycemia R73.9 ; Secondary hypercoagulable state D68.69 ; RLS (restless legs syndrome) G25.81 ; Benign prostatic hyperplasia with lower urinary tract symptoms N40.1 ; Frequency of micturition R35.0 ; Malignant neoplasm of urinary bladder, unspecified site C67.9 ; Former smoker Z87.891 ; Senile purpura D69.2 ; Arteriosclerotic coronary artery disease I25.10 ; S/P coronary artery stent placement Z95.5 and Peripheral edema R60.0 Ben Pascal PA [address] [address] 05/27/2024 BEN PASCAL Assessments Encounter Date Diagnosis (ICD Code) Assessment Notes Treatment Notes Treatment Clinical Notes Section Notes 04/01/2024 Paroxysmal atrial fibrillation (ICD-10 - I48.0) 03/27/2023:::::::: ::: In AFib today, encouraged to restart Eliquis he stopped several weeks prior and follow-up with Cardio. 04/01/24 they bring in no records other than his med and vaccine list. he should probably be on eliqus but had a history of sig bleeding he needs a local application support consultant. 04/01/2024 Anemia, unspecified type (ICD-10 - D64.9) 03/27/2023:::::::: ::: Labs ordered 04/01/24 will get labs 04/01/2024 Essential (primary) hypertension (ICD-10 - I10) 03/27/2023:::::::: ::: BP elevated today, off Maxide 06/14 to HypoNatremia, will monitor at home 04/01/24 he is on bumex and sprironolactone 04/01/2024 Ataxia (ICD-10 - R27.0) he is going to therapy 04/01/2024 Chronic obstructive pulmonary disease, unspecified COPD type (ICD-10 - J44.9) 03/27/2023:::::::: ::: Denies any new CP/SOB 04/01/2024 Hyponatremia (ICD-10 - E87.1) 06/27/22 this started about 1-2 years he has recently stopped his maxide. will recheck this he did have a normal urine sodium and osm. 04/01/2024 Compression fracture of lumbar vertebra, unspecified lumbar vertebral level, sequela (ICD-10 - S32.000S) i encouraged him to consider [place] of [place]24 Hyperglycemia (ICD-10 - R73.9) he states this has always been borderline 04/01/2024 Secondary hypercoagulable state (ICD-10 - D68.69) from atrial fib on eliquis 04/01/2024 RLS (restless legs syndrome) (ICD-10 - G25.81) 04/01/2024 Benign prostatic hyperplasia with lower urinary tract symptoms (ICD-10 - N40.1) this is better with tamsulosin 04/01/2024 Frequency of micturition (ICD-10 - R35.0) 04/01/2024 Malignant neoplasm of urinary bladder, unspecified site (ICD-10 - C67.9) he is followed by urology in [place] 04/11/24 he has been having cystoscopy every 6 months with no recurrance 04/01/2024 Former smoker (ICD-10 - Z87.891) 04/01/2024 Senile purpura (ICD-10 - D69.2) bruising on his arms probably from eliqus 04/01/2024 Arteriosclerotic coronary artery disease (ICD-10 - I25.10) 04/01/2024 S/P coronary artery stent placement (ICD-10 - Z95.5) summer 2023 with 4 stents 04/01/2024 Peripheral edema (ICD-10 - R60.0) Plan Of Treatment Pending Test Test Name Order Date Chest X-ray PA and lateral 06/27/2022 IRON, TIBC AND FERRITIN PANEL 03/27/2023 COMPREHENSIVE METABOLIC PANEL 03/27/2023 CBC (H/H, RBC, INDICES, WBC, PLT) 2022 VITAMIN B12/FOLATE, SERUM PANEL 03/27/20 Next Appt Details Provider Name:BEN PASCAL, 03/29/2025 03:30:00 PM, [address] [facility], [place], [address], Insurance Providers Payer Name Payer Address Payer Phone Subscriber Number Group Number Insured Name Patient Relationship to Insured Coverage Start Date Coverage End Date Medicare [place] [employer] [address] [place] [phone] [id number] Wolf Mckeon Self - patient is the insured [facility] Supplemental [address] [place] [address] [id number] Mckeon Wolf Self - patient is the insured Medical (General) History Medical History History ICD Code Tinnitus, unspecified ear H93.19 COPD (chronic obstructive pulmonary dise ase) J44.9 AFib Hx of Bladder Ca HTN Hx HypoNatremia Surgical History Surgery Date(Month/Year) Gallbladder removed appendectomy tonsillectomy
--- OUTSIDE RECORDS SUMMARY | 2024-12-25 12:28 | XMS_ITS | Encounter Summary ---
Author Organization [employer] ([place], [place], [place], [place]) Address [address] [place] [address] Care Team Providers Care Supervisor Laboratory Name Role Phone Krystle Hall MD Primary Care Provider [phone] Unavailable Unavailable Usama Mcelroy MD Unavailable Siomara Pederson RN Unavailable Unavailable Lauren Douglass RN Unavailable Unavailable Anne Doran PA-C Unavailable [phone] Encounter Details Date Type Department Care Team (Late st Contact Info) Description 11/07/2021 Transcribed Document [facility] [place] Family Medicine [address] [place] [address] ProviderBenjamin MD [address] [place] [address] Social History Tobacco Use Types Packs/Day Years Used Date Smoking Tobacco: Never Assessed Family and Community Support Answer Jaime e Recorded Help with Day to Day Activities Not on file 05/27/2023 Feeling Lonely or Isolated Not on file 05/27 Educational Attainment Answer Date Nitin rded Speak language other than German at home Not on file 05/27/2023 Want [...] as of this encounter Miscellaneous Notes * Gald[employer] Conversion Note - Historical ProviderMD - 11/07/2021 12:29 PM CDT Patient Education Materials Follows: Implanted Port Removal, Care After This sheet gives you information about how to care for yourself after your procedure. Your health care provider may also give you more specific instructions. If you have problems or questions, contact your health care provider. What can I expect after the procedure? After the procedure, it is common to have: ??? Soreness or pain near your incision. ??? Some swelling or bruising near your incision. Follow these instructions at home: Medicines ??? Take mpxj-eyl-gunrbns and prescription medicines only as told by your health care provider. ??? If you were prescribed an antibiotic medicine, take it as told by your health care provider. Do not stop taking the antibiotic even if you start to feel better. Bathing ??? Do not take baths, swim, or use a hot tub until your health care provider approves. Ask your health care provider if you can take showers. You may only be allowed to take sponge baths. Incision care ??? Follow instructions from your health care provider about how to take care of your incision. Make sure you: ? Wash your hands with soap and water before you change your bandage (dressing). If soap and water are not available, use hand chemistry technical officer. ? Change your dressing as told by your health care provider. ? Keep your dressing dry. ? Leave stitches (sutures), skin glue, or adhesive strips in place. These skin closures may need to stay in place for 2 weeks or longer. If adhesive strip edges start to loosen and curl up, you may trim the loose edges. Do not remove adhesive strips completely unless your health care provider tells you to do that. ??? Check your incision area every day for signs of infection. Check for: ? More redness, swelling, or pain. ? More fluid or blood. ? Warmth. ? Pus or a bad smell. Driving ??? Do not drive for 24 hours if you were given a medicine to help you relax (sedative) during your procedure. ??? If you did not receive a sedative, ask your health care provider when it is safe to drive. Activity ??? Return to your normal activities as told by your health care provider. Ask your health care provider what activities are safe for you. ??? Do not lift anything that is heavier than 10 lb (4.5 kg), or the limit that you are told, until your health care provider says that it is safe. ??? Do not do activities that involve lifting your arms over your head. General instructions ??? Do not use any products that contain nicotine or tobacco, such as cigarettes and e-cigarettes. These can delay healing. If you need help quitting, ask your health care provider. ??? Keep all follow-up visits as told by your health care provider. This is important. Contact a health care provider if: ??? You have more redness, swelling, or pain around your incision. ??? You have more fluid or blood coming from your incision. ??? Your incision feels warm to the touch. ??? You have pus or a bad smell coming from your incision. ??? You have pain that is not relieved by your pain medicine. Get help right away if you have: ??? A fever or chills. ??? Chest pain. ??? Difficulty breathing. Summary ??? After the procedure, it is common to have pain, soreness, swelling, or bruising near your incision. ??? If you were prescribed an antibiotic medicine, take it as told by your health care provider. Do not stop taking the antibiotic even if you start to feel better. ??? Do not drive for 24 hours if you were given a sedative during your procedure. ??? Return to your normal activities as told by your health care provider. Ask your health care provider what activities are safe for you. This information is not intended to replace advice given to you by your health care provider. Make sure you discuss any questions you have with your health care provider. Document Revised: 06/12/2018 Document Reviewed: 06/12/2018 [employer] Patient Education ? 2020 [employer] Pharmacology Moderate Conscious Sedation, Adult, Care [...] eating solid foods. General instructions ??? Take vhqm-unl-mgvklhr and prescription medicines only as told by [...] Reviewed: 03/24/2020 Elsevier Patient Education ? 2020 [employer]. documented in this encounter Plan of Treatment Not on file documented as of this encounter Visit Diagnoses Not on filedocumented in this encounter Care Teams Supervisor Laboratory Relationship Specialty Start Date End Date Krystle Hall MD [address] [place] [id number] PCP - General Family Medicine 03/08/[address] Dietitian Nutrition 07/11/22 02/14/23 Usama Mcelroy MD [address] [facility] [address], [place] [address] Medical Oncologist Hematology and Oncology 11/23/22 Siomara Pederson, RN Nurse Navigator Oncology 11/23/22 02/14/23 Lauren Douglass RN Registered Nurse Oncology 11/23/22 02/14/23 Anne Doran, PA-C [address] [place] [address] [address] [place] [address] Physician Jerker Oncology 11/23/22 documented as of this encounter
--- OUTSIDE RECORDS SUMMARY | 2024-12-25 12:28 | XMS_ITS | Encounter Summary ---
Author Organization [employer] ([place], [place], [place], [place]) Address [address] [place] [address] Care Team Providers Care Deputy Insurance Commissioner Name Role Phone Krystle Hall MD Primary Care Provider [phone] Unavailable Unavailable Usama Mcelroy MD Unavailable Siomara Pederson RN Unavailable Unavailable Lauren Douglass RN Unavailable Unavailable Anne Doran PA-C Unavailable [phone] Encounter Details Date Type Department Care Team (Late st Contact Info) Description 11/07/2021 Transcribed Document [facility] [place] [address] [place] [address] ProviderBenjamin MD [address] [place] [address] Social History Tobacco Use Types Packs/Day Years Used Date Smoking Tobacco: Never Assessed Family and Community Support Answer Jaime e Recorded Help with Day to Day Activities Not on file 05/27/2023 Feeling Lonely or Isolated Not on file 05/27 Educational Attainment Answer Date Nitin rded Speak language other than Albanian at home Not on file 05/27/2023 Want [...] Conversion Note - Benjamin Bonner MD - 11/07/2021 1:12 PM CDT Nursing Discharge Summary Entered On: 11/07/2021 13:13 EDT Performed On: 11/07/2021 13:12 EDT by Fab Hampton RN Discharge Documentation Discharge Date/Time : 11/07/2021 13:10 EDT Patient Disposition, General : Discharge Discharge To : Home with ambulatory/outpatient follow-up Mode Of Departure, General Discharge : Private vehicle Accompanied By, Discharge : Spouse IV Discontinued : Yes Personal Belongings With Patient : Yes Pt's Own Supply of Medications Returned : No patient supply of medications to return Prescriptions Given to Patient : No Medications Given to Patient : No Discharge Instructions Reviewed With, Opportunity For Questions Given : Patient, Spouse Patient Education Completed : Yes Teaching Method : Explanation, Printed materials Teaching Evaluation : Verbalizes understanding Fab Hampton RN - 11/07/2021 13:12 EDT Electronically signed by [facility] Conversion Display Screen Fabricator Cerner at 08/29/2022 10:51 PM CDT documented in this encounter Plan of Treatment Not on file documented as of this encounter Visit Diagnoses Not on filedocumented in this encounter Care Teams Deputy Insurance Commissioner Relationship Specialty Start Date End Date Krystle Hall MD [address] [place] [phone] PCP - General Family Medicine 03/08/[address] Dietitian Nutrition 07/11/22 02/14/23 Usama Mcelroy MD [address] [facility] [address] [place] [address] Medical Oncologist Hematology and Oncology 11/23/22 Siomara Pederson, RN Nurse Navigator Oncology 11/23/22 02/14/23 Lauren Douglass RN Registered Nurse Oncology 11/23/22 02/14/23 Anne Doran, PA-C [address] [place] [address] Physician Software Licensing Executive Oncology 11/23/22 documented as of this encounter
--- OUTSIDE RECORDS SUMMARY | 2024-12-25 12:28 | XMS_ITS | Encounter Summary ---
Author Organization [employer] ([place], [place], [place], [place]) Address [address] [place] [address] Care Team Providers Care Cover Mat Machine Operator Name Role Phone Krystle Hall MD Primary Care Provider [phone] Unavailable Unavailable Pamela Mcelroy MD Unavailable Siomara Pederson RN Unavailable Unavailable Lauren Douglass RN Unavailable Unavailable Anne Doran PA-C Unavailable [phone] Encounter Details Date Type Department Care Team (Late st Contact Info) Description 11/07/2021 Transcribed Document [facility] [place] Family Medicine [address] [place] [address] ProviderBenjamin MD [address] [place] [address] Social History Tobacco Use Types Packs/Day Years Used Date Smoking Tobacco: Never Assessed Family and Community Support Answer Jaime e Recorded Help with Day to Day Activities Not on file 05/27/2023 Feeling Lonely or Isolated Not on file 05/27 Educational Attainment Answer Date Nitin rded Speak language other than Thai at home Not on file 05/27/2023 Want [...] Note - Benjamin Bonner MD - 11/07/2021 12:30 PM CDT [facility] [place] [address] MIMI RODRIGUEZLTON GREGG :1940 Visit Time:11/07/2021 Your Visit Summary Your Care Team Admitting Physician - PAMELA MCELROY MD-ONC Attending Physician - PAMELA MCELROY MD-ONC Primary Care Physician - KRYSTLE HALL MD-AUDREY Referring Physician - PAMELA MCELROY MD-ONC Your Diagnosis Malignant neoplasm of bladder, unspecified, Malignant neoplasm of bladder, unspecified These Are Your Goals No qualifying data available. Discharge Vitals Heart Rate (Monitored) 70 Respiratory Rate 16 Blood Pressure 162/74 What to do next Instructions From Your Care Team No driving 24 hours. Rest/relax today. Keep bandage clean/dry and intact. Follow up as directed. Medications What How Much When Instructions Next Dose albuterol (Albuterol (Eqv-ProAir HFA) 90 mcg/ inh [...] inhalation powder) 1 Puff(s) Inhalation Every Day guaiFENesin (Mucinex) 600 Milligram(s) Oral Every 12 hours hydrochlorothiazide-triamterene (hydrochlorothiazide-triamterene 25 mg-37.5 mg oral capsule) 1 Capsule(s) Oral Every Day metoprolol (metoprolol tartrate) 12.5 Milligram(s) Oral Every Day montelukast 10 Milligram(s) Oral Every Day multivitamin with minerals (Multivitamins and Minerals) 1 Tablet(s) Oral Every Day Non Formulary (Non Formulary [...] This Visit No Immunizations Found Education Materials Moderate Conscious Sedation, Adult, Care After This [...] eating solid foods. General instructions ??? Take khti-alw-lurclvr and prescription medicines only as told by [...] provider. Document Revised: 08/26/2020 Document Reviewed: 03/24/2020 [employer] Patient Education ?? 2020 [employer] Implanted Port Removal, Care After This sheet [...] these instructions at home: Medicines ??? Take xqng-umt-[id number] and prescription medicines only as told by [...] and water are not available, use hand internist medical doctor md. ? Change your dressing as told by [...] provider. Document Revised: 06/12/2018 Document Reviewed: 06/12/2018 Elsevier Patient Education ?? 202 [employer] Emergency Awareness and Preventative Care [...] Assistance with quitting is available by contacting 9-276-JPYDNOW. This is a free resource providing counseling, [...] This Visit (last charted value for your 11/07/2021 visit) Hematology 11/07/2021 9:57 AM Platelet Count: 121 K/uL -- Normal range between ( 163 and 369 ) Patient Name:MICHAEL WOLF GREGG I have received and understand this information and was given the opportunity to ask questions. Patient/Blacksmith Hammer Operator Name: Patient/Blacksmith Hammer Operator Signature: Relationship to Patient: Clinician/Hospital Blacksmith Hammer Operator Signature: Date: Electronically signed by Colleen, [facility] Conversion Bobj Developer Cerner at 08/29/2022 11:04 PM CDT documented in this encounter Plan of Treatment Not on file documented as of this encounter Visit Diagnoses Not on filedocumented in this encounter Care Teams Cover Mat Machine Operator Relationship Specialty Start Date End Date Krystle Hall MD [address] [place] [phone] PCP - General Family Medicine 03/08/[address] Dietitian Nutrition 07/11/22 02/14/23 Pamela Mcelroy MD [address] [facility] [address] [place] [address] Medical Oncologist Hematology and Oncology 11/23/22 Siomara Pederson, GLENDY Nurse Navigator Oncology 11/23/22 02/14/23 Lauren Douglass RN Registered Nurse Oncology 11/23/22 02/14/23 Anne Doran, PAWilsonC [address] [facility] [address] [place] [address] Physician Shot Man Oncology 11/23/22 documented as of this encounter
--- OUTSIDE RECORDS SUMMARY | 2024-12-25 12:28 | XMS_ITS | Clinical Summary ---
Author Organization [facility] Address [address] [place] [address] Care Team Providers Care Fishing Vessel Deckhand Name Role Phone Krystle Hall MD Primary Care Provider + Allergies Active Allergy Reactions Criticality Noted Date Comments Prochlorperazine Other (See Comments) Medium 1 Confusion, mental status changes Other Reaction(s): Other (See Comments) made me sick Medications albuterol sulfate HFA 108 (90 Base) MCG/ACT inhaler albuterol sulfate HFA 90 mcg/actuation aerosol inhaler USE 2 INHALATIONS BY MOUTH EVERY 4 HOURS NEEDED Active bisacodyl (DULCOLAX) 10 MG suppository Daily. Active calcium polycarbophil (FiberCon) 625 MG tablet FiberCon 625 mg tablet Take by oral route. Active Cannabidiol 100 MG/ML solution cannabidiol 100 mg/mL oral solution takes a dose twice in pm Active Cholecalciferol 25 MCG (1000 UT) capsule Daily. Active Diclofenac Sodium (VOLTAREN) 1 % gel gel Voltaren Arthritis Pain 1 % topical gel APPLY 2 GRAMS TO THE AFFECTED AREA(S) BY TOPICAL ROUTE 4 TIMES PER DAY Active fluticasone (FLONASE) 50 MCG/ACT nasal spray 2 sprays into the nostril(s) as directed by provider. Active Trelegy Ellipta 200-62.5-25 MCG/ACT aerosol powder Trelegy Ellipta 200 mcg-62.5 mcg-25 mcg powder for inhalation Active metoprolol succinate XL (TOPROL-XL) 25 MG 24 hr tablet Take 1 tablet by mouth Daily. Active montelukast (SINGULAIR) 10 MG tablet montelukast 10 mg tablet TAKE 1 TABLET BY MOUTH ONCE DAILY Active naproxen (NAPROSYN) 500 MG tablet Take 1 tablet by mouth Every 12 (Twelve) Hours. 09/29/19 Active nitroglycerin (NITROSTAT) 0.4 MG SL tablet Nitrostat 0.4 mg sublingual tablet Active tamsulosin (FLOMAX) 0.4 MG capsule 24 hr capsule tamsulosin 0.4 mg capsule TAKE 1 CAPSULE BY MOUTH DAILY IN THE EVENING Active glucosamine-chondro itin 500-400 MG capsule capsule Take by mouth 3 (Three) Times a Day With Meals. Active multivitamin with minerals tablet tablet Take 1 tablet by mouth Daily. Active saccharomyces boulardii (FLORASTOR) 250 MG capsule Take 1 capsule by mouth 2 (Two) Times a Day. Active Pramipexole Dihydrochloride ER 1.5 MG tablet sustained-release 24 hourIndications:Res tless leg syndrome Take 2.25 mg by mouth Daily. One and a half tablets nightly 45 tablet 11 02/14/20 23 Active Sodium Fluoride 5000 Sensitive 1.1-5 % gel BRUSH EACH EVENING BEFORE BEDTIME NO DRINKING OR EATING AFTERWARD DIRECTED. 05/14/19 24 Active aspirin 81 MG EC tablet Take 1 tablet by mouth Daily. Active furosemide (LASIX) 20 MG tabletIndications:C ellulitis of right lower extremity Take 1 tablet by mouth Daily. 30 tablet 11 08/26/19 24 Active Additional Information Patient not taking.Reported on 03/02/2024 sulfamethoxazole-tr imethoprim (Bactrim DS) 800-160 MG per tablet Take 1 tablet by mouth 2 (Two) Times a Day. 28 tablet 09/11/19 24 Active Additional Information Patient not taking.Reported on 03/02/2024 bumetanide (BUMEX) 1 MG tablet Take 0.5 tablets by mouth Daily. 10/10/19 24 Active atorvastatin (LIPITOR) 40 MG tablet Take 1 tablet by mouth every night at bedtime. 10/10/19 24 Active rOPINIRole (REQUIP) 1 MG tablet Take 1 tablet by mouth Every Night. Active spironolactone (ALDACTONE) 50 MG tablet Take 1 tablet by mouth Daily. Active cephalexin (KEFLEX) 500 MG capsule Take 1 capsule by mouth 2 (Two) Times a Day. 01/20/20 24 Active mupirocin (BACTROBAN) 2 % ointment Apply 1 Application topically to the appropriate area as directed Daily. 01/21/20 24 Active albuterol (PROVENTIL) (2.5 MG/3ML) 0.083% nebulizer solution Take 2.5 mg by nebulization 4 (Four) Times a Day. 360 each 3 01/24/20 24 Active clopidogrel (PLAVIX) 75 MG tablet Take 1 tablet by mouth Daily. Active potassium chloride (MICRO-K) 10 MEQ CR capsule Take 1 capsule by mouth Daily. Active Active Problems Problem Noted Date Diagnosed Date Cellulitis of right leg without foot 09/11/2023 Aneurysm of ascending aorta without rupture 08/11 Frequent falls 08/05/2023 Gait instability 08/05/2023 Lung nodule seen on imaging study 08/05/2023 History of bladder cancer 02/15/2023 Chest pain 02/13/2023 Benign essential hypertension 02/13/2023 Blood glucose abnormal 02/13/2023 Disorder of prostate 02/13/2023 Disorder of urinary tract 02/13/2023 Malaise and fatigue 02/13/2023 Vitamin D deficiency 02/13/2023 Arthralgia of both knees 09/28/2022 Back pain 08/21/2022 Arthritis 08/21/2022 Chronic constipation 08/21/2022 Hard of hearing 08/21/2022 High blood pressure 08/21/2022 Hyperlipidemia 08/21/2022 Restless legs syndrome 08/21/2022 Skin cancer 08/21/2022 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 05/26/2022 Fatigue 05/26/2022 Bladder tumor 06/06/2021 Malignant neoplasm of urinary bladder 06/06/2021 Hyponatremia 07/20/2020 Leukocytosis 07/20/2020 Dysphagia 06/02/2019 COPD (chronic obstructive pulmonary disease) 10/2019 Moderate persistent asthma without complication 05/18/2019 Arthralgia of hip 01/12/2014 Resolved Problems Problem Noted Date Diagnosed Date Resolved Date Acute bronchitis 02/13/2023 12/06/2023 Acute sinusitis 02/13/2023 12/06/2023 Lower respiratory tract infection 02/13/2023 12/06/2023 Wheezing 02/13/2023 12/06/2023 Pneumonia 07/20/2020 12/06/2023 Immunizations Immunization Administration Dates Next Due Arexvy (RSV, Adults 60+ yrs) 02/18/2023 COVID-19 (MODERNA) 12YRS+ (SPIKEVAX) 02/18/2023 COVID-19 (MODERNA) 1st,2nd,3 rd Dose Monovalent 07/27/2020,07/18/2020,06/29/2020,06/20 FLUAD TRI 65YR+ 01/22/2019, 8,02/28/2017,02/20,03/04/2015,02/16/2014 Fluzone (or Fluarix & Flulav al for VFC) >6mos 05/13/2012 Fluzone High-Dose 65+YRS 01/22/2019,01/11,02/28/2017,02/20,03/04/2015,02/16/2014 Fluzone High-Dose 65+yrs 01/29/2023,09/10,02/05/2022,01/17,01/22/2020 Hepatitis A 10/22/2018,01/31/2018 Influenza Inj MDCK Preserative Free 05/13/2012 Influenza Seasonal Injectable 03/05/2012 Pneumococcal Conjugate 13-Va lent (PCV13) 01/25/2015 Pneumococcal Conjugate 20-Va lent (PCV20) 08/23/2023 Pneumococcal Polysaccharide (PPSV23) 02/28/2017, 02/10/2009,05/13/2002 Pneumococcal, Unspecified 02/10/2009,05/13/2002 Shingrix 01/26/2020,11/27/2019 Tdap 09/17/2020,03/06/2016 Zostavax 12/22/2007 Family History Medical History Relation Name Comments Heart attack Father Stroke Mother Arrhythmia Sister Relation Name Status Comments Father Mother Sister Alive Social History Tobacco Use Types Packs/Day Years Used Date Smoking Tobacco: Former Cigarettes 1 20 Q uit: 1995 Passive Smoke Exposure: Past Smokeless Tobacco: Never Tobacco Cessation:Counseling Given: Not Answered Alcohol Use Standard Drinks/Week Comments Never 0 (1 standard drink = 0.6 oz pur e alcohol) Abuse Screen Answer Date Recorded Unsafe at Home or Work/School Not on file Feels Threatened by Someone? Not on file 01/2023 Does Anyone Keep You from Co ntacting Others or Doint Things Outside the Home? Not on file 02/18/2023 Physical Sign of Abuse Present Not on file 1 Housing Stability Answer Date Recorded Current Living Arrangements Not on file 01/2023 Potentially Unsafe Housing Conditions Not on kelsi e 02/18/2023 Family and Community Support Answer Jaime e Recorded Help with Day-to-Day Activities Not on file 02/18/2023 Lonely or Isolated Not on file 02/18/2023 Employment Answer Date Recorded Do you want help finding or keeping work or a johnson b? Not on file 02/18/2023 Disabilities Answer Date Recorded Concentrating, Remembering, or Making Decisions Difficulty Not on file 02/18/2023 Doing Errands Independently Difficulty Not on fi le 02/18/2023 Education Answer Date Recorded Help with school or training? Not on file Preferred Language Not on file 02/18/2023 Sex and Gender Information Value Date Recorded Sex Assigned at Not on file Legal Sex Male 4:23 PM EST Gender Identity Not on file Sexual Orientation Not on file Last Filed Vital Signs Vital Sign Reading Time Taken Comments Blood Pressure 102/68 03/02/2024 2:47 PM EDT Pulse 64 03/02/2024 2:47 PM EDT Temperature 36.4 C (97.5 F) 01/24/2024 12:26 PM EDT Respiratory Rate 16 01/24/2024 12:26 PM EDT Oxygen Saturation 97% 03/02/2024 2:47 PM EDT Inhaled Oxygen Concentration - - Weight 80.3 kg (177 lb) 03/02/2024 2:47 PM EDT Height 188 cm (6' 2 ) 03/02/2024 2:47 PM EDT Body Mass Index 22.73 03/02/2024 2:47 PM EDT Plan of Treatment Health Maintenance Due Date Last Done Comments ANNUAL WELLNESS VISIT 10/17/2022 LIPID PANEL 05/26/2023 05/26/2022 COVID-19 Vaccine (2023-06 5 season) 2024 02/18/2023, 02/05/2022, 10/05/2021, Additional history exists INFLUENZA VACCINE 02/10/2025 02/04/2024, , 09/28/2022, Additional history exists TDAP/TD VACCINES (3 - Td or Tdap) 09/17/2030 021, 03/06/2016 ZOSTER VACCINE Completed 01/26/2020, 11/10, 12/22/2007 RSV Vaccine - Adults Completed 02/18/2023 Pneumococcal Vaccine 50+ Completed 024, 02/28/2017, 01/25/2015, Additional history exists [place] [address] [place] [address] HEALTH CARE OPTIONS MEDICARE A & B Care Teams Fishing Vessel Deckhand Relationship Specialty Start Date End Date Krystle Hall MD [address] [address] PCP - General Family Medicine 10/17/22
[2024-12-25 13:40] VITALS: PULSE 57; PULSE 58
[2024-12-25] MEDS: ALBUTEROL 0.083% 2.5 MG/3 ML NEB IH (13:40)
== END 2024-12-25 23:59 | disposition home or self-care (01) ==
LOC: RT 12:25
PROVIDERS: PCP Family Medicine; Visit Provider Internal Medicine Pulmonary Disease
DX: J44.9 Chronic obstructive pulmonary disease, unspecified (principal); R94.2 Abnormal results of pulmonary function studies
CPT/HCPCS: 94060; 94618; 94640; 94726; 94729

== ENCOUNTER 2025-01-26 12:57 | Outpatient (CLI) | payer MEDICARE, SELFPAY ==
--- OUTSIDE RECORDS SUMMARY | 2025-01-26 13:05 | XMS_ITS | Encounter Summary ---
[facility] Organization [facility] Address [address] [place] [address] Care Team Providers Care Director Of Design Name Role Phone Krystle Hall MD Primary Care Provider + Encounter Details Date Type Department Care Team (Late st Contact Info) Description 01/05/2025 Telephone [facility] DE[facility] [address] [place] [address] Navigator, Lung Social History Tobacco Use Types Packs/Day Years Used Date Smoking Tobacco: Former Cigarettes 1 20 Q uit: 1993 Passive Smoke Exposure: Past Smokeless Tobacco: Never Alcohol Use Standard Drinks/Week Comments Never 0 [...] with school or training? Not on file 10 /01/2023 Preferred Language Not on file 02/18/2023 Sex and Gender Information Value Date Recorded Sex Assigned at Not on file Legal Sex Male 4:23 PM EST Gender Identity Not on file Sexual Orientation Not on file documented as of this encounter Miscellaneous Notes * Telephone Encounter - [facility] - 01/05/2025 11:07 AM EDT Patient Call Reason for call: Upcoming Outcome of call: Broadcast call made Additional Notes: Automated Message Reminder documented in this encounter Plan of Treatment Not on file documented as of this encounter Visit Diagnoses Not on filedocumented in this encounter Care Teams Director Of Design Relationship Specialty Start Date End Date Krystle Hall MD [address] [place] [id number] PCP - General Family Medicine 10/17/22 documented as of this encounter
--- OUTSIDE RECORDS SUMMARY | 2025-01-26 13:05 | XMS_ITS | Clinical Summary ---
Author Organization [facility] Address [address] [place] [address] Care Team Providers Care Relief Docking Master Name Role Phone Krystle Hall MD Primary [...] 12/06/2023 Wheezing 02/13/2023 12/06/2023 Pneumonia 07/20/2020 12/06/2023 Encounters Date Type Department Care Team Description 01/05/2025 Telephone [facility] DEPT [address] [place] [address] Navigator, Lung from Last 3 Months Immunizations Immunization Administration Dates Next Due Arexvy [...] 10/17/2022 LIPID PANEL 05/26/2023 05/26/2022 COVID-19 Vaccine (2024-2 6 season) 2025 02/18/2023, 02/05/2022, 10/05/2021, Additional history exists INFLUENZA VACCINE 02/10/2025 02/04/2024, , 09/28/2022, Additional history exists TDAP/TD VACCINES (3 - Td or Tdap) 09/17/2030 021, 03/06/2016 ZOSTER VACCINE Completed 01/26/2020, 11/10, 12/22/2007 RSV Vaccine - Adults Completed 02/18/2023 Pneumococcal Vaccine 50+ Completed 024, 02/28/2017, 01/25/2015, Additional history exists [place] [address] HEALTH CARE OPTIONS MEDICARE A & B Care Teams Relief Docking Master Relationship Specialty Start Date End Date Krystle Hall MD [address] [phone] PCP - General Family Medicine 10/17/22
--- NOTE | 2025-01-26 13:45 | CT_ITS ---
FINAL REPORT TECHNIQUE: Axial CT without IV contrast administration. Multiplanar reconstructions in the sagittal and coronal planes were subsequently performed. This study was performed with techniques to keep radiation doses as low as reasonably achievable (ALARA). Individualized dose reduction techniques using automated exposure control or adjustment of mA and/or kV according to the patient's size were employed. This study was performed with techniques to keep radiation doses as low as reasonably achievable, (ALARA). Individualized dose reduction techniques using automated exposure control or adjustment of mA and/or kV according to the patient''s size were employed. CLINICAL HISTORY: SOA COMPARISON: None FINDINGS: CT CHEST WITHOUT CONTRAST (HIGH RESOLUTION) Supine inspiration and expiration as well as prone inspiration images were obtained. There are fine nodular densities in the periphery of the left lower lobe and lingula, compatible with bronchiolitis. There is bronchiectasis in the lower lobes as well, to a lesser extent in the right middle lobe and lingula. This can be seen with recurrent aspiration or mycobacterial infection. There is no evidence of diffuse interstitial lung disease. No pleural or pericardial effusion is seen. No adenopathy or mass lesion is present. Severe coronary artery calcified plaque is noted. IMPRESSION: 1. Findings compatible with bronchiolitis in the left lower lobe and lingula. 2. Bronchiectasis is present in the lower lobes, and to a lesser extent the right middle lobe and lingula, which can be seen with recurrent aspiration or mycobacterial infection. 3. No evidence of diffuse interstitial lung disease. Reviewed, Interpreted and Dictated by Simeon Swan MD Transcribed by Katelyn Stephens Authenticated and [facility]
== END 2025-01-26 23:59 | disposition home or self-care (01) ==
LOC: RAD 12:58
PROVIDERS: PCP Family Medicine; Visit Provider Internal Medicine Pulmonary Disease
DX: J47.9 Bronchiectasis, uncomplicated (principal); J43.9 Emphysema, unspecified; R91.8 Other nonspecific abnormal finding of lung field; R91.1 Solitary pulmonary nodule
CPT/HCPCS: 71250

== ENCOUNTER 2025-02-18 12:51 | Day surgery (SDC) | payer MEDICARE, SELFPAY ==
--- NOTE | 2025-02-12 11:37 | EXP.HP ---
History of Present Illness *Admission Date: 02/18/25 *History of present illness: Mr. Mckeon is an 84-year-old gentleman who is here for diagnostic colonoscopy. He reports bright red rectal bleeding since starting with Eliquis last year. He often passes bright red blood but some dark clots and this occurs with his bowel movements. He did have a colonoscopy with me in August 2009. His last colonoscopy 11 years ago showed some nonprecancerous polyps (probable hyperplastic polyps) and he was told that he would not need any further preventive colonoscopy. The patient has had some recent constipation which triggers the bleeding. This has improved since starting stool softeners and he takes 3 stool softeners in the morning and in the evening as well as fiber pills. This has helped some. He reports no abdominal pain, weight loss, bloating or gassiness. The patient does state that he has 4 coronary stents but also has paroxysmal atrial fibrillation. He does see Dr. Ha. The Watchman procedure was mentioned to him by a nurse practitioner in [place] but Dr. Hall as well. He has not discussed Dr. Chris King MD. The patient does have upcoming cardiology appointment on 03/11/2025 and also appointment with pulmonology Pranav Crain M.D. on the same day. He plans to travel to [place] and resides in [place] 6 months out of the year ([facility]) in early March. [facility] Disclaimer: The information contained in this section may have been updated after the patient was seen, as this information can be updated by other users. Medical History Allergic rhinitis Restrictive lung disease Dyspnea on exertion History of smoking 30 or more pack years Aortic stenosis Tricuspid regurgitation Mitral regurgitation Sinus pause AV block CAD in [place] artery Hypokalemia (HFpEF) heart failure with preserved ejection fraction Aortic dissection, abdominal Multifocal atrial tachycardia Hyperlipidemia Coronary artery calcification Atypical angina RLS (restless legs syndrome) Allergies High blood pressure Asthma Bladder cancer COPD (chronic obstructive pulmonary disease) Afib Surgical History History of transurethral resection of bladder tumor (TURBT) History of cystoscopy History of cholecystectomy Family History Father Heart attack Social History (Updated 02/18/25 @ 14:01 by Verónica Grady RN) Smoking Status: Former smoker how long ago did patient quit smoking: pt states, years ago quit status: quit date established second hand exposure: No alcohol intake: current alcohol intake frequency: 0-2 drinks per day substance use type: denies use current occupational status: retired Travel in the last 8 weeks?: None adopted: No caregiver/support person: No foster care: No Have you lived/traveled outside US in past 30 days?: No Contact w/someone who lives/traveled outside US past 30 days?: No Exposure to someone with infectious disease in past 14 days?: No Do you have a fever (greater than 100.4 F or 38 C)?: No Have you tested positive for COVID-19?: No Exposed to someone with COVID-19 in past 14 days?: No Do you have a sore throat?: No Do you have a cough?: No Do you have any weakness?: No Are you experiencing any nausea/vomitting?: No Do you have any diarrhea?: No Are you experiencing any unusual bleeding?: No Do you have any muscle aches/pain?: No Do you have any abdominal pain?: No Are you experiencing loss of taste or smell?: No Other Medical History Have you received the Flu Vaccine for this season: No Have you received the Pneumonia Vaccine: Yes Review of Systems Review of Systems Review of systems (narrative): Negative *Cardiovascular Comments: Negative *Gastrointestinal Comments: Negative *Genitourinary Comments: Negative *Musculoskeletal Comments: Negative *Neurologic Comments: Negative Meds Home Medications and Allergies Home Medications ?Medication ?Instructions ?Recorded ?Confirmed ?Type cholecalciferol (vitamin D3) 25 25 mcg PO DAILY 09/04/23 02/18/25 History mcg (1,000 unit) capsule glucosamine-chondroitin 1,500 mg 30 ml PO DAILY 09/04/23 02/18/25 History -1,200 mg/30 mL oral liquid zsswkefhpilo-hmkudhfb-wzlqzy tablet 1 tab PO DAILY 09/04/23 02/18/25 History apixaban 2.5 mg tablet (Eliquis) 2.5 mg PO BID 09/14/24 02/18/25 History bumetanide 0.5 mg tablet 0.5 mg PO BID 90 days #180 tabs 09/14/24 02/18/25 Rx montelukast 10 mg tablet 10 mg PO DAILY 09/14/24 02/18/25 History (Singulair) pramipexole 0.75 mg 0.75 mg PO HS 09/14/24 02/18/25 History tablet,extended release 24 hr albuterol sulfate 90 mcg/actuation 2 inh inhalation Q6H PRN shortness 01/07/25 02/18/25 Rx aerosol inhaler (Ventolin HFA) of breath or wheezing 90 days #18 grams atorvastatin 40 mg tablet (Lipitor) 40 mg PO HS 90 days #90 tabs 01/07/25 02/18/25 Rx fluticasone propionate 50 2 spray intranasal DAILY 90 days 01/07/25 02/18/25 Rx mcg/actuation nasal #16 grams spray,suspension mometasone-formoterol HFA 100 2 puff inhalation BID 90 days #13 01/07/25 02/18/25 Rx mcg-5 mcg/actuation aerosol grams inhaler (Dulera) metoprolol succinate 25 mg 25 mg PO DAILY #90 tabs 01/12/25 02/18/25 Rx tablet,extended release 24 hr spironolactone 25 mg tablet 25 mg PO DAILY #90 tabs 01/27/25 02/18/25 Rx sod picosulf 10 mg-magnes 3.5 175 ml PO DAILY Bowel Prep 2 doses 02/04/25 02/18/25 Rx gram-citric 12 gram/175 mL oral #350 mL solution (Clenpiq) hydrocortisone acetate 25 mg 25 mg NV HSP PRN Bleeding 02/16/25 02/18/25 History rectal suppository (Anusol-HC) New Prescriptions to Start Prescriptions: Allergies Allergy/AdvReac Type Severity Reaction Status Date / Time prochlorperazine (From AdvReac altered Verified 02/16/25 09:40 Compazine) mental status Exam *Routine HEENT Exam Head: Present normocephalic Eye: Present EOMI and PERRL ENT: Present mucous membranes moist *Routine Neck Exam Neck: Present supple *Routine Respiratory Exam Respiratory: Present CTA bilaterally *Routine Cardiovascular Exam Cardiovascular: Present RRR *Routine Abdominal Exam Abdominal: Present soft and normoactive bowel sounds; Absent tenderness *Routine Rectal Exam Rectal:: deferred *Routine Genitalia Exam Genitalia:: deferred *Routine Extremities Exam Extremities: Absent cyanosis, clubbing or edema *Routine Skin Exam Skin: Present warm; Absent rash *Routine Neurological Exam Neurological: Present alert and oriented X3 Assessment and Plan *Assessment and plan (1) Bright red rectal bleeding: Status: Acute Category: Medical Code(s): K62.5 - Hemorrhage of anus and rectum Plan A/P: 1. Bright red rectal bleeding is the preprocedural diagnosis. The patient will be anesthetized/sedated using MAC sedation. The patient has been seen and examined. Cardiac and lung assessment prior to the examination is stable. Proceed with planned diagnostic colonoscopy.
[2025-02-16 09:51] VITALS: BMI 21.4
--- NOTE | 2025-02-17 08:02 | P.PCN_ITS ---
[facility] Procedure Note Date: 02/18/25 Time: 14:49 Procedure Note:: Colonoscopy Procedure Report: Colonoscopy with cold snare polypectomy and APC ablation Endoscopist: Lam Olivas II, MD Referring physician: Krystle Hall MD Date of Procedure: February 18, 2025 Equipment: Olympus [id number] adult colonoscope Sedation: MAC sedation Indication: Mr. Mckeon is an 84-year-old gentleman who is here for diagnostic colonoscopy. He reports bright red rectal bleeding since starting with Eliquis last year. He often passes bright red blood but some dark clots and this occurs with his bowel movements. He did have a colonoscopy with [place] in August 2009. His last colonoscopy 11 years ago showed some nonprecancerous polyps (probable hyperplastic polyps) and he was told that he would not need any further preventive colonoscopy. The patient has had some recent constipation which triggers the bleeding. This has improved since starting stool softeners and he takes 3 stool softeners in the morning and in the evening as well as fiber pills. This has helped some. He reports no abdominal pain, weight loss, bloating or gassiness. The patient does have a history of prostate cancer and underwent radiation therapy. The patient does state that he has 4 coronary stents but also has paroxysmal atrial fibrillation. He does see Dr. Ha. The Watchman procedure was mentioned to him by a nurse practitioner in [place] but Dr. Hall as well. He has not discussed Dr. Chris King MD. The patient does have upcoming cardiology appointment on 03/11/2025 and also appointment with pulmonology Pranav Crain M.D. on the same day. He plans to travel to [place] and resides in [place] 6 months out of the year ([facility]) in early March. Procedure: Prior to the procedure, a history and physical exam was performed, and patient's medications and allergies were reviewed. The risks, benefits and alternatives of the sedation and procedure were discussed with the patient. All questions were answered and informed consent was obtained. The patient was brought to the procedure room. Patient identification and proposed procedure were verified by the physician and the nurse. The patient was placed in a left lateral decubitus position and the scope was passed under direct vision. Throughout the procedure, the patient's blood pressure, pulse, and oxygen saturations were monitored continuously. The colonoscopy was accomplished without difficulty. The patient tolerated the procedure well. Findings: On digital rectal examination there was normal rectal tone. There were no external hemorrhoids. The colonoscope was introduced through the anal canal to the rectum and advanced to the cecum. The ileocecal valve and appendiceal orifice were identified. The scope was advanced a short distance into the ileum which appeared grossly normal. The scope was then withdrawn into the colon. The cecum, ascending and transverse colon and mucosa were grossly normal. There were scattered diverticuli throughout the descending and sigmoid colon (LEFT colon). There was a single 4 mm polyp in the sigmoid colon removed via cold snare polypectomy. Within the rectum, there were widespread telangiectasias in the distal rectum that encompassed the anterior wall. There is mildly friable mucosa but no ulcerations or strictures. Was consistent with moderate radiation proctitis. All of the visible telangiectasias were ablated/coagulated using APC ablation. Upon retroflexion there were grade 1-2 internal hemorrhoids. The preparation was fair throughout with Beccaria Preparation Score of 7 out of 9. The cecal time was 14 minutes. Impression: 1. Moderate radiation proctitis with scattered telangiectasias along the anterior wall of the distal rectum status post APC ablation 2. Diminutive sigmoid polyp 3. Left-sided diverticulosis Plan: Typically, moderate radiation proctitis leads to rectal bleeding and occasionally some tenesmus. I did ablate all of the visible telangiectasias. Certainly the Eliquis is playing some role with this bleeding. If he has recurrent bleeding, I would consider the Watchman procedure.
[2025-02-18 13:57] VITALS: BP 138/58; PULSE 61; RESP 16; TEMP 36.1; O2SAT 100; BMI 21.4
[2025-02-18] MEDS: LACTATED RINGERS 1000ML 1,000 ML 50 ML IV (14:18)
--- NOTE | 2025-02-18 14:32 | EXP.ANES.CKL ---
[facility] Disclaimer: The information contained in this section may have been updated after the patient was seen, as this information can be updated by other users. Medical History Allergic rhinitis Restrictive lung disease Dyspnea on exertion History of smoking 30 or more pack years Aortic stenosis Tricuspid regurgitation Mitral regurgitation Sinus pause AV block CAD in [place] artery Hypokalemia (HFpEF) heart failure with preserved ejection fraction Aortic dissection, abdominal Multifocal atrial tachycardia Hyperlipidemia Coronary artery calcification Atypical angina RLS (restless legs syndrome) Allergies High blood pressure Asthma Bladder cancer COPD (chronic obstructive pulmonary disease) Afib Surgical History History of transurethral resection of bladder tumor (TURBT) History of cystoscopy History of cholecystectomy Family History Father Heart attack Social History (Updated 02/18/25 @ 14:01 by Verónica Grady RN) Smoking Status: Former smoker how long ago did patient quit smoking: pt states, years ago quit status: quit date established second hand exposure: No alcohol intake: current alcohol intake frequency: 0-2 drinks per day substance use type: denies use current occupational status: retired Travel in the last 8 weeks?: None adopted: No caregiver/support person: No foster care: No Have you lived/traveled outside US in past 30 days?: No Contact w/someone who lives/traveled outside US past 30 days?: No Exposure to someone with infectious disease in past 14 days?: No Do you have a fever (greater than 100.4 F or 38 C)?: No Have you tested positive for COVID-19?: No Exposed to someone with COVID-19 in past 14 days?: No Do you have a sore throat?: No Do you have a cough?: No Do you have any weakness?: No Are you experiencing any nausea/vomitting?: No Do you have any diarrhea?: No Are you experiencing any unusual bleeding?: No Do you have any muscle aches/pain?: No Do you have any abdominal pain?: No Are you experiencing loss of taste or smell?: No [facility] Anesthesia Checklist Patient Identification Patient Identification: Arm Band and Family Structural Data Admitted From: Home Planned Operative Procedure/s: Colonoscopy Consent for Planned Operative Procedure(s) Verified: Yes Verified Documents: Surgical Consent, History and Physical and Cardiac Clearance NPO Status Verified Time NPO: 00:00 Additional verifications Patient : No Anesthesia Reactions: No Hx Blood Transfusions: No Blood Transfusion Reaction: No Cephalosporin Allergy: No Previous Colonoscopy: Yes Airway Assessment Mallampati Score:: Class I C-Spine Mobility Assessed: Yes TMJ Mobility Assessed: Yes Dentition: Good Dentition Neurological Assessment Level of Consciousness: Alert, Appropriate and Follows Commands Hx Seizures: No Numbness or tingling in extremities: No Anesthesia Plan Anesthesia Risk discussed: Yes ASA Class: III Anesthesia Type: MAC Preoperative Comments Pre-Operative Comments: Cardiac stents X4. Asthma. Blood in stools.
[2025-02-18 14:53] VITALS: BP 120/53; PULSE 67; RESP 18; TEMP 36.5; O2SAT 98
[2025-02-18 15:03] VITALS: BP 115/53; PULSE 51; RESP 18; TEMP 36.5; O2SAT 97
[2025-02-18 15:13] VITALS: BP 110/72; PULSE 55; RESP 18; TEMP 36.5; O2SAT 98
[2025-02-18 15:23] VITALS: BP 128/60; PULSE 74; RESP 18; TEMP 36.5; O2SAT 99
== END 2025-02-18 15:28 | disposition home or self-care (01) ==
PROVIDERS: PCP Family Medicine; Visit Provider Internal Medicine Gastroenterology
PROC: 0DJD8ZZ Inspection of Lower Intestinal Tract, Via Natural or Artificial Opening Endoscopic (ICD-10-PCS; CPT 45378; principal; 2025-02-18 15:00)
DX: K62.7 Radiation proctitis (principal); K64.0 First degree hemorrhoids; K64.1 Second degree hemorrhoids; K57.30 Diverticulosis of large intestine without perforation or abscess without bleeding; K62.5 Hemorrhage of anus and rectum; I48.0 Paroxysmal atrial fibrillation; K63.5 Polyp of colon; I11.0 Hypertensive heart disease with heart failure; I50.30 Unspecified diastolic (congestive) heart failure; I25.118 Atherosclerotic heart disease of native coronary artery with other forms of angina pectoris; I44.30 Unspecified atrioventricular block; I08.3 Combined rheumatic disorders of mitral, aortic and tricuspid valves; Z87.891 Personal history of nicotine dependence; J44.89 Other specified chronic obstructive pulmonary disease; E78.5 Hyperlipidemia, unspecified; Z88.8 Allergy status to other drugs, medicaments and biological substances; Z79.01 Long term (current) use of anticoagulants
CPT/HCPCS: 45382; 45385; 88300; C2618; J2003; J2704; J7120

== ENCOUNTER 2025-03-11 14:22 | Outpatient (CLI) | payer MEDICARE, SELFPAY ==
--- OUTSIDE RECORDS SUMMARY | 2024-11-08 20:00 | XMS_ITS | Continuity of Care Document ---
Author Organization [facility] Address [address] [place] [address] Phone Care Team Providers Care Collection Clerk Name Role Phone Donell Machado MD Unavailable [...] Mgt Svc 20 Min Office/outpatient visit[place] [facility] [place]ives Directive Yes / No Effective Date File Name No Information Encounters Encounter Description Practice Location Reason(s) For Visit Diagnoses Date Provider Providers Copied on Encounter Chronic Care Mgt Svc 20 Min [facility], [address], [place], [place], [id number], [place] tel:[phone] Mixed hyperlipidemiaEs sential (primary) hypertensionAths cl heart disease of [place] coronary artery w/o ang pctrsUnspecified atrial fibrillation 5 Carterberna Marley. [address], [address], [place], [place], [id number] , [place]. tel:[phone] Referring Provider: Donell Bowers, [address], [place], [address] . tel:[phone] Office/outpa tient visit, [facility], [address], [place], [place], [id number], [place] [phone] Atrial fibrillation (chief complaint) Arteriosclerotic coronary artery diseaseAtrial fibrillation, unspecified typeEssential (primary) hypertensionMixe d hyperlipidemia 4 Mack Blackburn. [address], [place], [place], [id number] , [place]. tel:[phone] Referring Provider: Zechariah Light, [address], [place], [address]. tel:[phone] Family History Family Member Type Diagnosis Age At Onset No Information Payers Payer name Insurance type Covered libertarian ID Authoriza tion(s) Medicare Part B Primary [id number] [facility] SUPPLEMENT - [id number] Social History Type Description Quantity Date Captured [...] Patient spends most of the year in [place]. He is followed by a ocean transportation intermediary. He has past medical history of coronary [...] implant. His goal is to returned to [place] in August to discuss with his physicians including ocean transportation intermediary up there, as he his feeling asymptomatic. [...]
--- OUTSIDE RECORDS SUMMARY | 2025-03-11 14:28 | XMS_ITS | Patient Health Record ---
Author Organization [facility] Address [address] [place] [address] Care Team Providers Care Strand Galvanizer Name Role Phone ANGEL MENDOZA Unavailable [phone] ALLERGIES Allergen (clinical drug ingredient) Drug/Non Drug [...] Problem Dysphagia, unspecified (R13.10) Active confirmed Dysphagia (25573702) Problem Dyspepsia (K30) Active confirmed Dyspep donell (620202611) Problem Esophageal Reflux/GERD (K21.9) Active confirmed Gastroesophagea l reflux disease (862776318) Problem Dietary counseling and surveillance (Z71.3) Active confirmed Dietary managem ent surveillance (517715270) PLAN OF TREATMENT No Information Insurance Providers Payer Name Payer Address Payer Phone Subscriber Number Group Number Insured Name Patient Relationship to Insured Coverage Start Date Coverage End Date MEDICARE PART B [address] [address] [place] [address] [id number] Wolf Mckeon Self - patient is the insured [facility] [employer] [address] [place] [address] [phone] [id number] Wolf Mckeon Self - patient is the insured MEDICAL (GENERAL) HISTORY Medical History History ICD Code Asthma COPD GERD Hyperlipidemia Hypertension Insomnia Surgical History Surgery Date(Month/Year) Appendectomy Cholecystectomy Hernia repair Tonsillectomy
--- OUTSIDE RECORDS SUMMARY | 2025-03-11 14:28 | XMS_ITS | Encounter Summary ---
Author Organization [facility] Address [address] [place] [address] Care Team Providers Care Heel Edge Inker Machine Name Role Phone Krystle Hall MD Primary Care Provider + Encounter Details Date Type Department Care Team (Late st Contact Info) Description 01/27/2025 Telephone [facility] [address] [place] [address] Navigator, Lung Social History Tobacco [...] encounter Miscellaneous Notes * Telephone Encounter - Trey, Lung - 01/27/2025 11:05 AM EDT Patient Call Reason for call: Upcoming Outcome of call: Broadcast call made Additional Notes: Automated Message Reminder documented in this encounter Plan of Treatment Not on file documented as of this encounter Visit Diagnoses Not on filedocumented in this encounter Care Teams Heel Edge Inker Machine Relationship Specialty Start Date End Date Krystle Hall MD [address] [place] [id number] PCP - General Family Medicine 10/17/22 documented as of this encounter
--- OUTSIDE RECORDS SUMMARY | 2025-03-11 14:28 | XMS_ITS | Clinical Summary ---
Author Organization [facility] ([place], [place], [place], [place]) Address [address] [place] [address] Care Team Providers Care Outboard Motor Assembler Name Role Phone Krystle Hall MD Primary Care Provider [phone] Usama Mcelroy MD Unavailable Anne Doran PA-C [...] Oral, Daily, 0 Refill(s) 2 Active glucosam-chondro ue-L-xjpblyjud 500-400-2-0.33 mg Cap glucosamine 500 mg-chondroit 400 [...] Oral, Q12H, 0 Refill(s) 2 Active multivit-min/jessica bsaia fumarate (MULTI VITAMIN ORAL) Multi Vitamin Active [...] Date Nitin rded Speak language other than Bangladeshi at home Not on file 05/27/2023 Want [...] or (1 - 1-dose 75+ series) 2013 Tobacco Cessation Counseling and Screening (12+) 02/16/2024 02/15/2023 Falls Risk Screening 05/13/2024 COVID-19 VACCINE (2024-2 6 season) 2025 02/19/2023, 02/05/2022, 10/05/2021, Additional history exists Influenza Vaccine (#1) 2025 3, 09/28/2022, 02/05/2022, Additional history exists DTAP/TDAP/TD VACCINES (3 - T d or Tdap) 09/17/2030 09/17/2020, 03/06/2016 Shingles Vaccine (Zoster) Completed 2019, 11/27/2019, 12/22/2007 Pneumococcal 50+ years Completed 4, 02/28/2017, 01/25/2015, Additional history exists Insurance MEDICARE PART A B [facility] MCR SUPP FORMERLY [facility] CLAIMS Care Teams Outboard Motor Assembler Relationship Specialty Start Date End Date Krystle Hall MD [address] [address] PCP - General Family Medicine 03/08/22 Usama Mcelroy MD [address] [facility] [address] [place] [address] Medical Oncologist Hematology and Oncology 11/23/22 Anne Doran, PAWilsonC [address] [facility] [address] [place] [address] Physician Manager Long Term Care Oncology 11/23/22
--- OUTSIDE RECORDS SUMMARY | 2025-03-11 14:28 | XMS_ITS | Patient Health Record ---
Author Organization Ben Friedman Address [address] [facility] [address] [place] [address] Care Team Providers Care Lan Specialist Name Role Phone BEN PASCAL Unavailable [phone] Allergies No Known Allergies Results Component Value Reference Range Notes LIPID PANEL WITH RATIOS Reviewed date:04/06/2024 01:23:38 PM Interpretation:Abnormal Performing Lab:[facility], [facility]-[id number], [id number]- [address] DR[address] Jasmyn Noguera Notes/Report: FASTING:NO COLLECTION KIT GIVEN TO PATIENT. PATIENT ADVISED TO RETURN. FASTING: NO CHOLESTEROL, TOTAL 91 <200 mg/dL HDL CHOLESTEROL 31 > OR = 40 mg/dL TRIGLYCERIDES 71 <150 mg/dL LDL-CHOLESTEROL 45 John SS et al. DIANE. 2013;310(19): 9642-8372 (http://education.Patient Feed.com/faq/ERQ555) Reference range: <100 Desirable range <100 mg/dL for primary prevention; <70 mg/dL for patients with CHD or diabetic patients with > or = 2 CHD risk factors. LDL-C is now calculated using the John-Petit calculation, which is a validated novel method providing better accuracy than the Friedewald equation in the estimation of LDL-C. CHOL/HDLC RATIO 2.9 <5.0 (calc) LDL/HDL RATIO [...] L Reviewed date:04/06/2024 01:23:38 PM Interpretation:Abnormal Performing Lab:[facility], [facility]-[id number], [id number]- [address] DR[address] Jasmyn Noguera Notes/Report: FASTING:NO COLLECTION [...] TOTAL Reviewed date:04/06/2024 01:23:38 PM Interpretation:Abnormal Performing Lab:[facility]-[id number], [id number]- [address] DR[address] Jasmyn Noguera Notes/Report: FASTING:NO COLLECTION KIT GIVEN TO PATIENT. PATIENT ADVISED TO RETURN. FASTING: NO IRON, TOTAL 16 50-180 mcg/dL CBC (H/H, RBC, INDICES, WBC, PLT) Reviewed date:04/06/2024 01:23:38 PM Interpretation:Abnormal Performing Lab:[place] [id number], [id number]- [address] DR[address] Jasmyn Noguera Notes/Report: FASTING:NO COLLECTION [...] REFLEX Reviewed date:04/06/2024 01:23:38 PM Interpretation:Abnormal Performing Lab:[facility], [id number]- [address] DR[address] Jasmyn Noguera Notes/Report: SPLIT 04/02/2024 FROM [id number] FASTING:YES FASTING: YES COLOR YELLOW YELLOW APPEARANCE CLEAR CLEAR SPECIFIC [...] A1c Reviewed date:04/06/2024 01:23:38 PM Interpretation:Abnormal Performing Lab:[id number], [id number]- [address] DR[address] Jasmyn Noguera Notes/Report: FASTING:NO COLLECTION [...] NOTE Reviewed date:04/06/2024 01:23:38 PM Interpretation:Abnormal Performing Lab:[place], [id number], [id number]- [address] DR[address] Jasmyn Noguera Notes/Report: SPLIT 04/02/2024 FROM [id number] FASTING:YES FASTING: YES NOTE This urine was [...] Last Name DENAE Referring Provider Speciality [facility] ctice Referred Provider Specialty Cardiology General Notes Referral has been fa xed to [facility] with a message to [...] tablet Oral ly Once a day Active Fplrsaq-Wceqwl-Pr Chondr-MSM Not-Taking Clopidogrel Bisulfate 75 MG 1 [...] W/U Status Risk Notes Problem Essential hypertension (17054592) Essential (primary) hypertension (I10) Active confirmed 03/27/2023:::::: ::::: BP elevated today, off Maxide 2/ to HypoNatremia, will monitor at home 04/01/24 he is on bumex and sprironolactone Problem Paroxysmal atrial fibrillation (352633789) Paroxysmal atrial fibrillation (I48.0) Active confirmed 03/27/2023:::::: ::::: In AFib today, encouraged to restart Eliquis he stopped several weeks prior and follow-up with Cardio. 04/01/24 they bring in no records other than his med and vaccine list. he should probably be on eliqus but had a history of sig bleeding he needs a local cold roll operator. Problem Lower urinary tract symptoms due to benign prostatic hypertrophy (30708805792169) Benign prostatic hyperplasia with lower urinary tract symptoms (N40.1) Active confirmed this is better with tamsulosin Problem COPD - Chronic obstructive pulmonary disease (08073831) Chronic obstructive pulmonary disease, unspecified COPD type (J44.9) Active confirmed 03/27/2023:::::: ::::: Denies any new CP/SOB Problem Malignant tumor of urinary bladder (161508156) Malignant neoplasm of urinary bladder, unspecified site (C67.9) Active confirmed he is followed by urology in [place] 04/11/24 he has been having cystoscopy every 6 months with no recurrance Problem Ataxia (22357404) 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) Active confirmed he is isidoro g to therapy Problem Restless legs (19720531) RLS (restless legs syndrome) (G25.81) Active confirmed Problem Anemia (930676852) Anemia, unspecified type (D64.9) Active confirmed 03/27/2023:::::: ::::: Labs ordered 04/01/24 will get labs Problem Leukocytosis (830625842) Leukocytosis, unspecified type (D72.829) Active confirmed will recheck ?from pneumonia Problem Personal history of primary malignant neoplasm of urinary bladder (678272002) History of bladder cancer (Z85.51) Active confirmed he has an urologist in [place] Problem History of placement of stent for coronary artery disease (situation) (060546778) S/P coronary artery stent placement (Z95.5) Active confirmed summer 2023 wit h 4 stents Problem Hypercoagulable state (17195815) Secondary hypercoagulable state (D68.69) Active confirmed from atrial f ib on eliquis Problem Atherosclerotic heart disease of [place] coronary artery without angina pectoris (474785921448696 ) 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 04/01/2024 Anemia, unspecified type (ICD-10 - D64.9) [...] C67.9) he is followed by urology in [place] 04/11/24 he has been having cystoscopy every [...] Name:BEN PASCAL, 03/29/2025 03:30:00 PM, [address] [facility], [place], [address], Insurance Providers Payer Name Payer Address Payer Phone Subscriber Number Group Number Insured Name Patient Relationship to Insured Coverage Start Date Coverage End Date Medicare [place] [employer] [address] [place] [phone] [id number] Wolf Mckeon Self - patient is the insured [facility] Supplemental [address] [place] [address] [id number] Mckeon Wolf Self - patient is the insured Medical (General) History Medical History History ICD Code Tinnitus, unspecified ear H93.19 COPD (chronic obstructive pulmonary dise ase) J44.9 AFib Hx of Bladder Ca HTN Hx HypoNatremia Surgical History Surgery Date(Month/Year) Gallbladder removed appendectomy tonsillectomy
--- OUTSIDE RECORDS SUMMARY | 2025-03-11 14:28 | XMS_ITS | Encounter Summary ---
[facility] Address [address] [place] [address] Care Team Providers Care Heel Stainer Name Role Phone Krystle Hall MD Primary Care Provider + Encounter Details Date Type Department Care Team (Late st Contact Info) Description 02/24/2025 Telephone [facility] DE[facility] [address] [place] [address] Navigator, Lung Social History Tobacco [...] * Telephone Encounter - Trey, Lung - 02/24/2025 11:51 AM EDT Patient Call Reason for call: Overdue Outcome of call: Broadcast call made Additional Notes: Automated Message Reminder documented in this encounter Plan of Treatment Not on file documented as of this encounter Visit Diagnoses Not on filedocumented in this encounter Care Teams Heel Stainer Relationship Specialty Start Date End Date Krystle Hall MD [address] [place] [address] PCP - General Family Medicine 10/17/22 documented as of this encounter
--- OUTSIDE RECORDS SUMMARY | 2025-03-11 14:28 | XMS_ITS | Patient Health Record ---
Author Organization [facility] Address [address] [place] [address] Care Team Providers Care Blasting Machine Operator Name Role Phone Krystle Hall Primary Care Provider Jenni Porras MD, Dr. MEJÍA Unavailable [phone] Usama Mcelroy Unavailable Unavailable Allergies Allergen (clinical drug ingredient) Drug/Non Drug Allergy documented on EMR Reaction Allergy Type Onset Date Status prochlorperazine Prochlorperazine Unknown Drug Allergy Active Reason For Referral No Information Medications Medication SIG (Take, Route, Frequency, Duration) Notes Start Date End Date Status Eliquis 2.5 MG as directed Orally Active Trelegy Ellipta 200-62.5-25 MCG/ACT 1 puff Inhalation Once a day Active Glucosamine 500 MG 1 capsule with a janie l Orally Three times a day Active Mucinex 600 MG 1 tablet as needed Orally every 12 hrs Active FiberCon 625 MG 2 tablets as needed Orally Three times a day Active Epidiolex 100 MG/ML as directed Orally Not-Taking Cholecalciferol 25 MCG (1000 UT) 1 capsule Orally Once a day Not-Taking Diclofenac Sodium 1 % as directed Externally Not-Taking Montelukast Sodium 10 MG 1 tablet Orally Once a day Active Breo Ellipta 200-25 MCG/ACT 1 puff Inhal ation Once a day Not-Taking Fluticasone Propionate (Inhal) 50 MCG/ACT 1 puff Inhalation Twice a day Not-Taking Vitamin D High Potency 25 MCG (1000 UT) 1 capsule Orally Once a day Active Chondroitin Sulfate 400 MG as directed Orally Not-Taking Lactobacillus Probiotic - as directed Orally Not-Taking Albuterol Sulfate HFA 108 (90 Base) MCG/ACT 1 puff as needed Inhalation every 4 hrs Active Social History Tobacco Use: Social History Observation Description Date Details (start date - stop date) Never Smoker NA - NA Tobacco Use/Smoking Question Answer Notes Status: nonsmoker Problems Problem Type SNOMED Code ICD Code Onset Dates Problem Status W/U Status Risk Notes Problem Hypertension (61146273) HTN (hypertension) (I10) Active confirmed blood pressure is well controlled at home, I will discontinue the metoprolol considering his high risk of falling and his history of bronchial asthma and COPD. If needed we will use Robert inhibitors for blood pressure control in the future. Problem Benign prostatic hyperplasia (335627561) BPH (benign prostatic hyperplasia) (N40.0) Active confirmed Problem Restless legs (08050472) Restless leg (G25.81) Active confirmed I will check the iron studies to rule out iron deficiency as a cause of this problem.hold or discontinue pramipexole until he is seen by neurology service. Problem Malignant tumor of urinary bladder (643326694) Malignant neoplasm of urinary bladder, unspecified site (C67.9) Active confirmed Problem History of cancer (585529117) History of cancer (Z85.9) Active confirmed Problem Abnormal gait (77592687) Balance disorder (R26.89) Active confirmed he has an appointment with neurology later next month. I will discontinue metoprolol at this point. I will discontinue tamsulosin and advised him to restart it again if he has lower urinary tract obstructive symptoms.Will discontinue pramipexole for now. Plan Of Treatment Future Test Test Name Order Date Uric Acid, Serum 01/07/2023 Vitamin D, 25 -hydroxy 01/07/2023 .spot urine for creatinine 01/07/2023 .spot urine for protein 01/07/2023 IRON, TIBC AND FERRITIN PANEL 01/07/2023 RENAL FUNCTION PANEL 01/07/2023 URINALYSIS COMPLETE 01/07/2023 CBC W AUTOMATED DIFFERENTIAL 01/07/2023 Insurance Providers Payer Name Payer Address Payer Phone Subscriber Number Group Number Insured Name Patient Relationship to Insured Coverage Start Date Coverage End [place] [address] [place] [phone] [id number] Wolf Mckeon Self - patient is the insured [facility] [address] [address] [place] [id number] Wolf Mckeon Self - patient is the insured Medical (General) History Medical History History ICD Code RLS (restless legs syndrome) G25.81 BPH (benign prostatic hyperplasia) N40.0 Hypertension I10 Malignant neoplasm of urinary bladder, u nspecified site C67.9 History of cancer Z85.9 Surgical History Surgery Date(Month/Year) appendix gallbladder bladder tumor removal
--- OUTSIDE RECORDS SUMMARY | 2025-03-11 14:28 | XMS_ITS | Referral Summary ---
Author Organization [facility] ([place], [place], [place], [place]) Address [address] [place] [address] Care Team Providers Care Station Manager Name Role Phone Krystle Hall MD Primary Care Provider [phone] Usama Mcelroy MD Unavailable Anne Doran PA-C [...] Oral, Daily, 0 Refill(s) 2 Active glucosam-chondro po-R-gzeoqkpin 500-400-2-0.33 mg Cap glucosamine 500 mg-chondroit 400 [...] on file Insurance MEDICARE PART A B [facility] MCR SUPP [facility] Care Teams Station Manager Relationship Specialty Start Date End Date Krystle Hall MD [address] [address] PCP - General Family Medicine 03/08/22 Usama Mcelroy MD [address] [facility] [address] [place] [address] Medical Oncologist Hematology and Oncology 11/23/22 Anne Doran, PA-C [address] [facility] [address] [place] [address] Physician [address] Mate Oncology 11/23/22
--- OUTSIDE RECORDS SUMMARY | 2025-03-11 14:28 | XMS_ITS | Encounter Summary ---
[facility] Organization [facility] Address [address] [place] [address] Care Team Providers Care Environmental Marketer Name Role Phone Krystle Hall MD Primary Care Provider + Encounter Details Date Type Department Care Team (Late st Contact Info) Description 03/01/2025 Telephone [facility] DEPT [address] [place] [address] Navigator, Lung Social History Tobacco [...] encounter Miscellaneous Notes * Telephone Encounter - Candelaria Yang - 03/01/2025 10:03 AM EDT Patient Call Reason for call: Overdue Outcome of call: Returned Call Additional Notes: Pt called and lvm with phone number. Called back pt, he stated is getting all hisexams done at another facility which is best for him, and requested to be removed from our program.Will D/C asp file as pt is following up care elsewhere. RR documented in this encounter Plan of Treatment Not on file documented as of this encounter Visit Diagnoses Not on filedocumented in this encounter Care Teams Environmental Marketer Relationship Specialty Start Date End Date Krystle Hall MD [address] [place] [address] PCP - General Family Medicine 10/17/22 documented as of this encounter
--- OUTSIDE RECORDS SUMMARY | 2025-03-11 14:28 | XMS_ITS | Clinical Summary ---
Author Organization [facility] Address [address] [place] [address] Care Team Providers Care Asset Protection Greeter Name Role Phone Krystle Hall MD Primary [...] Encounters Date Type Department Care Team Description 03/01/2025 Telephone [facility] DE[facility] [address] [place] [address] Navigator, Lung 02/24/2025 Telephone [facility] DE[facility] [address] [place] [address] Navigator, Lung 01/27/2025 Telephone [facility] [address] [place] [address] Navigator, Lung 01/05/2025 [facility] [address] [place] [address] Navigator, Lung from Last 3 [...] 01/2023 Potentially Unsafe Housing Conditions Not on kesli e 02/18/2023 Family and Community Support Answer [...] WELLNESS VISIT 10/17/2022 LIPID PANEL 05/26/2023 05/26/2022 INFLUENZA VACCINE 12/11/2024 02/04/2024, , 09/28/2022, Additional history exists COVID-19 Vaccine (2024- 6 season) 2025 02/18/2023, 02/05/2022, 10/05/2021, Additional history exists TDAP/TD VACCINES (3 - Td or Tdap) 09/17/2030 021, 03/06/2016 ZOSTER VACCINE Completed 01/26/2020, 11/10, 12/22/2007 RSV Vaccine - Adults Completed 02/18/2023 Pneumococcal Vaccine 50+ Completed 024, 02/28/2017, 01/25/2015, Additional history exists Insurance [employer] MEDICARE A & B Care Teams Asset Protection Greeter Relationship Specialty Start Date End Date Krystle Hall MD [address] [phone] PCP - General Family Medicine 10/17/22
--- OUTSIDE RECORDS SUMMARY | 2025-03-11 14:29 | XMS_ITS | Encounter Summary ---
Author Organization [email or web address] ([place], [place], [place], [place]) Address [address] [place] [address] Care Team Providers Care Brick Chimney Supervisor Name Role Phone Krystle Hall MD Primary Care Provider [phone] Unavailable Unavailable Usama Mcelroy MD Unavailable Siomara Pederson RN Unavailable Unavailable Lauren Douglass RN Unavailable Unavailable Anne Doran PA-C Unavailable [phone] Encounter Details Date Type Department Care Team (Late st Contact Info) Description 03/06/2022 Outside Orders [facility] Central Scheduling [address] [place] [phone] Nathan Holden MD [address] [place] [address] Lumbar radiculopathy (Primary Dx) Social History Tobacco [...] unspecified documented in this encounter Care Teams Brick Chimney Supervisor Relationship Specialty Start Date End Date Krystle Hall MD [address] [address] PCP - General Family Medicine 03/08/22 Leola Manuel, HAILEY Dietitian Nutrition 07/11/22 02/14/23 Usama Mcelroy MD [address] [facility] [address] [place] [address] Medical Oncologist Hematology and Oncology 11/23/22 Siomara Pederson, RN Nurse Navigator Oncology 11/23/22 02/14/23 Lauren Douglass, RN Registered Nurse Oncology 11/23/22 02/14/23 Anne Doran, PAWilsonC [address] [address] Physician Observation Nurse Oncology 11/23/22 documented as of this encounter
--- OUTSIDE RECORDS SUMMARY | 2025-03-11 14:29 | XMS_ITS | Encounter Summary ---
[facility] Address [address] [place] [address] Care Team Providers Care Electronics Engineering Technician Name Role Phone Krystle Hall MD Primary Care Provider + Encounter Details Date Type Department Care Team (Late st Contact Info) Description 01/05/2025 Telephone [facility] DEPT [address] [place] [address] Navigator, Lung Social History Tobacco [...] on filedocumented in this encounter Care Teams Electronics Engineering Technician Relationship Specialty Start Date End Date Krystle Hall MD [address] [place] [address] PCP - General Family Medicine 10/17/22 documented as of this encounter
== END 2025-03-11 23:59 | disposition home or self-care (01) ==
LOC: LAB 14:23
PROVIDERS: PCP Radiology Diagnostic Radiology; Visit Provider Internal Medicine Pulmonary Disease
DX: R06.09 Other forms of dyspnea (principal)
CPT/HCPCS: 87101; 87116; 87186